=== PATIENT | male | born 1940 | race Two or more races ===

== ENCOUNTER → 2020-03-14 | Outpatient (POV) | payer OTHER, MEDICARE, MEDICAID ==
--- NOTE | 2020-03-16 10:23 | IRCOV ---
[facility] IR Consult Office Visit IR Consult Office Visit DATE: Mar 14, 2020 Patient agreed to this telephone consultation. I spent 30 minutes reviewing patient's records and talking to the patient. REASON FOR CONSULTATION/CHIEF COMPLAINT: Left kidney stone. HISTORY OF PRESENT ILLNESS: 79-year-old male recently admitted to [facility] for septic shock related to Pseudomonas UTI and obstructing left ureteral stone. This was treated with a left nephrostomy catheter. 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 He was due to be discharged from rehabilitation when he was noted to have increasing weakness and worsening renal function. He was then evaluated and transferred from [facility] to [facility] for [facility] shock in January 2020. At that time he was noted to have leukocytosis, positive urinalysis, blood cultures growing Pseudomonas at outside facility, left-sided hydronephrosis and hypotension. He required vasopressors. He was treated with a left nephrostomy catheter. Reports state, he had a CT scan scan which demonstrated significant stone burden in the left renal pelvis and left mid ureter. Patient presents to establish care for his nephrostomy exchanges and would like to seek care close to home for his stone treatment. He is currently in ehabilitation and due to be discharged home to his family. ALLERGIES: Please see below. HOME MEDICATIONS: Please see below. PAST MEDICAL HISTORY: Chronic kidney disease Diabetes Stroke Left-sided hemiplegia Subdural hemorrhage Atrial fibrillation PAST SURGICAL HISTORY: Craniotomy FAMILY HISTORY: Noncontributory. SOCIAL HISTORY: Nonsmoker. Denies alcohol or drugs. REVIEW OF SYSTEMS: Otherwise negative. PHYSICAL EXAMINATION: No video on patient side. LABORATORY DATA: No recent labs in our system. Labs from [facility] at time of septic shock reviewed. Imaging: No imaging in our system. ASSESSMENT/PLAN: 79-year-old male with history septic shock related to Pseudomonas UTI and obstructing left ureteral stone, treated with left nephrostomy catheter, presents to establish care for his nephrostomy exchanges. We will request the imaging from [facility] to be loaded into our PACS system. I have scheduled the patient for his next nephrostomy exchange. I will refer the patient to [facility] urology for stone treatment. Thank you for this referral. CC TELMA Noriega MD Mar 16, 2020 10:23
== END ==
LOC: M TMIRPOV 14:28
PROVIDERS: ATTEND Radiology Diagnostic Radiology
DX: N20.1 Calculus of ureter (principal); N18.9 Chronic kidney disease, unspecified; E11.22 Type 2 diabetes mellitus with diabetic chronic kidney disease; I69.954 Hemiplegia and hemiparesis following unspecified cerebrovascular disease affecting left non-dominant side; I48.91 Unspecified atrial fibrillation

== ENCOUNTER → 2020-04-20 | Outpatient (CLI) | payer OTHER, MEDICARE, MEDICAID ==
[~2020-04-20] MED LIST: ACET1TAB55 PO; ATOR1TAB19 PO; BISA10SU27 PR; CALC1TAB42 PO; D3 +TAB PO; ESSE250T PO; FINA5TAB2 PO; FLEEENE12 PR; FLUO1CRE2 TOP; GABA-282 PO; GENT1SOL16 OP; ISOVUE-300 61% 50ML VIAL As Ordered ONE; LEXA5TAB13 PO; LIDOCAINE 1% MDV 20ML VIAL As Ordered ONE; MELA3TAB49 PO; METF-838 PO; MIDAZOLAM INJ 2MG/2ML VIAL (J2250 PER 1MG) As Ordered ONE; MILKSUS3 PO; MULTTAB57 PO; POTA1TAB14 PO; SENN8.6T58 PO; VITA500C24 PO; WARF-23 PO; ZINC220CA PO; ceFAZolin 1GM VIAL (J0690 PER 500MG) As Ordered ONE; diphenhydrAMINE 50MG/ML VIAL (J1200) As Ordered ONE; fentaNYL 100 MCG/2 ML INJECTION (J3010) As Ordered ONE
[2020-04-20 08:26] LABS: HEMATOCRIT 40.9 % (42.0-52.0); HEMOGLOBIN 13.1 g/dl (13.5-17.5); MEAN CORPUSCULAR HEMOGLOBIN 30.8 pg (27.0-33.0); PLATELET COUNT, AUTOMATED 211 10^3/uL (150-450); RED BLOOD COUNT 4.26 10^6/uL (4.30-6.10); WHITE BLOOD COUNT 11.8 10^3/uL (4.0-10.0)
[2020-04-20 08:39] LABS: INR 3.47; PROTHROMBIN TIME 35.7 SECONDS (12.5-14.3)
[2020-04-20 08:51] LABS: CALCIUM LEVEL 8.3 MG/DL (8.8-10.2); CREATININE FOR GFR 1.41 MG/DL (0.70-1.30); GLOMERULAR FILTRATION RATE 51.6 (>42)
--- NOTE | 2020-04-20 09:04 | IRHP ---
[facility] IR Pre-Procedure H & P General Date of Service: Apr 20, 2020 Procedure: Same Day Surgery Interval History and Physical I have seen the patient and reviewed last H & P performed within 30 days. There is no significant interval change. History of Present Illness Chief Complaint The patient is a 79-year-old male admitted with a reason for visit of Kidney Stone. PRE-PROCEDURE DIAGNOSIS: left nephrostomy exchange HEART: normal rate. LUNGS: normal breathing at rest. ASA Classification ASA Classification: III-Severe systemic dis. Mallampati Score: II NPO: Yes Problems with prior sedation: No Obstructive Sleep Apnea: No Plan moderate sedation Allergies Coded Allergies: No Known Drug Allergies (Verified Allergy, Unknown, 04/20/20) VS, I&O, 24H, Fishbone Vital Signs/I&O Vital Signs Date Time Temp Pulse Resp B/P (MAP) Pulse Ox O2 Delivery O2 Flow Rate FiO2 04/20/20 08:50 56 20 100 Nasal Cannula 2 04/20/20 08:01 97.6 Laboratory Data 24H LABS Laboratory Tests 2 04/20/20 08:07: Nucleated Red Blood Cells % (auto) 0.0, Prothrombin Time 35.7H, Prothromb Time International Ratio 3.47, Anion Gap 8, Glomerular Filtration Rate 51.6, Calcium Level 8.3L CBC/BMP Laboratory Tests 04/20/20 08:07 TELMA ORTIZ MD Apr 20, 2020 09:04
[2020-04-20 11:35] VITALS: BP 102/57
--- NOTE | 2020-04-21 10:24 | POST-OPPD ---
Postoperative Procedure Note Date Of Procedure: Apr 20, 2020 Time Of Procedure: 16:00 IR Nephrostomy catheter exchange. IR Nephrostogram and ureterogram. Clinical information: Left-sided kidney stone. Nephrostomy placed at outside hospital. Presents for routine exchange. Physician: Dr. Qureshi. Procedure: The patient was advised of the benefits, risks and alternatives of the procedure and informed consent was obtained. The time-out was performed with verification of the patient's name, MRN, site of procedure and type of procedure to be performed. The patient was positioned in the prone position on the angiographic table. The site was prepped and draped in the usual sterile fashion. Moderate sedation was performed by the physician including the presence of an independent trained RN who assisted and monitored the patient's level of consciousness and physiologic status. Following the administration of fentanyl and Versed , the physician spent 30 minutes of continuous face to face time with the patient. A sales representative jewelry radiograph reveals a left nephrostomy catheter in expected location. 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 The catheter pigtail is located in the upper pole moiety. Ureterogram demonstrates stenosis in the proximal ureter with poststenotic dilation. There are 2 filling defects, one in the upper third and 1 mid ureter. The catheter was cut, an Amplatz wire was passed into the renal collecting system. The preexisting nephrostomy catheter was removed over the wire. A new 10-Russian nephrostomy catheter was advanced into the renal collecting system. A final nephrostogram and ureterogram was performed confirming position of the pigtail in the upper pole moiety. Ureterogram demonstrates, the ureter is patent to the bladder. The catheter was secured in position with 2-0 Prolene and a sterile dressing was applied to the site. The catheter was placed gravity drainage. The patient tolerated the procedure well and was returned to the PRU in stable condition. EBL: Less than 5 ml. Complications: None. Conclusion: 1. Nephrostogram and ureterogram performed through nephrostomy catheter placed at outside hospital, demonstrates duplicated renal collecting system. The pigtail is located in the upper pole moiety. 2. 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 3. The ureter is patent to the bladder. 4. Successful left nephrostomy catheter exchange. Catheter may be removed at time of kidney stone removal procedure. Otherwise, patient to return in 12 weeks for routine catheter exchange. Thank you this referral. Cc TELMA Noriega MD Apr 21, 2020 10:23
== END ==
LOC: M IRPRO 07:30
PROVIDERS: ATTEND Radiology Diagnostic Radiology
DX: N20.0 Calculus of kidney (principal); Z79.01 Long term (current) use of anticoagulants
CPT/HCPCS: 36415; 50435; 80048; 85027; 85610; 99152; 99153; C1729; C1769; J0690; J2250; J3010; Q9967

== ENCOUNTER → 2020-06-07 | Outpatient (REF) | payer OTHER, MEDICARE, MEDICAID ==
[~2020-06-07] MED LIST changes: +ACET-683 PO; +ALLO10TA PO; +AMOX500C PO; +BACI1CAP PO; +CALC1TAB74 PO; +ENOX100I3 SC; -ISOVUE-300 61% 50ML VIAL As Ordered ONE; -LIDOCAINE 1% MDV 20ML VIAL As Ordered ONE; +LOVE1INJ SC; +MELA3TAB30 PO; +METF500T13 PO; -MIDAZOLAM INJ 2MG/2ML VIAL (J2250 PER 1MG) As Ordered ONE; +POLYOPD OU; +SODI325T9 PO; +WARF-22 PO; +ZYLO300T6 PO; -ceFAZolin 1GM VIAL (J0690 PER 500MG) As Ordered ONE; -diphenhydrAMINE 50MG/ML VIAL (J1200) As Ordered ONE; -fentaNYL 100 MCG/2 ML INJECTION (J3010) As Ordered ONE
[2020-06-07 14:07] LABS: APPEARANCE, URINE CLEAR (CLEAR); BACTERIA, URINE AUTO NEGATIVE (NEGATIVE); BILIRUBIN, URINE AUTO NEGATIVE (NEGATIVE); BLOOD, URINE BLOOD 2+ (NEGATIVE); COLOR, URINE STRAW (YELLOW); GLUCOSE, URINE (UA) AUTO 1+ mg/dL (NEGATIVE); KETONE, URINE AUTO NEGATIVE (NEGATIVE); LEUKOCYTE ESTERASE, URINE AUTO 3+ (NEGATIVE); MUCUS, URINE SMALL (NEGATIVE); NITRITE, URINE AUTO NEGATIVE (NEGATIVE); PROTEIN, URINE AUTO 2+ mg/dL (NEGATIVE); RBC, URINE AUTO 18 /HPF (0-3); SPECIFIC GRAVITY URINE AUTO 1.009 (1.002-1.035); SQUAMOUS EPITHELIAL CELL UR AU 0 /HPF (0-6); UROBILINOGEN, URINE AUTO 0.2 mg/dL (0.0-2.0); WBC, URINE AUTO 26 /HPF (0-3)
== END ==
LOC: M SMT 13:42
PROVIDERS: ATTEND Nurse Practitioner Women's Health
DX: Z01.818 Encounter for other preprocedural examination (principal); N20.0 Calculus of kidney
CPT/HCPCS: 81001; 87088; 87186; G0463

== ENCOUNTER → 2020-06-13 | Outpatient (REF) | payer OTHER, MEDICARE, MEDICAID ==
[~2020-06-13] MED LIST changes: -ACET-683 PO; -ALLO10TA PO; -AMOX500C PO; -BACI1CAP PO; -CALC1TAB74 PO; -ENOX100I3 SC; -LOVE1INJ SC; -MELA3TAB30 PO; -METF500T13 PO; -POLYOPD OU; -SODI325T9 PO; -WARF-22 PO; -ZYLO300T6 PO
[2020-06-13 13:15] LABS: HEMOGLOBIN 11.6 g/dl (13.5-17.5); MEAN CORPUSCULAR HEMOGLOBIN 33.6 pg (27.0-33.0); MEAN CORPUSCULAR HGB CONC 32.2 g/dl (32.0-36.5); MEAN CORPUSCULAR VOLUME 104.3 fl (80.0-96.0); PLATELET COUNT, AUTOMATED 257 10^3/uL (150-450); RED BLOOD COUNT 3.45 10^6/uL (4.30-6.10); WHITE BLOOD COUNT 6.6 10^3/uL (4.0-10.0)
[2020-06-13 13:30] LABS: INR 1.18; PARTIAL THROMBOPLASTIN TIME 30.7 SECONDS (24.2-38.5); PROTHROMBIN TIME 15.2 SECONDS (12.5-14.3)
[2020-06-13 13:55] LABS: CALCIUM LEVEL 9.8 MG/DL (8.8-10.2); CREATININE FOR GFR 1.67 MG/DL (0.70-1.30); GLOMERULAR FILTRATION RATE 42.4 (>35); POTASSIUM SERUM 3.8 MEQ/L (3.5-5.1)
== END ==
LOC: M SHH 12:56 → M SMT 12:56
PROVIDERS: ATTEND Nurse Practitioner Women's Health
DX: Z01.818 Encounter for other preprocedural examination (principal); N20.0 Calculus of kidney; Z79.01 Long term (current) use of anticoagulants

== ENCOUNTER → 2020-06-25 | Outpatient (CLI) | payer OTHER, MEDICARE, MEDICAID ==
[~2020-06-25] MED LIST changes: +ALLO10TA PO; +LOVE1INJ SC
== END ==
LOC: M LABSMTC 08:24
PROVIDERS: ATTEND Anesthesiology
DX: Z01.812 Encounter for preprocedural laboratory examination (principal); Z20.828 Contact with and (suspected) exposure to other viral communicable diseases

== ENCOUNTER → 2020-06-26 | Outpatient (REF) | payer OTHER, MEDICARE, MEDICAID ==
[2020-06-26 14:06] LABS: BASO # 0.1 10^3/uL (0.0-0.2); BASO % 1.1 % (0.0-1.0); EOS # 0.2 10^3/uL (0.0-0.5); EOS % 2.7 % (0.0-3.0); HEMATOCRIT 37.5 % (42.0-52.0); HEMOGLOBIN 12.1 g/dl (13.5-17.5); LYMPH % 44.6 % (24.0-44.0); MEAN CORPUSCULAR HEMOGLOBIN 33.6 pg (27.0-33.0); MEAN CORPUSCULAR HGB CONC 32.3 g/dl (32.0-36.5); MEAN CORPUSCULAR VOLUME 104.2 fl (80.0-96.0); MONO # 0.6 10^3/uL (0.0-0.8); MONO % 9.6 % (2.0-8.0); NEUTROPHILS # 2.8 10^3/uL (1.5-8.5); NEUTROPHILS % 41.7 % (36.0-66.0); PLATELET COUNT, AUTOMATED 210 10^3/uL (150-450); WHITE BLOOD COUNT 6.7 10^3/uL (4.0-10.0)
[2020-06-26 14:07] LABS: APPEARANCE, URINE CLEAR (CLEAR); BACTERIA, URINE AUTO 1+ (NEGATIVE); BILIRUBIN, URINE AUTO NEGATIVE (NEGATIVE); BLOOD, URINE BLOOD 2+ (NEGATIVE); COLOR, URINE YELLOW (YELLOW); GLUCOSE, URINE (UA) AUTO NEGATIVE (NEGATIVE); KETONE, URINE AUTO NEGATIVE (NEGATIVE); LEUKOCYTE ESTERASE, URINE AUTO TRACE (NEGATIVE); MUCUS, URINE SMALL (NEGATIVE); NITRITE, URINE AUTO NEGATIVE (NEGATIVE); PROTEIN, URINE AUTO 1+ mg/dL (NEGATIVE); RBC, URINE AUTO 63 /HPF (0-3); SPECIFIC GRAVITY URINE AUTO 1.008 (1.002-1.035); SQUAMOUS EPITHELIAL CELL UR AU 1 /HPF (0-6); UROBILINOGEN, URINE AUTO 0.2 mg/dL (0.0-2.0); WBC, URINE AUTO 9 /HPF (0-3)
[2020-06-26 14:14] LABS: INR 1.29; PROTHROMBIN TIME 16.4 SECONDS (12.5-14.3)
[2020-06-26 14:15] LABS: PARTIAL THROMBOPLASTIN TIME 42.8 SECONDS (24.2-38.5)
[2020-06-26 14:26] LABS: HEMOGLOBIN A1c 5.7 %
[2020-06-26 17:03] LABS: CREATININE, URINE 29.5 MG/DL; MAU/CREAT RATIO 823.7 MCG/MG (0.0-30.0)
[2020-06-26 17:07] LABS: ALBUMIN 3.4 GM/DL (3.2-5.2); BILIRUBIN,TOTAL 0.3 MG/DL (0.2-1.0); CALCIUM LEVEL 9.6 MG/DL (8.8-10.2); CHOLESTEROL RISK RATIO 3.926 (<5); CREATININE FOR GFR 1.63 MG/DL (0.70-1.30); GLOMERULAR FILTRATION RATE 43.6 (>35); POTASSIUM SERUM 4.3 MEQ/L (3.5-5.1); THYROID STIMULATING HORMONE 0.621 uIU/ML (0.358-3.740); TOTAL PROTEIN 6.5 GM/DL (6.4-8.2); URIC ACID 5.3 MG/DL (3.5-7.2)
[2020-06-27 23:12] LABS: PSA TOTAL <0.1 ng/mL (0.0-4.0)
== END ==
LOC: M SHH 13:34
PROVIDERS: ATTEND Family Medicine
DX: I48.91 Unspecified atrial fibrillation (principal); E11.9 Type 2 diabetes mellitus without complications; N18.30 Chronic kidney disease, stage 3 unspecified; I63.9 Cerebral infarction, unspecified; I10 Essential (primary) hypertension; R22.42 Localized swelling, mass and lump, left lower limb

== ENCOUNTER 2020-06-30 07:28 | Day surgery (SDC) | payer OTHER, MEDICAID ==
[~2020-06-30] VITALS: Ht 175.3 cm; Wt 104.3 kg
[~2020-06-30 07:28] MED LIST changes: +ACETAMINOPHEN 1000MG 100ML IV BTL (OFIRMEV) (J0131 PER 10MG) As Ordered ONE; +LIDOCAINE 1% MDV 20ML VIAL SQ PRN; +LIDOCAINE 2% 100MG/5ML SDV (FOR ANES.) As Ordered ONE; +LR 1,000 ML IV ONE; +ONDANSETRON 4MG/2ML VIAL As Ordered ONE; +PHENYLephrine 500MCG 5ML (100MCG/ML) SYRINGE As Ordered ONE; +ceFAZolin SOD 2 GM in IV 1 EA IV ONE; +dexameTHASONE 4 MG/ML 1ML VIAL (J1100 PER 1MG) As Ordered ONE; +ePHEDrine SULFATE 25 MG/5 ML(5MG/ML) SYRINGE As Ordered ONE; +propofoL 200 MG/20 ML VIAL As Ordered ONE
[2020-06-30 08:47] LABS: INR 0.99; PROTHROMBIN TIME 13.3 SECONDS (12.5-14.3)
[2020-06-30] MEDS ORDERED: CONRAY-60 60% 50ML VIAL (Q9961) As Ordered ONE (09:00)
[2020-06-30 09:10] LABS: PARTIAL THROMBOPLASTIN TIME 31.7 SECONDS (24.2-38.5)
[2020-06-30] MEDS ORDERED: ONDANSETRON 4MG/2ML VIAL IV PRN (11:05)
[2020-06-30] MEDS ORDERED: fentaNYL 100 MCG/2 ML INJECTION (J3010) IV PRN (11:05)
[2020-06-30] MEDS ORDERED: PERCOCET 5MG/325MG TAB PO PRN ×2 (11:05→11:10)
[2020-06-30] MEDS ORDERED: LR 1,000 ML IV SCH (11:05)
[2020-06-30] MEDS ORDERED: METOCLOPRAMIDE INJ 10MG/2ML VIAL (J2765 PER 1) IV PRN (11:05)
--- NOTE | 2020-06-30 11:33 | REP ---
INDICATION: BILATERAL STENT PLACEMENT. COMPARISON: Comparison CT study findings 29 January 2020.. TECHNIQUE: Four views 1 minutes 39 seconds of fluoroscopy time is reported. FINDINGS: A sequence of 4 last image hold fluoroscopically obtained spot radiographs of the abdomen document bilateral ureteral cannulation and contrast injection and double-pigtail stent placement. Initial image demonstrates a left-sided percutaneous nephrostomy catheter which is apparently removed during the procedure. IMPRESSION: Procedural imaging. <Electronically signed by Charlie Odonnell > 06/30/20 [id number]
--- NOTE | 2020-06-30 11:39 | RO ---
OPERATIVE NOTE DATE OF OPERATION: 06/30/2020 PREOPERATIVE DIAGNOSIS: Bilateral kidney and ureteral stones. POSTOPERATIVE DIAGNOSIS: Bilateral kidney and ureteral stones. PROCEDURE: Cystoscopy, bilateral ureteroscopy with laser lithotripsy and basket extraction of stones, bilateral retrograde pyelogram with intraop interpretation of images, bilateral ureteral stent placement. SURGEON: Kunal Underwood MD CEILING CLEANER: None. ANESTHESIA: General. OPERATIVE INDICATIONS: This is an 80-year-old male who was found to have an obstructing 1.5 cm distal left ureteral stone several months ago as well as non-obstructing bilateral kidney stones. He had a left nephrostomy tube placed and has had that in place since then. He is brought to the operating room today to treat his bilateral kidney and ureteral stones. DESCRIPTION OF PROCEDURE: The patient was brought to the operating room and general anesthesia was induced. Prophylactic antibiotics were infused. He was then placed in the dorsal lithotomy position and prepped and draped in usual sterile fashion. Rigid cystoscope was inserted in urethral meatus and advanced to the bladder. Guidewire was then advanced up the right collecting system . Ureteral access sheath was advanced up the right collecting system. I went up the access with a flexible ureteroscope and within the right kidney an approximately 7 mm stone was seen. I then utilized an Excalibur laser fiber to fragment the stone into smaller pieces. All the fragments were then removed using a basket. Only tiny stone fragments remained. A retrograde pyelogram was then performed and notable for mild right hydronephrosis with no extravasation. I then withdrew the ureteroscope along with access and no stones were seen inside the ureter. I then utilized the guidewire to advance 6-Malawian x 22-32 cm JJ ureteral stent into the right collecting system. At this point I advanced a guidewire up the collecting system. I went up the left collecting system with a short semi-rigid ureteroscope and within the distal ureter two stones were seen. Both measured around 1.5 cm. both these stones were fragmented into smaller pieces using the Excalibur laser fiber and all the fragments were removed using basket. Only tiny stone fragments remained inside the ureter. I examined the more proximal ureter and no additional stones were seen. I then advanced ureteral access up the left collecting system. I went up the access sheath with flexible ureteroscope and examined the left kidney thoroughly. No stones were seen inside the left kidney. The nephrostomy tube was seen. At this point the nephrostomy tube was removed completely. A retrograde pyelogram was then performed and was notable for moderate left hydronephrosis with no extravasation. I then withdrew the ureteroscope along with access sheath and once again only tiny stone fragments were seen inside the ureter. I utilized guidewire to advance 6-Malawian x 22-32 cm JJ ureteral stent up the left collecting system. The wire was removed and there were adequate curls of the stent in left renal pelvis and in the bladder. At this point the bladder was emptied of all fluid and this marked the conclusion of the procedure. The patient was taken out of the dorsal lithotomy position, awakened from anesthesia and transported to the recovery room in stable condition. ESTIMATED BLOOD LOSS: 5 mL. COMPLICATIONS: None. SPECIMEN: Kidney stone fragments. PLAN: The patient will follow up in urology clinic in a few weeks to take the stents out. AMANDA
[2020-06-30 11:50] VITALS: BP 137/72
[2020-07-01] MEDS ORDERED: METF500T13 PO (16:36)
[2020-07-01] MEDS ORDERED: LEXA5TAB13 PO (16:36)
[2020-07-01] MEDS ORDERED: CALC1TAB74 PO (17:49)
[2020-07-01] MEDS ORDERED: MELA3TAB30 PO (17:49)
[2020-07-01] MEDS ORDERED: POLYOPD OU (17:49)
[2020-07-01] MEDS ORDERED: WARF-22 PO (17:49)
[2020-07-01] MEDS ORDERED: ENOX100I3 SC (17:49)
[2020-07-01] MEDS ORDERED: ZYLO300T6 PO (17:49)
[2020-07-01] MEDS ORDERED: ACET-683 PO (17:49)
== END 2020-06-30 13:11 | disposition home or self-care (01) ==
LOC: M SDC 07:28
PROVIDERS: ATTEND Urology
DX: N20.2 Calculus of kidney with calculus of ureter (principal); I48.91 Unspecified atrial fibrillation; I10 Essential (primary) hypertension; E78.5 Hyperlipidemia, unspecified; E11.9 Type 2 diabetes mellitus without complications; Z79.01 Long term (current) use of anticoagulants; Z85.6 Personal history of leukemia; Z86.73 Personal history of transient ischemic attack (TIA), and cerebral infarction without residual deficits; G47.33 Obstructive sleep apnea (adult) (pediatric); L40.9 Psoriasis, unspecified; F32.9 Major depressive disorder, single episode, unspecified; F41.9 Anxiety disorder, unspecified; N40.0 Benign prostatic hyperplasia without lower urinary tract symptoms; Z79.899 Other long term (current) drug therapy

== ENCOUNTER 2020-07-01 15:31 | Inpatient (IN) | payer MEDICAID, OTHER ==
[~2020-07-01] VITALS: Ht 175.3 cm; Wt 112.8 kg
[~2020-07-01 15:31] MED LIST changes: -ACETAMINOPHEN 1000MG 100ML IV BTL (OFIRMEV) (J0131 PER 10MG) As Ordered ONE; -LIDOCAINE 1% MDV 20ML VIAL SQ PRN; -LIDOCAINE 2% 100MG/5ML SDV (FOR ANES.) As Ordered ONE; -LR 1,000 ML IV ONE; -ONDANSETRON 4MG/2ML VIAL As Ordered ONE; -PHENYLephrine 500MCG 5ML (100MCG/ML) SYRINGE As Ordered ONE; -ceFAZolin SOD 2 GM in IV 1 EA IV ONE; -dexameTHASONE 4 MG/ML 1ML VIAL (J1100 PER 1MG) As Ordered ONE; -ePHEDrine SULFATE 25 MG/5 ML(5MG/ML) SYRINGE As Ordered ONE; -propofoL 200 MG/20 ML VIAL As Ordered ONE
[2020-07-01] MEDS ORDERED: NS 500 ML IV ONE (15:45)
[2020-07-01] MEDS ORDERED: ACETAMINOPHEN *IV* 650 MG in IV 1 EA IV ONE (15:45)
--- NOTE | 2020-07-01 16:01 | REP ---
INDICATION: AMS COMPARISON: None. TECHNIQUE: Portable AP view of the chest FINDINGS: The mediastinum and cardiac silhouette are within normal limits for portable technique. The lung brunson demonstrate chronic appearing changes without acute consolidation, effusion, or pneumothorax. Skeletal structures are intact. IMPRESSION: No obvious acute cardiopulmonary process appreciated. <Electronically signed by Tomás Cisneros > 07/01/20 [id number]
[2020-07-01 16:05] LABS: BASO % 0.2 % (0.0-1.0); HEMATOCRIT 35.9 % (42.0-52.0); HEMOGLOBIN 11.8 g/dl (13.5-17.5); LYMPH # 1.7 10^3/uL (1.5-5.0); LYMPH % 10.8 % (24.0-44.0); MEAN CORPUSCULAR HEMOGLOBIN 33.1 pg (27.0-33.0); MEAN CORPUSCULAR HGB CONC 32.9 g/dl (32.0-36.5); MEAN CORPUSCULAR VOLUME 100.8 fl (80.0-96.0); MONO # 1.1 10^3/uL (0.0-0.8); MONO % 7.4 % (2.0-8.0); NEUTROPHILS # 12.4 10^3/uL (1.5-8.5); NEUTROPHILS % 80.9 % (36.0-66.0); PLATELET COUNT, AUTOMATED 188 10^3/uL (150-450); RED BLOOD COUNT 3.56 10^6/uL (4.30-6.10); WHITE BLOOD COUNT 15.3 10^3/uL (4.0-10.0)
[2020-07-01 16:30] LABS: APPEARANCE, URINE CLOUDY (CLEAR); BACTERIA, URINE AUTO NEGATIVE (NEGATIVE); BILIRUBIN, URINE AUTO NEGATIVE (NEGATIVE); BLOOD, URINE BLOOD 3+ (NEGATIVE); COLOR, URINE RED (YELLOW); GLUCOSE, URINE (UA) AUTO 1+ mg/dL (NEGATIVE); KETONE, URINE AUTO NEGATIVE (NEGATIVE); LEUKOCYTE ESTERASE, URINE AUTO 3+ (NEGATIVE); NITRITE, URINE AUTO NEGATIVE (NEGATIVE); PROTEIN, URINE AUTO 2+ mg/dL (NEGATIVE); RBC, URINE AUTO TNTC /HPF (0-3); SPECIFIC GRAVITY URINE AUTO 1.011 (1.002-1.035); SQUAMOUS EPITHELIAL CELL UR AU 0 /HPF (0-6); UROBILINOGEN, URINE AUTO 0.2 mg/dL (0.0-2.0); WBC, URINE AUTO TNTC /HPF (0-3)
[2020-07-01] MEDS ORDERED: LEXA5TAB13 PO (16:36)
[2020-07-01] MEDS ORDERED: METF500T13 PO (16:36)
[2020-07-01] MEDS ORDERED: cefTRIAXone SOD 2 GM in D5W MINI-BAG PLUS 50 ML IV ONE (17:15)
[2020-07-01] MEDS: NS 1,000 ML IV SCH ×2 (17:25→21:23)
[2020-07-01 17:30] LABS: RSV AMPLIFICATION NEGATIVE (NEGATIVE)
[2020-07-01] MEDS ORDERED: POLYOPD OU (17:49)
[2020-07-01] MEDS ORDERED: WARF-22 PO (17:49)
[2020-07-01] MEDS ORDERED: ACET-683 PO (17:49)
[2020-07-01] MEDS ORDERED: ENOX100I3 SC (17:49)
[2020-07-01] MEDS ORDERED: MELA3TAB30 PO (17:49)
[2020-07-01] MEDS ORDERED: ZYLO300T6 PO (17:49)
[2020-07-01] MEDS ORDERED: CALC1TAB74 PO (17:49)
--- NOTE | 2020-07-01 18:23 | REPVR ---
PROCEDURE INFORMATION: Exam: CT Abdomen And Pelvis Without Contrast Exam date and time: 07/01/2020 4:55 PM Age: 80 years old Clinical indication: Other: Sepsis, R/O obstructive pyelo TECHNIQUE: Imaging protocol: Computed tomography of the abdomen and pelvis without contrast. Radiation optimization: All CT scans at this facility use at least one of these dose optimization techniques: automated exposure control; mA and/or kV adjustment per patient size (includes targeted exams where dose is matched to clinical indication); or iterative reconstruction. COMPARISON: CT ABD/PELVIS W/O CONTRAST - OUTSIDE PRIOR 01/29/2020 3:14 PM FINDINGS: Limitations: Absence of intravenous contrast limits evaluation of vascular and visceral structures. Pleural spaces: There appears to be pulmonary vascular congestion of the lung bases but no pleural effusions. Liver: There are no focal liver lesions. Gallbladder and bile ducts: The gallbladder is unremarkable. Pancreas: The pancreas is normal. Spleen: The spleen is unremarkable. Adrenal glands: The adrenal glands are unremarkable. Kidneys and ureters: There are bilateral ureteral stents with proximal pigtail catheters in the expected location extra renal pelves however they are decompressed and not well assessed. Some air is seen within the calices bilaterally. The distal ends are within the urinary bladder which is also decompressed. There are 3 right renal calcifications which may be within the renal collecting system measuring 7.1, 8.4 and 7.2 mm. There is a punctate left renal calculus. There is bilateral perinephric stranding greater on right than left. There is increased density in both flanks possibly associated with prior nephrostomy tubes with small subcutaneous hematomas on the left largest measuring 3.5 cm. Stomach and bowel: Unremarkable. No obstruction. No mucosal thickening. Appendix: No evidence of appendicitis. Intraperitoneal space: Unremarkable. No free air. No significant fluid collection. Vasculature: The infrarenal abdominal aorta measures 2.6 cm AP.There is moderate atherosclerotic calcification. Lymph nodes: Unremarkable. No enlarged lymph nodes. Urinary bladder: See "Kidneys and ureters" finding. Reproductive: Unremarkable as visualized. Bones/joints: Degeneration. Grade 1 anterior spondylolisthesis at the L4-L5 level due to degeneration of the subluxed facet joints with likely spinal canal stenosis. There has been prior posterior decompressive surgery. Soft tissues: There is a fat-containing umbilical hernia. IMPRESSION: Bilateral ureteral stents have been placed and there is decompression of both intrarenal collecting systems. The patient likely has bilateral extrarenal pelves. Electronically signed by: Judy Villanueva On 07/01/2020 18:23:06 PM
[2020-07-01] MEDS ORDERED: GLUCOSE 4GM CHEW TABLET PO PRN (18:40)
[2020-07-01] MEDS ORDERED: DEXTROSE 50% 50 ML SYRINGE IV PRN (18:40)
[2020-07-01] MEDS ORDERED: GLUCAGON INJ 1MG VIAL SC PRN (18:40)
--- NOTE | 2020-07-01 18:52 | HPEPDOC ---
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 He just underwent a cystoscopy/bilateral ureteroscopy with lithotripsy and bilateral ureteral stent placement and removal of left prostate. 2. Yesterday (06/30) with Dr. Kunal Underwood. His last known well time was 7 AM on day of presentation. When found by EMS, he was febrile with a temperature of 104.5 in the field and given 150 mL of normal saline in route to the ED. He also had left-sided pain and firmness, but of note, he is currently receiving IM Lovenox injections. Upon presentation to the ED, he was febrile with a temperature of 103 orally, tachycardic (heart rate 116), and tachypneic (RR 22) with leukocytosis (WBC 15.3 with neutrophil predominance and no bands). Chemistries revealed a serum creatinine of 2.1 (recent BL about 1.4). Urinalysis showed 3+ leukocyte esterase, too numerous to count. Urine white blood cells and a negative automated urine bacteria; urine culture is pending. One initial blood culture was obtained and is pending. SARSCoV-2 PCR was positive. Chest x-ray showed no acute cardiopulmonary process and a CT abdomen and pelvis revealed bilateral ureteral stents, three right renal calcifications, a punctate left renal calculus, and bilateral perinephric stranding (right > left). Of note, the patient had a 06/07/20 urinalysis showing UTI with culture growing Klebsiella. The patient was treated beginning on 06/09/20 with 10 days of Levaquin. Patient was then seen on Friday this past week (06/26) through [facility], and a urinalysis at that time had trace positive leuk esterase with 1+ urine bacteria. No urine culture was obtained on this 06/26 UA. Apparently, a pre-surgical outpatient covid test was negative. The patient then went for the aforementioned surgery yesterday, 06/30. In the ED, patient was administered 650 mg IV Tylenol, a 500 mL fluid bolus, started on a liter of fluid running at 100 mL an hour, and administered a 2 g dose IV dose of ceftriaxone. After the IV Tylenol, he remained febrile, but his temperature dropped to 101.9. Patient was subsequently admitted under the care of the hospitalist service to the ICU with telemetry in the setting of sepsis secondary to UTI and possible other etiology associated with yesterday's surgery. A second blood culture was ordered along with continuation of fluids, initiation of Zosyn (in light of his history of pseudomonas UTI 5 months ago), MRSA screen, pro-calcitonin, urine electrolytes (in setting of OLGA). It was confirmed via a phone conversation with the patient's son, Sal, that the patient's CODE STATUS is full code. PAST MEDICAL HISTORY: *Due to patient's altered mental status upon admission exam, all past medical history was obtained via previous medical documents Atrial fibrillation on warfarin; he is currently on both Lovenox and warfarin, as he had been bridged in preparation for yesterday's surgery and is now in the process of bridging back to warfarin alone Hemorrhagic stroke w/ left-sided hemiplegia, wheelchair dependent at baseline, receives 24/7 care at home Pseudomonas UTI and bacteremia with sepsis requiring Levophed, January 2020 Chronic left-sided 1.5 cm distal ureteral stone for 78 months with left nephrostomy tube; left nephrostomy tube was removed during yesterday's surgery and stone was destroyed via laser lithotripsy Subdural hematoma without trauma in July 2011, status post craniotomy (July 2019) Chronic kidney disease stage III Ptx-ehrfpqq-wssviytex diabetes mellitus. Hypertension Obstructive sleep apnea Depression Unspecified arthritis History of C. difficile infection Obesity (patient's weight was not logged at the time of admission H&P, per recent outpatient appointment, his BMI was 33.9. 6) PAST SURGICAL HISTORY: *Due to patient's altered mental status upon admission exam, all past surgical history was obtained via previous medical documents Bilateral total knee arthroplasties, 2016. Craniotomy (July 2019) SOCIAL HISTORY: *Due to patient's altered mental status upon admission exam, all past social history was obtained via previous medical documents and patient's son (Sal Mccauley) Patient is a former smoker, having quit in 1988. There is no documentation on how long he smoked and byq-fuew-iitr history. Recent alcohol screening was "negative" as patient denied having any alcohol in the past year. Patient had documented response of "no" to recreational drug use. Patient was living at [facility] rehabilitation facility in January 2020, but there is no documentation regarding whether or not he is still a resident there/his current residence Patient has a son named Sal FAMILY HISTORY: There was no family history on documentation that we could review. All we know at this time as the patient has a son named Sal. ALLERGIES: Please see below. REVIEW OF SYSTEMS: A 12 point review of systems was on obtainable due to patient's presenting altered mental status. HOME MEDICATIONS: Please see below. PHYSICAL EXAMINATION: VITAL SIGNS: Temperature 103.0, pulse 116, respiratory rate 22, blood pressure 117/62, pulse oximetry, D5 % on room air. GENERAL APPEARANCE: Obese, ill-appearing and altered elderly male kwesi diaz flat in bed. He is awake and oriented to his name only. He is not oriented to time nor place. At rare times he will follow commands, but is not consistently doing so. HEENT: Noninjected, anicteric sclera. No significant conjunctival pallor appreciated. Pupils appear slightly constricted but are equal and round bilaterally and reactive to light and accommodation. There is ptosis of the left eyelid with some subtle bilateral proptosis. ORAL CAVITY: Dry mucous membranes with no appreciated pharyngeal erythema or exudate. NECK: Wide thick neck with some hardening of skin at the base with darkened pigmentation. Appears to be a pocket of fluctuance fluid at the right lateral neck base. CARDIOVASCULAR: Tachycardic rate, irregular rhythm. There are visualized PVCs on monitoring. Possible slight 1/6 systolic murmur. No rubs or clicks appreciated. LUNGS: Due to altered status auscultation occurred anteriorly and laterally. Tachypneic with diminished breath sounds. Symmetric chest expansion. No discernible crackles, wheezes, or rhonchi were appreciated. Breathing room air. No significant accessory muscle use. ABDOMEN: Obese with ecchymosis in the left lower quadrant. There is palpable areas of induration over the left inferior flank and left lower quadrant. There appears to be a ventral midline hernia. Difficult to discern for hepatosplenomegaly due to habitus. Hypoactive bowel sounds. No rigidity appreciated. The patient is tender throughout the left side of the abdomen. MUSCULOSKELETAL: Decreased strength and range of motion of the left upper and lower extremities. EXTREMITIES: There is bilateral lower extremity edema, greater on the left. There is pitting pedal edema of the left foot with associated erythema. Skin of all extremities is warm to the touch. There are areas of chronic ecchymosis over bilateral forearms. Bilateral onychomycosis. Patient winces when calves are sq ueezed. NEUROLOGICAL: Patient is awake and oriented to name only. When asked questions about time, situation, and place, he intermittently will state "I know that," but never follows through with the response. There are rare instances during the exam where he will respond to commands, but this is very inconsistent. When asked to raise his left upper and lower extremities, he instead raises his right upper and lower extremities. He is unable to consistently respond upon cranial nerve testing prompts. He does not track in all when cranial nerves 3-4-6 are all tested. PSYCHIATRIC: Unable to assess for mood and affect in the setting of altered mental status. LABORATORY DATA: Please see below. IMAGING: Chest x-ray (1 view), 07/01/20 FINDINGS: The mediastinum and cardiac silhouette are within normal limits for portable technique. The lung brunson demonstrate chronic appearing changes without acute consolidation, effusion, or pneumothorax. Skeletal structures are intact. IMPRESSION: No obvious acute cardiopulmonary process appreciated. CT abdomen, pelvis, 07/01/20 Kidneys and ureters: There are bilateral ureteral stents with proximal pigtail catheters in the expected location extra renal pelves however they are decompressed and not well assessed. Some air is seen within the calices bilaterally. The distal ends are within the urinary bladder which is also decompressed. There are 3 right renal calcifications which may be within the renal collecting system measuring 7.1, 8.4 and 7.2 mm. There is a punctate left renal calculus. There is bilateral perinephric stranding greater on right than left. There is increased density in both flanks possibly associated with prior nephrostomy tubes with small subcutaneous hematomas on the left largest measuring 3.5 cm. Stomach and bowel: Unremarkable. No obstruction. No mucosal thickening. Appendix: No evidence of appendicitis. Intraperitoneal space: Unremarkable. No free air. No significant fluid collection. Vasculature: The infrarenal abdominal aorta measures 2.6 cm AP.There is moderate atherosclerotic calcification. Lymph nodes: Unremarkable. No enlarged lymph nodes. Urinary bladder: See "Kidneys and ureters" finding. Reproductive: Unremarkable as visualized. Bones/joints: Degeneration. Grade 1 anterior spondylolisthesis at the L4-L5 level due to degeneration of the subluxed facet joints with likely spinal canal stenosis. There has been prior posterior decompressive surgery. Soft tissues: There is a fat-containing umbilical hernia. IMPRESSION: Bilateral ureteral stents have been placed and there is decompression of both intrarenal collecting systems. The patient likely has bilateral extrarenal pelves. Head CT without contrast, 07/01/20 FINDINGS: Brain: There is no acute cortical infarction, intracranial hemorrhage or mass.There is moderate diffuse heterogeneity of the white matter, most consistent with microangiopathy. There is encephalomalacia in the superior right frontal white matter which may be postsurgical. Cerebral ventricles: The ventricles appear enlarged, but not out of proportion to the degree of parenchymal volume loss. Bones/joints: There has been a craniotomy at the brain vertex bifrontal. Paranasal sinuses: Mucoperiosteal thickening is seen in both maxillary antra with a small air-fluid level in left sphenoid air cell. The frontal sinus is aplastic. Mastoid air cells: The middle ear cavities and mastoid air cells are clear. Vasculature: Atherosclerosis. Soft tissues: Unremarkable. IMPRESSION: No acute intracranial findings. MICROBIOLOGY: Please see below. ASSESSMENT & PLAN: This is an 80yo male w/ notable h/o atrial fibrillation on warfarin (currently on both warfarin and Lovenox as he is bridging post surgery), hemorrhagic stroke with left-sided hemiplegia and wheelchair dependent, pseudomonas UTI and bacteremia with sepsis requiring vasopressors (January 2020) menses, chronic kidney disease, stage III, on insulin dependent diabetes mellitus, hypertension, obstructive sleep apnea, subdural hemorrhage without trauma, status post craniotomy (July 2019), prior C. difficile infection, and bilateral ureteroscopically with lithotripsy and bilateral stent placement (yesterday, 06/30/20) menses, who presented to the ED on 07/01/20 via EMS due to altered mental status. He was found to be septic with at least one apparent source being urinary tract. Also found to be covid positive. He was admitted to the ICU with telemetry, with continuation of IV fluids and IV antibiotics. #Urinary tract infection in the setting of bilateral ureteroscopy on 06/30/20 -Presenting temperature of 103 orally, heart rate 116, respiratory rate 22, WBC 15.3 with left shift and no bands -Was administered a 500 mL bolus in the ED, along with IV Tylenol, which dropped his temperature to 101.9. He also received a 2 g IV dose of ceftriaxone and was subsequently started on a liter of normal saline running at 100 mL an hour -Zosyn was started in the setting of pseudomonas UTI and bacteremia with sepsis requiring vasopressors (January 2020). -Pro calcitonin, MRSA screen, and a second blood culture ordered. Patient had an initial blood culture in the ED that is pending. Urine cultures also pending at this time. -Admitted to the ICU with telemetry -Patient is also Covid positive. On speaking with his son, Sal, he has been positive since March, but unfortunately a pre-operative Covid test as an outpatient prior to yesterday's surgery was negative. -A urinalysis just 5 days ago had trace leuk esterase with 1+ urine bacteria but no culture was ordered. Of note, a UA was done on 06/07 with a culture that grew Klebsiella and the patient was treated with 10 days of Levaquin. -On-call urologist (Dr. Bailey) was called and made aware of the case and subsequently consulted. There is potential for infection of newly inserted bilateral renal stents. During yesterday's procedure. Patient made nothing by mouth. -Follow-up CBC ordered -Initial lactic was unremarkable (1.1) #Acute renal failure on chronic kidney disease stage III -Presenting serum creatinine was 2.1. Upon review of records, recent baseline is about 1.4. -She was receiving IV fluid hydration. The setting of sepsis. -Urine electrolytes ordered. -Renal ultrasound was deferred in the setting of the presenting CT abdomen and pelvis. #Acute metabolic encephalopathy - likely 2/2 infection -A CT of the head was ordered without contrast to assess for any possible sup ratentorial pathologies -Of note, patient does have the history of hemorrhagic stroke with left-sided hemiplegia and the subdural hematoma status post craniotomy -Patient was admitted to the ICU with telemetry #Positive SARS-CoV2 PCR test in emergency department today (07/01) -On speaking with the patient's son, Sal, apparently the patient tested positive. Initially in March 2020. Interestingly, per reports, the patient underwent a pre-surgical Covid test prior to yesterday's procedure, which apparently was negative. -Nonetheless, the patient will be placed on both contact and droplet precautions in the interim. #Bno-ranxcfp-evxkehyhw diabetes mellitus -Home metformin held. Sliding scale insulin and fingersticks ordered every 6 in the setting of nothing by mouth diet order. -Home statin continued -Patient is on gabapentin at home. Her abscesses for diabetic neuropathy/neuropathic pain. Nonetheless, gabapentin held in the setting of altered mental status. #Atrial fibrillation on warfarin -Patient is currently on warfarin and Lovenox as he is bridging post yesterday surgery. We have held his warfarin and are continuing the Lovenox. -Telemetry ordered -Patient was tachycardic upon admission with heart rate in the low 110s #Depression -Home escitalopram held in the setting of altered mental status #Suspected history of gout -Home allopurinol was held #Suspected history of BPH -Home finasteride continued #DVT prophylaxis: Patient's current Lovenox dose was continued Code status: Patient's son, Sal, confirmed over the phone this evening that patient is a full code Disposition: Admitted to the ICU in the setting of sepsis with expected stay of 2+ days. Vital Signs Vital Signs Date Time Temp Pulse Resp B/P (MAP) Pulse Ox O2 Delivery O2 Flow Rate FiO2 07/01/20 18:24 103/51 (68) 07/01/20 18:16 103 94 07/01/20 18:15 22 07/01/20 17:28 101.9 07/01/20 15:37 Room Air Laboratory Data Labs 24H Laboratory Tests 2 07/01/20 15:57: Immature Granulocyte % (Auto) 0.7, Neutrophils (%) (Auto) 80.9H, Lymphocytes (%) (Auto) 10.8L, Monocytes (%) (Auto) 7.4, Eosinophils (%) (Auto) 0.0, Basophils (%) (Auto) 0.2, Neutrophils # (Auto) 12.4H, Lymphocytes # (Auto) 1.7, Monocytes # (Auto) 1.1H, Eosinophils # (Auto) 0.0, Basophils # (Auto) 0.0, Nucleated Red Blood Cells % (auto) 0.0, Urine Color REDH, Urine Appearance CLOUDYH, Urine pH 6.0, Urine Specific [place] 1.011, Urine Protein 2+H, Urine Glucose (Auto)(UA) 1 +H, Urine Ketones (Auto) NEGATIVE, Urine Blood 3+H, Urine Nitrite NEGATIVE, Urine Bilirubin NEGATIVE, Urine Urobilinogen 0.2, Urine Leukocyte Esterase (Auto) 3+H, Urine WBC (Auto) TNTCH, Urine RBC (Auto) TNTCH, Urine Hyaline Casts (Auto) 0, Urine Bacteria (Auto) NEGATIVE, Urine Squamous Epithelial Cells 0, Urine Sperm (Auto) , Coronavirus (COVID-19)(PCR) POSITIVEA, Influenza Type A (RT-PCR) NEGATIVE, Influenza Type B (RT-PCR) NEGATIVE, Respiratory Syncytial Virus (PCR) NEGATIVE 07/01/20 15:59: POC Lactate (Misc Panel) 1.11 07/01/20 16:02: POC Glucose (Misc Panel) 178H, POC Sodium (Misc Panel) 141, POC Potassium (Misc Panel) 4.0, POC Chloride (Misc Panel) 105, POC Total CO2 (Misc Panel) 27.0, POC Blood Urea Nitrogen (Misc Panel 35H, POC Ionized Calcium (Misc Panel) 5.0, POC Creatinine (Misc Panel) 2.1H, POC Hematocrit (Misc Panel) 38.0 CBC/BMP Laboratory Tests 07/01/20 15:57 Microbiology Microbiology 07/01/20 Blood Culture, Received Pending 07/01/20 Urine Culture, Received Pending 07/01/20 Blood Culture, Received Pending Home Medications Scheduled Allopurinol (Zyloprim) 300 Mg Tablet, 300 MG PO DAILY Atorvastatin Calcium (Atorvastatin Calcium) 10 Mg Tablet, 10 MG PO QHS Calcium Carbonate/Vitamin D3 (Calcium 600-Vit D3 400 Tablet) 1 Each Tablet, 1 TAB PO DAILY Enoxaparin Sodium (Enoxaparin Sodium) 100 Mg/1 Ml Syringe, 100 MG SC BID HAS 10 MORE SYRINGES LEFT THEN NEEDS RECHECK Escitalopram Oxalate (Lexapro) 5 Mg Tablet, 5 MG PO DAILY PCP DID NOT RENEW THIS RX AT APPT 2 WEEKS AGO, UNSURE IF PATIENT IS SUPPOSED TO STILL BE TAKING OR NOT Finasteride (Finasteride) 5 Mg Tablet, 5 MG PO QHS Gabapentin (Gabapentin) 300 Mg Capsule, 300 MG PO QHS Melatonin (Melatonin) 3 Mg Tablet, 3 MG PO QHS Metformin HCl (Metformin HCl) 500 Mg Tablet, 500 MG PO BID PCP DID NOT RENEW THIS RX AT APPT 2 WEEKS AGO, UNSURE IF PATIENT IS SUPPOSED TO STILL BE TAKING Polyvinyl Alcohol (Artificial Tears) 15 Ml Drops, 1 DROP OU BID Potassium Chloride (Potassium Chloride) 20 Meq Tablet.er, 20 MEQ PO DAILY Warfarin Sodium (Warfarin Sodium) 10 Mg Tablet, 10 MG PO QPM ON HOLD UNTIL Friday07/03/20 Scheduled PRN Acetaminophen (Acetaminophen) 500 Mg Tablet, 1,000 MG PO TID PRN for PAIN / FEVER Allergies Coded Allergies: No Known Drug Allergies (Verified Allergy, Unknown, 06/23/20) A-FIB/CHADSVASC A-FIB History Current/History of A-Fib/PAF?: Yes Current PO Anticoag Therapy: Yes (recei receiving injections of Lovenox.) GME ATTESTATION GME ATTESTATION My faculty preceptor for this patient encounter was physically present during the encounter and was fully available. All aspects of the patient interview, examination, medical decision making process, and medical care plan development were reviewed and approved by the faculty preceptor. The faculty preceptor is aware and concurs with the plan as stated in the body of this note and will attest to such by his/her cosignature. ATTENDING NOTE I, Yamilet Silva, have independently examined this patient and performed my own physical exam, as well as reviewed the documentation and edited where necessary. I have discussed in detail with the resident / student the findings and plan of treatment as documented by the resident / student and edited their note. I agree with their findings and treatment plan and have edited their documentation. I will continue to follow the patient during this hospital stay. KATHY WALSH D.O. Jul 01, 2020 18:52 YAMILET SILVA MD Jul 02, 2020 08:34
--- NOTE | 2020-07-01 19:09 | IPNPDOC ---
Text Note Date of Service The patient was seen on 07/01/20. NOTE H&P to follow: Patient is a 80 year old male with a PMHx of A. fib (on Lovenox / Warfarin), Hx of CVA with L sided weakness, Hx of SDH, Hx of Pseudomonas bacteremia 2/2 UTI (01/2020) who presented to the emergency room after he had a urologic procedure completed yesterday with fevers and altered mental status. Patient will be admitted to ICU for suspected complicated UTI in the setting of urologic procedure - Will check CT head - Will start IV fluids and broad-spectrum antibiotics - Blood cultures, pro-calcitonin, MRSA screen, repeat lactic acid - Discussed case in detail with Son; Sal Mccauley ( ; Home: ) Patient was found to be COVID19 positive in the emergency room - However son had reported COVID positive on 03/2020 then vaccinated on 05/2020 VS,Fishbone, I+O VS, Fishbone, I+O Laboratory Tests 07/01/20 15:57 Vital Signs Date Time Temp Pulse Resp B/P (MAP) Pulse Ox O2 Delivery O2 Flow Rate FiO2 07/01/20 18:24 103/51 (68) 07/01/20 18:16 103 94 07/01/20 18:15 22 07/01/20 17:28 101.9 07/01/20 15:37 Room Air KALEN GUNTER MD Jul 01, 2020 19:01
[2020-07-01 19:11] LABS: CREATININE,RANDOM URINE 62.4 MG/DL
[2020-07-01 19:25] LABS: CREATININE FOR GFR 2.09 MG/DL (0.70-1.30); GLOMERULAR FILTRATION RATE 32.7 (>35)
--- NOTE | 2020-07-01 19:29 | REPVR ---
PROCEDURE INFORMATION: Exam: CT Head Without Contrast Exam date and time: 07/01/2020 7:06 PM Age: 80 years old Clinical indication: Altered mental status/memory loss; Confusion or disorientation; Prior surgery; Surgery date: 6+ months; Surgery type: Craniotomy July 2019 TECHNIQUE: Imaging protocol: Computed tomography of the head without contrast. Radiation optimization: All CT scans at this facility use at least one of these dose optimization techniques: automated exposure control; mA and/or kV adjustment per patient size (includes targeted exams where dose is matched to clinical indication); or iterative reconstruction. COMPARISON: No relevant prior studies available. FINDINGS: Brain: There is no acute cortical infarction, intracranial hemorrhage or mass.There is moderate diffuse heterogeneity of the white matter, most consistent with microangiopathy. There is encephalomalacia in the superior right frontal white matter which may be postsurgical. Cerebral ventricles: The ventricles appear enlarged, but not out of proportion to the degree of parenchymal volume loss. Bones/joints: There has been a craniotomy at the brain vertex bifrontal. Paranasal sinuses: Mucoperiosteal thickening is seen in both maxillary antra with a small air-fluid level in left sphenoid air cell. The frontal sinus is aplastic. Mastoid air cells: The middle ear cavities and mastoid air cells are clear. Vasculature: Atherosclerosis. Soft tissues: Unremarkable. IMPRESSION: No acute intracranial findings. Electronically signed by: Judy Villanueva On 07/01/2020 19:29:40 PM
--- NOTE | 2020-07-01 19:34 | SMCUROLCON ---
Urology Consultation General Date of Consultation 07/01/20 Reason For Consultation This patient is seen for altered mental status/ COVID 19. History of Present Illness The patient is a 80-year-old male with a past medical history for renal calculi. He recently had ureteroscopic laser lithotripsy bilaterally. He had been doing well at home until today when family members noted that he was not as responsive as usual and I received a call. I told them to bring the patient to the emergency room immediately was found to be probably septic and elevated white cell count and urine that appeared to be positive for infection. He will therefore be admitted for IV antibiotics and hydration He also is now CoVid positive Past Medical History Medical History See patient summary Surgical Hstory Ureteroscopic laser lithotripsy Social History * Smoker: non-smoker Alcohol: Denies Drugs: denies Medications Current Medications Current Medications Medications (Trade) Dose Ordered Sig/Little Route PRN Reason Start Time Stop Time Status Last Admin Dose Admin Atorvastatin Calcium (Lipitor) 10 mg QHS PO 07/01/20 21:00 Dextrose (Dextrose 50%) 25 ml ASDIRECTED PRN IV SEE LABEL COMMENTS 07/01/20 18:40 Enoxaparin Sodium (Lovenox) 100 mg BID SC 07/01/20 21:00 Finasteride (Proscar) 5 mg QHS PO 07/01/20 21:00 Glucagon (Glucagon) 1 mg ASDIRECTED PRN SC SEE LABEL COMMENTS 07/01/20 18:40 Glucose (Glucose) 16 GM ASDIRECTED PRN PO SEE LABEL COMMENTS 07/01/20 18:40 Home Med (Med Rec Complete!) ASDIRECTED XX 07/01/20 17:50 07/01/20 17:52 DC Insulin Human Lispro (HumaLOG INSULIN) SEE PROTOCOL TABLE Q6H SC 07/01/20 18:40 Piperacillin Sod/ Tazobactam Sod 2.25 gm/Dextrose 50 ml @ 50 mls/hr Q6H IV 07/01/20 21:00 Sodium Chloride 1,000 ml @ 100 mls/hr Q10H IV 07/01/20 17:20 07/01/20 17:25 Allergies Allergies: Coded Allergies: No Known Drug Allergies (Verified Allergy, Unknown, 06/23/20) Review of Systems General: Reports: Normal Appetite; Denies: Fatigue, Malaise Constitutional: Denies: Fever, Chills, Sweats, Weakness, Malaise Eyes: Denies: Pain, Vision change ENT: Denies: Head Aches, Sore Throat, Epistaxis Skin: Denies: Rash, Lesions, Breakdown, Nail Changes Pulmonary: Denies: Dyspnea, Cough Cardiovascular: Denies Chest Pain, Denies Palpitations Gastrointestinal: Denies: Nausea, Vomiting, Abdominal Pain Genitourinary: Denies: Dysuria, Frequency, Incontinence, Hematuria Hematologic: Denies: Bruising, Bleeding Excessively Endocrine: Denies: Polydipsia, Polyphagia, Polyuria Musculoskeletal: Denies: Neck Pain, Back Pain Neurological: Denies: Weakness, Numbness, Incoordination, Change in Speech Psych: Reports: Mood Normal; Denies: Anxiety, Depression Physical Examination General Exam: Cooperative, Mild Distress, Other (appears disoriented and not a good historian) EYE EXAM: PERRLA, Conjunctiva & lids normal, EOMI; No: Sclera icteric ENT EXAM: Atraumatic, Mucous membr. moist/pink, Pharynx Normal Chest Exam: Clear to auscultation, Normal air movement Abdomen Exam: Normal Bowel Sounds, Soft; No: Tenderness, Hepatospenomegaly Male Exam: Normal Genital Exam Vital Signs/I&O Vital Signs Date Time Temp Pulse Resp B/P (MAP) Pulse Ox O2 Delivery O2 Flow Rate FiO2 07/01/20 18:24 103/51 (68) 07/01/20 18:16 103 94 07/01/20 18:15 22 07/01/20 17:28 101.9 07/01/20 15:37 Room Air Laboratory Data 24H Labs Laboratory Tests 2 07/01/20 15:56: Urine Osmolality 383, Urine Random Creatinine 62.4, Urine Random Sodium 40, Urine Random Urea Nitrogen 494 07/01/20 15:57: Immature Granulocyte % (Auto) 0.7, Neutrophils (%) (Auto) 80.9H, Lymphocytes (%) (Auto) 10.8L, Monocytes (%) (Auto) 7.4, Eosinophils (%) (Auto) 0.0, Basophils (%) (Auto) 0.2, Neutrophils # (Auto) 12.4H, Lymphocytes # (Auto) 1.7, Monocytes # (Auto) 1.1H, Eosinophils # (Auto) 0.0, Basophils # (Auto) 0.0, Nucleated Red Blood Cells % (auto) 0.0, Urine Color REDH, Urine Appearance CLOUDYH, Urine pH 6 .0, Urine Specific Nolan 1.011, Urine Protein 2+H, Urine Glucose (Auto)(UA) 1+H, Urine Ketones (Auto) NEGATIVE, Urine Blood 3+H, Urine Nitrite NEGATIVE, Urine Bilirubin NEGATIVE, Urine Urobilinogen 0.2, Urine Leukocyte Esterase (Auto) 3+H, Urine WBC (Auto) TNTCH, Urine RBC (Auto) TNTCH, Urine Hyaline Casts (Auto) 0, Urine Bacteria (Auto) NEGATIVE, Urine Squamous Epithelial Cells 0, Urine Sperm (Auto) , Glomerular Filtration Rate 32.7L, Osmolality 306H, Procalcitonin 7.89, Coronavirus (COVID-19)(PCR) POSITIVEA, Influenza Type A (RT- PCR) NEGATIVE, Influenza Type B (RT-PCR) NEGATIVE, Respiratory Syncytial Virus (PCR) NEGATIVE 07/01/20 15:59: POC Lactate (Misc Panel) 1.11 07/01/20 16:02: POC Glucose (Misc Panel) 178H, POC Sodium (Misc Panel) 141, POC Potassium (Misc Panel) 4.0, POC Chloride (Misc Panel) 105, POC Total CO2 (Misc Panel) 27.0, POC Blood Urea Nitrogen (Misc Panel 35H, POC Ionized Calcium (Misc Panel) 5.0, POC Creatinine (Misc Panel) 2.1H, POC Hematocrit (Misc Panel) 38.0 CBC/BMP Laboratory Tests 07/01/20 15:57 Microbiology Microbiology 07/01/20 Blood Culture, Received Pending 07/01/20 Urine Culture, Received Pending 07/01/20 Blood Culture, Received Pending Assessment Sepsis after ureteroscopic laser lithotripsy Plan Patient will be admitted for IV hydration and antibiotics. Time Spent on Consult: Time Spent / Consult (Minutes): 55 DIAMOND LEWIS MD Jul 01, 2020 19:28
[2020-07-01] MEDS: FINASTERIDE 5 MG TAB PO SCH (21:00)
[2020-07-01] MEDS: ATORVASTATIN 10 MG TAB PO SCH (21:00)
[2020-07-01 21:05] VITALS: BP 135/59
[2020-07-01] MEDS: ENOXAPARIN 100MG/1ML SYRINGE (J1650 PER 10MG) SC SCH (21:24)
[2020-07-01] MEDS: HumaLOG INSULIN (NovoLOG) PER UNIT SC SCH (21:24)
[2020-07-01] MEDS: PIPERACILLIN/TAZOBACTAM SOD 2.25 GM in D5W MINI-BAG PLUS 50 ML IV SCH (21:24)
[2020-07-01 21:30] VITALS: BP 138/65
[2020-07-01 22:00] VITALS: BP 133/61
[2020-07-01 22:21] LABS: VENOUS BASE EXCESS 0.4 (-2.0-2.0); VENOUS HCO3 24.6 MEQ/L (23.0-27.0); VENOUS O2 SATURATION 99.2 % (60.0-80.0); VENOUS PARTIAL PRESSURE CO2 38.1 mmHg (38.0-50.0); VENOUS PARTIAL PRESSURE O2 147.9 mmHg (30.0-50.0); VENOUS PH 7.428 UNITS (7.330-7.430); VENOUS STANDARD HCO3 24.9 MEQ/L; VENOUS TOTAL CO2 25.8 MEQ/L (24.0-28.0)
[2020-07-01 22:30] VITALS: BP 148/67
[2020-07-01 23:00] VITALS: BP 144/68
[2020-07-01 23:30] VITALS: BP 160/77
[2020-07-02] VITALS (14 sets, daily range): BP systolic 95–148; BP diastolic 49–93
[2020-07-02] MEDS: HumaLOG INSULIN (NovoLOG) PER UNIT SC SCH ×6 (00:40→21:00)
[2020-07-02] MEDS ORDERED: ACETAMINOPHEN 650 MG SUPP PR PRN (01:45)
[2020-07-02] MEDS: PIPERACILLIN/TAZOBACTAM SOD 2.25 GM in D5W MINI-BAG PLUS 50 ML IV SCH ×4 (02:09→21:03)
[2020-07-02] MEDS: NS 1,000 ML IV SCH (04:46)
[2020-07-02 04:47] LABS: BASO % 0.2 % (0.0-1.0); HEMATOCRIT 33.1 % (42.0-52.0); HEMOGLOBIN 10.5 g/dl (13.5-17.5); LYMPH # 1.8 10^3/uL (1.5-5.0); LYMPH % 13.3 % (24.0-44.0); MEAN CORPUSCULAR HEMOGLOBIN 32.4 pg (27.0-33.0); MEAN CORPUSCULAR HGB CONC 31.7 g/dl (32.0-36.5); MEAN CORPUSCULAR VOLUME 102.2 fl (80.0-96.0); MONO # 0.9 10^3/uL (0.0-0.8); MONO % 6.7 % (2.0-8.0); NEUTROPHILS # 10.6 10^3/uL (1.5-8.5); NEUTROPHILS % 78.8 % (36.0-66.0); PLATELET COUNT, AUTOMATED 157 10^3/uL (150-450); RED BLOOD COUNT 3.24 10^6/uL (4.30-6.10); WHITE BLOOD COUNT 13.4 10^3/uL (4.0-10.0)
[2020-07-02 05:28] LABS: ALBUMIN 2.4 GM/DL (3.2-5.2); BILIRUBIN,TOTAL 0.4 MG/DL (0.2-1.0); CALCIUM LEVEL 8.1 MG/DL (8.8-10.2); CK-MB VALUE MASS 3.9 NG/ML (<3.6); CREATININE FOR GFR 2.12 MG/DL (0.70-1.30); GLOMERULAR FILTRATION RATE 32.2 (>35); MB/CK RELATIVE INDEX 0.33 (< OR =4); PHOSPHORUS LEVEL 3.3 MG/DL (2.5-4.9); POTASSIUM SERUM 3.3 MEQ/L (3.5-5.1); TOTAL PROTEIN 6.1 GM/DL (6.4-8.2); TROPONIN I 0.04 NG/ML (< 0.10)
--- NOTE | 2020-07-02 08:47 | IPNPDOC ---
Text Note Date of Service The patient was seen on 07/02/20. NOTE Subjective: Patient is an 80-year-old male with a PMHx of A. 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 diff, Obesity, Hx of Pseudomonoas bacteremia / UTI (01/2020), who recently had a urologic procedure with bilateral ureteral stenting and removal of left nephrostomy tube with laser lithotripsy. He presented to the emergency room with confusion, fever and was found to have a urinary tract infection, likely post urologic procedure. Patient was admitted to hospital service for further evaluation, treatment. Patient was seen and examined at the bedside. Currently patient is awake, alert, oriented to person, place and time. Reports that he feels significantly better. He denies any chest pain, shortness breath, palpitations. Has not experience any nausea, vomiting, abdominal pain or diarrhea. Objective: Vitals (See below) General: Lying in bed, appears comfortable, AAOx3 HEENT: NC, AT CVS: +S1S2 Lungs: Fair air entry b/l, -w/r/r Abdomen: Soft, ND, NT, + obese Extremities: Trace to 1+ pitting edema bilaterally, - Calf tenderness Imaging: CXR 07/01: No obvious acute cardiopulmonary process appreciated. CT abdomen / pelvis 07/01: Bilateral ureteral stents have been placed and there is decompression of both intrarenal collecting systems. The patient likely has bilateral extrarenal pelves. CT Head 07/01: No acute intracranial findings. Assessment and plan: Complicated UTI in the setting of recent urologic procedure and bilateral stent placement 06/30 - Patient has a history of pseudomonas bacteremia 2/2 UTI in 01/2020 - Patient's mentation has improved - Hemodynamically stable and afebrile - Leukocytosis, improving - Pro-calcitonin elevated - Blood cultures 07/01; urine cultures 07/01: Pending - c/w Zosyn (Day #2) - Urology on consultation; appreciate their input OLGA on CKD3 - Cr baseline of 1.4-1.6 - Cr still slightly above baseline - Will avoid nephrotoxic medications - Will c/w IV fluid hydration for now s/p Acute metabolic encephalopathy - likely 2/2 infection - Patient mentation appears to be at baseline - Fully oriented to person, place and time - CT imaging noted above COVID19 - Patient was positive early 03/2020 - Has received a COVID19 vaccine in May; both doses - Patient remains a symptomatic and is not hypoxic - Patient at the negative testing preoperatively for his urologic procedure. However, subsequently on admission this time was positive - Will continue with supportive care - Will discuss with infection control about removing precautions based on Hospital guidelines Atrial fibrillation - Currently appears to be rate controlled - Is not on any rate, rhythm control - Continue with full anticoagulation with therapeutic Lovenox - Warfarin on hold NIDDM2 with Neuropathy - Will c/w ISS - Will resume Gabapentin Depression - Will resume Escitalopram Gout - Allopurinol on hold BPH - c/w Finasteride GI prophylaxis - c/w DVT prophylaxis - c/w full anticoagulation with Lovenox Disposition: - Will transition out of ICU - Awaiting clinical improvement VSRudolph I+O VS, Rudolph I+O Laboratory Tests 07/01/20 15:57 07/02/20 04:22 07/02/20 04:23 Vital Signs Date Time Temp Pulse Resp B/P (MAP) Pulse Ox O2 Delivery O2 Flow Rate FiO2 07/02/20 06:00 97.0 74 18 104/63 (77) 96 Room Air I&O- Last 24 Hours up to 6 AM 07/02/20 05:59 Intake Total 1815 ml Output Total 595 ml Balance 1220 ml KALEN GUNTER MD Jul 02, 2020 08:47
[2020-07-02] MEDS: ENOXAPARIN 100MG/1ML SYRINGE (J1650 PER 10MG) SC SCH ×2 (09:32→21:02)
[2020-07-02] MEDS: ESCITALOPRAM OXALATE 5MG TABLET (LEXAPRO) PO SCH (10:22)
--- NOTE | 2020-07-02 11:56 | IPNPDOC ---
Subjective Review oF Systems Chief Complaint The patient is a 80-year-old male admitted with a reason for visit of altered mental status/ COVID 19. General: Reports: Normal Appetite; Denies: Fatigue, Malaise Constitutional: Denies: Fever, Chills, Sweats, Weakness, Malaise Eyes: Denies: Pain, Vision change ENT: Denies: Head Aches, Sore Throat, Epistaxis Skin: Denies: Rash, Lesions, Breakdown, Nail Changes Pulmonary: Denies: Dyspnea, Cough Genitourinary: Denies: Dysuria, Frequency, Incontinence, Hematuria Objective Physical Examination Eye Exam: PERRLA, Conjunctiva & lids normal, EOMI; No: Sclera icteric ENT EXAM: Atraumatic, Mucous membr. moist/pink, Pharynx Normal Neck Exam: Supple; No: JVD, thyromegaly Chest Exam: Clear to auscultation, Normal air movement Male Exam: Normal Genital Exam Vital Signs/I&O Vital Signs Date Time Temp Pulse Resp B/P (MAP) Pulse Ox O2 Delivery O2 Flow Rate FiO2 07/02/20 06:00 97.0 74 18 104/63 (77) 96 Room Air I&O- Last 24 Hours up to 6 AM 07/02/20 05:59 Intake Total 1815 ml Output Total 595 ml Balance 1220 ml Laboratory Data Labs 24H Laboratory Tests 2 07/01/20 15:56: Urine Osmolality 383, Urine Random Creatinine 62.4, Urine Random Sodium 40, Urine Random Urea Nitrogen 494 07/01/20 15:57: Immature Granulocyte % (Auto) 0.7, Neutrophils (%) (Auto) 80.9H, Lymphocytes (%) (Auto) 10.8L, Monocytes (%) (Auto) 7.4, Eosinophils (%) (Auto) 0.0, Basophils (%) (Auto) 0.2, Neutrophils # (Auto) 12.4H, Lymphocytes # (Auto) 1.7, Monocytes # (Auto) 1.1H, Eosinophils # (Auto) 0.0, Basophils # (Auto) 0.0, Nucleated Red Blood Cells % (auto) 0.0, Urine Color REDH, Urine Appearance CLOUDYH, Urine pH 6.0, Urine Specific Coleman 1.011, Urine Protein 2+H, Urine Glucose (Auto)(UA) 1+H, Urine Ketones (Auto) NEGATIVE, Urine Blood 3+H, Urine Nitrite NEGATIVE, Urine Bilirubin NEGATIVE, Urine Urobilinogen 0.2, Urine Leukocyte Esterase (Auto) 3+H, Urine WBC (Auto) TNTCH, Urine RBC (Auto) TNTCH, Urine Hyaline Casts (Auto) 0, Urine Bacteria (Auto) NEGATIVE, Urine Squamous Epithelial Cells 0, Urine Sperm (Auto) , Glomerular Filtration Rate 32.7L, Osmolality 306H, Procalcitonin 7.89, Coronavirus (COVID-19)(PCR) POSITIVEA, Influenza Type A (RT- PCR) NEGATIVE, Influenza Type B (RT-PCR) NEGATIVE, Respiratory Syncytial Virus (PCR) NEGATIVE 07/01/20 15:59: POC Lactate (Misc Panel) 1.11 07/01/20 16:02: POC Glucose (Misc Panel) 178H, POC Sodium (Misc Panel) 141, POC Potassium (Misc Panel) 4.0, POC Chloride (Misc Panel) 105, POC Total CO2 (Misc Panel) 27.0, POC Blood Urea Nitrogen (Misc Panel 35H, POC Ionized Calcium (Misc Panel) 5.0, POC Creatinine (Misc Panel) 2.1H, POC Hematocrit (Misc Panel) 38.0 07/01/20 21:08: Bedside Glucose (Misc Panel) 155H 07/01/20 21:10: Methicillin-Resist S.aureus DNA PCR NOT DETECTED 07/01/20 22:16: Blood Gas Bicarbonate Standard 24.9, Venous Blood pH 7.428, Venous Blood Partial Pressure CO2 38.1, Venous Blood Partial Pressure O2 147.9H, Venous Blood Total Carbon Dioxide 25.8, Venous Blood HCO3 24.6, Venous Blood Oxygen Saturation 99.2H, Venous Blood Base Excess 0.4 07/02/20 00:14: Bedside Glucose (Misc Panel) 139H 07/02/20 04:22: Immature Granulocyte % (Auto) 1.0, Neutrophils (%) (Auto) 78.8H, Lymphocytes (%) (Auto) 13.3L, Monocytes (%) (Auto) 6.7, Eosinophils (%) (Auto) 0.0, Basophils (%) (Auto) 0.2, Neutrophils # (Auto) 10.6H, Lymphocytes # (Auto) 1.8, Monocytes # (Auto) 0.9H, Eosinophils # (Auto) 0.0, Basophils # (Auto) 0.0, Nucleated Red Blood Cells % (auto) 0.0 07/02/20 04:23: Anion Gap 7L, Glomerular Filtration Rate 32.2L, Calcium Level 8.1L, Phosphorus Level 3.3, Magnesium Level 2.0, Total Bilirubin 0.4, Aspartate Amino Transf (AST/SGOT) 43H, Alanine Aminotransferase (ALT/SGPT) 20, Alkaline Phosphatase 98, Total Creatine Kinase 1187H, Creatine Kinase MB 3.9H, Creatine Kinase MB Relative Index 0.33, Troponin I 0.04, Total Protein 6.1L, Albumin 2.4L, Albumin/Globulin Ratio 0.6 CBC/BMP Laboratory Tests 07/01/20 15:57 07/02/20 04:22 07/02/20 04:23 FSBS Laboratory Tests Test 07/01/20 21:08 07/02/20 00:14 Range/Units Bedside Glucose (Misc Panel) 155 139 83-110 MG/DL Microbiology Microbiology 07/01/20 Blood Culture, Received Pending 07/01/20 Urine Culture, Received Pending 07/01/20 Blood Culture, Received Pending Assessment/Plan Date Seen The patient was seen on 07/02/20. Plan/VTE VTE Prophylaxis Ordered?: Yes Plan White cell count is improving since admission. The patient states she feels much better. Continue with current antibiotic treatment and discharge on oral medications Follow-up in office in one or 2 weeks for further management of ureteral stents DIAMOND LEWIS MD Jul 02, 2020 11:56
[2020-07-02] MEDS ORDERED: POTASSIUM CHLORIDE 10 MEQ SR TABLET PO ONE (14:00)
[2020-07-02] MEDS ORDERED: LEVALBUTEROL HFA 45MCG/ACT 15 GM INHALER INH PRN (15:00)
[2020-07-02] MEDS: RAMELTEON 8 MG TAB (ROZEREM) PO SCH (21:02)
[2020-07-02] MEDS: FINASTERIDE 5 MG TAB PO SCH (21:02)
[2020-07-02] MEDS: ATORVASTATIN 10 MG TAB PO SCH (21:02)
[2020-07-02] MEDS: GABAPENTIN 300 MG CAP PO SCH (21:11)
[2020-07-03] MEDS: PIPERACILLIN/TAZOBACTAM SOD 2.25 GM in D5W MINI-BAG PLUS 50 ML IV SCH ×4 (03:36→20:43)
[2020-07-03 04:30] VITALS: BP 99/50
[2020-07-03 04:45] VITALS: BP 104/50
--- NOTE | 2020-07-03 06:41 | ECGEPIP ---
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
[2020-07-03 07:29] LABS: BASO % 0.2 % (0.0-1.0); EOS % 0.1 % (0.0-3.0); HEMATOCRIT 29.5 % (42.0-52.0); HEMOGLOBIN 9.4 g/dl (13.5-17.5); LYMPH # 1.9 10^3/uL (1.5-5.0); LYMPH % 19.8 % (24.0-44.0); MEAN CORPUSCULAR HEMOGLOBIN 32.3 pg (27.0-33.0); MEAN CORPUSCULAR HGB CONC 31.9 g/dl (32.0-36.5); MEAN CORPUSCULAR VOLUME 101.4 fl (80.0-96.0); MONO # 0.8 10^3/uL (0.0-0.8); MONO % 8.6 % (2.0-8.0); NEUTROPHILS # 6.7 10^3/uL (1.5-8.5); NEUTROPHILS % 70.7 % (36.0-66.0); PLATELET COUNT, AUTOMATED 136 10^3/uL (150-450); RED BLOOD COUNT 2.91 10^6/uL (4.30-6.10); WHITE BLOOD COUNT 9.5 10^3/uL (4.0-10.0)
[2020-07-03 07:45] LABS: CALCIUM LEVEL 7.7 MG/DL (8.8-10.2); CREATININE FOR GFR 2.27 MG/DL (0.70-1.30); GLOMERULAR FILTRATION RATE 29.7 (>35); MAGNESIUM LEVEL 2.1 MG/DL (1.8-2.4); POTASSIUM SERUM 3.8 MEQ/L (3.5-5.1)
[2020-07-03] MEDS: ESCITALOPRAM OXALATE 5MG TABLET (LEXAPRO) PO SCH (08:21)
[2020-07-03] MEDS: ENOXAPARIN 100MG/1ML SYRINGE (J1650 PER 10MG) SC SCH ×2 (08:21→20:45)
[2020-07-03] MEDS: HumaLOG INSULIN (NovoLOG) PER UNIT SC SCH ×4 (08:22→20:43)
--- NOTE | 2020-07-03 08:50 | IPNPDOC ---
Text Note Date of Service The patient was seen on 07/03/20. NOTE Subjective: Patient is an 80-year-old male with a PMHx of A. 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 diff, Obesity, Hx of Pseudomonoas bacteremia / UTI (01/2020), who recently had a urologic procedure with bilateral ureteral stenting and removal of left nephrostomy tube with laser lithotripsy. He presented to the emergency room with confusion, fever and was found to have a urinary tract infection, likely post urologic procedure. Patient was admitted to hospital service for further evaluation, treatment. Patient was seen and examined at the bedside. Patient was that he feels relatively fine. He denies any chest pain, shortness of breath or palpitations. Has not experience any nausea, vomiting or abdominal pain. Klein catheter r emains in place. Objective: Vitals (See below) General: Patient is sitting up in bed, appears to be comfortable, is awake and alert HEENT: NC, AT CVS: +S1S2 Lungs: Air entry is fair bilaterally. There are no auscultated wheezing, crackles or rhonchi Abdomen: Soft, nondistended and nontender, + obese Extremities: Left lower extremity with 1+ pitting edema, right lower show any with trace pitting edema Imaging: CXR 07/01: No obvious acute cardiopulmonary process appreciated. CT abdomen / pelvis 07/01: Bilateral ureteral stents have been placed and there is decompression of both intrarenal collecting systems. The patient likely has bilateral extrarenal pelves. CT Head 07/01: No acute intracranial findings. Assessment and plan: Complicated UTI in the setting of recent urologic procedure and bilateral stent placement 06/30 - Patient has a history of pseudomonas bacteremia 2/2 UTI in 01/2020 - Patient's mentation has improved - Hemodynamically stable and afebrile - s/p Leukocytosis - Pro-calcitonin elevated - Blood cultures 07/01: Gram-negative rods; Blood cultures 07/02: Pending - Urine cultures 07/01: Pseudomonas Aeruginosa - c/w Zosyn (Day #3); will adjust antibiotics after blood cultures result - Urology on consultation; appreciate their input OLGA on CKD3 - Cr baseline of 1.4-1.6 - Cr still remains above baseline - Clinically patient does not have any crackles of his lung brunson, lower extremities do reveal some pitting edema - Will avoid nephrotoxic medications - Will check BNP - Will consider diuretics this afternoon s/p Acute metabolic encephalopathy - likely 2/2 infection - Patient mentation appears to be at baseline - Fully oriented to person, place and time - CT imaging noted above COVID19 - Patient was positive early 03/2020 - Has received a COVID19 vaccine in May; both doses - Patient remains a symptomatic and is not hypoxic - Patient at the negative testing preoperatively for his urologic procedure. However, subsequently on admission this time was positive - c/w supportive care - Patient is greater than 90 days from his last positive test; as per hospital guidelines, this is considered a new infection and patient will be quarantined accordingly Atrial fibrillation - Currently appears to be rate controlled - Is not on any rate / rhythm control - c/w full anticoagulation with therapeutic Lovenox - Warfarin remains on hold NIDDM2 with Neuropathy - c/w ISS - c/w Gabapentin Depression - c/w Escitalopram Gout - Allopurinol on hold BPH - c/w Finasteride DVT prophylaxis - c/w full anticoagulation with Lovenox Disposition: - Awaiting clinical improvement Rudolph MORROW I+O Rudolph MORROW I+O Laboratory Tests 07/03/20 06:41 Vital Signs Date Time Temp Pulse Resp B/P (MAP) Pulse Ox O2 Delivery O2 Flow Rate FiO2 07/03/20 04:45 104/50 (68) 07/03/20 04:30 98.5 77 18 96 Room Air I&O- Last 24 Hours up to 6 AM 07/03/20 06:00 Intake Total 3195 ml Output Total 700 ml Balance 2495 ml KALEN GUNTER MD Jul 03, 2020 08:50
[2020-07-03] MEDS ORDERED: NS 1,000 ML IV SCH (09:35)
[2020-07-03 13:30] VITALS: BP 102/62
[2020-07-03 19:32] VITALS: BP 105/57
[2020-07-03] MEDS: GABAPENTIN 300 MG CAP PO SCH (20:44)
[2020-07-03] MEDS: FINASTERIDE 5 MG TAB PO SCH (20:44)
[2020-07-03] MEDS: ATORVASTATIN 10 MG TAB PO SCH (20:44)
[2020-07-03] MEDS: RAMELTEON 8 MG TAB (ROZEREM) PO SCH (20:44)
[2020-07-03] MEDS: ACETAMINOPHEN TAB 650MG DOSE (2X325MG) PO PRN (21:31)
[2020-07-04] MEDS: PIPERACILLIN/TAZOBACTAM SOD 2.25 GM in D5W MINI-BAG PLUS 50 ML IV SCH ×4 (03:14→19:55)
[2020-07-04 06:16] VITALS: BP 115/56
[2020-07-04 07:42] LABS: BASO % 0.5 % (0.0-1.0); EOS # 0.1 10^3/uL (0.0-0.5); EOS % 1.6 % (0.0-3.0); HEMATOCRIT 28.6 % (42.0-52.0); HEMOGLOBIN 8.9 g/dl (13.5-17.5); LYMPH # 1.6 10^3/uL (1.5-5.0); LYMPH % 27.9 % (24.0-44.0); MEAN CORPUSCULAR HEMOGLOBIN 31.3 pg (27.0-33.0); MEAN CORPUSCULAR HGB CONC 31.1 g/dl (32.0-36.5); MEAN CORPUSCULAR VOLUME 100.7 fl (80.0-96.0); MONO # 0.5 10^3/uL (0.0-0.8); MONO % 8.6 % (2.0-8.0); NEUTROPHILS # 3.4 10^3/uL (1.5-8.5); NEUTROPHILS % 60.9 % (36.0-66.0); PLATELET COUNT, AUTOMATED 138 10^3/uL (150-450); RED BLOOD COUNT 2.84 10^6/uL (4.30-6.10); WHITE BLOOD COUNT 5.6 10^3/uL (4.0-10.0)
[2020-07-04] MEDS: HumaLOG INSULIN (NovoLOG) PER UNIT SC SCH ×4 (07:54→19:59)
[2020-07-04 07:59] LABS: CREATININE FOR GFR 2.2 MG/DL (0.70-1.30); GLOMERULAR FILTRATION RATE 30.8 (>35); MAGNESIUM LEVEL 2.2 MG/DL (1.8-2.4); POTASSIUM SERUM 3.9 MEQ/L (3.5-5.1)
[2020-07-04] MEDS: ENOXAPARIN 100MG/1ML SYRINGE (J1650 PER 10MG) SC SCH ×2 (08:26→19:55)
[2020-07-04] MEDS: ESCITALOPRAM OXALATE 5MG TABLET (LEXAPRO) PO SCH (08:26)
[2020-07-04 14:00] VITALS: BP 126/61
[2020-07-04] MEDS: GABAPENTIN 300 MG CAP PO SCH (19:54)
[2020-07-04] MEDS: ATORVASTATIN 10 MG TAB PO SCH (19:54)
[2020-07-04] MEDS: FINASTERIDE 5 MG TAB PO SCH (19:54)
[2020-07-04] MEDS: RAMELTEON 8 MG TAB (ROZEREM) PO SCH (19:54)
[2020-07-04] MEDS: ACETAMINOPHEN TAB 650MG DOSE (2X325MG) PO PRN (19:55)
[2020-07-04 20:02] VITALS: BP 131/71
[2020-07-05] MEDS: PIPERACILLIN/TAZOBACTAM SOD 2.25 GM in D5W MINI-BAG PLUS 50 ML IV SCH ×4 (02:10→21:00)
[2020-07-05 06:17] VITALS: BP 128/59
[2020-07-05 07:19] LABS: BASO % 0.6 % (0.0-1.0); EOS # 0.3 10^3/uL (0.0-0.5); EOS % 4.7 % (0.0-3.0); HEMATOCRIT 28.7 % (42.0-52.0); LYMPH # 1.9 10^3/uL (1.5-5.0); LYMPH % 35.5 % (24.0-44.0); MEAN CORPUSCULAR HEMOGLOBIN 31.6 pg (27.0-33.0); MEAN CORPUSCULAR HGB CONC 31.4 g/dl (32.0-36.5); MEAN CORPUSCULAR VOLUME 100.7 fl (80.0-96.0); MONO # 0.4 10^3/uL (0.0-0.8); MONO % 7.9 % (2.0-8.0); NEUTROPHILS # 2.7 10^3/uL (1.5-8.5); NEUTROPHILS % 50.5 % (36.0-66.0); PLATELET COUNT, AUTOMATED 146 10^3/uL (150-450); RED BLOOD COUNT 2.85 10^6/uL (4.30-6.10); WHITE BLOOD COUNT 5.3 10^3/uL (4.0-10.0)
[2020-07-05] MEDS: HumaLOG INSULIN (NovoLOG) PER UNIT SC SCH ×4 (07:30→21:00)
[2020-07-05 07:45] LABS: CALCIUM LEVEL 8.5 MG/DL (8.8-10.2); CREATININE FOR GFR 2.16 MG/DL (0.70-1.30); GLOMERULAR FILTRATION RATE 31.5 (>35); POTASSIUM SERUM 5.8 MEQ/L (3.5-5.1)
--- NOTE | 2020-07-05 07:47 | IPNPDOC ---
Text Note Date of Service Patient note for 07/04/20. NOTE Subjective: Patient describes dysuria that lasts several seconds, usually at the end of urination. No acute overnight events reported, no new medical complaints. A/P: Patient is an 80-year-old male with a PMHx of A. 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 diff, Obesity, Hx of Pseudomonoas bacteremia / UTI (01/2020), who recently had a urologic procedure with bilateral ureteral stenting and removal of left nephrostomy tube with laser lithotripsy. He presented to the emergency room with confusion, fever and was found to have a urinary tract infection, likely post urologic procedure. Patient was admitted to hospital service for further evaluation, treatment. #Complicated UTI in the setting of recent urologic procedure and bilateral stent placement 06/30 - Patient has a history of pseudomonas bacteremia 2/2 UTI in 01/2020 - Patient's mentation has improved - Hemodynamically stable and afebrile - s/p Leukocytosis - Pro-calcitonin elevated - Blood cultures 07/01: Gram-negative rods; Blood cultures 07/02: Pending - Urine cultures 07/01: Pseudomonas Aeruginosa - c/w Zosyn (Day #4); will adjust antibiotics after blood cultures result - Urology on consultation; appreciate their input #OLGA on CKD3 - Cr baseline of 1.4-1.6 - Cr still remains above baseline - Will avoid nephrotoxic medications - Will check BNP #s/p Acute metabolic encephalopathy - likely 2/2 infection - Patient mentation appears to be at baseline - Fully oriented to person, place and time - CT imaging noted above #COVID19 - Patient was positive early 03/2020 - Has received a COVID19 vaccine in May; both doses - Patient remains a symptomatic and is not hypoxic - Patient at the negative testing preoperatively for his urologic procedure. However, subsequently on admission this time was positive - c/w supportive care - Patient is greater than 90 days from his last positive test; as per hospital guidelines, this is considered a new infection and patient will be quarantined accordingly #Atrial fibrillation - Is not on any rate / rhythm control - c/w full anticoagulation with therapeutic Lovenox - Warfarin remains on hold #NIDDM2 with Neuropathy - c/w ISS - c/w Gabapentin #Depression - c/w Escitalopram #Gout - Allopurinol on hold #BPH - c/w Finasteride #DVT prophylaxis - c/w full anticoagulation with Lovenox VS,Fishbone, I+O VS, Fishbone, I+O Laboratory Tests 07/04/20 07:16 Vital Signs Date Time Temp Pulse Resp B/P (MAP) Pulse Ox O2 Delivery O2 Flow Rate FiO2 07/04/20 06:16 96.9 65 18 115/56 (75) 99 Room Air I&O- Last 24 Hours up to 6 AM 07/04/20 05:59 Intake Total 3720 ml Output Total 1350 ml Balance 2370 ml AIDA UPTNO MD Jul 04, 2020 13:57
[2020-07-05] MEDS: ENOXAPARIN 100MG/1ML SYRINGE (J1650 PER 10MG) SC SCH ×2 (08:39→21:00)
[2020-07-05] MEDS: ESCITALOPRAM OXALATE 5MG TABLET (LEXAPRO) PO SCH (08:39)
--- NOTE | 2020-07-05 13:11 | IPNPDOC ---
Text Note Date of Service Patient note for 07/05/20. NOTE Subjective: No acute overnight events reported, no new medical complaints. A/P: Patient is an 80-year-old male with a PMHx of A. 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 diff, Obesity, Hx of Pseudomonoas bacteremia / UTI (01/2020), who recently had a urologic procedure with bilateral ureteral stenting and removal of left nephrostomy tube with laser lithotripsy. He presented to the emergency room with confusion, fever and was found to have a urinary tract infection, likely post urologic procedure. Patient was admitted to hospital service for further evaluation, treatment. #Complicated UTI in the setting of recent urologic procedure and bilateral stent placement 06/30 - Patient has a history of pseudomonas bacteremia 2/2 UTI in 01/2020 - BCx - 3 negative to date, one + for pseudomonas - Urine cultures 07/01: Pseudomonas Aeruginosa - c/w Zosyn (Day #5) - consider transition to levaquin and ampicillin - Urology on consultation; appreciate their input #OLGA on CKD3 - Cr baseline of 1.4-1.6 - Cr still remains above baseline - Will avoid nephrotoxic medications - continue to trend renal function #s/p Acute metabolic encephalopathy - likely 2/2 infection - Patient mentation appears to be at baseline - Fully oriented to person, place and time #COVID19 - Patient was positive early 03/2020 - Has received a COVID19 vaccine in May; both doses - discussed with his PCP - he has had several negative tests; he notes his son does travel out of state - Patient remains asymptomatic - Patient at the negative testing preoperatively for his urologic procedure. However, subsequently on admission this time was positive - c/w supportive care - Patient is greater than 90 days from his last positive test; as per hospital guidelines, this is considered a new infection and patient will be quarantined accordingly #Atrial fibrillation - rate controlled - continue therapeutic lovenox for a/c, re-starting warfarin - discussed with PCP - at [place] there were no issues with maintaining therapeutic levels, however at home there has been difficulty keeping him therapeutic #NIDDM2 with Neuropathy - c/w ISS - c/w Gabapentin #Depression - c/w Escitalopram #Gout - Allopurinol on hold #BPH - c/w Finasteride #DVT prophylaxis - c/w full anticoagulation with Lovenox/warfarin Dispo: discussed with son and PCP at length; resuming warfarin, continue with lovenox - he can resume bridging at home; follow up BMP for renal function; anticipating discharge home in 24-48 hours VS,Fishbone, I+O VS, Fishbone, I+O Laboratory Tests 07/05/20 07:05 Vital Signs Date Time Temp Pulse Resp B/P (MAP) Pulse Ox O2 Delivery O2 Flow Rate FiO2 07/05/20 06:17 97.3 67 18 128/59 (82) 97 Room Air I&O- Last 24 Hours up to 6 AM 07/05/20 06:00 Intake Total 2240 ml Output Total 4450 ml Balance -2210 ml AIDA UPTON MD Jul 05, 2020 13:11
[2020-07-05 13:41] LABS: INR 1.13; PROTHROMBIN TIME 14.8 SECONDS (12.5-14.3)
[2020-07-05 14:00] VITALS: BP 102/56
[2020-07-05] MEDS ORDERED: WARFARIN SOD 5MG TAB PO SCH (17:00)
[2020-07-05] MEDS: GABAPENTIN 300 MG CAP PO SCH (21:00)
[2020-07-05] MEDS: RAMELTEON 8 MG TAB (ROZEREM) PO SCH (21:00)
[2020-07-05] MEDS: FINASTERIDE 5 MG TAB PO SCH (21:00)
[2020-07-05] MEDS: ATORVASTATIN 10 MG TAB PO SCH (21:00)
[2020-07-05 22:00] VITALS: BP 99/54
[2020-07-06 02:40] VITALS: BP 110/68
[2020-07-06] MEDS: PIPERACILLIN/TAZOBACTAM SOD 2.25 GM in D5W MINI-BAG PLUS 50 ML IV SCH ×4 (03:15→20:18)
[2020-07-06 03:21] LABS: HEMATOCRIT 28.7 % (42.0-52.0); HEMOGLOBIN 9.2 g/dl (13.5-17.5)
[2020-07-06 06:00] VITALS: BP 122/63
[2020-07-06 07:40] LABS: BASO % 0.7 % (0.0-1.0); EOS # 0.3 10^3/uL (0.0-0.5); EOS % 5.6 % (0.0-3.0); HEMATOCRIT 29.3 % (42.0-52.0); HEMOGLOBIN 9.3 g/dl (13.5-17.5); LYMPH # 2.1 10^3/uL (1.5-5.0); LYMPH % 34.3 % (24.0-44.0); MEAN CORPUSCULAR HEMOGLOBIN 32.1 pg (27.0-33.0); MEAN CORPUSCULAR HGB CONC 31.7 g/dl (32.0-36.5); MONO # 0.5 10^3/uL (0.0-0.8); MONO % 8.1 % (2.0-8.0); PLATELET COUNT, AUTOMATED 175 10^3/uL (150-450); WHITE BLOOD COUNT 6.1 10^3/uL (4.0-10.0)
[2020-07-06 07:51] LABS: INR 1.09; PROTHROMBIN TIME 14.3 SECONDS (12.5-14.3)
[2020-07-06] MEDS: ENOXAPARIN 100MG/1ML SYRINGE (J1650 PER 10MG) SC SCH (08:02)
[2020-07-06] MEDS: HumaLOG INSULIN (NovoLOG) PER UNIT SC SCH ×4 (08:02→20:19)
[2020-07-06] MEDS: ESCITALOPRAM OXALATE 5MG TABLET (LEXAPRO) PO SCH (08:02)
[2020-07-06 08:03] LABS: CALCIUM LEVEL 8.7 MG/DL (8.8-10.2); CREATININE FOR GFR 2.17 MG/DL (0.70-1.30); GLOMERULAR FILTRATION RATE 31.3 (>35)
--- NOTE | 2020-07-06 11:42 | IPNPDOC ---
Text Note Date of Service Patient note for 07/06/20. NOTE Subjective: No acute overnight events reported, patient voices no new medical complaints. A/P: Patient is an 80-year-old male with a PMHx of A. 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 diff, Obesity, Hx of Pseudomonoas bacteremia / UTI (01/2020), who recently had a urologic procedure with bilateral ureteral stenting and removal of left nephrostomy tube with laser lithotripsy. He presented to the emergency room with confusion, fever and was found to have a urinary tract infection, likely post urologic procedure. Patient was admitted to hospital service for further evaluation, treatment. #Complicated UTI in the setting of recent urologic procedure and bilateral stent placement 06/30 - Patient has a history of pseudomonas bacteremia 2/2 UTI in 01/2020 - BCx - 3 negative to date, one + for pseudomonas - Urine cultures 07/01: Pseudomonas Aeruginosa - c/w Zosyn (Day #6) - consider transition to levaquin and ampicillin on d ischarge - Urology on consultation; appreciate their input #OLGA on CKD3 - Cr baseline of 1.4-1.6 - Cr still remains above baseline - Will avoid nephrotoxic medications - continue to trend renal function #s/p Acute metabolic encephalopathy - likely 2/2 infection - Patient mentation appears to be at baseline - Fully oriented to person, place and time #COVID19 - Patient was positive early 03/2020 - Has received a COVID19 vaccine in May; both doses - discussed with his PCP - he has had several negative tests; he notes his son does travel out of state - Patient remains asymptomatic - Patient at the negative testing preoperatively for his urologic procedure. However, subsequently on admission this time was positive - c/w supportive care - Patient is greater than 90 days from his last positive test; as per hospital guidelines, this is considered a new infection and patient will be quarantined accordingly #Atrial fibrillation - rate controlled - will dc ac for now given gross hematuria - previously was on coumadin, bridging at home with son's assistance with lovenox - discussed with PCP - at [place] there were no issues with maintaining therapeutic levels, however at home there has been difficulty keeping him therapeutic #NIDDM2 with Neuropathy - c/w ISS - c/w Gabapentin #Depression - c/w Escitalopram #Gout - Allopurinol on hold #BPH - c/w Finasteride #DVT prophylaxis - c/w full anticoagulation with Lovenox/warfarin Dispo: discussed with son and PCP at length; will dc a/c given gross hematuria; discussed at length with urology and nephrology; will trial IV fluids for impr ovement in renal function VS,Fishbone, I+O VS, Fishbone, I+O Laboratory Tests 07/06/20 03:08 07/06/20 07:04 Vital Signs Date Time Temp Pulse Resp B/P (MAP) Pulse Ox O2 Delivery O2 Flow Rate FiO2 07/06/20 06:00 98.0 69 19 122/63 (82) 97 Room Air I&O- Last 24 Hours up to 6 AM 07/06/20 06:00 Intake Total 770 ml Output Total 4150 ml Balance -3380 ml AIDA UPTON MD Jul 06, 2020 11:42
[2020-07-06] MEDS: NS 0.45% 1,000 ML IV SCH ×2 (11:56→20:20)
[2020-07-06 14:00] VITALS: BP 120/70
[2020-07-06] MEDS: ACETAMINOPHEN TAB 650MG DOSE (2X325MG) PO PRN ×2 (15:30→20:28)
[2020-07-06] MEDS: RAMELTEON 8 MG TAB (ROZEREM) PO SCH (20:16)
[2020-07-06] MEDS: ATORVASTATIN 10 MG TAB PO SCH (20:17)
[2020-07-06] MEDS: FINASTERIDE 5 MG TAB PO SCH (20:17)
[2020-07-06] MEDS: GABAPENTIN 300 MG CAP PO SCH (20:17)
[2020-07-06 22:00] VITALS: BP 130/74
[2020-07-07] MEDS: PIPERACILLIN/TAZOBACTAM SOD 2.25 GM in D5W MINI-BAG PLUS 50 ML IV SCH ×4 (04:47→23:02)
[2020-07-07 06:00] VITALS: BP 120/65
[2020-07-07] MEDS: NS 0.45% 1,000 ML IV SCH ×2 (06:08→17:22)
[2020-07-07] MEDS: ESCITALOPRAM OXALATE 5MG TABLET (LEXAPRO) PO SCH (08:27)
[2020-07-07] MEDS: HumaLOG INSULIN (NovoLOG) PER UNIT SC SCH ×4 (08:27→21:00)
[2020-07-07 09:50] LABS: BASO % 0.4 % (0.0-1.0); EOS # 0.3 10^3/uL (0.0-0.5); EOS % 3.2 % (0.0-3.0); HEMATOCRIT 30.2 % (42.0-52.0); HEMOGLOBIN 9.6 g/dl (13.5-17.5); LYMPH # 1.8 10^3/uL (1.5-5.0); LYMPH % 21.4 % (24.0-44.0); MEAN CORPUSCULAR HEMOGLOBIN 32.3 pg (27.0-33.0); MEAN CORPUSCULAR HGB CONC 31.8 g/dl (32.0-36.5); MEAN CORPUSCULAR VOLUME 101.7 fl (80.0-96.0); MONO # 0.5 10^3/uL (0.0-0.8); MONO % 5.9 % (2.0-8.0); NEUTROPHILS # 5.7 10^3/uL (1.5-8.5); NEUTROPHILS % 67.5 % (36.0-66.0); PLATELET COUNT, AUTOMATED 193 10^3/uL (150-450); RED BLOOD COUNT 2.97 10^6/uL (4.30-6.10); WHITE BLOOD COUNT 8.4 10^3/uL (4.0-10.0)
[2020-07-07 10:05] LABS: INR 1.15; PROTHROMBIN TIME 14.9 SECONDS (12.5-14.3)
[2020-07-07 10:11] LABS: CALCIUM LEVEL 8.3 MG/DL (8.8-10.2); CREATININE FOR GFR 2.13 MG/DL (0.70-1.30); MAGNESIUM LEVEL 1.8 MG/DL (1.8-2.4)
--- NOTE | 2020-07-07 11:51 | IPNPDOC ---
Text Note Date of Service Patient note for 07/07/20. NOTE Subjective: No acute overnight events reported, patient voices no new medical complaints today. A/P: Patient is an 80-year-old male with a PMHx of A. 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 diff, Obesity, Hx of Pseudomonoas bacteremia / UTI (01/2020), who recently had a urologic procedure with bilateral ureteral stenting and removal of left nephrostomy tube with laser lithotripsy. He presented to the emergency room with confusion, fever and was found to have a urinary tract infection, likely post urologic procedure. Patient was admitted to hospital service for further evaluation, treatment. #Complicated UTI in the setting of recent urologic procedure and bilateral stent placement 06/30 - Patient has a history of pseudomonas bacteremia 2/2 UTI in 01/2020 - BCx - 3 negative to date, one + for pseudomonas - Urine cultures 07/01: Pseudomonas Aeruginosa - c/w Zosyn (Day #7) - consider transition to levaquin and ampicillin on discharge - Urology on consultation; appreciate their input #OLGA on CKD3 - Cr baseline of 1.4-1.6 - Cr still remains above baseline but improving - discussed with nephrology - continue half NS IV fluids - possibly post- obstructive diuresis - Will avoid nephrotoxic medications - continue to trend renal function #s/p Acute metabolic encephalopathy - sepsis on admission with metabolic encephalopathy due to sepsis - Patient mentation appears to be at baseline - Fully oriented to person, place and time #COVID19 - Patient was positive early 03/2020 - Has received a COVID19 vaccine in May; both doses - discussed with his PCP - he has had several negative tests; he notes his son does travel out of state - Patient remains asymptomatic - Patient at the negative testing preoperatively for his urologic procedure. However, subsequently on admission this time was positive - c/w supportive care - Patient is greater than 90 days from his last positive test; as per hospital guidelines, this is considered a new infection and patient will be quarantined accordingly #Atrial fibrillation - rate controlled - will dc ac for now given gross hematuria - previously was on coumadin, bridging at home with son's assistance with lovenox - discussed with PCP - at [place] there were no issues with maintaining therapeutic levels, however at home there has been difficulty keeping him therapeutic #NIDDM2 with Neuropathy - c/w ISS - c/w Gabapentin #Depression - c/w Escitalopram #Gout - Allopurinol on hold #BPH - c/w Finasteride #DVT prophylaxis - mechanical - off a/c due to hematuria Dispo: discussed again with son at [phone], and PCP Dr. Tristan Silva at length; discussed again at length with urology and nephrology; continue IV fluids today, consider resuming a/c if urine stays clear VS,Fishbone, I+O VS, Fishbone, I+O Laboratory Tests 07/07/20 09:28 Vital Signs Date Time Temp Pulse Resp B/P (MAP) Pulse Ox O2 Delivery O2 Flow Rate FiO2 07/07/20 06:00 99.0 75 20 120/65 (83) 96 Room Air I&O- Last 24 Hours up to 6 AM 07/07/20 06:00 Intake Total 480 ml Output Total 875 ml Balance -395 ml AIDA UPTON MD Jul 07, 2020 11:51
[2020-07-07 14:20] VITALS: BP 121/57
[2020-07-07 19:37] VITALS: BP 102/72
[2020-07-07] MEDS: ATORVASTATIN 10 MG TAB PO SCH (23:01)
[2020-07-07] MEDS: GABAPENTIN 300 MG CAP PO SCH (23:01)
[2020-07-07] MEDS: FINASTERIDE 5 MG TAB PO SCH (23:01)
[2020-07-07] MEDS: RAMELTEON 8 MG TAB (ROZEREM) PO SCH (23:01)
[2020-07-08] MEDS: NS 0.45% 1,000 ML IV SCH (02:15)
[2020-07-08] MEDS: PIPERACILLIN/TAZOBACTAM SOD 2.25 GM in D5W MINI-BAG PLUS 50 ML IV SCH ×4 (03:00→20:09)
[2020-07-08 04:50] VITALS: BP 109/56
[2020-07-08 07:34] LABS: BASO % 0.5 % (0.0-1.0); EOS # 0.2 10^3/uL (0.0-0.5); EOS % 2.1 % (0.0-3.0); HEMATOCRIT 26.4 % (42.0-52.0); HEMOGLOBIN 8.4 g/dl (13.5-17.5); LYMPH # 2.2 10^3/uL (1.5-5.0); LYMPH % 24.9 % (24.0-44.0); MEAN CORPUSCULAR HEMOGLOBIN 32.2 pg (27.0-33.0); MEAN CORPUSCULAR HGB CONC 31.8 g/dl (32.0-36.5); MEAN CORPUSCULAR VOLUME 101.1 fl (80.0-96.0); MONO # 0.7 10^3/uL (0.0-0.8); MONO % 7.7 % (2.0-8.0); NEUTROPHILS # 5.5 10^3/uL (1.5-8.5); NEUTROPHILS % 62.6 % (36.0-66.0); PLATELET COUNT, AUTOMATED 203 10^3/uL (150-450); RED BLOOD COUNT 2.61 10^6/uL (4.30-6.10); WHITE BLOOD COUNT 8.8 10^3/uL (4.0-10.0)
[2020-07-08 08:03] LABS: CALCIUM LEVEL 8.7 MG/DL (8.8-10.2); CREATININE FOR GFR 2.06 MG/DL (0.70-1.30); GLOMERULAR FILTRATION RATE 33.2 (>35); MAGNESIUM LEVEL 1.8 MG/DL (1.8-2.4)
[2020-07-08] MEDS: ESCITALOPRAM OXALATE 5MG TABLET (LEXAPRO) PO SCH (09:08)
[2020-07-08] MEDS: HumaLOG INSULIN (NovoLOG) PER UNIT SC SCH ×4 (09:08→21:00)
--- NOTE | 2020-07-08 10:03 | IPNPDOC ---
Text Note Date of Service Patient note for 07/08/20. NOTE Subjective: Complains of some abdominal pain today. No acute overnight events reported, no new medical complaints. A/P: Patient is an 80-year-old male with a PMHx of A. 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 diff, Obesity, Hx of Pseudomonoas bacteremia / UTI (01/2020), who recently had a urologic procedure with bilateral ureteral stenting and removal of left nephrostomy tube with laser lithotripsy. He presented to the emergency room with confusion, fever and was found to have a urinary tract infection, likely post urologic procedure. Patient was admitted to hospital service for further evaluation, treatment. #Complicated UTI in the setting of recent urologic procedure and bilateral stent placement 06/30 - Patient has a history of pseudomonas bacteremia 2/2 UTI in 01/2020 - BCx - 3 negative to date, one + for pseudomonas - Urine cultures 07/01: Pseudomonas Aeruginosa - c/w Zosyn (Day #7) - consider transition to levaquin and ampicillin on discharge - Urology on consultation; appreciate their input #OLGA on CKD3 - Cr baseline of 1.4-1.6 - Cr still remains above baseline but improving - s/p IV fluids - Will avoid nephrotoxic medications - continue to trend renal function #s/p Acute metabolic encephalopathy - sepsis on admission with metabolic encephalopathy due to sepsis - Patient mentation appears to be at baseline - Fully oriented to person, place and time #COVID19 - repeat test negative - Patient was positive early 03/2020 - Has received a COVID19 vaccine in May; both doses - discussed with his PCP - he has had several negative tests; he notes his son does travel out of state - Patient remains asymptomatic - Patient at the negative testing preoperatively for his urologic procedure. However, subsequently on admission this time was positive - c/w supportive care - Patient is greater than 90 days from his last positive test; as per hospital guidelines, this is considered a new infection and patient will be quarantined accordingly #Atrial fibrillation - rate controlled - will dc ac for now given gross hematuria - previously was on coumadin, bridging at home with son's assistance with lovenox - discussed with PCP - at [place] there were no issues with maintaining therapeutic levels, however at home there has been difficulty keeping him therapeutic #NIDDM2 with Neuropathy - c/w ISS - c/w Gabapentin #Depression - c/w Escitalopram #Gout - Allopurinol on hold #BPH - c/w Finasteride #DVT prophylaxis - mechanical - off a/c due to hematuria Dispo: discussed with son Sal at [phone]; holding off on a/c given drop in H/H - re-check later today; recall PT - nurse reports worsening d econditioning VS,Fishbone, I+O VS, Fishbone, I+O Laboratory Tests 07/08/20 07:01 Vital Signs Date Time Temp Pulse Resp B/P (MAP) Pulse Ox O2 Delivery O2 Flow Rate FiO2 07/08/20 04:50 97.9 74 17 109/56 (73) 94 Room Air I&O- Last 24 Hours up to 6 AM 07/08/20 06:00 Intake Total 600 ml Balance 600 ml AIDA UPTON MD July 08, 2020 10:03
--- NOTE | 2020-07-08 11:09 | REP ---
INDICATION: abd pain COMPARISON: 07/01/2020 TECHNIQUE: Axial noncontrast images from the lung bases to the pubic symphysis with coronal and sagittal reformations. This CT examination was performed using the following dose reduction techniques: Automated exposure control, adjustment of mA and/or kv according to the patient's size, and use of iterative reconstruction technique. FINDINGS: There is heterogeneous enlargement to the right psoas muscle measuring approximately 6 cm maximal diameter along with similar heterogeneous enlargement of the right iliacus muscle which measures roughly 6.5 x 4.5 cm diameter. There is increased fat stranding primarily noted within the pelvis (left greater than right) and findings are most compatible with bilateral iliopsoas hematomas. Liver, spleen, pancreas, gallbladder, and bilateral adrenal glands are relatively normal/stable for noncontrast evaluation. The kidneys again demonstrate atrophic changes along with stable nonobstructing nephroliths and bilateral ureteral stents extending to the bladder and without hydronephrosis. The enteric system demonstrates moderate ileus with fecalized small bowel, but no definite evidence for obstruction along with known small ventral hernia containing fat and small amount of fluid. Pelvis demonstrates relatively normal bladder with ureteral stents and findings to suggest prior prostate surgery. No ascites. No free air. No significant retroperitoneal adenopathy. Atherosclerotic changes to the aorta and vasculature noted without aneurysm. Musculoskeletal structures demonstrate stable osteopenia and advanced degenerative changes. Lung bases demonstrate small posterior basilar pleural reactions. IMPRESSION: 1. Heterogeneous enlargement to the right psoas and left iliacus muscles suggesting bilateral moderate iliopsoas hematomas. 2. Fecalized appearance to the small bowel without significant dilatation to suggest obstruction. Findings may represent ileus and should be correlated clinically. 3. Chronic nonacute findings as described above. <Electronically signed by Tomás Cisneros > 07/08/20 1199
[2020-07-08] MEDS: ACETAMINOPHEN TAB 650MG DOSE (2X325MG) PO PRN (12:16)
[2020-07-08 13:43] VITALS: BP 104/55
[2020-07-08 19:32] LABS: HEMATOCRIT 26.2 % (42.0-52.0); HEMOGLOBIN 8.3 g/dl (13.5-17.5)
[2020-07-08] MEDS: GABAPENTIN 300 MG CAP PO SCH (20:09)
[2020-07-08] MEDS: FINASTERIDE 5 MG TAB PO SCH (20:09)
[2020-07-08] MEDS: RAMELTEON 8 MG TAB (ROZEREM) PO SCH (20:09)
[2020-07-08] MEDS: ATORVASTATIN 10 MG TAB PO SCH (20:09)
[2020-07-08 20:11] VITALS: BP 107/54
--- NOTE | 2020-07-09 01:37 | REPVR ---
PROCEDURE INFORMATION: Exam: US Duplex Left Lower Extremity Veins, Limited Exam date and time: 07/09/2020 1:10 AM Age: 80 years old Clinical indication: Edema, localized; Lower extremity, left; Additional info: Left leg swelling TECHNIQUE: Imaging protocol: Real-time Duplex ultrasound of the Left Lower Extremity with 2-D lou scale, color Doppler flow and spectral waveform analysis with image documentation. Limited exam focused on the left lower extremity veins. COMPARISON: No relevant prior studies available. FINDINGS: Left deep veins: Unremarkable. The common femoral, femoral and popliteal veins are patent without thrombus. Normal compressibility, augmentation response and Doppler waveforms. Left superficial veins: Unremarkable. Saphenofemoral junction is patent without thrombus. Soft tissues: Unremarkable. IMPRESSION: No sonographic evidence of deep vein thrombosis. Electronically signed by: João Connolly On 07/09/2020 01:36:38 AM
[2020-07-09] MEDS: PIPERACILLIN/TAZOBACTAM SOD 2.25 GM in D5W MINI-BAG PLUS 50 ML IV SCH ×4 (03:09→20:02)
[2020-07-09 06:00] VITALS: BP 98/53
[2020-07-09 07:16] LABS: BASO % 0.6 % (0.0-1.0); EOS # 0.3 10^3/uL (0.0-0.5); EOS % 4.1 % (0.0-3.0); HEMATOCRIT 24.5 % (42.0-52.0); HEMOGLOBIN 7.8 g/dl (13.5-17.5); LYMPH # 2.2 10^3/uL (1.5-5.0); LYMPH % 32.6 % (24.0-44.0); MEAN CORPUSCULAR HEMOGLOBIN 32.6 pg (27.0-33.0); MEAN CORPUSCULAR HGB CONC 31.8 g/dl (32.0-36.5); MEAN CORPUSCULAR VOLUME 102.5 fl (80.0-96.0); MONO # 0.5 10^3/uL (0.0-0.8); MONO % 7.6 % (2.0-8.0); NEUTROPHILS # 3.6 10^3/uL (1.5-8.5); NEUTROPHILS % 52.5 % (36.0-66.0); PLATELET COUNT, AUTOMATED 212 10^3/uL (150-450); RED BLOOD COUNT 2.39 10^6/uL (4.30-6.10); WHITE BLOOD COUNT 6.8 10^3/uL (4.0-10.0)
[2020-07-09 07:26] LABS: CALCIUM LEVEL 8.1 MG/DL (8.8-10.2); CREATININE FOR GFR 2.25 MG/DL (0.70-1.30); MAGNESIUM LEVEL 2.1 MG/DL (1.8-2.4); POTASSIUM SERUM 4.2 MEQ/L (3.5-5.1)
[2020-07-09] MEDS: ESCITALOPRAM OXALATE 5MG TABLET (LEXAPRO) PO SCH (08:21)
[2020-07-09] MEDS: HumaLOG INSULIN (NovoLOG) PER UNIT SC SCH ×4 (08:22→20:36)
[2020-07-09 13:19] LABS: HEMATOCRIT 25.5 % (42.0-52.0); HEMOGLOBIN 8.1 g/dl (13.5-17.5)
[2020-07-09 14:00] VITALS: BP 106/53
[2020-07-09 20:01] VITALS: BP 105/59
[2020-07-09] MEDS: GABAPENTIN 300 MG CAP PO SCH (20:02)
[2020-07-09] MEDS: FINASTERIDE 5 MG TAB PO SCH (20:02)
[2020-07-09] MEDS: RAMELTEON 8 MG TAB (ROZEREM) PO SCH (20:02)
[2020-07-09] MEDS: ATORVASTATIN 10 MG TAB PO SCH (20:02)
[2020-07-09 20:33] LABS: HEMATOCRIT 25.1 % (42.0-52.0)
[2020-07-10] MEDS: PIPERACILLIN/TAZOBACTAM SOD 2.25 GM in D5W MINI-BAG PLUS 50 ML IV SCH ×2 (03:53→07:46)
[2020-07-10 06:00] VITALS: BP 100/53
[2020-07-10 07:46] LABS: HEMATOCRIT 24.5 % (42.0-52.0); HEMOGLOBIN 7.5 g/dl (13.5-17.5); MEAN CORPUSCULAR HEMOGLOBIN 31.3 pg (27.0-33.0); MEAN CORPUSCULAR HGB CONC 30.6 g/dl (32.0-36.5); MEAN CORPUSCULAR VOLUME 102.1 fl (80.0-96.0); PLATELET COUNT, AUTOMATED 260 10^3/uL (150-450); WHITE BLOOD COUNT 6.5 10^3/uL (4.0-10.0)
[2020-07-10] MEDS: ESCITALOPRAM OXALATE 5MG TABLET (LEXAPRO) PO SCH (07:46)
[2020-07-10] MEDS: HumaLOG INSULIN (NovoLOG) PER UNIT SC SCH ×4 (07:47→21:00)
[2020-07-10 08:10] LABS: ALBUMIN 2.2 GM/DL (3.2-5.2); BILIRUBIN,TOTAL 0.4 MG/DL (0.2-1.0); CALCIUM LEVEL 8.9 MG/DL (8.8-10.2); CREATININE FOR GFR 2.19 MG/DL (0.70-1.30); POTASSIUM SERUM 4.1 MEQ/L (3.5-5.1); TOTAL PROTEIN 5.1 GM/DL (6.4-8.2)
[2020-07-10 14:00] VITALS: BP 110/51
[2020-07-10] MEDS ORDERED: LevoFLOXacin 750 MG TABLET PO ONE (14:00)
--- NOTE | 2020-07-10 15:19 | IPNPDOC ---
Text Note Date of Service Patient note for 07/09/20. NOTE Subjective: Complains of some abdominal pain today. No acute overnight events reported, no new medical complaints. A/P: Patient is an 80-year-old male with a PMHx of A. 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 diff, Obesity, Hx of Pseudomonoas bacteremia / UTI (01/2020), who recently had a urologic procedure with bilateral ureteral stenting and removal of left nephrostomy tube with laser lithotripsy. He presented to the emergency room with confusion, fever and was found to have a urinary tract infection, likely post urologic procedure. Patient was admitted to hospital service for further evaluation, treatment. #acute blood loss anemia - possibly from hematuria - however urine has been clear for today - CT shows possible bilateral iliopsoas hematoma - discussed with surgery - no intervention at this point - hemoglobin still drop from yesterday - will check in evening - transfuse as needed - if continues to worsen may need IR drainage of hematoma - may correlate for his pain in the area limiting his participation with PT #Complicated UTI in the setting of recent urologic procedure and bilateral stent placement 06/30 - Patient has a history of pseudomonas bacteremia 2/2 UTI in 01/2020 - BCx - 3 negative to date, one + for pseudomonas - Urine cultures 07/01: Pseudomonas Aeruginosa - completed 9 days zosyn - now on levaquin - Urology on consultation; appreciate their input #OLGA on CKD3 - Cr baseline of 1.4-1.6 - Cr still remains above baseline - s/p IV fluids - Will avoid nephrotoxic medications - continue to trend renal function #s/p Acute metabolic encephalopathy - sepsis on admission with metabolic encephalopathy due to sepsis - Patient mentation appears to be at baseline - Fully oriented to person, place and time #COVID19 - repeat test negative - Patient was positive early 03/2020 - Has received a COVID19 vaccine in May; both doses - discussed with his PCP - he has had several negative tests; he notes his son does travel out of state - Patient remains asymptomatic - Patient at the negative testing preoperatively for his urologic procedure. However, subsequently on admission this time was positive - c/w supportive care - Patient is greater than 90 days from his last positive test; as per hospital guidelines, this is considered a new infection and patient will be quarantined accordingly #Atrial fibrillation - rate controlled - will dc ac for now given gross hematuria - previously was on coumadin, bridging at home with son's assistance with lovenox - discussed with PCP - at [place] there were no issues with maintaining therapeutic levels, however at home there has been difficulty keeping him therapeutic - a/c on hold as above - acute blood loss anemia #NIDDM2 with Neuropathy - c/w ISS - c/w Gabapentin #Depression - c/w Escitalopram #Gout - Allopurinol on hold #BPH - c/w Finasteride #DVT prophylaxis - mechanical - off a/c due to hematuria Dispo: discussed with kristian Huang at [phone]; holding off on a/c given drop in H/H - re-check again later today; will need rehab on discharge from hospital VS,Rudolph, I+O VS, Rudolph, I+O Laboratory Tests 07/09/20 20:18 07/10/20 07:28 Vital Signs Date Time Temp Pulse Resp B/P (MAP) Pulse Ox O2 Delivery O2 Flow Rate FiO2 07/10/20 06:00 97.2 63 20 100/53 (69) 98 Room Air I&O- Last 24 Hours up to 6 AM 07/10/20 06:00 Intake Total 1730 ml Output Total 150 ml Balance 1580 ml AIDA UPTON MD July 10, 2020 15:19
[2020-07-10 18:45] VITALS: BP 96/51
[2020-07-10 19:48] LABS: HEMATOCRIT 26.1 % (42.0-52.0); HEMOGLOBIN 8.3 g/dl (13.5-17.5)
[2020-07-10 21:17] VITALS: BP 93/52
[2020-07-10] MEDS: ATORVASTATIN 10 MG TAB PO SCH (21:31)
[2020-07-10] MEDS: RAMELTEON 8 MG TAB (ROZEREM) PO SCH (21:31)
[2020-07-10] MEDS: FINASTERIDE 5 MG TAB PO SCH (21:31)
[2020-07-10] MEDS: GABAPENTIN 300 MG CAP PO SCH (21:31)
[2020-07-10] MEDS: ACETAMINOPHEN TAB 650MG DOSE (2X325MG) PO PRN (21:39)
[2020-07-11 05:02] VITALS: BP 97/54
[2020-07-11 07:43] LABS: HEMATOCRIT 24.2 % (42.0-52.0); HEMOGLOBIN 7.6 g/dl (13.5-17.5); MEAN CORPUSCULAR HEMOGLOBIN 31.7 pg (27.0-33.0); MEAN CORPUSCULAR HGB CONC 31.4 g/dl (32.0-36.5); MEAN CORPUSCULAR VOLUME 100.8 fl (80.0-96.0); PLATELET COUNT, AUTOMATED 255 10^3/uL (150-450); WHITE BLOOD COUNT 6.2 10^3/uL (4.0-10.0)
[2020-07-11] MEDS: ESCITALOPRAM OXALATE 5MG TABLET (LEXAPRO) PO SCH (07:54)
[2020-07-11] MEDS: HumaLOG INSULIN (NovoLOG) PER UNIT SC SCH ×4 (07:54→19:40)
[2020-07-11 08:05] LABS: CALCIUM LEVEL 9.3 MG/DL (8.8-10.2); CREATININE FOR GFR 1.98 MG/DL (0.70-1.30); GLOMERULAR FILTRATION RATE 34.8 (>35); POTASSIUM SERUM 3.9 MEQ/L (3.5-5.1)
[2020-07-11 11:43] LABS: HEMATOCRIT 24.7 % (42.0-52.0); MEAN CORPUSCULAR HEMOGLOBIN 33.5 pg (27.0-33.0); MEAN CORPUSCULAR HGB CONC 32.4 g/dl (32.0-36.5); MEAN CORPUSCULAR VOLUME 103.3 fl (80.0-96.0); PLATELET COUNT, AUTOMATED 280 10^3/uL (150-450); RED BLOOD COUNT 2.39 10^6/uL (4.30-6.10); WHITE BLOOD COUNT 6.1 10^3/uL (4.0-10.0)
[2020-07-11 14:00] VITALS: BP 96/55
[2020-07-11 20:00] VITALS: BP 100/54
[2020-07-11] MEDS: RAMELTEON 8 MG TAB (ROZEREM) PO SCH (20:40)
[2020-07-11] MEDS: ATORVASTATIN 10 MG TAB PO SCH (20:40)
[2020-07-11] MEDS: GABAPENTIN 300 MG CAP PO SCH (20:40)
[2020-07-11] MEDS: FINASTERIDE 5 MG TAB PO SCH (20:41)
--- NOTE | 2020-07-11 21:38 | IPNPDOC ---
Subjective Date Seen The patient was seen on 07/11/20. Subjective Chief Complaint/HPI Mr. Mccauley is an 80 year old male with a.fib (was on Warfarin/Lovenox bridge) who recently had urologic procedure, but then found to have confusion and fever 2/2 UTI. No fever since 07/02/2020. He was seen in the morning. Denies chest pain or dyspnea. Discussed about rehab and reinforced about going to rehab for a short period before home. He is still resistant to the idea. Objective Physical Examination General Exam: Positive: Cooperative Eye Exam: Negative: Sclera icteric ENT Exam: Positive: Atraumatic Neck Exam: Positive: Supple Chest Exam: Positive: Clear to auscultation Heart Exam: Positive: Rate Normal, Regular Rhythm Abdomen Exam: Positive: Normal bowel sounds, Soft; Negative: Tenderness Extremity Exam: Positive: Edema (trace) Neuro Exam: Positive: Normal Speech Psych Exam: Positive: Mood NL Assessment /Plan Assessment Mr. Mccauley is an 80 year old male with a.fib (was on Warfarin/Lovenox bridge) who recently had urologic procedure, but then found to have confusion and fever 2/2 UTI. Patient was on anticoagulation, but developed bilateral hematomas. Anticoagulation held while this is resolving. H&H has not stabilized at this time and still fluctuating. Otherwise, patient continues on antibiotics for complicated UTI today is day 10 of antibiotics Patient is still weak and would benefit from rehab Plan/VTE VTE Prophylaxis Ordered?: Yes Plan 1. Acute blood loss anemia -Sources include hematuria and bilateral psoas hematoma -May be secondary to anticoagulation. Anticoagulation on hold at this time -Will need to continue monitoring hemoglobin. Will need to try to restart antico agulation as well 2. Complicated UTI in the setting of recent urologic procedure and bilateral stent placement on 06/30/2020 -Continue antibiotics with levofloxacin -Day 10 of antibiotics -Urology consulted, recommendations appreciated 3. OLGA on CKD stage 3 -Baseline creatinine around 1.6 -Creatinine improving -Continue with supportive care and avoiding nephrotoxic agents 4. Acute metabolic encephalopathy (resolved) -Secondary to UTI and sepsis -Mentation now at baseline. Patient is A&Ox3 5. Atrial fibrillation -Rate controlled -Patient has acute blood loss anemia and bilateral psoas hematomas. Anticoagulation held -Patient will need to be restarted on Lovenox and Coumadin when H&H stabilizes 6. NIDDM2 with neuropathy -Continue sliding scale insulin and gabapentin 7. Depression -Continue with escitalopram 8. Gout -Allopurinol on hold due to OLGA 9. BPH -Continue finasteride 10. DVT ppx -TEDs (due to acute blood loss anemia) Disposition: Pending stability of H&H and decision on placement vs home VS, I&O, 24H, Fishbone Vital Signs/I&O Vital Signs Date Time Temp Pulse Resp B/P (MAP) Pulse Ox O2 Delivery O2 Flow Rate FiO2 07/11/20 20:00 98.1 63 18 100/54 (69) 99 Room Air I&O- Last 24 Hours up to 6 AM 07/11/20 06:00 Intake Total 1190 ml Output Total 150 ml Balance 1040 ml Laboratory Data 24H LABS Laboratory Tests 2 07/11/20 07:02: Bedside Glucose (Misc Panel) 103 07/11/20 07:32: Nucleated Red Blood Cells % (auto) 0.0, Anion Gap 7L, Glomerular Filtration Rate 34.8L, Calcium Level 9.3 07/11/20 11:13: Nucleated Red Blood Cells % (auto) 0.0 07/11/20 11:32: Bedside Glucose (Misc Panel) 123H 07/11/20 16:25: Bedside Glucose (Misc Panel) 124H 07/11/20 19:26: Bedside Glucose (Misc Panel) 131H CBC/BMP Laboratory Tests 07/11/20 07:32 07/11/20 11:13 Microbiology Microbiology 07/02/20 Blood Culture - Final, Complete NO GROWTH AFTER 5 DAYS 07/02/20 Blood Culture - Final, Complete NO GROWTH AFTER 5 DAYS 07/01/20 Blood Culture - Final, Complete NO GROWTH AFTER 5 DAYS 07/01/20 Urine Culture - Final, Complete Pseudomonas Aeruginosa Enterococcus Faecalis 07/01/20 Blood Culture - Final, Complete Pseudomonas Aeruginosa JIMENA CHOWDHURY DO July 11, 2020 21:38
[2020-07-12] MEDS: LevoFLOXacin 750 MG TABLET PO SCH (05:59)
[2020-07-12 06:00] VITALS: BP 117/60
[2020-07-12] MEDS: HumaLOG INSULIN (NovoLOG) PER UNIT SC SCH ×4 (07:30→21:00)
[2020-07-12 07:38] LABS: HEMATOCRIT 24.4 % (42.0-52.0); HEMOGLOBIN 7.7 g/dl (13.5-17.5); MEAN CORPUSCULAR HGB CONC 31.6 g/dl (32.0-36.5); MEAN CORPUSCULAR VOLUME 101.2 fl (80.0-96.0); PLATELET COUNT, AUTOMATED 296 10^3/uL (150-450); RED BLOOD COUNT 2.41 10^6/uL (4.30-6.10); WHITE BLOOD COUNT 6.1 10^3/uL (4.0-10.0)
[2020-07-12 08:00] LABS: CALCIUM LEVEL 8.9 MG/DL (8.8-10.2); CREATININE FOR GFR 1.92 MG/DL (0.70-1.30); GLOMERULAR FILTRATION RATE 36.1 (>35)
[2020-07-12] MEDS: ESCITALOPRAM OXALATE 5MG TABLET (LEXAPRO) PO SCH (08:32)
[2020-07-12 14:00] VITALS: BP 124/70
[2020-07-12 17:12] LABS: HEMATOCRIT 25.5 % (42.0-52.0); HEMOGLOBIN 8.2 g/dl (13.5-17.5); MEAN CORPUSCULAR HEMOGLOBIN 33.3 pg (27.0-33.0); MEAN CORPUSCULAR HGB CONC 32.2 g/dl (32.0-36.5); MEAN CORPUSCULAR VOLUME 103.7 fl (80.0-96.0); PLATELET COUNT, AUTOMATED 312 10^3/uL (150-450); RED BLOOD COUNT 2.46 10^6/uL (4.30-6.10); WHITE BLOOD COUNT 7.1 10^3/uL (4.0-10.0)
[2020-07-12 19:33] VITALS: BP 102/61
[2020-07-12] MEDS: ATORVASTATIN 10 MG TAB PO SCH (20:01)
[2020-07-12] MEDS: FINASTERIDE 5 MG TAB PO SCH (20:01)
[2020-07-12] MEDS: RAMELTEON 8 MG TAB (ROZEREM) PO SCH (20:01)
[2020-07-12] MEDS: GABAPENTIN 300 MG CAP PO SCH (20:01)
--- NOTE | 2020-07-12 20:50 | IPNPDOC ---
Subjective Date Seen The patient was seen on 07/12/20. Subjective Chief Complaint/HPI Mr. Mccauley is an 80 year old male with a.fib (was on Warfarin/Lovenox bridge) who recently had urologic procedure, but then found to have confusion and fever 2/2 UTI. No fever since 07/02/2020. He was seen this morning. Denies chest pain or dyspnea. Patient worked with physical therapy today. Still not safe for home at this time. Objective Physical Examination General Exam: Positive: Cooperative Eye Exam: Negative: Sclera icteric ENT Exam: Positive: Atraumatic Neck Exam: Positive: Supple Chest Exam: Positive: Clear to auscultation Heart Exam: Positive: Rate Normal, Regular Rhythm Abdomen Exam: Positive: Normal bowel sounds, Soft; Negative: Tenderness Extremity Exam: Positive: Edema (trace) Neuro Exam: Positive: Normal Speech Psych Exam: Positive: Mood NL Assessment /Plan Assessment Mr. Mccauley is an 80 year old male with a.fib (was on Warfarin/Lovenox bridge) who recently had urologic procedure, but then found to have confusion and fever 2/2 UTI. Patient was on anticoagulation, but developed bilateral hematomas. Anticoagulation held while this is resolving. H&H has not stabilized at this time and still fluctuating. Otherwise, patient continues on antibiotics for complicated UTI today is day 11 of antibiotics Patient is still weak and would benefit from rehab Plan/VTE VTE Prophylaxis Ordered?: Yes Plan 1. Acute blood loss anemia -Sources include hematuria and bilateral psoas hematoma -May be secondary to anticoagulation. Anticoagulation on hold at this time -Will need to continue monitoring hemoglobin. Will need to try to restart anticoagulation as well 2. Complicated UTI in the setting of recent urologic procedure and bilateral stent placement on 06/30/2020 -Continue antibiotics with levofloxacin -Day 11 of antibiotics -Urology consulted, recommendations appreciated 3. OLGA on CKD stage 3 -Baseline creatinine around 1.6 -Creatinine improving -Continue with supportive care and avoiding nephrotoxic agents 4. Acute metabolic encephalopathy (resolved) -Secondary to UTI and sepsis -Mentation now at baseline. Patient is A&Ox3 5. Atrial fibrillation -Rate controlled -Patient has acute blood loss anemia and bilateral psoas hematomas. Anticoagulation held -Patient will need to be restarted on Lovenox and Coumadin when H&H stabilizes 6. NIDDM2 with neuropathy -Continue sliding scale insulin and gabapentin 7. Depression -Continue with escitalopram 8. Gout -Allopurinol on hold due to OLGA 9. BPH -Continue finasteride 10. DVT ppx -TEDs (due to acute blood loss anemia) Disposition: Pending stability of H&H and decision on placement vs home VS, I&O, 24H, Fishbone Vital Signs/I&O Vital Signs Date Time Temp Pulse Resp B/P (MAP) Pulse Ox O2 Delivery O2 Flow Rate FiO2 07/12/20 19:33 97.1 73 17 102/61 (75) 98 Room Air I&O- Last 24 Hours up to 6 AM 07/12/20 06:00 Intake Total 840 ml Output Total 150 ml Balance 690 ml Laboratory Data 24H LABS Laboratory Tests 2 07/12/20 07:23: Nucleated Red Blood Cells % (auto) 0.0, Anion Gap 4L, Glomerular Filtration Rate 36.1, Calcium Level 8.9 07/12/20 11:45: Bedside Glucose (Misc Panel) 111H 07/12/20 16:00: Nucleated Red Blood Cells % (auto) 0.0 07/12/20 16:38: Bedside Glucose (Misc Panel) 98 07/12/20 19:32: Bedside Glucose (Misc Panel) 140H CBC/BMP Laboratory Tests 07/12/20 07:23 07/12/20 16:00 Microbiology Microbiology 07/02/20 Blood Culture - Final, Complete NO GROWTH AFTER 5 DAYS 07/02/20 Blood Culture - Final, Complete NO GROWTH AFTER 5 DAYS JIMENA CHOWDHURY DO July 12, 2020 20:49
[2020-07-13 04:19] VITALS: BP 105/54
[2020-07-13 07:29] LABS: HEMATOCRIT 25.8 % (42.0-52.0); MEAN CORPUSCULAR HEMOGLOBIN 31.5 pg (27.0-33.0); MEAN CORPUSCULAR VOLUME 101.6 fl (80.0-96.0); PLATELET COUNT, AUTOMATED 302 10^3/uL (150-450); RED BLOOD COUNT 2.54 10^6/uL (4.30-6.10); WHITE BLOOD COUNT 6.8 10^3/uL (4.0-10.0)
[2020-07-13] MEDS: HumaLOG INSULIN (NovoLOG) PER UNIT SC SCH ×4 (07:30→20:18)
[2020-07-13 07:42] LABS: CALCIUM LEVEL 9.3 MG/DL (8.8-10.2); CREATININE FOR GFR 1.95 MG/DL (0.70-1.30); GLOMERULAR FILTRATION RATE 35.4 (>35); POTASSIUM SERUM 3.9 MEQ/L (3.5-5.1)
[2020-07-13] MEDS: ESCITALOPRAM OXALATE 5MG TABLET (LEXAPRO) PO SCH (09:24)
[2020-07-13 14:00] VITALS: BP 103/55
--- NOTE | 2020-07-13 16:35 | IPNPDOC ---
Subjective Date Seen The patient was seen on 07/13/20. Subjective Chief Complaint/HPI Mr. Mccauley is an 80 year old male with a.fib (was on Warfarin/Lovenox bridge) who recently had urologic procedure, but then found to have confusion and fever 2/2 UTI. No fever since 07/02/2020. This morning, he denies any chest pain or dyspnea. He is hopeful to go home, but will still need family and physical therapy to discuss his physical status. Unable to do so until patient is out of COVID floor. Objective Physical Examination General Exam: Positive: Cooperative Eye Exam: Negative: Sclera icteric ENT Exam: Positive: Atraumatic Neck Exam: Positive: Supple Chest Exam: Positive: Clear to auscultation Heart Exam: Positive: Rate Normal, Regular Rhythm Abdomen Exam: Positive: Normal bowel sounds, Soft; Negative: Tenderness Extremity Exam: Positive: Edema (trace) Neuro Exam: Positive: Normal Speech Psych Exam: Positive: Mood NL Assessment /Plan Assessment Mr. Mccauley is an 80 year old male with a.fib (was on Warfarin/Lovenox bridge) who recently had urologic procedure, but then found to have confusion and fever 2/2 UTI. Patient was on anticoagulation, but developed bilateral hematomas. Anticoagulation held while this is resolving. H&H has not stabilized at this time and still fluctuating. Otherwise, patient continues on antibiotics for complicated UTI today is day 12 of antibiotics. Anticipate 14 days of antibiotics Patient is still weak and would benefit from rehab Plan/VTE VTE Prophylaxis Ordered?: Yes Plan 1. Acute blood loss anemia -Sources include hematuria and bilateral psoas hematoma -May be secondary to anticoagulation. Anticoagulation on hold at this time -Will need to continue monitoring hemoglobin. Will need to try to restart anticoagulation as well 2. Complicated UTI in the setting of recent urologic procedure and bilateral stent placement on 06/30/2020 -Continue antibiotics with levofloxacin -Day 12 of antibiotics, plan for a total of 14 days of antibiotics -Urology consulted, recommendations appreciated 3. OLGA on CKD stage 3 -Baseline creatinine around 1.6 -Creatinine improving -Continue with supportive care and avoiding nephrotoxic agents 4. Acute metabolic encephalopathy (resolved) -Secondary to UTI and sepsis -Mentation now at baseline. Patient is A&Ox3 5. Atrial fibrillation -Rate controlled -Patient has acute blood loss anemia and bilateral psoas hematomas. Anticoagulation held -Patient will need to be restarted on Lovenox and Coumadin when H&H stabilizes 6. NIDDM2 with neuropathy -Continue sliding scale insulin and gabapentin 7. Depression -Continue with escitalopram 8. Gout -Allopurinol on hold due to OLGA 9. BPH -Continue finasteride 10. DVT ppx -TEDs (due to acute blood loss anemia) Disposition: Pending on moving out of [facility] floor for family and PT conversation. Patient will be made ALC until that time happens. VS, I&O, 24H, Fishbone Vital Signs/I&O Vital Signs Date Time Temp Pulse Resp B/P (MAP) Pulse Ox O2 Delivery O2 Flow Rate FiO2 07/13/20 14:00 97.9 68 18 103/55 (71) 99 Room Air I&O- Last 24 Hours up to 6 AM 07/13/20 06:00 Intake Total 840 ml Balance 840 ml Laboratory Data 24H LABS Laboratory Tests 2 07/12/20 16:00: Nucleated Red Blood Cells % (auto) 0.0 07/12/20 16:38: Bedside Glucose (Misc Panel) 98 07/12/20 19:32: Bedside Glucose (Misc Panel) 140H 07/13/20 06:59: Bedside Glucose (Misc Panel) 102 07/13/20 07:02: Nucleated Red Blood Cells % (auto) 0.0, Anion Gap 5L, Glomerular Filtration Rate 35.4, Calcium Level 9.3 07/13/20 11:43: Bedside Glucose (Misc Panel) 132H CBC/BMP Laboratory Tests 07/12/20 16:00 07/13/20 07:02 JIMENA CHOWDHURY DO July 13, 2020 15:45
[2020-07-13] MEDS: FINASTERIDE 5 MG TAB PO SCH (20:25)
[2020-07-13] MEDS: ATORVASTATIN 10 MG TAB PO SCH (20:25)
[2020-07-13] MEDS: GABAPENTIN 300 MG CAP PO SCH (20:25)
[2020-07-13] MEDS: RAMELTEON 8 MG TAB (ROZEREM) PO SCH (20:25)
[2020-07-14 04:18] VITALS: BP 108/60
[2020-07-14] MEDS: LevoFLOXacin 750 MG TABLET PO SCH (05:37)
[2020-07-14] MEDS: ESCITALOPRAM OXALATE 5MG TABLET (LEXAPRO) PO SCH (08:27)
[2020-07-14] MEDS: HumaLOG INSULIN (NovoLOG) PER UNIT SC SCH ×4 (08:27→21:00)
[2020-07-14 09:18] LABS: HEMATOCRIT 28.4 % (42.0-52.0); MEAN CORPUSCULAR HEMOGLOBIN 32.6 pg (27.0-33.0); MEAN CORPUSCULAR HGB CONC 31.7 g/dl (32.0-36.5); MEAN CORPUSCULAR VOLUME 102.9 fl (80.0-96.0); PLATELET COUNT, AUTOMATED 304 10^3/uL (150-450); RED BLOOD COUNT 2.76 10^6/uL (4.30-6.10); WHITE BLOOD COUNT 7.2 10^3/uL (4.0-10.0)
[2020-07-14 09:42] LABS: CALCIUM LEVEL 9.2 MG/DL (8.8-10.2); GLOMERULAR FILTRATION RATE 34.4 (>35); POTASSIUM SERUM 4.2 MEQ/L (3.5-5.1)
[2020-07-14] MEDS: ATORVASTATIN 10 MG TAB PO SCH (21:09)
[2020-07-14] MEDS: RAMELTEON 8 MG TAB (ROZEREM) PO SCH (21:09)
[2020-07-14] MEDS: FINASTERIDE 5 MG TAB PO SCH (21:09)
[2020-07-14] MEDS: GABAPENTIN 300 MG CAP PO SCH (21:10)
[2020-07-14 22:00] VITALS: BP 110/56
[2020-07-15 06:00] VITALS: BP 103/57
[2020-07-15 06:57] LABS: HEMATOCRIT 26.5 % (42.0-52.0); HEMOGLOBIN 8.6 g/dl (13.5-17.5); MEAN CORPUSCULAR HEMOGLOBIN 33.2 pg (27.0-33.0); MEAN CORPUSCULAR HGB CONC 32.5 g/dl (32.0-36.5); MEAN CORPUSCULAR VOLUME 102.3 fl (80.0-96.0); PLATELET COUNT, AUTOMATED 325 10^3/uL (150-450); RED BLOOD COUNT 2.59 10^6/uL (4.30-6.10); WHITE BLOOD COUNT 7.7 10^3/uL (4.0-10.0)
[2020-07-15 07:19] LABS: CREATININE FOR GFR 1.97 MG/DL (0.70-1.30); POTASSIUM SERUM 4.3 MEQ/L (3.5-5.1)
[2020-07-15] MEDS: HumaLOG INSULIN (NovoLOG) PER UNIT SC SCH ×4 (07:30→20:22)
[2020-07-15] MEDS: ESCITALOPRAM OXALATE 5MG TABLET (LEXAPRO) PO SCH (09:17)
[2020-07-15] MEDS: POLYVINYL ALCOHOL OPHTH SOLN 15 ML(LIQUITEARS) OU PRN ×2 (18:16→20:28)
[2020-07-15 20:00] VITALS: BP 117/44
[2020-07-15] MEDS: GABAPENTIN 300 MG CAP PO SCH (20:27)
[2020-07-15] MEDS: FINASTERIDE 5 MG TAB PO SCH (20:28)
[2020-07-15] MEDS: RAMELTEON 8 MG TAB (ROZEREM) PO SCH (20:28)
[2020-07-15] MEDS: ATORVASTATIN 10 MG TAB PO SCH (20:28)
[2020-07-16] MEDS: LevoFLOXacin 750 MG TABLET PO SCH (05:55)
[2020-07-16] MEDS: POLYVINYL ALCOHOL OPHTH SOLN 15 ML(LIQUITEARS) OU PRN ×2 (05:56→21:08)
[2020-07-16 06:00] VITALS: BP 98/54
[2020-07-16 06:32] LABS: HEMATOCRIT 28.6 % (42.0-52.0); MEAN CORPUSCULAR HEMOGLOBIN 31.8 pg (27.0-33.0); MEAN CORPUSCULAR HGB CONC 31.5 g/dl (32.0-36.5); MEAN CORPUSCULAR VOLUME 101.1 fl (80.0-96.0); PLATELET COUNT, AUTOMATED 306 10^3/uL (150-450); RED BLOOD COUNT 2.83 10^6/uL (4.30-6.10); WHITE BLOOD COUNT 7.1 10^3/uL (4.0-10.0)
[2020-07-16 06:54] LABS: CALCIUM LEVEL 9.6 MG/DL (8.8-10.2); CREATININE FOR GFR 2.05 MG/DL (0.70-1.30); GLOMERULAR FILTRATION RATE 33.4 (>35)
[2020-07-16] MEDS: HumaLOG INSULIN (NovoLOG) PER UNIT SC SCH ×4 (07:30→20:09)
[2020-07-16 08:00] VITALS: BP 98/55
[2020-07-16] MEDS: ESCITALOPRAM OXALATE 5MG TABLET (LEXAPRO) PO SCH (08:29)
--- NOTE | 2020-07-16 14:46 | REP ---
INDICATION: is the bilateral psoas hematoma decreasing in size?. COMPARISON: 07/08/2020 TECHNIQUE: Noncontrast enhanced standard helical technique FINDINGS: There is no change in the lung bases There is no change in the solid intra-organs and gallbladder. There is no change in the spleen, pancreas, adrenal glands. There is no change in the kidneys. Bilateral pigtail catheters are again seen in the ureters and urinary bladder status quo. Once again, there are multiple right-sided nephroliths. There is no change in the abdominal aorta or para-aortic regions. There is no change in the bowel loops or the mesenteries. No free fluid or free air has developed. Once again, there is mixed density seen in each psoas muscle extending into the iliopsoas on the left this may have improved slightly compared to the prior exam. Certainly, it is not worse There is no change in the osseous structures. IMPRESSION: Findings as described above. <Electronically signed by Rafa Guidry > 07/16/20 [id number]
[2020-07-16 19:28] VITALS: BP 137/58
[2020-07-16] MEDS: RAMELTEON 8 MG TAB (ROZEREM) PO SCH (21:04)
[2020-07-16] MEDS: FINASTERIDE 5 MG TAB PO SCH (21:04)
[2020-07-16] MEDS: ACETAMINOPHEN TAB 650MG DOSE (2X325MG) PO PRN (21:05)
[2020-07-16] MEDS: ATORVASTATIN 10 MG TAB PO SCH (21:05)
[2020-07-16] MEDS: GABAPENTIN 300 MG CAP PO SCH (21:05)
[2020-07-17 04:00] VITALS: BP 135/65
[2020-07-17] MEDS: ACETAMINOPHEN TAB 650MG DOSE (2X325MG) PO PRN ×2 (05:55→20:52)
[2020-07-17] MEDS: ESCITALOPRAM OXALATE 5MG TABLET (LEXAPRO) PO SCH (08:31)
[2020-07-17] MEDS: HumaLOG INSULIN (NovoLOG) PER UNIT SC SCH ×4 (08:31→20:36)
[2020-07-17] MEDS ORDERED: ENOX100I3 SC ×2 (10:05→18:41)
[2020-07-17 11:12] LABS: HEMATOCRIT 29.1 % (42.0-52.0); HEMOGLOBIN 9.2 g/dl (13.5-17.5); MEAN CORPUSCULAR HEMOGLOBIN 32.6 pg (27.0-33.0); MEAN CORPUSCULAR HGB CONC 31.6 g/dl (32.0-36.5); MEAN CORPUSCULAR VOLUME 103.2 fl (80.0-96.0); PLATELET COUNT, AUTOMATED 302 10^3/uL (150-450); RED BLOOD COUNT 2.82 10^6/uL (4.30-6.10); WHITE BLOOD COUNT 6.1 10^3/uL (4.0-10.0)
[2020-07-17 11:38] LABS: CALCIUM LEVEL 9.2 MG/DL (8.8-10.2); CREATININE FOR GFR 1.91 MG/DL (0.70-1.30); GLOMERULAR FILTRATION RATE 36.3 (>35); POTASSIUM SERUM 4.1 MEQ/L (3.5-5.1)
[2020-07-17] MEDS: CALCIUM CARBONATE 500 MG CHEW U/D PO PRN ×2 (16:42→20:52)
[2020-07-17 18:15] VITALS: BP 140/71
[2020-07-17] MEDS: MIRALAX *UNIT DOSE* 17GM PACKET PO SCH (18:40)
[2020-07-17] MEDS: PANTOPRAZOLE 40MG VIAL (C9113 PER 1) IV SCH (18:40)
[2020-07-17] MEDS: SUCRALFATE SUSP 1GM/10ML UD PO SCH (19:55)
[2020-07-17] MEDS: RAMELTEON 8 MG TAB (ROZEREM) PO SCH (20:52)
[2020-07-17] MEDS: DOCUSATE SODIUM 100MG CAPSULE PO SCH (20:52)
[2020-07-17] MEDS: ATORVASTATIN 10 MG TAB PO SCH (20:52)
[2020-07-17] MEDS: FINASTERIDE 5 MG TAB PO SCH (20:52)
[2020-07-17] MEDS: GABAPENTIN 300 MG CAP PO SCH (20:52)
[2020-07-17] MEDS ORDERED: ENOXAPARIN 100MG/1ML SYRINGE (J1650 PER 10MG) SC SCH (21:00)
--- NOTE | 2020-07-17 23:15 | IPNPDOC ---
Subjective Date Seen The patient was seen on 07/17/20. Subjective Chief Complaint/HPI Mr. Mccauley is an 80 year old male with a.fib (was on Warfarin/Lovenox bridge) who recently had urologic procedure, but then found to have confusion and fever 2/2 UTI. No fever since 07/02/2020. This morning, family met with physical therapy and patient. Family was okay taking patient how at his current physical level. Otherwise, patient denies chest pain or dyspnea. He feels ready for home. I discussed anticoagulation with patient. It has been more than 1 week and his hemoglobin has been stable. Repeat CT abd/pelvis looks like it is shrinking. Patent has the option of waiting to see his PCP to start anticoagulation and risk a stroke, or start anticoagulation and risk a bleed. He decided to start anticoagulation and risk a bleed. Spoke with pharmacy. With patient's renal function, patient should be on Lovenox 100mg once a day, not twice a day. The twice a day dosing is most likely reason for patient's bleed. I sent Lovenox 100mg qD to patient's pharmacy. Unfortunately, family unable to pick patient up today. Patient will pick patient up tomorrow. Plan for discharge tomorrow. Objective Physical Examination General Exam: Positive: Cooperative Eye Exam: Negative: Sclera icteric ENT Exam: Positive: Atraumatic Neck Exam: Positive: Supple Chest Exam: Positive: Clear to auscultation Heart Exam: Positive: Rate Normal, Regular Rhythm Abdomen Exam: Positive: Normal bowel sounds, Soft; Negative: Tenderness Extremity Exam: Positive: Edema (trace) Neuro Exam: Positive: Normal Speech Psych Exam: Positive: Mood NL Assessment /Plan Assessment Mr. Mccauley is an 80 year old male with a.fib (was on Warfarin/Lovenox bridge) who recently had urologic procedure, but then found to have confusion and fever 2/2 UTI. Patient was on anticoagulation, but developed bilateral hematomas. Anticoagulation held for more than [address] abd/pelvis demonstrates stable appearing hematoma, not enlarging and possibly shrinking. Discussed risks and benefits. Patient chose to restart anticoagulation. Renally dosed Lovenox. Otherwise, patient completed 14 days of antibiotics for complicated UTI. Physical therapy and family met. Family is okay with patient's current physical level. Plan to take patient home tomorrow. Plan/VTE VTE Prophylaxis Ordered?: Yes Plan 1. Acute blood loss anemia -Sources include hematuria and bilateral psoas hematoma -Most likely secondary to lovenox not renally dosed (BID instead of qD) -Discussed risk and benefits of patients. Patient decided to restart anticoagulation today. 2. Complicated UTI in the setting of recent urologic procedure and bilateral stent placement on 06/30/2020 -Completed 14 days of antibiotics -Urology consulted, recommendations appreciated 3. OLGA on CKD stage 3 -Patient's new baseline may be creatinine of 2 -Patient should follow up with nephrology outpatient 4. Acute metabolic encephalopathy (resolved) -Secondary to UTI and sepsis -Mentation now at baseline. Patient is A&Ox3 5. Atrial fibrillation -Rate controlled -Patient restart on Lovenox. Patient will need to discuss with PCP about warfarin 6. NIDDM2 with neuropathy -Continue sliding scale insulin and gabapentin 7. Depression -Continue with escitalopram 8. Gout -No allopurinol due to CKD 9. BPH -Continue finasteride 10. DVT ppx -Lovenox Disposition: Anticipate discharge tomorrow VS, I&O, 24H, [facility] Vital Signs/I&O Vital Signs Date Time Temp Pulse Resp B/P (MAP) Pulse Ox O2 Delivery O2 Flow Rate FiO2 07/17/20 18:15 97.8 60 18 140/71 (94) 96 Room Air I&O- Last 24 Hours up to 6 AM 07/17/20 06:00 Intake Total 240 ml Balance 240 ml Laboratory Data 24H LABS Laboratory Tests 2 07/17/20 06:36: Bedside Glucose (Misc Panel) 140H 07/17/20 11:00: Nucleated Red Blood Cells % (auto) 0.0, Anion Gap 6L, Glomerular Filtration Rate 36.3, Calcium Level 9.2 07/17/20 11:41: Bedside Glucose (Misc Panel) 129H 07/17/20 16:38: Bedside Glucose (Misc Panel) 113H 07/17/20 19:56: Bedside Glucose (Misc Panel) 150H CBC/BMP Laboratory Tests 07/17/20 11:00 JIMENA CHOWDHURY DO July 17, 2020 23:15
[2020-07-18 04:01] VITALS: BP 146/72
[2020-07-18] MEDS: SUCRALFATE SUSP 1GM/10ML UD PO SCH (06:30)
[2020-07-18] MEDS: HumaLOG INSULIN (NovoLOG) PER UNIT SC SCH (06:59)
[2020-07-18] MEDS: PANTOPRAZOLE 40MG VIAL (C9113 PER 1) IV SCH (07:01)
[2020-07-18] MEDS: MIRALAX *UNIT DOSE* 17GM PACKET PO SCH (07:37)
[2020-07-18] MEDS: ESCITALOPRAM OXALATE 5MG TABLET (LEXAPRO) PO SCH (07:38)
[2020-07-18] MEDS: DOCUSATE SODIUM 100MG CAPSULE PO SCH (07:38)
--- NOTE | 2020-07-18 07:40 | DS.PDOC ---
Discharge Summary General Date of Admission Jul 01, 2020 at 18:37 Discharge Summary PROCEDURES PERFORMED DURING STAY: [None]. ADMITTING DIAGNOSES: 1. . DISCHARGE DIAGNOSES: 1. . COMPLICATIONS/CHIEF COMPLAINT: altered mental status/ COVID 19. HISTORY OF PRESENT ILLNESS: . HOSPITAL COURSE: . DISCHARGE MEDICATIONS: Please see below. ALLERGIES: Please see below. PHYSICAL EXAMINATION ON DISCHARGE: VITAL SIGNS: Please see below. GENERAL: HEENT: NECK: CARDIOVASCULAR EXAMINATION: RESPIRATORY EXAMINATION: ABDOMINAL EXAMINATION: EXTREMITIES: SKIN: NEUROLOGICAL EXAMINATION: PSYCHIATRIC EXAMINATION: LABORATORY DATA: Please see below. IMAGING: PROGNOSIS: ACTIVITY: [As tolerated]. DIET: DISCHARGE PLAN: DISPOSITION: . DISCHARGE INSTRUCTIONS: 1. . ITEMS TO FOLLOWUP ON ON OUTPATIENT: 1. . DISCHARGE CONDITION: [Stable]. TIME SPENT ON DISCHARGE: Greater than minutes. Vital Signs/I&Os Vital Signs Date Time Temp Pulse Resp B/P (MAP) Pulse Ox O2 Delivery O2 Flow Rate FiO2 07/18/20 04:01 97.6 64 17 146/72 (96) 97 Room Air I&O- Last 24 Hours up to 6 AM 07/18/20 06:00 Intake Total 1440 ml Balance 1440 ml Laboratory Data Labs 24H Laboratory Tests 2 07/17/20 11:00: Nucleated Red Blood Cells % (auto) 0.0, Anion Gap 6L, Glomerular Filtration Rate 36.3, Calcium Level 9.2 07/17/20 11:41: Bedside Glucose (Misc Panel) 129H 07/17/20 16:38: Bedside Glucose (Misc Panel) 113H 07/17/20 19:56: Bedside Glucose (Misc Panel) 150H 07/18/20 06:31: Bedside Glucose (Misc Panel) 90 CBC/BMP Laboratory Tests 07/17/20 11:00 FSBS Laboratory Tests Test 07/17/20 11:41 07/17/20 16:38 07/17/20 19:56 07/18/20 06:31 Range/Units Bedside Glucose (Misc Panel) 129 113 150 90 83-110 MG/DL Discharge Medications Scheduled Atorvastatin Calcium (Atorvastatin Calcium) 10 Mg Tablet, 10 MG PO QHS, (Reported) Calcium Carbonate/Vitamin D3 (Calcium 600-Vit D3 400 Tablet) 1 Each Tablet, 1 TAB PO DAILY, (Reported) Enoxaparin Sodium (Enoxaparin Sodium) 100 Mg/1 Ml Syringe, 100 MG SC DAILY Finasteride (Finasteride) 5 Mg Tablet, 5 MG PO QHS, (Reported) Gabapentin (Gabapentin) 300 Mg Capsule, 300 MG PO QHS, (Reported) Melatonin (Melatonin) 3 Mg Tablet, 3 MG PO QHS, (Reported) Metformin HCl (Metformin HCl) 500 Mg Tablet, 500 MG PO BID, (Reported) PCP DID NOT RENEW THIS RX AT APPT 2 WEEKS AGO, UNSURE IF PATIENT IS SUPPOSED TO STILL BE TAKING Polyvinyl Alcohol (Artificial Tears) 15 Ml Drops, 1 DROP OU BID, (Reported) Potassium Chloride (Potassium Chloride) 20 Meq Tablet.er, 20 MEQ PO DAILY, (Reported) Scheduled PRN Acetaminophen (Acetaminophen) 500 Mg Tablet, 1,000 MG PO TID PRN for PAIN / FEVER, (Reported) Allergies Coded Allergies: No Known Drug Allergies (Verified Allergy, Unknown, 06/23/20) CIRO MARIN MD July 18, 2020 07:40
== END 2020-07-18 07:55 | disposition home health service (06) | DRG 871 ==
LOC: EDBD 15:31 → M ED 15:31 → M ED INP 18:37 → ENRESERV 19:03 → M ICU 20:59 → M 4MAIN 07-02 12:16
PROVIDERS: ADMIT Internal Medicine; ATTEND Internal Medicine
DX: A41.9 Sepsis, unspecified organism (principal); G93.41 Metabolic encephalopathy; U07.1 COVID-19; N39.0 Urinary tract infection, site not specified; N17.9 Acute kidney failure, unspecified; D62 Acute posthemorrhagic anemia; I69.354 Hemiplegia and hemiparesis following cerebral infarction affecting left non-dominant side; M79.81 Nontraumatic hematoma of soft tissue; Z79.899 Other long term (current) drug therapy; I48.91 Unspecified atrial fibrillation; Z79.01 Long term (current) use of anticoagulants; N18.30 Chronic kidney disease, stage 3 unspecified; B96.1 Klebsiella pneumoniae [K. pneumoniae] as the cause of diseases classified elsewhere; N20.0 Calculus of kidney; G47.33 Obstructive sleep apnea (adult) (pediatric); E11.40 Type 2 diabetes mellitus with diabetic neuropathy, unspecified; E66.9 Obesity, unspecified; I10 Essential (primary) hypertension; F32.9 Major depressive disorder, single episode, unspecified; M10.9 Gout, unspecified; N40.0 Benign prostatic hyperplasia without lower urinary tract symptoms

== ENCOUNTER 2020-07-20 08:34 | Inpatient (IN) | payer OTHER ==
[~2020-07-20] VITALS: Ht 175.3 cm; Wt 104.5 kg
[~2020-07-20 08:34] MED LIST changes: +ACET-683 PO; +CALC1TAB74 PO; +ENOX100I3 SC; +MELA3TAB30 PO; +METF500T13 PO; +POLYOPD OU; +WARF-22 PO; +ZYLO300T6 PO
[2020-07-20 09:15] LABS: BASO # 0.1 10^3/uL (0.0-0.2); BASO % 0.6 % (0.0-1.0); EOS % 0.2 % (0.0-3.0); HEMATOCRIT 37.7 % (42.0-52.0); LYMPH # 2.5 10^3/uL (1.5-5.0); LYMPH % 23.2 % (24.0-44.0); MEAN CORPUSCULAR HEMOGLOBIN 32.2 pg (27.0-33.0); MEAN CORPUSCULAR HGB CONC 31.8 g/dl (32.0-36.5); MEAN CORPUSCULAR VOLUME 101.1 fl (80.0-96.0); MONO # 0.9 10^3/uL (0.0-0.8); MONO % 7.8 % (2.0-8.0); NEUTROPHILS # 7.3 10^3/uL (1.5-8.5); NEUTROPHILS % 67.7 % (36.0-66.0); PLATELET COUNT, AUTOMATED 302 10^3/uL (150-450); RED BLOOD COUNT 3.73 10^6/uL (4.30-6.10); WHITE BLOOD COUNT 10.8 10^3/uL (4.0-10.0)
[2020-07-20 09:29] LABS: ALBUMIN 3.2 GM/DL (3.2-5.2); ALT/SGPT 12 U/L (12-78); BILIRUBIN,DIRECT 0.2 MG/DL (0.0-0.2); BILIRUBIN,TOTAL 0.5 MG/DL (0.2-1.0); BLOOD UREA NITROGEN 34 MG/DL (7-18); CALCIUM LEVEL 11.1 MG/DL (8.8-10.2); CARBON DIOXIDE LEVEL 37 MEQ/L (21-32); CHLORIDE LEVEL 100 MEQ/L (98-107); CK-MB VALUE MASS < 1.0 NG/ML (<3.6); CPK CREATINE PHOSPHOKINASE 32 U/L (39-308); CREATININE FOR GFR 2.13 MG/DL (0.70-1.30); GLUCOSE, FASTING 131 MG/DL (70-100); LIPASE 91 U/L (73-393); MB/CK RELATIVE INDEX 3.12 (< OR =4); POTASSIUM SERUM 4.1 MEQ/L (3.5-5.1); SODIUM LEVEL 140 MEQ/L (136-145); TOTAL PROTEIN 6.8 GM/DL (6.4-8.2); TROPONIN I < 0.02 NG/ML (< 0.10)
--- NOTE | 2020-07-20 09:36 | REP ---
INDICATION: Abdominal Pain COMPARISON: 07/01/2020. TECHNIQUE: AP and lateral. FINDINGS: Lungs: Clear, no infiltrate. Heart: Normal in size. Mediastinum: Mediastinal silhouette unremarkable. Pleural angles: Unremarkable.. Bones and soft tissues: There are degenerative changes of the spine without significant compression deformity. IMPRESSION: No acute pulmonary disease. <Electronically signed by Max Zuniga > 07/20/20 [id number]
[2020-07-20] MEDS ORDERED: ONDANSETRON 4MG/2ML VIAL IV ONE (10:15)
--- NOTE | 2020-07-20 11:52 | REP ---
INDICATION: abdominal pain, vomiting, umbilical hernia just reduced COMPARISON: 07/16/2020. TECHNIQUE: CT Scan of the abdomen and pelvis was performed without intravenous contrast. Sagittal and coronal reconstruction images performed. FINDINGS: Lung bases: There are mild bibasilar fibrotic changes. There is a calcified granuloma in the right lower lobe. Liver: Grossly unremarkable. Gallbladder: Unremarkable. Spleen: There is a 1 cm hypodensity in the medial spleen which measures water density and probably represents a small cyst. Adrenals: Normal. Pancreas: Grossly unremarkable.. Kidneys: There is bilateral renal cortical thinning. There is no hydronephrosis bilaterally. 2 subcentimeter calcifications are seen in the region of the right pelvocaliceal system. Probable subcentimeter cyst is noted of the anterior mid left kidney. There are bilateral ureteral stents, there proximal ends are coiled in the respective renal pelvis and the distal ends are coiled in the urinary bladder. Small and large bowel: There is an umbilical hernia containing an obstructed small bowel loop. The small bowel proximal to this is moderately dilated, as is the stomach. The more distal small bowel is collapsed.. Free fluid: There is a tiny amount of free fluid in the right lower quadrant. Abdominal aorta: No aneurysm. Adenopathy: None. Appendix: Not inflamed. Osseous structures: There are degenerative changes of the spine without compression deformity.. Pelvis: No mass. No bladder calculus seen. IMPRESSION: There is a small umbilical hernia containing an obstructed small bowel loop, with moderate proximal small bowel and gastric dilatation. <Electronically signed by Max Zuniga > 07/20/20 1149
[2020-07-20] MEDS ORDERED: METOCLOPRAMIDE INJ 10MG/2ML VIAL (J2765 PER 1) IV ONE (12:20)
[2020-07-20] MEDS ORDERED: GLUCAGON INJ 1MG VIAL SC PRN (14:00)
[2020-07-20] MEDS ORDERED: DEXTROSE 50% 50 ML SYRINGE IV PRN (14:00)
[2020-07-20] MEDS ORDERED: GLUCOSE 4GM CHEW TABLET PO PRN (14:00)
[2020-07-20] MEDS ORDERED: HEPARIN SOD (PORCINE) 5000UNITS/ML 1ML VIAL/SYRINGE IV PRN (14:40)
[2020-07-20] MEDS ORDERED: ENOX100I3 SC (14:46)
--- NOTE | 2020-07-20 14:54 | HPEPDOC ---
[facility] Medical History & Physical Date of Admission July 20, 2020 Date of Service: July 20, 2020 History and Physical CHIEF COMPLAINT: Abdominal pain, distention since yesterday HISTORY OF PRESENT ILLNESS: 80-year-old male with past medical history significant for atrial fibrillation, CVA, on chronic Lovenox 100 mg daily at bedtime last dose was 9 PM on 07/19/2020, recently discharged from [facility] for complicated UTI presents today with increasing abdominal distention, increasing pain complain of a sour stomach yesterday, generalized weakness, unable to eat with "the bulging getting worse." Patient denied taking any medications at home, presented today due to increasing distention and pain rated a 10 out of 10, sharp on the left lower quadrant without radiation. He denies any dysuria, urgency, frequency, flank pain, chest pain, pressure, tightness, lightheadedness, dizziness, fever, chills at home. He denied any nausea, vomiting at home, but had 2 episodes of emesis in the emergency room. CT abdomen and pelvis shows small umbilical hernia with partial small bowel obstruction gastric dilatation. Clinically, patient had a reducible hernia With normal lactic acid level. Hospitalist was asked to admit t he patient for partial small bowel obstruction secondary to umbilical hernia. PAST MEDICAL HISTORY: A. 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 difficile, depression, obstructive sleep apnea, hypertension, diabetes, chronic kidney disease stage III , laser lithotripsy for kidney stone cystoscopy, bilateral ureteroscopy with lithotripsy, bilateral ureteral stent placement, removal of left prostate. Pseudomonas UTI, bacteremia with sepsis requiring Levophed 2019. Chronic left- sided 1.5 cm distal ureteral stone, left nephrostomy tube. Subdural hematoma without, July 2011, status post craniotomy July 2019, complicated UTI 06/30/2020, acute blood loss anemia, psoas muscle hematoma, acute metabolic encephalopathy, depression, gout, BPH, COVID-19 POSITIVE 03/2020 PAST SURGICAL HISTORY: Bilateral total knee arthroplasties 2016 craniotomy July 2019 cystoscopy, bilateral ureteroscopy with lithotripsy, bilateral ureteral stent placement, removal of left prostate. Pse SOCIAL HISTORY: Former smoker, quit 1988. Denies alcohol. No recreational drug use. Retired FAMILY HISTORY: Noncontributory due to advanced age ALLERGIES: Please see below. REVIEW OF SYSTEMS: 10 point review of systems negative aside from positive findings in HPI HOME MEDICATIONS: Please see below. PHYSICAL EXAMINATION: VITAL SIGNS: See below GENERAL APPEARANCE: Nasogastric tube in place. No respiratory distress icterus or jaundice, no pallor HEENT: Dry mucous membranes. Chapped lips. Nasogastric tube in place. Extra muscles intact. No JVD, thyromegaly, carotid bruits, stridor CARDIOVASCULAR:S1, S2, irregularly irregular LUNGS: Diminished clear to auscultation bilaterally ABDOMEN: Obese, distended reducible umbilical hernia, tender, no rebound, guarding. Hypoactive bowel sounds EXTREMITIES: No cyanosis or clubbing. Skin warm, dry, well perfused, pink in color LABORATORY DATA: See below. IMAGING: INDICATION: abdominal pain, vomiting, umbilical hernia just reduced COMPARISON: 07/16/2020. TECHNIQUE: CT Scan of the abdomen and pelvis was performed without intravenous contrast. Sagittal and coronal reconstruction images performed. FINDINGS: Lung bases: There are mild bibasilar fibrotic changes. There is a calcified granuloma in the right lower lobe. Liver: Grossly unremarkable. Gallbladder: Unremarkable. Spleen: There is a 1 cm hypodensity in the medial spleen which measures water density and probably represents a small cyst. Adrenals: Normal. Pancreas: Grossly unremarkable.. Kidneys: There is bilateral renal cortical thinning. There is no hydronephrosis bilaterally. 2 subcentimeter calcifications are seen in the region of the right pelvocaliceal system. Probable subcentimeter cyst is noted of the anterior mid left kidney. There are bilateral ureteral stents, there proximal ends are coiled in the respective renal pelvis and the distal ends are coiled in the urinary bladder. Small and large bowel: There is an umbilical hernia containing an obstructed small bowel loop. The small bowel proximal to this is moderately dilated, as is the stomach. The more distal small bowel is collapsed.. Free fluid: There is a tiny amount of free fluid in the right lower quadrant. Abdominal aorta: No aneurysm. Adenopathy: None. Appendix: Not inflamed. Osseous structures: There are degenerative changes of the spine without compression deformity.. Pelvis: No mass. No bladder calculus seen. IMPRESSION: There is a small umbilical hernia containing an obstructed small bowel loop, with moderate proximal small bowel and gastric dilatation. <Electronically signed by Max Zuniga > 07/20/20 1148 CHEST X-RAY 07/20/2020 FINDINGS: Lungs: Clear, no infiltrate. Heart: Normal in size. Mediastinum: Mediastinal silhouette unremarkable. Pleural angles: Unremarkable.. Bones and soft tissues: There are degenerative changes of the spine without significant compression deformity. IMPRESSION: No acute pulmonary disease. MICROBIOLOGY: Please see below. ASSESSMENT: 80-year-old male with past medical history significant for atrial fibrillation, CVA, on chronic Lovenox 100 mg daily at bedtime last dose was 9 PM on 07/19/2020, recently discharged from [facility] for complicated UTI presents today with increasing abdominal distention, increasing pain complain of a sour stomach yesterday, generalized weakness, unable to eat with "the bulging getting worse." Patient denied taking any medications at home, presented today due to increasing distention and pain rated a 10 out of 10, sharp on the left lower quadrant without radiation. He denies any dysuria, urgency, frequency, flank pain, chest pain, pressure, tightness, lightheadedness, dizziness, fever, chills at home. He denied any nausea, vomiting at home, but had 2 episodes of emesis in the emergency room. CT abdomen and pelvis shows small umbilical hernia with partial small bowel obstruction gastric dilatation. Clinically, patient had a reducible hernia With normal lactic acid level. Hospitalist was asked to admit the patient for partial small bowel obstruction secondary to umbilical hernia. Medical clearance -Patient's bowel obstruction be treated conservatively, but if the patient does not respond to conservative management. He may need to go to the OR. Therefore, we will discontinue patient's Lovenox for now and put him on IV heparin to be held 6 hours prior to the O Ella bolus given. This can be started at 9 PM today after surgery. Has had a chance to evaluate the patient. He currently denies any acute ischemic symptoms since currently stable to proceed to the OR if needed. He has been medically optimized Partial small bowel obstruction -No signs of incarceration and CT abdomen and pelvis with normal lactic acid. He is being treated with conservative management with nothing by mouth status IV fluids. Hypoglycemic protocol. Nasogastric tube to suctioning with monitoring of electrolytes and supplementation of potassium, magnesium, calcium, if needed, Gen. surgery, Dr. Molina, has been consulted to evaluate the need for exploratory laparotomy in case patient does not improve on conservative management. Patient will be given antiemetics scheduled and PRN pain meds. A. fib with CVA and chronic Lovenox at home -Lovenox has been discontinued since we are not certain if the patient will need to go to the operating room for exploratory laparotomy if it does not respond to conservative management versus small bowel obstruction. Patient's last dose was 9 PM last night. On 07/19/2020. He will be started on intravenous heparin drip that can be discontinued 6 hours prior to surgery. It will be started at 9 PM this evening after general surgery has seen the patient. He appears to be rate controlled for now has been admitted to PCU in case we need to give IV beta blockers or digoxin for rate control while he is nothing by mouth. depression, -Hold by mouth meds obstructive sleep apnea, -Supplemental oxygen if needed to keep saturations above 90% hypertension -Hold by mouth meds. IV metoprolol if needed Diabetes, -Hypoglycemic protocol. D5 half-normal saline. Monitor for fluid overload or h ypoglycemia chronic kidney disease stage III , -At baseline creatinine History kidney stones -Status post laser lithotripsy for kidney stone cystoscopy, bilateral ureteroscopy with lithotripsy, bilateral ureteral stent placement, removal of left prostate. History of recurrent urinary tract infection and complicated Pseudomonas UTI, bacteremia with sepsis requiring Levophed 2019. -Check UA, urine C&S History of Subdural hematoma without trauma July 2011, status post craniotomy July 2019, -Asymptomatic gout, -Hold by mouth meds History of COVID-19 in March 2020 -Check respiratory panel CODE STATUS full code Healthcare proxy Sal Mccauley phone # [phone] DVD prophylaxis on heparin drip Vital Signs Vital Signs Date Time Temp Pulse Resp B/P (MAP) Pulse Ox O2 Delivery O2 Flow Rate FiO2 07/20/20 13:04 92 16 97 07/20/20 13:00 135/69 (91) 07/20/20 08:59 Room Air 07/20/20 08:46 97.5 Laboratory Data Labs 24H Laboratory Tests 2 07/20/20 08:48: Immature Granulocyte % (Auto) 0.5, Neutrophils (%) (Auto) 67.7H, Lymphocytes (%) (Auto) 23.2L, Monocytes (%) (Auto) 7.8, Eosinophils (%) (Auto) 0.2, Basophils (%) (Auto) 0.6, Neutrophils # (Auto) 7.3, Lymphocytes # (Auto) 2.5, Monocytes # (Auto) 0.9H, Eosinophils # (Auto) 0.0, Basophils # (Auto) 0.1, Nucleated Red Blood Cells % (auto) 0.0, Anion Gap 3L, Glomerular Filtration Rate 32.0L, Lactic Acid Level 1.4, Calcium Level 11.1#H, Total Bilirubin 0.5, Direct Bilirubin 0.2, Aspartate Amino Transf (AST/SGOT) 14, Alanine Aminotransferase (ALT/SGPT) 12, Alkaline Phosphatase 126H, Total Creatine Kinase 32L, Creatine Kinase MB < 1.0, Creatine Kinase MB Relative Index 3.12, Troponin I < 0.02, Total Protein 6.8, Albumin 3.2, Albumin/Globulin Ratio 0.9, Lipase 91 CBC/BMP Laboratory Tests 07/20/20 08:48 Home Medications Scheduled Atorvastatin Calcium (Atorvastatin Calcium) 10 Mg Tablet, 10 MG PO QHS Calcium Carbonate/Vitamin D3 (Calcium 600-Vit D3 400 Tablet) 1 Each Tablet, 1 TAB PO DAILY Enoxaparin Sodium (Enoxaparin Sodium) 100 Mg/1 Ml Syringe, 100 MG SC DAILY Finasteride (Finasteride) 5 Mg Tablet, 5 MG PO QHS Gabapentin (Gabapentin) 300 Mg Capsule, 300 MG PO QHS Melatonin (Melatonin) 3 Mg Tablet, 3 MG PO QHS Metformin HCl (Metformin HCl) 500 Mg Tablet, 500 MG PO BID PCP DID NOT RENEW THIS RX AT APPT 2 WEEKS AGO, UNSURE IF PATIENT IS SUPPOSED TO STILL BE TAKING Polyvinyl Alcohol (Artificial Tears) 15 Ml Drops, 1 DROP OU BID Potassium Chloride (Potassium Chloride) 20 Meq Tablet.er, 20 MEQ PO DAILY Scheduled PRN Acetaminophen (Acetaminophen) 500 Mg Tablet, 1,000 MG PO TID PRN for PAIN / FEVER Allergies Coded Allergies: No Known Drug Allergies (Verified Allergy, Unknown, 06/23/20) A-FIB/CHADSVASC A-FIB History Current/History of A-Fib/PAF?: Yes Current PO Anticoag Therapy: No Age/Risk Factor Scoring CHADSVASC: CHADSVASC Response (Comments) Value Age Risk Factor Age >/= 75 years old 2 Gender Risk Factor Male 0 Hx of CHF No 0 Hx of HTN Yes 1 Hx of Stroke/TIA/or VTE Yes 2 Hx of Diabetes Yes 1 Hx of Vascular Disease No 0 Total 6 Treatment Treatment ordered: NONE Reason Anticoagulant not given: Recent/upcomin procedure PRISCILA WATSON MD July 20, 2020 14:06
[2020-07-20] MEDS ORDERED: MORPHINE 4 MG/ML 1ML VIAL/SYRINGE (J2270) IV PRN (14:55)
[2020-07-20] MEDS ORDERED: METOPROLOL 5 MG/5 ML VIAL IV PRN (14:55)
[2020-07-20 15:32] LABS: INR 1.08; PROTHROMBIN TIME 14.2 SECONDS (12.5-14.3)
[2020-07-20 15:33] LABS: PARTIAL THROMBOPLASTIN TIME 32.4 SECONDS (24.2-38.5)
[2020-07-20 16:07] VITALS: BP 119/73
[2020-07-20] MEDS: ONDANSETRON 4MG/2ML VIAL IV SCH ×2 (17:22→22:00)
[2020-07-20] MEDS: PANTOPRAZOLE 40MG VIAL (C9113 PER 1) IV SCH (17:22)
[2020-07-20] MEDS: D5W/0.45% SODIUM CHLORIDE 1,000 ML IV SCH ×2 (17:23→23:55)
--- NOTE | 2020-07-20 17:53 | CR.PDOC ---
General Surgery Consultation Date of Consultation 07/20/20 History and Physical CONSULT REPORT FOR: hospitalist service REASON FOR CONSULTATION: Abdominal pain, nausea HISTORY OF PRESENT ILLNESS: Patient is an 80-year-old male who has just been discharged 2 days ago from our hospital for what looks like urinary tract infection. He is also on atrial fibrillation and has been discharged home on Lovenox while awaiting Coumadin. He was last given Lovenox last evening. He presents to the emergency room today complaining off pain around the umbilicus as well as feeling nauseated, feeling increased reflux. He denies fevers or chills. He is not aware that he had an umbilical hernia. He has no prior abdominal surgeries. He was worked up as an emergency room and is found to have small bowel obstruction related to an incarcerated loop of bowel in his umbilical hernia. He subsequently admitted, had a nasogastric tube placed. He continues to have discomfort around the umbilicus which remains tender to touch the skin remains without any erythema. PAST MEDICAL HISTORY: A. 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 difficile, depression, obstructive sleep apnea, hypertension, diabetes, chronic kidney disease stage III , laser lithotripsy for kidney stone cystoscopy, bilateral ureteroscopy with lithotripsy, bilateral ureteral stent placement, removal of left prostate. Pseudomonas UTI, bacteremia with sepsis requiring Levophed 2019. Chronic left- sided 1.5 cm distal ureteral stone, left nephrostomy tube. Subdural hematoma without, July 2011, status post craniotomy July 2019, complicated UTI 06/30/2020, acute blood loss anemia, psoas muscle hematoma, acute metabolic encephalopathy, depression, gout, BPH, COVID-19 POSITIVE 03/2020 PAST SURGICAL HISTORY: Bilateral total knee arthroplasties 2016 craniotomy July 2019 cystoscopy, bilateral ureteroscopy with lithotripsy, bilateral ureteral stent placement, removal of left prostate. Pse SOCIAL HISTORY: Former smoker, quit 1988. Denies alcohol. No recreational drug use. Retired ALLERGIES: Please see below. HOME MEDICATIONS: Please see below. REVIEW OF SYSTEMS: Patient with multiple admission to the hospital, recently admitted and discharged, on antibiotics for complicated UTI. Denies fevers or chills. He still has a left nephrostomy tube. He is mainly sedentary due to chronic medical problems. PHYSICAL EXAMINATION: VITALS SIGNS: Please see below. GENERAL APPEARANCE:looks mildly uncomfortable, SKIN: warm and dry. HEENT: He has an NGT in place draining bilious material. . NECK: Supple, no thyromegaly. No obvious jugular venous distention. LUNGS: Clear to auscultation bilaterally. No wheezing appreciated. HEART: No chest wall abnormalities. Regular rate and rhythm with no murmurs ap preciated. ABDOMEN: Abdomen is obese, softly distended, (+) midline diastases of upper abdominal muscles. No surgical scars noted. No obvious umbilical herniation, inverted umbilical skin clrft. Normal overlying skin. On palpation area is very tender to touch, with fullness on top of umbilicus consistent with an incarcerated hernia EXTREMITIES: Mild LE edema ANCILLARIES: . LABORATORY DATA: Please see below. IMAGING STUDIES: CT abdomen and pelvis There is a small umbilical hernia containing an obstructed small bowel loop, with moderate proximal small bowel and gastric dilatation. IMPRESSION AND PLAN: Patient with incarcerated loop of bowel on the small umbilical hernia causing bowel obstruction. He he remains tender to touch with the loop of bowel still incarcerated. I have spoken to him about need for surgery. We will bring him to the operating room start with diagnostic laparoscopy possibly reduce the bowel. I did discuss with them possibility of needing a bowel resection which will preclude us from placing mesh to prevent umbilical hernia recurrence. Has a history of atrial fibrillation and is on Lovenox 100 mg daily for which she did get that last night, none today. It looks like they are awaiting delivery off the Coumadin from his pharmacy and has not restarted his Coumadin fortunately. Vital Signs Vital Signs Date Time Temp Pulse Resp B/P (MAP) Pulse Ox O2 Delivery O2 Flow Rate FiO2 07/20/20 16:07 98.7 93 20 119/73 (88) 90 07/20/20 16:00 90 07/20/20 08:59 Room Air Laboratory Data Labs 24H Laboratory Tests 2 07/20/20 08:48: Immature Granulocyte % (Auto) 0.5, Neutrophils (%) (Auto) 67.7H, Lymphocytes (%) (Auto) 23.2L, Monocytes (%) (Auto) 7.8, Eosinophils (%) (Auto) 0.2, Basophils (%) (Auto) 0.6, Neutrophils # (Auto) 7.3, Lymphocytes # (Auto) 2.5, Monocytes # (Auto) 0.9H, Eosinophils # (Auto) 0.0, Basophils # (Auto) 0.1, Nucleated Red Blood Cells % (auto) 0.0, Anion Gap 3L, Glomerular Filtration Rate 32.0L, Lactic Acid Level 1.4, Calcium Level 11.1#H, Total Bilirubin 0.5, Direct Bilirubin 0.2, Aspartate Amino Transf (AST/SGOT) 14, Alanine Aminotransferase (ALT/SGPT) 12, Alkaline Phosphatase 126H, Total Creatine Kinase 32L, Creatine Kinase MB < 1.0, Creatine Kinase MB Relative Index 3.12, Troponin I < 0.02, Total Protein 6.8, Albumin 3.2, Albumin/Globulin Ratio 0.9, Lipase 91 07/20/20 15:02: Prothrombin Time 14.2H, Prothromb Time International Ratio 1.08, Activated Partial Thromboplast Time 32.4 CBC/BMP Laboratory Tests 07/20/20 08:48 Microbiology Microbiology 07/20/20 Respiratory Virus Panel (PCR) ([facility]) - Final, Complete Home Medications Scheduled Atorvastatin Calcium (Atorvastatin Calcium) 10 Mg Tablet, 10 MG PO QHS, (Reported) Calcium Carbonate/Vitamin D3 (Calcium 600-Vit D3 400 Tablet) 1 Each Tablet, 1 TAB PO DAILY, (Reported) Enoxaparin Sodium (Enoxaparin Sodium) 100 Mg/1 Ml Syringe, 100 MG SC QHS, (Reported) Finasteride (Finasteride) 5 Mg Tablet, 5 MG PO QHS, (Reported) Gabapentin (Gabapentin) 300 Mg Capsule, 300 MG PO QHS, (Reported) Melatonin (Melatonin) 3 Mg Tablet, 3 MG PO QHS, (Reported) Potassium Chloride (Potassium Chloride) 20 Meq Tablet.er, 20 MEQ PO DAILY, (Reported) Warfarin Sodium (Warfarin Sodium) 10 Mg Tablet, 10 MG PO QPM, (Reported) Scheduled PRN Acetaminophen (Acetaminophen) 500 Mg Tablet, 1,000 MG PO TID PRN for PAIN / FEVER, (Reported) Polyvinyl Alcohol (Artificial Tears) 15 Ml Drops, 1 DROP OU BID PRN for DRY EYES, (Reported) Allergies Coded Allergies: No Known Drug Allergies (Verified Allergy, Unknown, 06/23/20) PASCALE CORONEL MD July 20, 2020 17:53
[2020-07-20] MEDS: HumaLOG INSULIN (NovoLOG) PER UNIT SC SCH ×2 (18:00→23:51)
[2020-07-20 19:04] VITALS: BP 134/81
[2020-07-20] MEDS: METOCLOPRAMIDE INJ 10MG/2ML VIAL (J2765 PER 1) IV SCH (19:20)
[2020-07-20 19:29] VITALS: BP 144/84
[2020-07-20] MEDS ORDERED: ROCURONIUM BROMIDE 50 MG/5 ML VIAL As Ordered ONE ×2 (20:01→21:41)
[2020-07-20] MEDS ORDERED: propofoL 200 MG/20 ML VIAL As Ordered ONE (20:01)
[2020-07-20] MEDS ORDERED: dexameTHASONE 4 MG/ML 1ML VIAL (J1100 PER 1MG) As Ordered ONE (20:01)
[2020-07-20] MEDS ORDERED: MIDAZOLAM INJ 2MG/2ML VIAL (J2250 PER 1MG) As Ordered ONE (20:01)
[2020-07-20] MEDS ORDERED: ONDANSETRON 4MG/2ML VIAL As Ordered ONE (20:01)
[2020-07-20] MEDS ORDERED: fentaNYL 100 MCG/2 ML INJECTION (J3010) As Ordered ONE (20:01)
[2020-07-20] MEDS ORDERED: LIDOCAINE 2% 100MG/5ML SDV (FOR ANES.) As Ordered ONE (20:01)
[2020-07-20] MEDS ORDERED: LIDOCAINE 1% SDV 30ML VIAL As Ordered ONE (20:04)
[2020-07-20] MEDS ORDERED: BUPIVACAINE HCL 0.25% 30ML VIAL As Ordered ONE (20:04)
[2020-07-20] MEDS ORDERED: UNASYN 3 GM VIAL As Ordered ONE (20:25)
[2020-07-20] MEDS ORDERED: SUCCINYLCHOLINE 100 MG/5 ML SYRINGE (J0330) As Ordered ONE (20:42)
[2020-07-20] MEDS ORDERED: VASOPRESSIN INJ 20 UNITS/ML VIAL As Ordered ONE (20:45)
[2020-07-20] MEDS ORDERED: PHENYLephrine 500MCG 5ML (100MCG/ML) SYRINGE As Ordered ONE (20:51)
[2020-07-20] MEDS ORDERED: SUGAMMADEX SODIUM 500 MG/5 ML VIAL (BRIDION) As Ordered ONE (20:56)
[2020-07-20] MEDS ORDERED: ACETAMINOPHEN 1000MG 100ML IV BTL (OFIRMEV) (J0131 PER 10MG) As Ordered ONE (20:59)
[2020-07-20] MEDS: POLYVINYL ALCOHOL OPHTH SOLN 15 ML(LIQUITEARS) OU SCH (21:00)
[2020-07-20] MEDS ORDERED: HEPARIN DRIP 25,000 UNITS in IV 1 EA IV SCH (21:00)
[2020-07-20] MEDS ORDERED: PERCOCET 5MG/325MG TAB PO PRN (22:15)
[2020-07-20] MEDS ORDERED: ONDANSETRON 4MG/2ML VIAL IV PRN (22:15)
[2020-07-20] MEDS ORDERED: fentaNYL 100 MCG/2 ML INJECTION (J3010) IV PRN (22:15)
[2020-07-20] MEDS ORDERED: METOCLOPRAMIDE INJ 10MG/2ML VIAL (J2765 PER 1) IV PRN (22:15)
[2020-07-20] MEDS ORDERED: LR 1,000 ML IV SCH (22:15)
[2020-07-20 23:31] VITALS: BP 112/61
[2020-07-20] MEDS: ATORVASTATIN 10 MG TAB PO SCH (23:49)
[2020-07-20] MEDS: FINASTERIDE 5 MG TAB PO SCH (23:50)
[2020-07-21] VITALS (10 sets, daily range): BP systolic 100–129; BP diastolic 51–75
[2020-07-21] MEDS: METOCLOPRAMIDE INJ 10MG/2ML VIAL (J2765 PER 1) IV SCH ×4 (01:33→18:59)
[2020-07-21] MEDS: ONDANSETRON 4MG/2ML VIAL IV SCH ×4 (04:27→21:56)
--- NOTE | 2020-07-21 04:48 | ECGEPIP ---
[facility] - ED Test Date: 2020-07-20 Pat Name: JOSE ARMANDO FINNEY Department: Room: - Gender: Male Flight Manager: dania : 1940 Requested By: THIERNO Oshea Order Number: [id number] Reading MD: Oneil Navarro Measurements Intervals [place] Rate: 90 P: [place]: QRS: 26 QRSD: 118 T: -9 QT: 386 QTc: 472 Interpretive Statements Sinus rhythm with first degree AV block wih frequent premature supraventricular complexes Right bundle branch block BASELINE ARTIFACT AFFECTS INTERPRETATION SIMILAR TO 07/01/20 Electronically Signed on 07-21-2020 4:48:16 EDT by Oneil Navarro
[2020-07-21] MEDS: HumaLOG INSULIN (NovoLOG) PER UNIT SC SCH ×3 (06:26→18:00)
[2020-07-21 07:20] LABS: BASO % 0.1 % (0.0-1.0); HEMATOCRIT 31.4 % (42.0-52.0); LYMPH # 1.5 10^3/uL (1.5-5.0); LYMPH % 18.6 % (24.0-44.0); MEAN CORPUSCULAR HEMOGLOBIN 31.4 pg (27.0-33.0); MEAN CORPUSCULAR HGB CONC 31.2 g/dl (32.0-36.5); MEAN CORPUSCULAR VOLUME 100.6 fl (80.0-96.0); MONO # 0.4 10^3/uL (0.0-0.8); MONO % 5.5 % (2.0-8.0); NEUTROPHILS % 75.1 % (36.0-66.0); PLATELET COUNT, AUTOMATED 243 10^3/uL (150-450); RED BLOOD COUNT 3.12 10^6/uL (4.30-6.10)
[2020-07-21 07:27] LABS: HEMOGLOBIN 9.8 g/dl (13.5-17.5)
[2020-07-21 07:45] LABS: CALCIUM LEVEL 11.1 MG/DL (8.8-10.2); CREATININE FOR GFR 2.28 MG/DL (0.70-1.30); GLOMERULAR FILTRATION RATE 29.6 (>35); POTASSIUM SERUM 4.7 MEQ/L (3.5-5.1)
[2020-07-21] MEDS: PANTOPRAZOLE 40MG VIAL (C9113 PER 1) IV SCH (09:17)
[2020-07-21] MEDS: POLYVINYL ALCOHOL OPHTH SOLN 15 ML(LIQUITEARS) OU SCH ×2 (09:17→21:00)
[2020-07-21] MEDS: D5W/0.45% SODIUM CHLORIDE 1,000 ML IV SCH ×2 (09:18→19:00)
--- NOTE | 2020-07-21 10:11 | IPN ---
PROGRESS NOTE DATE: 07/21/2020 SUBJECTIVE: The patient denies any nausea, vomiting, or abdominal pain this morning. He had no other issues overnight. The patient underwent exploratory laparoscopy yesterday due to incarcerated hernia with bowel obstruction with no other issues overnight. AFib was rate controlled. No fever or chills. No abdominal pain. No diarrhea this morning. Nasogastric tube still in place. Gastric drainage was 450 yesterday and 150 since midnight today. Weight is 104.5 kg. OBJECTIVE: VITAL SIGNS: Temperature 96.8, pulse 77, respiratory rate 18, blood pressure 100/56, 97% on 2 liters nasal cannula. GENERAL: The patient is awake, alert, and oriented to person, place, and time. HEENT: Nasogastric tube noted in the left naris with bilious brownish material. No JVD, thyromegaly, or cervical lymphadenopathy. Dry mucous membranes with chapped lips. LUNGS: Diminished, but clear to auscultation. No wheezing or rales. HEART: S1, S2. Irregularly irregular and not tachycardic. ABDOMEN: Has multiple incision sites form recent laparoscopic surgery. Hypoactive bowel sounds. No rebound or guarding and less distention. EXTREMITIES: No cyanosis or clubbing. SKIN: Warm, dry, well-perfused, and pink in color. LABORATORY DATA: CBC and basic metabolic panel have been reviewed notable for increase in creatinine to 2.28 from 2.13 yesterday. Still on D5 normal saline at 100 mL/hour and IV Protonix. ASSESSMENT: This is an 80-year-old male with history of cerebrovascular accident (CVA) and atrial fibrillation on chronic Lovenox admitted due to small bowel obstruction with an incarcerated hernia. IMPRESSION: 1. Small bowel obstruction secondary to incarcerated hernia. 2. Incarcerated hernia status post exploratory laparotomy. 3. Chronic atrial fibrillation with history of CVA on chronic Lovenox at home. 4. Depression. 5. Obstructive sleep apnea (MILAN). 6. Hypertension. 7. Type 2 diabetes. 8. Chronic kidney disease stage III. 9. History of kidney stones. 10. History of recurrent urinary tract infections (UTIs) with complicated pseudomonas UTI. 11. History of subdural hematoma without trauma status post craniotomy. 12. Gout. 13. History of Coronavirus 19 infection March 2020. PLAN: The patient remains n.p.o. except for medications. Still with nasogastric tube to suctioning. Monitor electrolytes. Continue hypoglycemic protocol with D5 normal saline 100 mL/hour. Monitor strict intake and output (I&Os), daily weights, urine output, and creatinine. Defer to surgery regarding timing of advancement of his diet. Physical therapy (PT) and occupational therapy (OT). Compression stocking for now. Will ask surgery when his Lovenox can be resumed at 100 mg daily therapeutic dose. MTDD
[2020-07-21] MEDS ORDERED: MOM 30ML SUSPENSION UDC PO ONE (15:10)
[2020-07-21] MEDS: ATORVASTATIN 10 MG TAB PO SCH (21:56)
[2020-07-21] MEDS: RAMELTEON 8 MG TAB (ROZEREM) PO PRN (21:56)
[2020-07-21] MEDS: FINASTERIDE 5 MG TAB PO SCH (21:56)
[2020-07-22] MEDS: HumaLOG INSULIN (NovoLOG) PER UNIT SC SCH ×5 (00:31→21:00)
[2020-07-22] MEDS: METOCLOPRAMIDE INJ 10MG/2ML VIAL (J2765 PER 1) IV SCH ×4 (00:56→17:38)
[2020-07-22] MEDS: ONDANSETRON 4MG/2ML VIAL IV SCH ×4 (04:00→21:30)
[2020-07-22] MEDS: D5W/0.45% SODIUM CHLORIDE 1,000 ML IV SCH ×2 (04:53→15:25)
[2020-07-22 06:00] VITALS: BP 130/75
[2020-07-22 07:06] LABS: BASO % 0.7 % (0.0-1.0); EOS # 0.2 10^3/uL (0.0-0.5); EOS % 3.1 % (0.0-3.0); HEMATOCRIT 29.2 % (42.0-52.0); HEMOGLOBIN 8.9 g/dl (13.5-17.5); LYMPH # 1.4 10^3/uL (1.5-5.0); LYMPH % 26.1 % (24.0-44.0); MEAN CORPUSCULAR HGB CONC 30.5 g/dl (32.0-36.5); MEAN CORPUSCULAR VOLUME 101.7 fl (80.0-96.0); MONO # 0.5 10^3/uL (0.0-0.8); MONO % 8.3 % (2.0-8.0); NEUTROPHILS # 3.3 10^3/uL (1.5-8.5); NEUTROPHILS % 61.2 % (36.0-66.0); PLATELET COUNT, AUTOMATED 215 10^3/uL (150-450); RED BLOOD COUNT 2.87 10^6/uL (4.30-6.10); WHITE BLOOD COUNT 5.4 10^3/uL (4.0-10.0)
[2020-07-22 07:21] LABS: CALCIUM LEVEL 9.8 MG/DL (8.8-10.2); CREATININE FOR GFR 2.05 MG/DL (0.70-1.30); GLOMERULAR FILTRATION RATE 33.4 (>35); POTASSIUM SERUM 3.6 MEQ/L (3.5-5.1)
[2020-07-22] MEDS: PANTOPRAZOLE 40MG VIAL (C9113 PER 1) IV SCH (09:04)
[2020-07-22] MEDS: POLYVINYL ALCOHOL OPHTH SOLN 15 ML(LIQUITEARS) OU SCH ×2 (09:05→21:30)
--- NOTE | 2020-07-22 12:54 | ROOPDOC ---
[facility] Report Of Operation Report of Operation DATE OF PROCEDURE: 07/20/20 PREPROCEDURE DIAGNOSES: incarcerated umbilical hernia, small bowel obstruction. POSTPROCEDURE DIAGNOSES: incarcerated umbilical hernia containing small bowel PROCEDURE: Diagnostic Laparoscopy, open umbilical hernia repair SURGEON: Aki Molina MD ANESTHESIA: General Endotracheal Anesthesia. ESTIMATED BLOOD LOSS: Approximately 20 mL. COMPLICATIONS: none, extubated. REMARKS: Patient presented with acute incarceration of a loop of small bowel in his umbilical hernia. Patient not aware that he has an umbilical hernia. No prior abdominal procedures. . PROCEDURE NOTE: The small bowel spontaneously reduced soon after general anesthesia. Diagnostic laparoscopy this appears bruised but otherwise appears still peristalsing and not ischemic in appearance. I observed the bowel and was satisfied at this most likely will survive. The hernia sac in the umbilical hernia is quite congested with some hemorrhagic fluid in the sac. I felt that placing a mesh may placed this at risk for infection as a primary repair was performed.. DESCRIPTION OF PROCEDURE: Patient was given a dose of Zosyn 3.375 g IV in the emergency room. He was brought to the operating room, placed supine and table. Compression boots placed bilateral lower extremities were DVT prophylaxis. Gen. endotracheal anesthesia started. His abdomen widely prepped and draped in the usual sterile fashion.We paused for a surgical timeout using both pre-incision safety checklist to verify correct patient, procedure site and additional clinical information prior to beginning the procedure On examination the lump at the bottom of the umbilicus is no longer palpable which appears that the content may have had been reduced when he underwent general anesthesia. I entered the abdomen through the left upper quadrant 5 years needle. Insufflation started to pressure 15 mmHg. Using the same incision a 5 mm optical port was placed under direct vision of laparoscope. The insertion site was inspected for injury and none was found. He was placed in the mild Trendelenburg position tilted towards the left side. I placed another 5 mm port over at the left lower quadrant area for my working ports. The previously incarcerated loop of bowel was found marked by some ecchymosis on the wall but this remained intact. The bowels noted to be peristalsing. The tyler are not thinned out lower necrotic or ischemic. This was left in place for a few minutes and reexamined and appears to be still holding up and most likely viable. I evaluated the umbilical hernia and the opening is only roughly about 1-1/2 cm or so. This sac appears congested. There is some hemorrhagic fluid within the sac. I felt that placing an intraperitoneal mesh may be at risk for infection. Thus I deflated the abdomen. I decided to perform a primary repair. I created an incision on the top portion of the umbilicus. This was deepened through to the umbilical sac. The umbilical cleft was disconnected from the sac and the hernia sac was dissected circumferentially from the abdominal wall fascia. I opened up the sac and divided the congested portion. I tried to circumferentially create a preperitoneal flap to try and see if I could place a mesh in the preperitoneal space and avoid placing a mesh that may come in contact with the bowel. Unfortunately the peritoneum is also congested it would not hold any sutures reliably. Thus I decided to perform a primary repair. Using a #1 PDS the fascial defect was closed in a mattress fashion. The subcutaneous space was irrigated and the skin was placed back in its anatomic position and tacked with a 3-0 Wilbur ryl. Through Vicryl was likewise used to close the dermis and a rudy used to close the skin as well as that of the port site. 2 x 2 dressings and Tegaderm was then used to cover the incision. Patient tolerated the procedure well. He was subsequently awakened and extubated and brought to recovery room in stable condition.. AKI MOLINA MD July 22, 2020 12:54
[2020-07-22 14:00] VITALS: BP 127/74
--- NOTE | 2020-07-22 14:30 | IPN ---
PROGRESS NOTE DATE: 07/21/2020 SUBJECTIVE: Patient is status post small bowel obstruction and seems to be making some slow but progressive improvements. From a gastrointestinal (GI) standpoint, he is making flatus without bowel movements. He is feeling some minimal distention with clear liquid diet, but otherwise has no other complaints at this time. He has been afebrile and his vitals have been stable. His incisions have been clean, dry, healing without any erythema, drainage or discharge. He does feel some minimal tenderness at his umbilical incision, but otherwise seems to be making some slow progress and improvements with this, not severe enough that he is wincing with movement or activity at this time. IMPRESSION/PLAN: Patient is status post episode of small bowel obstruction with pair of periumbilical hernia. At this point, my recommendation is that we slowly increase his activity. He states that he is doing adequately well with the clear liquids at this point. Once he has some bowel movements and once his abdominal distention continues to improve, I would recommend advancing his diet as tolerated. However, today we will keep him on a clear liquid diet and plan on probably increasing that tomorrow.
--- NOTE | 2020-07-22 14:48 | IPN ---
PROGRESS NOTE DATE: 07/22/2020 SUBJECTIVE: Patient denies any nausea, vomiting, increase of abdominal distention, tolerating liquid diet. No fever or chills overnight. No other issues per nursing. OBJECTIVE: Temperature 97.4, pulse 72, respiratory rate 20, blood pressure 130/75, 95% on room air. GENERAL: Awake, alert, oriented to person, place and time, answering questions appropriately. HEENT: Moist mucous membranes. No jugular venous distention (JVD), thyromegaly, or cervical lymphadenopathy. No stridor or carotid bruit. LUNGS: Clear to auscultation. No wheezing, rales or rhonchi. HEART: S1, S2. Irregularly irregular. Non-tachycardic. ABDOMEN: Laparoscopic surgical incision sites are clean and dry. No erythema or tenderness. He has positive bowel sounds all four quadrants. EXTREMITIES: No cyanosis or clubbing. SKIN: Warm, dry, well perfused, pink in color. LABORATORY DATA: Laboratory data and imaging studies have been reviewed. ASSESSMENT AND PLAN: This is an 80-year-old, FULL CODE, with history of cerebrovascular accident (CVA), atrial fibrillation, on chronic Lovenox admitted due to small bowel obstruction and incarcerated hernia. IMPRESSION: 1. Small bowel obstruction secondary to incarcerated hernia status post exploratory laparotomy. Laparoscopically doing quite well, now advanced to liquid diet, which he is tolerating. Nasogastric (NG) tube has been discontinued. He is postoperative day #3, managed by general surgery. 2. Chronic atrial fibrillation with history of cerebrovascular accident (CVA). His anticoagulation has been held. May be resumed back on his home dose of Lovenox this evening. 3. Depression, chronic. 4. Obstructive sleep apnea. Stable. 5. Hypertension, controlled. 6. Type 2 diabetes. On sliding scale. Hyperglycemic protocol. Will defer to surgery for advancement of diet. 7. Chronic kidney disease stage III. At baseline creatinine. 8. History of kidney stones, recurrent urinary tract infections and prior history of pseudomonas urinary tract infection (UTI). Asymptomatic. 9. History of subdural hematoma without trauma status post craniotomy. 10. History of Coronavirus infection in March 2020. Currently asymptomatic. DISPOSITION: Awaiting surgical advancement of patient's diet. He is otherwise doing better. He may be discharged home once he tolerates a solid diet. [facility]
[2020-07-22 21:22] VITALS: BP 124/76
[2020-07-22] MEDS: ATORVASTATIN 10 MG TAB PO SCH (21:29)
[2020-07-22] MEDS: RAMELTEON 8 MG TAB (ROZEREM) PO PRN (21:29)
[2020-07-22] MEDS: FINASTERIDE 5 MG TAB PO SCH (21:29)
[2020-07-23] MEDS: METOCLOPRAMIDE INJ 10MG/2ML VIAL (J2765 PER 1) IV SCH ×2 (01:59→06:20)
[2020-07-23] MEDS: D5W/0.45% SODIUM CHLORIDE 1,000 ML IV SCH (02:03)
[2020-07-23] MEDS: ONDANSETRON 4MG/2ML VIAL IV SCH (03:27)
[2020-07-23 06:17] LABS: BASO % 0.8 % (0.0-1.0); EOS # 0.2 10^3/uL (0.0-0.5); EOS % 4.2 % (0.0-3.0); HEMATOCRIT 29.6 % (42.0-52.0); HEMOGLOBIN 9.3 g/dl (13.5-17.5); LYMPH # 1.6 10^3/uL (1.5-5.0); LYMPH % 30.4 % (24.0-44.0); MEAN CORPUSCULAR HEMOGLOBIN 31.7 pg (27.0-33.0); MEAN CORPUSCULAR HGB CONC 31.4 g/dl (32.0-36.5); MONO # 0.5 10^3/uL (0.0-0.8); MONO % 8.8 % (2.0-8.0); NEUTROPHILS # 2.9 10^3/uL (1.5-8.5); PLATELET COUNT, AUTOMATED 219 10^3/uL (150-450); RED BLOOD COUNT 2.93 10^6/uL (4.30-6.10); WHITE BLOOD COUNT 5.2 10^3/uL (4.0-10.0)
[2020-07-23 06:23] VITALS: BP 117/74
[2020-07-23 06:38] LABS: CREATININE FOR GFR 1.83 MG/DL (0.70-1.30); GLOMERULAR FILTRATION RATE 38.1 (>35); POTASSIUM SERUM 3.5 MEQ/L (3.5-5.1)
[2020-07-23] MEDS ORDERED: HumaLOG INSULIN (NovoLOG) PER UNIT SC SCH (07:30)
[2020-07-23] MEDS: HumaLOG INSULIN (NovoLOG) PER UNIT SC SCH ×4 (07:30→21:00)
[2020-07-23] MEDS ORDERED: ONDANSETRON 4MG/2ML VIAL IV PRN (08:25)
[2020-07-23] MEDS ORDERED: METOCLOPRAMIDE INJ 10MG/2ML VIAL (J2765 PER 1) IV PRN (08:25)
[2020-07-23] MEDS: PANTOPRAZOLE 40MG VIAL (C9113 PER 1) IV SCH (08:34)
[2020-07-23] MEDS: POLYVINYL ALCOHOL OPHTH SOLN 15 ML(LIQUITEARS) OU SCH ×2 (08:34→22:01)
[2020-07-23 14:00] VITALS: BP 119/74
--- NOTE | 2020-07-23 14:25 | IPN ---
PROGRESS NOTE DATE: 07/23/2020 SUBJECTIVE: Patient has made some good progress since yesterday. He has been tolerating a clear liquid diet, has had some flatus. No nausea, no vomiting and no abdominal pain. He has been afebrile. His white count looks good. PHYSICAL EXAMINATION: ABDOMEN: Softly distended, nontender. No guarding or rebound. No peritoneal signs are appreciated. IMPRESSION/PLAN: Patient seems to be making some slow but progressive improvements. Overall, seems to be making good progress from a general surgery standpoint and thus, will start him on a regular diet. If he tolerates a regular diet, he should be able to be discharged to home when he is medically stable. Then he can follow up with Dr. Molina in 2-3 weeks for outpatient evaluation.
--- NOTE | 2020-07-23 15:34 | IPN ---
PROGRESS NOTE DATE: 07/23/2020 SUBJECTIVE: Patient denies any nausea, vomiting or abdominal pain. He is tolerating his liquid diet and has been advanced to a solid diet this morning. No fever or chills overnight. Patient has no pain at the incision sites. PHYSICAL EXAMINATION: VITAL SIGNS: Temperature 97.8, pulse 67, respiratory rate 16, blood pressure 117/74, 94% on room air. GENERAL: Patient is awake, alert, oriented to person, place and time, answering questions appropriately. HEENT: No jugular venous distention (JVD) or thyromegaly. Moist mucous membranes. LUNGS: Clear to auscultation. No wheezing, rales or rhonchi. Air entry is equal bilaterally. HEART: S1, S2. Irregularly irregular. Non-tachycardic. ABDOMEN: Soft, nontender, nondistended. Positive bowel sounds. Obese abdomen. Surgical scars from recent laparoscopy appear clean and dry without any purulent drainage or significant erythema. No rebound or guarding. No fluid wave. EXTREMITIES: No cyanosis or clubbing. SKIN: Warm, dry, well-perfused and pink in color. LABORATORY DATA: CBC, metabolic panel, microbiology and imaging studies have all been reviewed. ASSESSMENT: This is an 80-year-old male, FULL CODE, with history of cerebral vascular accident (CVA), atrial fibrillation on chronic Lovenox, admitted due to small bowel obstruction and incarcerated hernia. IMPRESSION: 1. Small bowel obstruction secondary to incarcerated hernia status post exploratory laparotomy, doing quite well, advanced to a regular diet this morning. Nasogastric tube has been discontinued, postoperative day #4, managed by general surgery. Pain is minimal. 2. Chronic atrial fibrillation with history of cerebrovascular accident (CVA). May resume back on home dose of Lovenox, 1 mg/kg, renally dosed. 3. Depression, chronic. 4. Obstructive sleep apnea (MILAN), stable. 5. Hypertension, currently controlled. 6. Type 2 diabetes. Recently back on consistent carbohydrate diet. 7. Chronic kidney disease stage III. At baseline creatinine. May discontinue intravenous (IV) fluid now that the patient is tolerating an oral diet. 8. History of kidney stones, recurrent urinary tract infections (UTIs) with prior history of pseudomonas urinary tract infection complicated by kidney stones. Asymptomatic. 9. History of subdural hematoma without trauma. Status post craniotomy. 10. History of coronavirus infection in March. Asymptomatic. DISPOSITION: Patient will need acute rehabilitation, therefore, he will be monitored overnight and hopefully discharged to acute rehabilitation unit in the morning.
[2020-07-23 20:04] VITALS: BP 123/72
[2020-07-23] MEDS: ATORVASTATIN 10 MG TAB PO SCH (22:00)
[2020-07-23] MEDS: FINASTERIDE 5 MG TAB PO SCH (22:01)
[2020-07-23] MEDS: ENOXAPARIN 100MG/1ML SYRINGE (J1650 PER 10MG) SC SCH (22:01)
[2020-07-24 06:00] VITALS: BP 125/75
[2020-07-24] MEDS: HumaLOG INSULIN (NovoLOG) PER UNIT SC SCH ×4 (07:30→20:01)
[2020-07-24 07:37] LABS: BASO % 0.7 % (0.0-1.0); EOS # 0.2 10^3/uL (0.0-0.5); EOS % 4.2 % (0.0-3.0); HEMATOCRIT 30.2 % (42.0-52.0); HEMOGLOBIN 9.4 g/dl (13.5-17.5); LYMPH # 2.1 10^3/uL (1.5-5.0); LYMPH % 37.6 % (24.0-44.0); MEAN CORPUSCULAR HEMOGLOBIN 31.3 pg (27.0-33.0); MEAN CORPUSCULAR HGB CONC 31.1 g/dl (32.0-36.5); MEAN CORPUSCULAR VOLUME 100.7 fl (80.0-96.0); MONO # 0.5 10^3/uL (0.0-0.8); MONO % 9.2 % (2.0-8.0); NEUTROPHILS # 2.7 10^3/uL (1.5-8.5); NEUTROPHILS % 47.4 % (36.0-66.0); PLATELET COUNT, AUTOMATED 209 10^3/uL (150-450); WHITE BLOOD COUNT 5.7 10^3/uL (4.0-10.0)
[2020-07-24 07:55] LABS: CREATININE FOR GFR 1.73 MG/DL (0.70-1.30); GLOMERULAR FILTRATION RATE 40.7 (>35); POTASSIUM SERUM 3.5 MEQ/L (3.5-5.1)
[2020-07-24] MEDS: PANTOPRAZOLE 40MG TAB (PROTONIX) PO SCH (09:26)
[2020-07-24] MEDS: POLYVINYL ALCOHOL OPHTH SOLN 15 ML(LIQUITEARS) OU SCH ×2 (09:26→20:16)
--- NOTE | 2020-07-24 10:26 | IPNPDOC ---
Text Note Date of Service The patient was seen on 07/24/20. NOTE General Surgery Dr Coronel. The patient is an 80-year-old male status post small bowel obstruction, open umbilical hernia repair as per Dr. Coronel 07/20/20 The patient states he is not having any pain. He is tolerating regular diet. Afebrile, VSS. Abdomen soft, nontender, nondistended. No guarding or rebound. WBC 5.7, hemoglobin 9.4 A/P Status post small bowel obstruction, open umbilical hernia repair as per Dr. Coronel 07/20/20. The patient reports pain is well controlled. He is tolerating regular diet. Continue to encourage out of bed, ambulate as tolerated. From surgical standpoint, the patient can be discharged home when he is medically stable with outpatient follow-up with Dr. Coronel in 2 weeks. VS,Fishbone, I+O VS, Fishbone, I+O Laboratory Tests 07/24/20 07:02 Vital Signs Date Time Temp Pulse Resp B/P (MAP) Pulse Ox O2 Delivery O2 Flow Rate FiO2 07/24/20 06:00 98.1 71 18 125/75 (92) 94 Room Air 07/21/20 18:00 2.0 07/20/20 16:00 90 I&O- Last 24 Hours up to 6 AM 07/24/20 05:59 Intake Total 1260 ml Balance 1260 ml Sadie Crowder July 24, 2020 10:26 PASCALE CORONEL MD August 02, 2020 06:01
[2020-07-24 11:44] LABS: HEMATOCRIT 33.2 % (42.0-52.0); HEMOGLOBIN 10.3 g/dl (13.5-17.5); MEAN CORPUSCULAR HEMOGLOBIN 31.2 pg (27.0-33.0); MEAN CORPUSCULAR VOLUME 100.6 fl (80.0-96.0); PLATELET COUNT, AUTOMATED 249 10^3/uL (150-450); WHITE BLOOD COUNT 6.2 10^3/uL (4.0-10.0)
[2020-07-24 12:09] LABS: CALCIUM LEVEL 9.2 MG/DL (8.8-10.2); CREATININE FOR GFR 1.73 MG/DL (0.70-1.30); GLOMERULAR FILTRATION RATE 40.7 (>35); POTASSIUM SERUM 3.1 MEQ/L (3.5-5.1)
--- NOTE | 2020-07-24 12:26 | IPN ---
PROGRESS NOTE DATE: 07/24/2020 SUBJECTIVE: The patient is tolerating his diet well without nausea or vomiting. He has not had a bowel movement but he has good bowel sounds. Patient is not ambulating well and requires more physical therapy. Unable to be discharged today despite being medically stable for hospital discharge. OBJECTIVE: VITAL SIGNS: Temperature 98.1, pulse 71, respiratory rate 18, blood pressure 125/75, 94 % on room air. GENERAL: Generally awake, alert and oriented times three, answering questions appropriately. No distress. No icterus, jaundice, no pallor. HEENT: No JVD, thyromegaly, or cervical lymphadenopathy. Moist mucous membranes. LUNGS: Lungs are clear to auscultation, no wheezing, rales, or rhonchi. Air entry is equal bilaterally. HEART: S1, S2, irregularly irregular. Not tachycardic. ABDOMEN: Soft, obese, nontender, nondistended. Positive bowel sounds. Recent laparoscopy surgical scars are dry. No purulence or erythema. No tenderness, no rebound or guarding. No fluid wave. EXTREMITIES: No cyanosis or clubbing. LABORATORY DATA: CBC, metabolic panel have all been reviewed. Notable for chronic kidney disease. Creatinine 1.73 which is improved. ASSESSMENT AND PLAN: This is an 80-year-old male with morbid obesity, BMI of 34, history of CVA, atrial fibrillation, full code, on chronic Lovenox admitted due to small bowel obstruction and incarcerated hernia. IMPRESSION: 1. Small bowel obstruction secondary to incarcerated hernia status post exploratory laparotomy, doing well, tolerating his diet without nausea and vomiting or abdominal pain. Bowel sounds are back to baseline. The patient is debilitated and unable to be discharged from the hospital but otherwise his surgery went well. He is now postop day number five. Surgery has followed. Nasogastric tube has been discontinued. Pain is minimal and not requiring pain medications. 2. Chronic atrial fibrillation with history of CVA. Patient is resumed back on his home dose of Lovenox 100 mg once daily at bedtime with no signs of any active bleeding. 3. Depression, chronic. 4. Obstructive sleep apnea, stable. 5. Hypertension, currently controlled. 6. Type-2 diabetes on consistent carbohydrate diet. Hypoglycemic protocol. Insulin sliding scale with coverage and fingersticks before every meal and once daily at bedtime. 7. Chronic kidney disease stage III, currently at baseline creatinine. We have discontinued intravenous fluids now that he is tolerating his oral diet. 8. History of kidney stones. 9. Recurrent urinary tract infections with prior history of pseudomonas, complicated UTI with kidney stones, asymptomatic currently. No complaints. 10. History of subdural hematoma without trauma status post craniotomy. The patient is kept on chronic Lovenox despite this history and has had no signs or symptoms of recurrent hematoma. 11. History of coronavirus infection in March, currently asymptomatic. 12. Disposition: The patient is debilitated, unable to be discharged home today despite being medically stable. He is going to be changed to [facility] status until he is physically well enough to go back home.
[2020-07-24] MEDS: RAMELTEON 8 MG TAB (ROZEREM) PO PRN (20:15)
[2020-07-24] MEDS: FINASTERIDE 5 MG TAB PO SCH (20:15)
[2020-07-24] MEDS: ATORVASTATIN 10 MG TAB PO SCH (20:15)
[2020-07-24] MEDS: ENOXAPARIN 100MG/1ML SYRINGE (J1650 PER 10MG) SC SCH (20:16)
[2020-07-25 05:10] VITALS: BP 128/75
[2020-07-25 06:25] LABS: BASO % 0.6 % (0.0-1.0); EOS # 0.3 10^3/uL (0.0-0.5); EOS % 5.4 % (0.0-3.0); HEMATOCRIT 31.4 % (42.0-52.0); HEMOGLOBIN 9.9 g/dl (13.5-17.5); LYMPH # 2.2 10^3/uL (1.5-5.0); LYMPH % 35.3 % (24.0-44.0); MEAN CORPUSCULAR HEMOGLOBIN 31.4 pg (27.0-33.0); MEAN CORPUSCULAR HGB CONC 31.5 g/dl (32.0-36.5); MEAN CORPUSCULAR VOLUME 99.7 fl (80.0-96.0); MONO # 0.6 10^3/uL (0.0-0.8); MONO % 9.8 % (2.0-8.0); PLATELET COUNT, AUTOMATED 209 10^3/uL (150-450); RED BLOOD COUNT 3.15 10^6/uL (4.30-6.10); WHITE BLOOD COUNT 6.3 10^3/uL (4.0-10.0)
[2020-07-25 06:48] LABS: CREATININE FOR GFR 1.69 MG/DL (0.70-1.30); GLOMERULAR FILTRATION RATE 41.8 (>35); POTASSIUM SERUM 3.3 MEQ/L (3.5-5.1)
[2020-07-25] MEDS: HumaLOG INSULIN (NovoLOG) PER UNIT SC SCH ×4 (07:19→20:45)
[2020-07-25] MEDS: PANTOPRAZOLE 40MG TAB (PROTONIX) PO SCH (08:23)
[2020-07-25] MEDS: POLYVINYL ALCOHOL OPHTH SOLN 15 ML(LIQUITEARS) OU SCH ×2 (08:23→20:45)
[2020-07-25] MEDS ORDERED: POTASSIUM CHLORIDE 10 MEQ SR TABLET PO ONE (09:00)
--- NOTE | 2020-07-25 17:52 | IPNPDOC ---
Date Seen The patient was seen on 07/25/20. Progress Note SUBJECTIVE: No issues with diet, no abdominal pain. Per surgery, patient can f/u with surgery in two weeks, doing well. PT: would benefit from continued rehab with goal being home. Discussed with d/c team today, ARU to see if patient appropriate. Patient has no acute complaints overnight. OBJECTIVE: PHYSICAL EXAM: VITAL SIGNS: Please see below GENERAL: Generally awake, alert and oriented times three, answering questions appropriately. No distress. No icterus, jaundice, no pallor. HEENT: No JVD, thyromegaly, or cervical lymphadenopathy. Moist mucous membranes. LUNGS: Lungs are clear to auscultation, no wheezing, rales, or rhonchi. Air entry is equal bilaterally. HEART: S1, S2, irregularly irregular. Not tachycardic. ABDOMEN: Soft, obese, nontender, nondistended. Positive bowel sounds. Recent laparoscopy surgical scars are dry, well healing . No purulence or erythema. No tenderness, no rebound or guarding. No fluid wave. EXTREMITIES: No cyanosis or clubbing. NEURO: cn 2-12 INTACT, no focal deficits LABORATORY DATA: Please see below ASSESSMENT: This is an 80-year-old male with morbid obesity, BMI of 34, history of CVA, atrial fibrillation, full code, on chronic Lovenox admitted due to small bowel obstruction and incarcerated hernia. PLAN: Physical deconditioning, weakness likely 2/2 to acute issue below -PT: would benefit from rehab -c/w PT/OT while here -ARU to see if good candidate Small bowel obstruction secondary to incarcerated hernia status s/p open umbilical hernia repair 07/20/20 (Dr. Molina) -no abd pain, tolerating diet, WBC wnl, afebrile -Per surgery, c/w diet, OOB orders and ambulating often -To f/u with o/p clinic Dr. Molina in 2 weeks. Hypokalemia, acute -Replaced 40 mEq today -F/u AM labs Chronic atrial fibrillation with history of CVA. -C/w home lovenox -Rate controlled. Depression, chronic -Stab le Obstructive sleep apnea -Stable. Hypertension -currently controlled Type-2 diabetes -BS controlled -C/w CC diet, hypoglycemic protocol, ISS, FS AC/HS Chronic kidney disease stage III -Cr baseline -Labs Hx of recurrent urinary tract infections with prior history of pseudomonas -Complicated UTI with kidney stones, asymptomatic currently -No complaints and not an acute concern History of subdural hematoma without trauma status post craniotomy -Stable -Ok to keep lovenox per prior notes History of coronavirus infection in March -Asymptomatic. DVT -Lovenox DISPOSITION: Rehab suggested by PT, ARU to evaluate and patient is on board with plan for rehab. VS, I&O, 24H, Fishbone Vital Signs/I&O Vital Signs Date Time Temp Pulse Resp B/P (MAP) Pulse Ox O2 Delivery O2 Flow Rate FiO2 07/25/20 05:10 97.7 62 16 128/75 (92) 95 Room Air 07/21/20 18:00 2.0 07/20/20 16:00 90 I&O- Last 24 Hours up to 6 AM 07/25/20 06:00 Intake Total 3120 ml Balance 3120 ml Laboratory Data 24H LABS Laboratory Tests 2 07/24/20 19:41: Bedside Glucose (Misc Panel) 132H 07/25/20 06:10: Immature Granulocyte % (Auto) 0.9, Neutrophils (%) (Auto) 48.0, Lymphocytes (%) (Auto) 35.3, Monocytes (%) (Auto) 9.8H, Eosinophils (%) (Auto) 5.4H, Basophils (%) (Auto) 0.6, Neutrophils # (Auto) 3.0, Lymphocytes # (Auto) 2.2, Monocytes # (Auto) 0.6, Eosinophils # (Auto) 0.3, Basophils # (Auto) 0.0, Nucleated Red Blood Cells % (auto) 0.0, Anion Gap 4L, Glomerular Filtration Rate 41.8, Calcium Level 9.0 07/25/20 11:25: Bedside Glucose (Misc Panel) 131H 07/25/20 16:49: Bedside Glucose (Misc Panel) 130H CBC/BMP Laboratory Tests 07/25/20 06:10 Microbiology Microbiology 07/20/20 Respiratory Virus Panel (PCR) ([facility]) - Final, Complete Laly Sesay MD July 25, 2020 17:52
[2020-07-25] MEDS: FINASTERIDE 5 MG TAB PO SCH (20:43)
[2020-07-25] MEDS: ENOXAPARIN 100MG/1ML SYRINGE (J1650 PER 10MG) SC SCH (20:43)
[2020-07-25] MEDS: ATORVASTATIN 10 MG TAB PO SCH (20:43)
[2020-07-25] MEDS: ACETAMINOPHEN 500 MG TAB PO PRN (20:44)
[2020-07-25] MEDS: RAMELTEON 8 MG TAB (ROZEREM) PO PRN (20:44)
[2020-07-26 06:00] VITALS: BP 121/59
[2020-07-26 06:38] LABS: BASO % 0.7 % (0.0-1.0); EOS # 0.4 10^3/uL (0.0-0.5); EOS % 6.1 % (0.0-3.0); HEMATOCRIT 30.4 % (42.0-52.0); HEMOGLOBIN 9.8 g/dl (13.5-17.5); LYMPH # 2.5 10^3/uL (1.5-5.0); LYMPH % 40.3 % (24.0-44.0); MEAN CORPUSCULAR HEMOGLOBIN 32.3 pg (27.0-33.0); MEAN CORPUSCULAR HGB CONC 32.2 g/dl (32.0-36.5); MEAN CORPUSCULAR VOLUME 100.3 fl (80.0-96.0); MONO # 0.5 10^3/uL (0.0-0.8); MONO % 7.6 % (2.0-8.0); NEUTROPHILS # 2.7 10^3/uL (1.5-8.5); PLATELET COUNT, AUTOMATED 198 10^3/uL (150-450); RED BLOOD COUNT 3.03 10^6/uL (4.30-6.10); WHITE BLOOD COUNT 6.1 10^3/uL (4.0-10.0)
[2020-07-26 06:57] LABS: CALCIUM LEVEL 8.5 MG/DL (8.8-10.2); CREATININE FOR GFR 1.8 MG/DL (0.70-1.30); GLOMERULAR FILTRATION RATE 38.8 (>35); POTASSIUM SERUM 3.6 MEQ/L (3.5-5.1)
[2020-07-26] MEDS: PANTOPRAZOLE 40MG TAB (PROTONIX) PO SCH (08:08)
[2020-07-26] MEDS: POLYVINYL ALCOHOL OPHTH SOLN 15 ML(LIQUITEARS) OU SCH ×2 (08:08→20:15)
[2020-07-26] MEDS: HumaLOG INSULIN (NovoLOG) PER UNIT SC SCH ×4 (08:09→21:00)
[2020-07-26] MEDS: FINASTERIDE 5 MG TAB PO SCH (20:14)
[2020-07-26] MEDS: ATORVASTATIN 10 MG TAB PO SCH (20:14)
[2020-07-26] MEDS: ENOXAPARIN 100MG/1ML SYRINGE (J1650 PER 10MG) SC SCH (20:14)
[2020-07-26] MEDS: ACETAMINOPHEN 500 MG TAB PO PRN (20:15)
[2020-07-26 22:00] VITALS: BP 163/99
[2020-07-27] MEDS: RAMELTEON 8 MG TAB (ROZEREM) PO PRN ×2 (00:58→21:11)
[2020-07-27] MEDS ORDERED: MIRALAX *UNIT DOSE* 17GM PACKET PO PRN (05:35)
[2020-07-27] MEDS ORDERED: SENOKOT S TAB PO PRN (05:35)
[2020-07-27 05:37] LABS: BASO % 0.6 % (0.0-1.0); EOS # 0.5 10^3/uL (0.0-0.5); EOS % 7.9 % (0.0-3.0); HEMATOCRIT 29.3 % (42.0-52.0); HEMOGLOBIN 9.3 g/dl (13.5-17.5); LYMPH # 2.4 10^3/uL (1.5-5.0); LYMPH % 36.1 % (24.0-44.0); MEAN CORPUSCULAR HEMOGLOBIN 31.5 pg (27.0-33.0); MEAN CORPUSCULAR HGB CONC 31.7 g/dl (32.0-36.5); MEAN CORPUSCULAR VOLUME 99.3 fl (80.0-96.0); MONO # 0.7 10^3/uL (0.0-0.8); NEUTROPHILS # 2.9 10^3/uL (1.5-8.5); NEUTROPHILS % 44.2 % (36.0-66.0); PLATELET COUNT, AUTOMATED 204 10^3/uL (150-450); RED BLOOD COUNT 2.95 10^6/uL (4.30-6.10); WHITE BLOOD COUNT 6.6 10^3/uL (4.0-10.0)
[2020-07-27 05:58] LABS: CALCIUM LEVEL 8.3 MG/DL (8.8-10.2); CREATININE FOR GFR 1.63 MG/DL (0.70-1.30); GLOMERULAR FILTRATION RATE 43.6 (>35); POTASSIUM SERUM 3.5 MEQ/L (3.5-5.1)
[2020-07-27 06:00] VITALS: BP 117/60
[2020-07-27] MEDS: HumaLOG INSULIN (NovoLOG) PER UNIT SC SCH ×4 (07:07→20:43)
[2020-07-27] MEDS: DOCUSATE SODIUM 100MG CAPSULE PO SCH (08:39)
[2020-07-27] MEDS: PANTOPRAZOLE 40MG TAB (PROTONIX) PO SCH (08:40)
[2020-07-27] MEDS: POLYVINYL ALCOHOL OPHTH SOLN 15 ML(LIQUITEARS) OU SCH ×2 (08:40→21:10)
[2020-07-27 11:50] LABS: HEMATOCRIT 30.9 % (42.0-52.0); HEMOGLOBIN 9.8 g/dl (13.5-17.5); MEAN CORPUSCULAR HEMOGLOBIN 31.8 pg (27.0-33.0); MEAN CORPUSCULAR HGB CONC 31.7 g/dl (32.0-36.5); MEAN CORPUSCULAR VOLUME 100.3 fl (80.0-96.0); PLATELET COUNT, AUTOMATED 230 10^3/uL (150-450); RED BLOOD COUNT 3.08 10^6/uL (4.30-6.10); WHITE BLOOD COUNT 6.1 10^3/uL (4.0-10.0)
[2020-07-27] MEDS: ACETAMINOPHEN 500 MG TAB PO PRN (21:11)
[2020-07-27] MEDS: ATORVASTATIN 10 MG TAB PO SCH (21:11)
[2020-07-27] MEDS: FINASTERIDE 5 MG TAB PO SCH (21:11)
[2020-07-27] MEDS: ENOXAPARIN 100MG/1ML SYRINGE (J1650 PER 10MG) SC SCH (21:11)
[2020-07-27 22:00] VITALS: BP 126/75
[2020-07-28 06:00] VITALS: BP 107/60
[2020-07-28] MEDS: HumaLOG INSULIN (NovoLOG) PER UNIT SC SCH ×2 (07:30→12:00)
[2020-07-28] MEDS: POLYVINYL ALCOHOL OPHTH SOLN 15 ML(LIQUITEARS) OU SCH (08:42)
[2020-07-28] MEDS: DOCUSATE SODIUM 100MG CAPSULE PO SCH (08:42)
[2020-07-28] MEDS: PANTOPRAZOLE 40MG TAB (PROTONIX) PO SCH (08:42)
--- NOTE | 2020-07-28 17:44 | DS.PDOC ---
Discharge Summary General Date of Admission July 20, 2020 at 13:59 Date of Discharge 07/28/20 Attending Physician: Laly Sesay MD Discharge Summary HISTORY OF PRESENT ILLNESS: 80-year-old male with past medical history significant for atrial fibrillation, CVA, on chronic Lovenox 100 mg daily at bedtime last dose was 9 PM on 07/19/2020, recently discharged from [facility] for complicated UTI presents today with increasing abdominal distention, increasing pain complain of a sour stomach yesterday, generalized weakness, unable to eat with "the bulging getting worse." Patient denied taking any medications at home, presented today due to increasing distention and pain rated a 10 out of 10, sharp on the left lower quadrant without radiation. He denies any dysuria, urgency, frequency, flank pain, chest pain, pressure, tightness, lightheadedness, dizziness, fever, chills at home. He denied any nausea, vomiting at home, but had 2 episodes of emesis in the emergency room. CT abdomen and pelvis shows small umbilical hernia with partial small bowel obstruction gastric dilatation. Clinically, patient had a reducible hernia With normal lactic acid level. Hospitalist was asked to admit the patient for partial small bowel obstruction secondary to umbilical hernia. HOSPITAL COURSE: For small bowel obstruction secondary to incarcerated hernia status patient underwent open umbilical hernia repair 07/20/20 by general surgery, Dr. Molina. there were no intra- or post-op complications. Gradually his abdominal pain improved and he tolerated slowly advanced diet. WBC wnl, afebrile. He was assessed by PT and originally was thought to have benefit from continued [facility]. Over time with working with services here, he improved to the point where he could go home with services. He continued to get OOB and ambulate often. Had good bowel movements, had no increased pain. Other chronic issues remained stable. On 07/28/20 he was discharged home with HH services and has scheduled f/u with o/p clinic Dr. Molina in 2 weeks. At time of discharge, patient had no acute complaints. PAST MEDICAL HISTORY: A. 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 difficile, depression, obstructive sleep apnea, hypertension, diabetes, chronic kidney disease stage III , laser lithotripsy for kidney stone cystoscopy, bilateral ureteroscopy with lithotripsy, bilateral ureteral stent placement, removal of left prostate. Pseudomonas UTI, bacteremia with sepsis requiring Levophed 2019. Chronic left- sided 1.5 cm distal ureteral stone, left nephrostomy tube. Subdural hematoma without, July 2011, status post craniotomy July 2019, complicated UTI 06/30/2020, acute blood loss anemia, psoas muscle hematoma, acute metabolic encephalopathy, depression, gout, BPH, COVID-19 POSITIVE 03/2020 PAST SURGICAL HISTORY: Bilateral total knee arthroplasties 2016 craniotomy July 2019 cystoscopy, bilateral ureteroscopy with lithotripsy, bilateral ureteral stent placement, removal of left prostate. Pse SOCIAL HISTORY: Former smoker, quit 1988. Denies alcohol. No recreational drug use. Retired FAMILY HISTORY: Noncontributory due to advanced age DISCHARGE MEDS: Please see below PHYSICAL EXAM: VITAL SIGNS: Please see below GENERAL: AAOx 3, answering questions appropriately. No distress. No icterus, jaundice, no pallor. HEENT: No JVD, thyromegaly, or cervical lymphadenopathy. Moist mucous membranes. LUNGS: Lungs are clear to auscultation, no wheezing, rales, or rhonchi. Air entry is equal bilaterally. HEART: S1, S2, irregularly irregular. Not tachycardic. ABDOMEN: Soft, obese, nontender, nondistended. Positive bowel sounds. Recent laparoscopy surgical scars are dry, well healing . No purulence or erythema. No tenderness, no rebound or guarding. No fluid wave. EXTREMITIES: No cyanosis or clubbing. NEURO: cn 2-12 INTACT, no focal deficits LABORATORY DATA: Please see below ASSESSMENT: This is an 80-year-old male with morbid obesity, BMI of 34, history of CVA, atrial fibrillation, full code, on chronic Lovenox admitted due to small bowel obstruction and incarcerated hernia. PLAN: Physical deconditioning, weakness likely 2/2 to acute issue below -PT: would benefit from home with services -Referral given at d/c Small bowel obstruction secondary to incarcerated hernia status s/p open umbilical hernia repair 07/20/20 (Dr. Molina) -no abd pain, tolerating diet, WBC wnl, afebrile -Per surgery, c/w diet, OOB orders and ambulating often -To f/u with o/p clinic Dr. Molina in 2 weeks. Chronic atrial fibrillation with history of CVA. -C/w home lovenox -Rate controlled. Depression, chronic -Stable Obstructive sleep apnea -Stable. Hypertension -currently controlled Type-2 diabetes -C/w home meds Chronic kidney disease stage III -Cr baseline Hx of recurrent urinary tract infections with prior history of pseudomonas -UTI with kidney stones, asymptomatic currently -No complaints and not an acute concern History of subdural hematoma without trauma status post craniotomy -Stable -Ok to keep lovenox per prior notes History of coronavirus infection in March -Asymptomatic. DVT -Lovenox DISPOSITION: D/c home with HH services, f/u with general surgery. TIME SPENT ON DISCHARGE: 35 minutes. Vital Signs/I&Os Vital Signs Date Time Temp Pulse Resp B/P (MAP) Pulse Ox O2 Delivery O2 Flow Rate FiO2 07/28/20 06:00 98.2 64 20 107/60 (76) 98 Room Air I&O- Last 24 Hours up to 6 AM 07/28/20 06:00 Intake Total 1770 ml Balance 1770 ml Laboratory Data Labs 24H Laboratory Tests 2 07/27/20 19:29: Bedside Glucose (Misc Panel) 114H 07/28/20 06:20: Bedside Glucose (Misc Panel) 110 FSBS Laboratory Tests Test 07/27/20 19:29 07/28/20 06:20 Range/Units Bedside Glucose (Misc Panel) 114 110 83-110 MG/DL Microbiology Microbiology 07/20/20 Respiratory Virus Panel (PCR) (RENNY) - Final, Complete Discharge Medications Scheduled Atorvastatin Calcium (Atorvastatin Calcium) 10 Mg Tablet, 10 MG PO QHS, (Reported) Calcium Carbonate/Vitamin D3 (Calcium 600-Vit D3 400 Tablet) 1 Each Tablet, 1 TAB PO DAILY, (Reported) Enoxaparin Sodium (Enoxaparin Sodium) 100 Mg/1 Ml Syringe, 100 MG SC QHS, (Reported) Finasteride (Finasteride) 5 Mg Tablet, 5 MG PO QHS, (Reported) Gabapentin (Gabapentin) 300 Mg Capsule, 300 MG PO QHS, (Reported) Melatonin (Melatonin) 3 Mg Tablet, 3 MG PO QHS, (Reported) Metformin HCl (Metformin HCl) 500 Mg Tablet, 500 MG PO BID, (Reported) PCP DID NOT RENEW THIS RX AT APPT 2 WEEKS AGO, UNSURE IF PATIENT IS SUPPOSED TO STILL BE TAKING Polyvinyl Alcohol (Artificial Tears) 15 Ml Drops, 1 DROP OU BID, (Reported) Potassium Chloride (Potassium Chloride) 20 Meq Tablet.er, 20 MEQ PO DAILY, (Reported) Scheduled PRN Acetaminophen (Acetaminophen) 500 Mg Tablet, 1,000 MG PO TID PRN for PAIN / FEVER, (Reported) Allergies Coded Allergies: No Known Drug Allergies (Verified Allergy, Unknown, 06/23/20) Laly Sesay MD July 28, 2020 17:43
== END 2020-07-28 13:31 | disposition home health service (06) | DRG 354 ==
LOC: EDBD 08:34 → M ED 08:34 → M ED INP 13:59 → ENRESERV 14:40 → M PCU 15:50 → M MS5PR 07-21 17:43
PROVIDERS: ADMIT General Practice; ATTEND Internal Medicine
PROC: 0WUF0JZ Supplement Abdominal Wall with Synthetic Substitute, Open Approach (ICD-10-PCS; 2020-07-20)
PROC: 0WQF0ZZ Repair Abdominal Wall, Open Approach (ICD-10-PCS; principal; 2020-07-20 19:00)
DX: K42.0 Umbilical hernia with obstruction, without gangrene (principal); K56.609 Unspecified intestinal obstruction, unspecified as to partial versus complete obstruction; I48.20 Chronic atrial fibrillation, unspecified; I69.354 Hemiplegia and hemiparesis following cerebral infarction affecting left non-dominant side; I12.9 Hypertensive chronic kidney disease with stage 1 through stage 4 chronic kidney disease, or unspecified chronic kidney disease; E11.9 Type 2 diabetes mellitus without complications; F32.9 Major depressive disorder, single episode, unspecified; E66.01 Morbid (severe) obesity due to excess calories; Z68.34 Body mass index [BMI] 34.0-34.9, adult; Z79.899 Other long term (current) drug therapy; Z79.01 Long term (current) use of anticoagulants; G47.33 Obstructive sleep apnea (adult) (pediatric); N18.30 Chronic kidney disease, stage 3 unspecified; Z96.653 Presence of artificial knee joint, bilateral; Z87.891 Personal history of nicotine dependence

== ENCOUNTER 2020-07-31 09:35 | Inpatient (IN) | payer OTHER ==
[~2020-07-31] VITALS: Ht 175.3 cm; Wt 109.5 kg
[2020-07-31] MEDS ORDERED: WARF-22 PO (09:53)
[2020-07-31] MEDS ORDERED: NS 1,000 ML IV SCH (10:05)
[2020-07-31] MEDS ORDERED: ACETAMINOPHEN TAB 650MG DOSE (2X325MG) PO ONE (10:05)
[2020-07-31] MEDS ORDERED: LIDOCAINE 2% 5ML JELLY UROJET TOP ONE (10:05)
[2020-07-31 10:31] LABS: BASO # 0.1 10^3/uL (0.0-0.2); BASO % 0.7 % (0.0-1.0); EOS % 0.3 % (0.0-3.0); HEMOGLOBIN 10.8 g/dl (13.5-17.5); LYMPH # 1.1 10^3/uL (1.5-5.0); LYMPH % 14.8 % (24.0-44.0); MEAN CORPUSCULAR HEMOGLOBIN 32.2 pg (27.0-33.0); MEAN CORPUSCULAR HGB CONC 31.8 g/dl (32.0-36.5); MEAN CORPUSCULAR VOLUME 101.5 fl (80.0-96.0); MONO # 0.3 10^3/uL (0.0-0.8); MONO % 4.2 % (2.0-8.0); NEUTROPHILS # 5.6 10^3/uL (1.5-8.5); NEUTROPHILS % 79.2 % (36.0-66.0); PLATELET COUNT, AUTOMATED 144 10^3/uL (150-450); RED BLOOD COUNT 3.35 10^6/uL (4.30-6.10); WHITE BLOOD COUNT 7.1 10^3/uL (4.0-10.0)
[2020-07-31 10:41] LABS: INR 1.06
[2020-07-31 10:42] LABS: PARTIAL THROMBOPLASTIN TIME 38.1 SECONDS (24.2-38.5)
[2020-07-31 10:46] LABS: APPEARANCE, URINE HAZY (CLEAR); BACTERIA, URINE AUTO 1+ (NEGATIVE); BILIRUBIN, URINE AUTO NEGATIVE (NEGATIVE); BLOOD, URINE BLOOD 1+ (NEGATIVE); COLOR, URINE YELLOW (YELLOW); GLUCOSE, URINE (UA) AUTO NEGATIVE (NEGATIVE); KETONE, URINE AUTO NEGATIVE (NEGATIVE); LEUKOCYTE ESTERASE, URINE AUTO 3+ (NEGATIVE); MUCUS, URINE SMALL (NEGATIVE); NITRITE, URINE AUTO NEGATIVE (NEGATIVE); PROTEIN, URINE AUTO 2+ mg/dL (NEGATIVE); RBC, URINE AUTO 7 /HPF (0-3); SPECIFIC GRAVITY URINE AUTO 1.011 (1.002-1.035); SQUAMOUS EPITHELIAL CELL UR AU 0 /HPF (0-6); UROBILINOGEN, URINE AUTO 0.2 mg/dL (0.0-2.0); WBC, URINE AUTO 68 /HPF (0-3)
[2020-07-31 11:04] LABS: ALBUMIN 2.9 GM/DL (3.2-5.2); BILIRUBIN,DIRECT 0.1 MG/DL (0.0-0.2); BILIRUBIN,TOTAL 0.3 MG/DL (0.2-1.0); CALCIUM LEVEL 9.2 MG/DL (8.8-10.2); CREATININE FOR GFR 1.89 MG/DL (0.70-1.30); GLOMERULAR FILTRATION RATE 36.7 (>35); POTASSIUM SERUM 3.6 MEQ/L (3.5-5.1); TOTAL PROTEIN 6.2 GM/DL (6.4-8.2)
--- NOTE | 2020-07-31 11:06 | REP ---
INDICATION: FUO COMPARISON: 07/20/2020 TECHNIQUE: Portable AP view of the chest FINDINGS: The mediastinum and cardiac silhouette are stable and within normal limits for portable technique. Elevation to the left hemidiaphragm is suggested. The lung brunson are clear without acute consolidation, effusion, or pneumothorax. Skeletal structures are intact. IMPRESSION: No acute cardiopulmonary process appreciated. <Electronically signed by Tomás Cisneros > 07/31/20 1105
--- NOTE | 2020-07-31 11:09 | REP ---
INDICATION: FUO COMPARISON: None. TECHNIQUE: Two supine view of the abdomen and pelvis. FINDINGS: The bowel gas pattern is relatively nonspecific. Bilateral ureteral stents noted. Skeletal structures demonstrate age-related osteopenia and degenerative changes. IMPRESSION: Nonspecific bowel gas pattern. <Electronically signed by Tomás Cisneros > 07/31/20 1102
[2020-07-31 11:27] LABS: RSV AMPLIFICATION NEGATIVE (NEGATIVE)
--- NOTE | 2020-07-31 13:55 | REP ---
INDICATION: post op fever COMPARISON: 07/20/2020 TECHNIQUE: Axial noncontrast images from the lung bases to the pubic symphysis with coronal and sagittal reformations. This CT examination was performed using the following dose reduction techniques: Automated exposure control, adjustment of mA and/or kv according to the patient's size, and use of iterative reconstruction technique. FINDINGS: Lung bases are clear. Visualized heart and pericardium normal. Liver, spleen, pancreas, gallbladder, and bilateral adrenal glands are normal for noncontrast evaluation. Kidneys demonstrate atrophic changes and bilateral ureteral stents in satisfactory position. Bilateral nephroliths (right greater than left) noted. The enteric system is unremarkable and without obstruction or acute inflammatory process. Normal terminal ileum and appendix identified in the right lower quadrant. Pelvis demonstrates normal bladder and findings to suggest prior prostate surgery. No ascites. No free air. No adenopathy. No focal inflammatory stranding. Atherosclerotic changes to the aorta and vasculature noted without aneurysm. Musculoskeletal structures demonstrate age-related osteopenia and degenerative changes without acute osseous abnormality. IMPRESSION: No definite acute abdominopelvic pathology appreciated. <Electronically signed by Tomás Cisneros > 07/31/20 [id number]
[2020-07-31] MEDS ORDERED: CEFEPIME HCL 2 GM in D5W MINI-BAG PLUS 50 ML IV ONE (14:55)
[2020-07-31] MEDS ORDERED: NS 1,000 ML IV ONE (14:55)
[2020-07-31] MEDS ORDERED: ENOX100I3 SC (15:41)
[2020-07-31] MEDS ORDERED: DEXTROSE 50% 50 ML SYRINGE IV PRN (15:50)
[2020-07-31] MEDS: NS 1,000 ML IV SCH (15:50)
[2020-07-31] MEDS ORDERED: MOM 30ML SUSPENSION UDC PO PRN (15:50)
[2020-07-31] MEDS ORDERED: ACETAMINOPHEN TAB 650MG DOSE (2X325MG) PO PRN (15:50)
[2020-07-31] MEDS ORDERED: GLUCAGON INJ 1MG VIAL SC PRN (15:50)
[2020-07-31] MEDS ORDERED: MAALOX 30 ML SUSP *UDC PO PRN (15:50)
[2020-07-31] MEDS ORDERED: GLUCOSE 4GM CHEW TABLET PO PRN (15:50)
[2020-07-31] MEDS ORDERED: CEFEPIME HCL 2 GM in D5W MINI-BAG PLUS 50 ML IV SCH (15:50)
[2020-07-31] MEDS ORDERED: POLYVINYL ALCOHOL OPHTH SOLN 15 ML(LIQUITEARS) OU PRN (15:50)
--- NOTE | 2020-07-31 15:57 | HPEPDOC ---
[facility] Medical History & Physical Date of Admission July 31, 2020 Date of Service: July 31, 2020 History and Physical Chief complaint: Presented to the emergency room with complaints of weakness History of present illness: Patient is an 80-year-old male who presents [facility] because of progressive weakness since hes been discharged. Patient reported that since his discharge he was feeling relatively well. However, over the weekend has been having increased weakness requiring assistance from family members. Patient had reported feeling fatigued and tired. Son was present at the bedside reported a temperature of 102F on Friday. This morning upon waking up, patient was disoriented and was brought to the emergency room for further evaluation. Currently patient is oriented to person, place and time. He denies any headache, nausea, vomiting, chest pain, shortness of breath. Reports a mild cough, nonproductive. Denies any abdominal pain, constipation, diarrhea, or urinary discomfort. Reports 2 bowel movements over the course of the weekend reported chills at home. Patient was recently admitted to [facility] on 07/20 and discharged on 07/28 when he had come in for abdominal pain and was found to have small bowel obstruction secondary to incarcerated hernia. Patient was taken to the OR for open umbilical hernia repair on 07/[address] Molina. Patients pain had improved tolerated, slowly advance diet. White cell count improved and patient was cleared by physical therapy for discharge home. Discussed case in detail with Son; Sal Mccauley ( ; Home: ) Past Medical History: Atrial fibrillation (not on Coumadin / on Lovenox therapeutic) HTN Hemorrhagic CVA w/ Left sided hemiplegia (04/2019) Wheelchair dependent with 24/ care at home MILAN (not compliant with CPAP) NIDDM2 DLP CKD3 Hx of Ureteral stones s/p Cystoscopy and bilateral ureteral stents (06/30/2020); s/p Left nephrostomy tube Hx of Pseudomonas UTI and bacteremia (01/2020) Hx of Psoas muscle hematoma Obesity Gout BPH Hx of C. 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 Review of Systems: 10 point review of systems complete, all negative otherwise stated in HPI Physical exam: - Vitals: BP [93/50], HR [86], RR [16], Sat [97%RA], Temp [101.1F] - General: Lying in bed, Speaking in full sentences, AAOx3 - HEENT: NC, AT, PERRLA - CVS: RRR, +S1S2, - Murmurs / rubs / gallops - Lungs: Fair air entry bilaterally, No appreciable wheezing / rales / rhonchi - Abdomen: Soft, Non-distended, Non-tender - Extremities: No lower extremity edema, No calf tenderness - Neuro: Left leg with 2/5 strength reported to be chronic bilateral 5 strength at all other extremities - Skin: No visible rashes Labs: See below Imaging: See below EKG: See below Assessment and Plan: Complicated UTI in the setting of recent urologic procedure and bilateral stent placement 06/30 - Hx of Ureteral stones s/p Cystoscopy and bilateral ureteral stents (06/30/2020); s/p Left nephrostomy tube - Patient has a history of pseudomonas bacteremia 2/2 UTI in 01/2020 - Recent admission 07/01 with UTI 2/2 Pseudomonas and Enterococcus faecalis - Presented to the emergency room with progressive weakness - Febrile in the emergency room - Blood pressure is on the lower limits of normal - No significant leukocytosis or lactic acidosis - UA abnormal - Will check pro-calcitonin, blood cultures and urine cultures - Will start Cefepime and gentle IV fluid hydration CKD3 - Cr baseline of 1.4-1.6 - Cr still slightly above baseline - Will avoid nephrotoxic medications - Will c/w IV fluid hydration for now Acute metabolic encephalopathy - likely 2/2 infection - Urine appears to be oriented to person, place and time - There is chronic weakness of his left lower extremity Normocytic anemia - Hemoglobin appears to be at baseline - Will continue to trend Thrombocytopenia - Possibly 2/2 infection - No evidence of bleeding - Will continue to trend HTN - BP on lower limits of normal - Currently not on any BP medications Hemorrhagic CVA w/ Left sided hemiplegia (04/2019) - Patient is wheelchair dependent with 24/ care at home - Will order PT and OT for tomorrow MILAN - Not compliant with CPAP DLP History of COVID19 - Patient was positive early 03/2020; has tested negative. Currently - Has received a COVID19 vaccine in May; both doses - Patient remains a symptomatic and is not hypoxic Atrial fibrillation - Currently appears to be rate controlled - Is not on any rate, rhythm control - c/w full anticoagulation with therapeutic Lovenox; Warfarin still remains on hold DLP - c/w Atorvastatin NIDDM2 with Neuropathy - Will c/w ISS - Continue Gabapentin Depression - Continue Escitalopram Gout - Continue Allopurinol BPH - c/w Finasteride Hx of Psoas muscle hematoma Obesity - Complicating medical care Hx of C. diff infection DVT prophylaxis - c/w full anticoagulation with Lovenox Code status: - Full Code Vital Signs Vital Signs Date Time Temp Pulse Resp B/P (MAP) Pulse Ox O2 Delivery O2 Flow Rate FiO2 07/31/20 14:06 77 97 07/31/20 14:00 16 93/50 (64) 07/31/20 12:06 100.3 07/31/20 09:43 Room Air Laboratory Data Labs 24H Laboratory Tests 2 07/31/20 10:15: Immature Granulocyte % (Auto) 0.8, Neutrophils (%) (Auto) 79.2H, Lymphocytes (%) (Auto) 14.8L, Monocytes (%) (Auto) 4.2, Eosinophils (%) (Auto) 0.3, Basophils (%) (Auto) 0.7, Neutrophils # (Auto) 5.6, Lymphocytes # (Auto) 1.1L, Monocytes # (Auto) 0.3, Eosinophils # (Auto) 0.0, Basophils # (Auto) 0.1, Nucleated Red Blood Cells % (auto) 0.0, Prothrombin Time 14.0, Prothromb Time International Ratio 1.06, Activated Partial Thromboplast Time 38.1, Anion Gap 7L, Glomerular Filtration Rate 36.7, Lactic Acid Level 1.3, Calcium Level 9.2, Total Bilirubin 0.3, Direct Bilirubin 0.1, Aspartate Amino Transf (AST/SGOT) 13, Alanine Aminotransferase (ALT/SGPT) 13, Alkaline Phosphatase 106, Total Protein 6.2L, Albumin 2.9L, Albumin/Globulin Ratio 0.9, Coronavirus (COVID-19)(PCR) NEGATIVE, Influenza Type A (RT-PCR) NEGATIVE, Influenza Type B (RT-PCR) NEGATIVE, Respiratory Syncytial Virus (PCR) NEGATIVE 07/31/20 10:31: Urine Color YELLOW, Urine Appearance HAZY, Urine pH 5.0, Urine Specific [place] 1.011, Urine Protein 2+H, Urine Glucose (Auto)(UA) NEGATIVE, Urine Ketones (Auto) NEGATIVE, Urine Blood 1+H, Urine Nitrite NEGATIVE, Urine Bilirubin NEGATIVE, Urine Urobilinogen 0.2, Urine Leukocyte Esterase (Auto) 3+H, Urine WBC (Auto) 68H, Urine RBC (Auto) 7H, Urine Hyaline Casts (Auto) 0, Urine Bacteria (Auto) 1+H, Urine Squamous Epithelial Cells 0, Urine Mucus (Auto) SMALL, Urine Sperm (Auto) CBC/BMP Laboratory Tests 07/31/20 10:15 Microbiology Microbiology 07/31/20 Urine Culture, Received Pending 07/31/20 Blood Culture, Received Pending 07/31/20 Blood Culture, Received Pending Home Medications Scheduled Atorvastatin Calcium (Atorvastatin Calcium) 10 Mg Tablet, 10 MG PO QHS Calcium Carbonate/Vitamin D3 (Calcium 600-Vit D3 400 Tablet) 1 Each Tablet, 1 TAB PO DAILY Enoxaparin Sodium (Enoxaparin Sodium) 100 Mg/1 Ml Syringe, 100 MG SC QHS Finasteride (Finasteride) 5 Mg Tablet, 5 MG PO QHS Gabapentin (Gabapentin) 300 Mg Capsule, 300 MG PO QHS Melatonin (Melatonin) 3 Mg Tablet, 3 MG PO QHS Potassium Chloride (Potassium Chloride) 20 Meq Tablet.er, 20 MEQ PO DAILY Warfarin Sodium (Warfarin Sodium) 10 Mg Tablet, 10 MG PO QPM Scheduled PRN Acetaminophen (Acetaminophen) 500 Mg Tablet, 1,000 MG PO TID PRN for PAIN / FEVER Polyvinyl Alcohol (Artificial Tears) 15 Ml Drops, 1 DROP OU BID PRN for DRY EYES Allergies Coded Allergies: No Known Drug Allergies (Verified Allergy, Unknown, 06/23/20) KALEN GUNTER MD July 31, 2020 15:57
[2020-07-31] MEDS: HumaLOG INSULIN (NovoLOG) PER UNIT SC SCH ×2 (17:30→21:00)
--- NOTE | 2020-07-31 20:10 | ECGEPIP ---
[facility] - ED Test Date: 2020-07-31 Pat Name: JOSE ARMANDO FINNEY Department: Room: - Gender: Male Guest Relation Officer: LR : 1940 Requested By: Oneil Galan Order Number: [id number] Reading MD: Theron Martinez Measurements Intervals [place] Rate: 85 P: 90 IA: 174 QRS: 27 QRSD: 122 T: -10 QT: 374 QTc: 445 Interpretive Statements Sinus rhythm with frequent premature ventricular complexes INTRAVENTRICULAR CONDUCTION DELAY Low QRS complex voltage in the limb leads Ventricular ectopy new from tracing done 07-20-20 Electronically Signed on 07-31-2020 20:10:31 EDT by Theron Martinez
[2020-07-31 21:00] VITALS: BP 113/53
[2020-07-31] MEDS: DOCUSATE SODIUM 100MG CAPSULE PO SCH (21:00)
[2020-07-31] MEDS: ATORVASTATIN 10 MG TAB PO SCH (21:03)
[2020-07-31] MEDS: GABAPENTIN 300 MG CAP PO SCH (21:04)
[2020-07-31] MEDS: FINASTERIDE 5 MG TAB PO SCH (21:04)
[2020-07-31] MEDS: ENOXAPARIN 100MG/1ML SYRINGE (J1650 PER 10MG) SC SCH (21:04)
[2020-08-01] VITALS (7 sets, daily range): BP systolic 90–133; BP diastolic 50–79
[2020-08-01] MEDS: CEFEPIME HCL 1 GM in D5W MINI-BAG PLUS 50 ML IV SCH ×2 (03:08→15:08)
[2020-08-01 05:56] LABS: BASO % 0.4 % (0.0-1.0); EOS % 0.4 % (0.0-3.0); HEMOGLOBIN 9.2 g/dl (13.5-17.5); LYMPH # 1.1 10^3/uL (1.5-5.0); LYMPH % 21.2 % (24.0-44.0); MEAN CORPUSCULAR HEMOGLOBIN 30.8 pg (27.0-33.0); MEAN CORPUSCULAR HGB CONC 30.7 g/dl (32.0-36.5); MEAN CORPUSCULAR VOLUME 100.3 fl (80.0-96.0); MONO # 0.5 10^3/uL (0.0-0.8); MONO % 8.8 % (2.0-8.0); NEUTROPHILS # 3.6 10^3/uL (1.5-8.5); NEUTROPHILS % 68.2 % (36.0-66.0); PLATELET COUNT, AUTOMATED 125 10^3/uL (150-450); RED BLOOD COUNT 2.99 10^6/uL (4.30-6.10); WHITE BLOOD COUNT 5.2 10^3/uL (4.0-10.0)
[2020-08-01 06:24] LABS: CALCIUM LEVEL 8.7 MG/DL (8.8-10.2); CREATININE FOR GFR 1.76 MG/DL (0.70-1.30); GLOMERULAR FILTRATION RATE 39.9 (>35); MAGNESIUM LEVEL 1.5 MG/DL (1.8-2.4); POTASSIUM SERUM 3.6 MEQ/L (3.5-5.1)
[2020-08-01] MEDS: NS 1,000 ML IV SCH ×3 (06:42→21:50)
[2020-08-01] MEDS: HumaLOG INSULIN (NovoLOG) PER UNIT SC SCH ×4 (07:30→20:17)
[2020-08-01] MEDS: LACTOBACILLUS ACIDOPHILUS CAP (BACID) PO SCH ×2 (08:00→17:00)
[2020-08-01] MEDS: DOCUSATE SODIUM 100MG CAPSULE PO SCH ×2 (08:30→21:00)
[2020-08-01] MEDS ORDERED: POTASSIUM CHLORIDE 10 MEQ SR TABLET PO ONE (09:00)
[2020-08-01] MEDS ORDERED: MAG SULF 1GM/100ML (MAG RUN) 1 GM in IV 1 EA IV ONE (09:00)
[2020-08-01] MEDS: MIDODRINE 5 MG TAB PO SCH ×3 (09:13→16:58)
--- NOTE | 2020-08-01 10:03 | IPNPDOC ---
Date Seen The patient was seen on 08/01/20. Progress Note addendum to progress note: chronic afib -rate controlled -on lovenox therapeutic dose UTI due to indwelling ureteral stent -on iv abx -await urine cx sensitivities -repeat blood cx if bacteremic correction: pt was awake alert oriented x 3 on ER arrival, and DID NOT HAVE ACUTE METABOLIC ENCEPHALOPATHY on hospital admission. VS, I&O, 24H, Fishbone Vital Signs/I&O Vital Signs Date Time Temp Pulse Resp B/P (MAP) Pulse Ox O2 Delivery O2 Flow Rate FiO2 08/01/20 08:00 97.3 65 16 133/79 (97) 99 Room Air I&O- Last 24 Hours up to 6 AM 08/01/20 06:00 Intake Total 1650 ml Output Total 75 ml Balance 1575 ml Laboratory Data 24H LABS Laboratory Tests 2 07/31/20 10:15: Immature Granulocyte % (Auto) 0.8, Neutrophils (%) (Auto) 79.2H, Lymphocytes (%) (Auto) 14.8L, Monocytes (%) (Auto) 4.2, Eosinophils (%) (Auto) 0.3, Basophils (%) (Auto) 0.7, Neutrophils # (Auto) 5.6, Lymphocytes # (Auto) 1.1L, Monocytes # (Auto) 0.3, Eosinophils # (Auto) 0.0, Basophils # (Auto) 0.1, Nucleated Red Blood Cells % (auto) 0.0, Prothrombin Time 14.0, Prothromb Time International Ratio 1.06, Activated Partial Thromboplast Time 38.1, Anion Gap 7L, Glomerular Filtration Rate 36.7, Lactic Acid Level 1.3, Calcium Level 9.2, Total Bilirubin 0.3, Direct Bilirubin 0.1, Aspartate Amino Transf (AST/SGOT) 13, Alanine Aminotransferase (ALT/SGPT) 13, Alkaline Phosphatase 106, Total Protein 6.2L, Albumin 2.9L, Albumin/Globulin Ratio 0.9, Procalcitonin 1.16, Coronavirus (COVID-19)(PCR) NEGATIVE, Influenza Type A (RT-PCR) NEGATIVE, Influenza Type B (RT-PCR) NEGATIVE, Respiratory Syncytial Virus (PCR) NEGATIVE 07/31/20 10:31: Urine Color YELLOW, Urine Appearance HAZY, Urine pH 5.0, Urine Specific [place] 1.011, Urine Protein 2+H, Urine Glucose (Auto)(UA) NEGATIVE, Urine Ketones (Auto) NEGATIVE, Urine Blood 1+H, Urine Nitrite NEGATIVE, Urine Bilirubin NEGATIVE, Urine Urobilinogen 0.2, Urine Leukocyte Esterase (Auto) 3+H, Urine WBC (Auto) 68H, Urine RBC (Auto) 7H, Urine Hyaline Casts (Auto) 0, Urine Bacteria (Auto) 1+H, Urine Squamous Epithelial Cells 0, Urine Mucus (Auto) SMALL, Urine Sperm (Auto) 07/31/20 18:09: Bedside Glucose (Misc Panel) 91 07/31/20 21:00: Bedside Glucose (Misc Panel) 88 08/01/20 05:28: Immature Granulocyte % (Auto) 1.0, Neutrophils (%) (Auto) 68.2H, Lymphocytes (%) (Auto) 21.2L, Monocytes (%) (Auto) 8.8H, Eosinophils (%) (Auto) 0.4, Basophils ( %) (Auto) 0.4, Neutrophils # (Auto) 3.6, Lymphocytes # (Auto) 1.1L, Monocytes # (Auto) 0.5, Eosinophils # (Auto) 0.0, Basophils # (Auto) 0.0, Nucleated Red Blood Cells % (auto) 0.0, Anion Gap 8, Glomerular Filtration Rate 39.9, Calcium Level 8.7L, Magnesium Level 1.5L CBC/BMP Laboratory Tests 07/31/20 10:15 08/01/20 05:28 Microbiology Microbiology 07/31/20 Urine Culture, Received Pending 07/31/20 Blood Culture - Preliminary, Resulted 07/31/20 Blood Culture - Preliminary, Resulted PRISCILA WATSON MD August 01, 2020 10:03
--- NOTE | 2020-08-01 10:36 | IPN ---
PROGRESS NOTE DATE: 08/01/2020 SUBJECTIVE: SUBJECTIVE: Patient had a fever, T-max of 103.3 on 07/31/2020. He denies any chills, dysuria, urgency, frequency, flank pain, nausea, vomiting or abdominal pain this morning. Patient denies any shortness of breath, chest pain, pressure, tightness. OBJECTIVE/PHYSICAL EXAMINATION: VITAL SIGNS: T-max 103.3, current temperature 97.3, pulse 65, respiratory rate 16, blood pressure 133/70, 99% on room air. GENERAL: Awake, alert, oriented x3. Answering questions appropriately. Face is symmetric. Tongue is midline. No respiratory distress. HEENT: No JVD, thyromegaly or cervical lymphadenopathy. LUNGS: Clear to auscultation. No wheezing, rales or rhonchi. HEART: S1, S2, sinus rhythm. ABDOMEN: Soft, obese, nontender , non-distended. No CVA tenderness. EXTREMITIES: No lower extremity edema. No cyanosis or clubbing. NEUROLOGIC: Left lower extremity 2/5 strength. Right lower extremity 3/5 strength. Bilateral upper extremities 5/5 strength. SKIN: Warm, dry, well perfused, pink in color. LABORATORY DATA: CBC and metabolic panel have been reviewed, notable for creatinine 1.76, magnesium 1.5. IMAGING STUDIES: CT of the abdomen and pelvis, chest x-ray, abdominal film have been reviewed. ASSESSMENT AND PLAN: This is an 80 year-old male with history of atrial fibrillation on chronic Lovenox, hypertension, hemorrhagic CVA with chronic left-sided hemiplegia, wheelchair dependent, 24/7 care at home, MILAN; noncompliant with CPAP, noninsulin dependent type 2 diabetes, dyslipidemia, chronic kidney disease stage 3, pseudomonas UTI and bacteremia in January of 2020, ureteral stents bilaterally 06/30/2020; status post left nephrostomy tube, history of psoas muscle hematoma, obesity, gout, BPH, history of C. diff infection, asymptomatic Coronavirus-19 in March of 2020, depression, who was admitted on 07/31/2020 with complaints of worsening weakness, found to have a urinary tract infection due to bilateral ureteral stent placement. CURRENT ISSUES: 1. Complicated UTI in the setting of bilateral stent placement and procedure on 06/30/2020 with history of pseudomonas bacteremia and E. faecalis pseudomonas UTI: He complains of generalized weakness on admission, no lactic acidosis but fever of 103. Patient is on Cefepime with I.V. fluids. 2. Chronic kidney disease stage 3 at baseline creatinine: Strict I's and O's, daily weights. 3. Acute metabolic encephalopathy: Secondary to UTI with chronic weakness. PT/OT. 4. Normocytic anemia: No acute indication for RBC transfusion. 5. Thrombocytopenia: On chronic Lovenox. Continue to monitor for any signs of bleeding. 6. Hypertension: Hold blood pressure meds if systolic pressure is less than 100. 7. Hemorrhage CVA with history of left-sided hemiplegia: Wheelchair dependent with 24/7 care at home. PT/OT for upper body strength. 8. MILAN: Noncompliant with CPAP. 9. History of Coronavirus-19: Asymptomatic in March. Had vaccine in May x2 doses. Asymptomatic. Not hypoxic. 10.Chronic atrial fibrillation: Rate controlled currently on anticoagulation with Lovenox. 11.Dyslipidemia: On chronic Atorvastatin. 12.Noninsulin dependent diabetes: On insulin sliding scale. Consistent carbohydrate diet. Gabapentin for neuropathy. 13.Depression: On Escitalopram. 14.Gout: On chronic Allopurinol. 15.BPH: On Finasteride. 16.History of psoas muscle hematoma: Resolved. 17.Obesity: Complicating care. 18.History of C. diff infection:bacid while on Cefepime. 19.DVT prophylaxis: On chronic Lovenox. MTDD
[2020-08-01] MEDS ORDERED: VANCOMYCIN HCL 1,000 MG, VIAL MATE ADAPTER 1 EACH in NS 250 ML IV SCH (12:00)
[2020-08-01] MEDS ORDERED: VANCOMYCIN HCL 500 MG in D5W MINI-BAG PLUS 100 ML IV SCH (13:00)
[2020-08-01] MEDS: ATORVASTATIN 10 MG TAB PO SCH (21:00)
[2020-08-01] MEDS: ENOXAPARIN 100MG/1ML SYRINGE (J1650 PER 10MG) SC SCH (21:00)
[2020-08-01] MEDS: GABAPENTIN 300 MG CAP PO SCH (21:00)
[2020-08-01] MEDS: FINASTERIDE 5 MG TAB PO SCH (21:00)
[2020-08-02] VITALS: BP 109/56
[2020-08-02] MEDS: CEFEPIME HCL 1 GM in D5W MINI-BAG PLUS 50 ML IV SCH (02:46)
[2020-08-02 04:00] VITALS: BP 118/70
[2020-08-02 05:40] LABS: BASO % 0.6 % (0.0-1.0); EOS # 0.1 10^3/uL (0.0-0.5); EOS % 2.3 % (0.0-3.0); HEMATOCRIT 27.1 % (42.0-52.0); HEMOGLOBIN 8.5 g/dl (13.5-17.5); LYMPH # 1.3 10^3/uL (1.5-5.0); LYMPH % 26.8 % (24.0-44.0); MEAN CORPUSCULAR HGB CONC 31.4 g/dl (32.0-36.5); MEAN CORPUSCULAR VOLUME 98.9 fl (80.0-96.0); MONO # 0.4 10^3/uL (0.0-0.8); MONO % 8.6 % (2.0-8.0); NEUTROPHILS # 2.9 10^3/uL (1.5-8.5); NEUTROPHILS % 61.1 % (36.0-66.0); PLATELET COUNT, AUTOMATED 118 10^3/uL (150-450); RED BLOOD COUNT 2.74 10^6/uL (4.30-6.10); WHITE BLOOD COUNT 4.8 10^3/uL (4.0-10.0)
[2020-08-02 06:03] LABS: CALCIUM LEVEL 8.2 MG/DL (8.8-10.2); CREATININE FOR GFR 1.59 MG/DL (0.70-1.30); GLOMERULAR FILTRATION RATE 44.8 (>35); MAGNESIUM LEVEL 1.8 MG/DL (1.8-2.4); POTASSIUM SERUM 3.5 MEQ/L (3.5-5.1)
[2020-08-02 08:00] VITALS: BP 120/58
[2020-08-02 08:25] LABS: VANCOMYCIN RANDOM 10.7 UG/ML
[2020-08-02] MEDS: LACTOBACILLUS ACIDOPHILUS CAP (BACID) PO SCH ×2 (08:41→17:39)
[2020-08-02] MEDS: HumaLOG INSULIN (NovoLOG) PER UNIT SC SCH ×4 (08:41→21:00)
[2020-08-02] MEDS: NS 1,000 ML IV SCH ×2 (08:41→21:33)
[2020-08-02] MEDS: MIDODRINE 5 MG TAB PO SCH ×3 (08:42→17:40)
[2020-08-02] MEDS ORDERED: VANCOMYCIN HCL 750 MG, VIAL MATE ADAPTER 1 EACH in NS 250 ML IV SCH ×2 (09:00→10:00)
[2020-08-02] MEDS: DOCUSATE SODIUM 100MG CAPSULE PO SCH ×2 (09:00→21:00)
--- NOTE | 2020-08-02 09:27 | IPN ---
PROGRESS NOTE DATE: 08/02/2020 SUBJECTIVE: The patient has had no fever overnight. He was admitted with a fever of 103.3, white count is normal at 4.8. Creatinine is down to 1.59 from admission of 1.89. He denies any shortness of breath, dysuria, urgency, frequency or flank pain. OBJECTIVE: VITAL SIGNS: Weight is 109.5 from admission weight of 106. Temperature is 97, pulse is 68, respiratory rate is 16, blood pressure 118/70, 99% on room air. GENERAL: Awake, alert and oriented to person, place and time, answering questions appropriately. NECK: No JVD or thyromegaly. LUNGS: Clear to auscultation. No wheezes, rales or rhonchi. HEART: S1 and S2, irregularly irregular, bradycardic. ABDOMEN: Obese, soft, nontender. No CVA tenderness. EXTREMITIES: Chronic trace edema bilaterally. LABORATORY DATA: Microbiology and imaging studies have been reviewed. ASSESSMENT AND PLAN: This is an 80-year-old male with a history of chronic atrial fibrillation on Lovenox, hypertension, hemorrhagic CVA with chronic left sided hemiplegia, wheelchair dependent with 24/7 care at home, MILAN noncompliant with CPAP. Type 2 diabetes. Dyslipidemia, CKD, Stage III, pseudomonas UTI and bacteremia in January 2020, ureteral stents bilaterally on 06/30/2020, status post nephrostomy tube, history of psoas muscle hematoma, obesity, gout, BPH, C. Diff, coronavirus 19 in March, asymptomatic, depression, admitted on 07/31 due to fever and weakness, found to have a UTI due to recent bilateral ureteral stent. CURRENT ISSUES: 1. Complicated UTI in the setting of bilateral ureteral stent placement. Procedure on 06/30/2020 with a history of pseudomonas bacteremia and faecalis pseudomonas UTI. 2. Chronic kidney disease Stage III at baseline creatinine. 3. Normocytic anemia. 4. Thrombocytopenia. 5. Hypertension, currently with low blood pressure. 6. History of hemorrhagic CVA with left sided hemiplegia with 24/7 care, wheelchair dependent at home. 7. MILAN. 8. Chronic atrial fibrillation. 9. Dyslipidemia. 10.Non-insulin dependent diabetes. 11.Depression. 12.Gout. 13.BPH. 14.History of psoas muscle hematoma. 15.Obesity. 16.History of C. Diff infection. 17.Gram positive bacteremia. PLAN: Due to new findings of gram positive bacteremia, Vancomycin was started yesterday, renally dosed by pharmacy, is continued on Cefepime, we are awaiting urine culture results, repeat blood cultures today. Patient's creatinine is improving, currently at baseline. He has no fluid overload signs. Blood pressure is well-maintained. He is currently on Midodrine and IV fluids. An echocardiogram has been ordered to further evaluate gram positive bacteremia. Repeat blood cultures, sed rate and CRP are ordered. Echocardiogram to rule out endocarditis. Await blood culture, bacterial identification and sensitivity results. ID consult if Staph aureus to rule out endocarditis.
[2020-08-02 12:00] VITALS: BP 140/68
--- NOTE | 2020-08-02 12:25 | IPNPDOC ---
Date Seen The patient was seen on 08/02/20. Progress Note ADDENDUM TO PROGRESS NOTE: Sepsis on admission -Fever 101.1, heart rate 1 23 bpm, creatinine 1.89 pro calcitonin 1.16 with gram-positive bacteremia in the blood cultures VS, I&O, 24H, Fishbone Vital Signs/I&O Vital Signs Date Time Temp Pulse Resp B/P (MAP) Pulse Ox O2 Delivery O2 Flow Rate FiO2 08/02/20 08:00 96.1 63 16 120/58 (78) 100 Room Air I&O- Last 24 Hours up to 6 AM 08/02/20 06:00 Intake Total 4070 ml Output Total 150 ml Balance 3920 ml Laboratory Data 24H LABS Laboratory Tests 2 08/01/20 16:37: Bedside Glucose (Misc Panel) 124H 08/01/20 20:09: Bedside Glucose (Misc Panel) 148H 08/02/20 05:18: Immature Granulocyte % (Auto) 0.6, Neutrophils (%) (Auto) 61.1, Lymphocytes (%) (Auto) 26.8, Monocytes (%) (Auto) 8.6H, Eosinophils (%) (Auto) 2.3, Basophils (%) (Auto) 0.6, Neutrophils # (Auto) 2.9, Lymphocytes # (Auto) 1.3L, Monocytes # (Auto) 0.4, Eosinophils # (Auto) 0.1, Basophils # (Auto) 0.0, Nucleated Red Blood Cells % (auto) 0.0, Anion Gap 8, Glomerular Filtration Rate 44.8, Calcium Level 8.2L, Magnesium Level 1.8, Random Vancomycin Level 10.7 08/02/20 11:37: Bedside Glucose (Misc Panel) 164H CBC/BMP Laboratory Tests 08/02/20 05:18 Microbiology Microbiology 08/02/20 Blood Culture, Received Pending 08/02/20 Blood Culture, Received Pending 07/31/20 Urine Culture - Final, Complete Enterococcus Faecalis 07/31/20 Blood Culture - Preliminary, Resulted 07/31/20 Blood Culture - Preliminary, Resulted PRISCILA WATSON MD August 02, 2020 12:25
[2020-08-02 16:00] VITALS: BP 128/64
[2020-08-02 21:25] VITALS: BP 106/55
[2020-08-02] MEDS: GABAPENTIN 300 MG CAP PO SCH (21:26)
[2020-08-02] MEDS: ENOXAPARIN 100MG/1ML SYRINGE (J1650 PER 10MG) SC SCH (21:26)
[2020-08-02] MEDS: FINASTERIDE 5 MG TAB PO SCH (21:26)
[2020-08-02] MEDS: ATORVASTATIN 10 MG TAB PO SCH (21:26)
[2020-08-03 03:30] VITALS: BP 114/60
[2020-08-03] MEDS: NS 1,000 ML IV SCH ×2 (05:58→09:21)
[2020-08-03 08:22] LABS: BASO % 0.6 % (0.0-1.0); EOS # 0.2 10^3/uL (0.0-0.5); EOS % 3.4 % (0.0-3.0); HEMATOCRIT 27.2 % (42.0-52.0); HEMOGLOBIN 8.5 g/dl (13.5-17.5); LYMPH # 1.5 10^3/uL (1.5-5.0); LYMPH % 32.6 % (24.0-44.0); MEAN CORPUSCULAR HEMOGLOBIN 31.4 pg (27.0-33.0); MEAN CORPUSCULAR HGB CONC 31.3 g/dl (32.0-36.5); MEAN CORPUSCULAR VOLUME 100.4 fl (80.0-96.0); MONO # 0.3 10^3/uL (0.0-0.8); NEUTROPHILS # 2.6 10^3/uL (1.5-8.5); NEUTROPHILS % 55.8 % (36.0-66.0); PLATELET COUNT, AUTOMATED 130 10^3/uL (150-450); RED BLOOD COUNT 2.71 10^6/uL (4.30-6.10); WHITE BLOOD COUNT 4.7 10^3/uL (4.0-10.0)
[2020-08-03 08:45] LABS: CALCIUM LEVEL 8.1 MG/DL (8.8-10.2); CREATININE FOR GFR 1.58 MG/DL (0.70-1.30); GLOMERULAR FILTRATION RATE 45.1 (>35); POTASSIUM SERUM 3.2 MEQ/L (3.5-5.1); VANCOMYCIN LEVEL TROUGH 17.8 UG/ML (10.0-20.0)
[2020-08-03] MEDS: HumaLOG INSULIN (NovoLOG) PER UNIT SC SCH ×4 (09:21→21:00)
[2020-08-03] MEDS: LACTOBACILLUS ACIDOPHILUS CAP (BACID) PO SCH ×2 (09:21→17:31)
[2020-08-03] MEDS: MIDODRINE 5 MG TAB PO SCH (09:21)
[2020-08-03] MEDS: DOCUSATE SODIUM 100MG CAPSULE PO SCH ×2 (09:21→20:19)
[2020-08-03] MEDS ORDERED: POTASSIUM CHLORIDE 10 MEQ SR TABLET PO ONE (09:50)
[2020-08-03 10:00] LABS: C REACTIVE PROTEIN QUANTITATIV 4.2 MG/DL (0.00-0.30)
[2020-08-03 10:25] LABS: ERYTHROCYTE SEDIMENTATION RATE 60 mm/hr (0-20)
[2020-08-03] MEDS: AMPICILLIN SOD 2 GM in D5W MINI-BAG PLUS 100 ML IV SCH ×3 (12:08→23:44)
--- NOTE | 2020-08-03 14:12 | IPN ---
PROGRESS NOTE DATE: 08/03/2020 SUBJECTIVE: Patient is seen and examined at the bedside. Chart has been reviewed. He denies any dysuria, urgency, frequency, flank pain, fever or chills. Despite bradycardia, denies any dizziness or near syncopal episode. No chest pain, pressure or tightness. Patient is wheelchair-bound at baseline. No other complaints per patient. PHYSICAL EXAMINATION: VITAL SIGNS: Temperature 97.2, pulse 54, respiratory rate 16, blood pressure 114/60, 97% on room air. GENERAL: Patient is awake, alert, oriented to person, place and time, answering questions appropriately. HEENT: No jugular venous distention (JVD), thyromegaly or cervical lymphadenopathy. LUNGS: Clear to auscultation. No wheezing, rales or rhonchi. HEART: S1, S2. Irregularly irregular and bradycardic. ABDOMEN: Obese, soft, nontender, nondistended. EXTREMITIES: No cyanosis or clubbing. Chronic edema. LABORATORY DATA: White count 4.7, hemoglobin 8.5, hematocrit 27, platelet count 130. Admission platelet count 144. Sodium 146, potassium 3.2, chloride 116, bicarbonate 25, BUN 27, creatinine 1.5, glucose 101. MICROBIOLOGY: Enterococcus faecalis in the urine. Enterococcus faecalis in two sets of blood cultures. 08/02/2020: No growth after 24 hours. IMAGING STUDIES: Have been reviewed. ASSESSMENT: This is an 80-year-old, FULL CODE, with history of chronic atrial fibrillation on Lovenox, hypertension, hemorrhagic cerebrovascular accident (CVA) with left-sided hemiplegia, wheelchair dependent with 24/7 care at home, obstructive sleep apnea (MILAN) not compliant with continuous positive airway pressure (CPAP), diabetes, dyslipidemia, chronic kidney disease (CKD) stage III, pseudomonas urinary tract infection with bacteremia in January 2020 with uretal stents placed on 06/30/2020, nephrostomy tube in the past with history of psoas muscle hematoma, obesity, gout, benign prostatic hypertrophy (BPH), Clostridium (C) difficile, coronavirus in March, asymptomatic, depression, admitted on 07/31/2020 due to sepsis from a complicated urinary tract infection in the setting of recent bilateral ureteral stent placement. ACTIVE ISSUES ARE FOLLOWS: 1. Sepsis secondary to complicated urinary tract infection with recent bilateral ureteral stent placement on 06/30/2020 with prior history of pseudomonas urinary tract infection and bacteremia. 2. Enterococcus urinary tract infection. 3. Normocytic anemia. 4. Thrombocytopenia. 5. Hypertension, currently with low blood pressure on midodrine. 6. History of hemorrhagic cerebrovascular accident (CVA) with hemiplegia with 24/7 care, wheelchair-dependent at home. 7. Chronic atrial fibrillation on Lovenox. 8. Obstructive sleep apnea (MILAN). 9. Dyslipidemia. 10. Non-insulin dependent type 2 diabetes. 11. Depression. 12. Gout. 13. Benign prostatic hypertrophy (BPH). 14. Obesity. 15. History of Clostridium (C) difficile infection. PLAN: Due to Enterococcus bacteremia, infectious disease specialist has been contacted. He is currently transitioned from vancomycin to intravenous ampicillin. Patient has remained afebrile for the past few days. White count has decreased. Patient had been on intravenous fluids, currently on hemodilutional anemia with no signs of any active bleeding. He is continued on Lovenox for his chronic atrial fibrillation and at baseline functional status, which is wheelchair-bound. He does have 24/7 care at home. Patient is continued on all his home medications. Midodrine has been discontinued since the patient is able to maintain a mean arterial pressure of 70 and higher. Glucose levels are stable, 124-182. DISPOSITION: Await infectious disease (ID) recommendations. [facility]
[2020-08-03 14:24] VITALS: BP 132/78
[2020-08-03] MEDS: ATORVASTATIN 10 MG TAB PO SCH (20:19)
[2020-08-03] MEDS: FINASTERIDE 5 MG TAB PO SCH (20:19)
[2020-08-03] MEDS: ENOXAPARIN 100MG/1ML SYRINGE (J1650 PER 10MG) SC SCH (20:20)
[2020-08-03] MEDS: GABAPENTIN 300 MG CAP PO SCH (20:20)
[2020-08-03 20:39] VITALS: BP 102/53
[2020-08-04] MEDS: AMPICILLIN SOD 2 GM in D5W MINI-BAG PLUS 100 ML IV SCH ×4 (05:15→22:03)
[2020-08-04 05:24] VITALS: BP 137/75
[2020-08-04 06:51] LABS: BASO % 0.6 % (0.0-1.0); EOS # 0.1 10^3/uL (0.0-0.5); EOS % 2.6 % (0.0-3.0); HEMATOCRIT 30.8 % (42.0-52.0); HEMOGLOBIN 9.8 g/dl (13.5-17.5); LYMPH # 1.6 10^3/uL (1.5-5.0); LYMPH % 34.1 % (24.0-44.0); MEAN CORPUSCULAR HGB CONC 31.8 g/dl (32.0-36.5); MEAN CORPUSCULAR VOLUME 103.7 fl (80.0-96.0); MONO # 0.4 10^3/uL (0.0-0.8); MONO % 7.5 % (2.0-8.0); NEUTROPHILS # 2.6 10^3/uL (1.5-8.5); NEUTROPHILS % 54.6 % (36.0-66.0); PLATELET COUNT, AUTOMATED 134 10^3/uL (150-450); RED BLOOD COUNT 2.97 10^6/uL (4.30-6.10); WHITE BLOOD COUNT 4.7 10^3/uL (4.0-10.0)
[2020-08-04 07:19] LABS: CALCIUM LEVEL 8.3 MG/DL (8.8-10.2); CREATININE FOR GFR 1.53 MG/DL (0.70-1.30); GLOMERULAR FILTRATION RATE 46.9 (>35); MAGNESIUM LEVEL 1.9 MG/DL (1.8-2.4); POTASSIUM SERUM 3.9 MEQ/L (3.5-5.1)
--- NOTE | 2020-08-04 09:28 | ECHO ---
ECHOCARDIOGRAM DATE OF PROCEDURE: 08/03/2020 Age: 80 Gender: Male Height: 176 cm Weight: 110 kg REFERRING PHYSICIAN: Judy Alvarez MD INDICATION: Bacteremia. MEASUREMENTS: 2D Measurements: Proximal ascending aorta 3.3 cm Aortic root 3.4 cm Left atrium 3.9 cm Inferior vena cava 2.5 cm Left atrial volume index 21 cm Doppler Measurements: No aortic regurgitation No aortic stenosis LVOT velocity 106 cm/s No mitral regurgitation No mitral stenosis No tricuspid regurgitation Mild pulmonic regurgitation MITRAL ANNULAR TISSUE DOPPLER Not performed DESCRIPTION: Rhythm was predominantly sinus bradycardia with marked sinus arrhythmia. This was a moderately technically difficult echocardiogram. No pericardial effusion. This was a 2D, M-mode, color flow Doppler, and pulsed wave Doppler examination including mitral annular tissue Doppler. CONCLUSIONS: 1. No vegetations observed on this study; however, this was a moderately technically difficult echocardiogram. 2. [id number] aortic valve sclerosis of a 3-cuspid aortic valve. No aortic stenosis or regurgitation. 3. Normal left ventricle internal dimensions and wall thickness. Normal regional LV wall motion and wall thickening. Normal LV systolic function. LVEF 60% by visual estimate. Doppler measurements to assess for LV diastolic function was not performed on this study. 4. Thickening and calcification of chordae attached to anterior mitral leaflet as a consequence of septal contact lesion. No aortic regurgitation or stenosis. 5. Moderately technically difficult echocardiogram.
[2020-08-04] MEDS: HumaLOG INSULIN (NovoLOG) PER UNIT SC SCH ×4 (09:29→21:00)
[2020-08-04] MEDS: LACTOBACILLUS ACIDOPHILUS CAP (BACID) PO SCH ×2 (09:29→17:47)
--- NOTE | 2020-08-04 09:29 | CR ---
CONSULTATION DATE: 07/31/2020 REASON FOR CONSULTATION: I was asked to consult by hospitalist for evaluation of Enterococcus faecalis bacteremia with E. faecalis urinary tract infection. HISTORY OF PRESENT ILLNESS: Mr. Mccauley is an 80-year-old gentleman who came into the [facility] on July 31 with complaint of progressive weakness since he has been discharged from the hospital after umbilical hernia repair. The patient over the weekend had been having increasing weakness requiring assistance from family members. He was very tired and had a fever of 102. The patient woke up on the morning of admission disoriented and therefore was brought into the hospital by his son. He denied any headache, nausea, vomiting, chest pain or shortness of breath. He has a mild cough which was nonproductive. He denies any abdominal pain, flank pain, urinary symptoms or dysuria. He did have a couple bowel movements over the weekend and had some chills with a fever. The patient has been hospitalized at [facility] for an incarcerated umbilical hernia on 07/[address] Molina and discharged on July 28. The umbilical hernia site is healing well and the patient does not have any abdominal issues although he is incontinent of stools and had a very large bowel movement which was soft at the bedside and smeared all over his abdomen and arm. The patient stated that he does not have any feeling when he has a bowel movement and neither does he know when he urinates. He is incontinent of urine and stool. His caregiver is Sal Mccauley, his son at . PAST MEDICAL HISTORY: 1. Atrial fibrillation on Lovenox. 2. Hypertension. 3. Hemorrhagic CVA with left-sided hemiplegia, 04/29/19, wheelchair dependent, 30/09 care at home. 4. Obstructive sleep apnea, not compliant with CPAP. 5. Noninsulin dependent diabetes. 6. Dyslipidemia. 7. Chronic kidney disease stage 3. 8. History of ureteral stone, status post cystoscopy, bilateral stent placement on 06/30/[address] Underwood where both stents were exchanged. He has laser lithotripsy and obstruction of the stones. On 06/18/2020, he had a left stent exchange by Dr. Qureshi. PAST SURGICAL HISTORY: 1. Incarcerated umbilical hernia repaired on 07/20/[address] Molina. 2. Cystoscopy, bilateral ureteral stent exchange, 06/30/2020. 3. Craniotomy, Jul, 2019. 4. Bilateral total knee arthroplasty done in 2015. PHYSICAL EXAMINATION: Heart: Normal S1, S2, irregular, no murmurs appreciated. Lungs: Clear air entry, decreased at the bases. No wheezes, rales or rhonchi. Abdomen: Soft, nontender, bowel sounds are present, soft, stools in diaper, incontinent. Extremities: No clubbing, cyanosis, trace edema bilaterally. Neurologic exam: Left leg 2/5 strength with taken out dorsiflexed. Upper extremity strength within normal. Right lower extremity strength fair. Musculoskeletal exam: Knees, bilateral knee replacement, able to bend both knees. ALLERGIES: No known drug allergies. MEDICATIONS: 1. Ampicillin 2 gm IV q.6 hours. 2. Probiotics one tablet p.o. b.i.d. 3. Gabapentin 300 mg p.o. q.h.s. 4. Finasteride 5 mg p.o. q.h.s. 5. Lovenox 100 mg subcu q.h.s. 6. Lipitor 10 mg p.o. q.h.s. 7. Insulin sliding scale. 8. Colace 100 mg p.o. b.i.d. 9. Artificial Tears one drop, OU b.i.d. 10. Glucagon as needed. 11. Milk of Magnesia as needed. 12. Tylenol 650 mg p.o. q.4 p.r.n. LABORATORY DATA: White count 4.7, hemoglobin 8.5, hematocrit 27.2, MCV 100.4, platelets 130. ESR 60. He did not have a white count during this whole hospitalization. Sodium 146, potassium 3.2, chloride 115, bicarb 25, BUN 27, creatinine 1.58. Glucose 101, calcium 8.1, magnesium 2, CRP 4.2, procalcitonin 1.15. Serology. SARS-CoV-2, influenza A and B, RSV are negative. Blood cultures were positive for Enterococcus faecalis x2 sets 15 minutes apart. Urine culture was positive for E. faecalis sensitive to ampicillin, Linezolid, nitrofurantoin, penicillin G, vancomycin, resistant to Levaquin. Blood cultures were similar susceptibility, resistant to ciprofloxacin, gentamicin, tetracycline. CT of abdomen and pelvis shows bilateral stents placed. The enteric system is unremarkable without obstruction or acute inflammation or acute pathology. Chest x-ray showed no acute cardiopulmonary process. IMPRESSION: This is an 80-year-old gentleman who was admitted with weakness, was found to have E. faecalis bacteremia with a urinary tract infection. He has bilateral stents and probably the sourced of his infection. He had a CT of abdomen and pelvis which did not show any hydronephrosis or abscess. He has improved with IV antibiotics, currently on ampicillin 2 mg every six hours, previously on vancomycin and cefepime. The patient has clinically improved and has negative cultures within 48 hours of antibiotics. He does not qualify for a MARISSA. The ELIGIO score, he would score less than 3. Duration of symptom was less than a week. Origin of the infection is from urine and stents as the foreign body would increase his risk. He has no valvular heart disease. I do not see any indication to do an echocardiogram at this time as the patient had transient bacteremia and has improved remarkably. PLAN: Discontinue Colace. The patient has very soft stools and is incontinent. Continue with IV ampicillin 2 gm every six hours until the patient is ready for discharge. At that point, I would suggest switching him to oral amoxicillin at 1000 mg p.o. t.i.d. for ten days. MTDD
[2020-08-04] MEDS ORDERED: BACI1CAP PO (09:50)
[2020-08-04] MEDS ORDERED: AMOX500C PO ×2 (09:50→16:20)
[2020-08-04] MEDS: SODIUM BICARBONATE 325 MG TAB PO SCH ×2 (11:17→22:02)
[2020-08-04] MEDS ORDERED: SODI325T9 PO (11:47)
--- NOTE | 2020-08-04 12:15 | DSES ---
DISCHARGE SUMMARY DATE OF ADMISSION: 07/31/2020 DATE OF DISCHARGE: 08/04/2020 [employer] SUPERVISOR(S) DURING THIS ADMISSION: Fritz Segovia M.D., infectious disease specialist. PRIMARY DISCHARGE DIAGNOSES: 1. Complicated urinary tract infection in the setting of recent stent placement with Enterococcus urinary tract infection. 2. Enterococcus bacteremia. 3. Normocytic anemia. 4. Thrombocytopenia. 5. Hypertension. 6. Hemorrhagic cerebrovascular accident (CVA) with hemiplegia with 24/7 care wheelchair dependent at home. 7. Chronic atrial fibrillation (AFib) on chronic Lovenox. 8. Obstructive sleep apnea (MILAN). 9. Dyslipidemia. 10. [id number]-[id number] type 2 diabetes. 11. Depression. 12. Gout. 13. BPH. 14. Obesity. 15. History of Clostridium difficile (C. diff) infection. DISCHARGE MEDICATIONS: 1. Amoxicillin 500 mg t.i.d. for 10 days. 2. Bacid one capsule with meals t.i.d. for 10 days. 3. Acetaminophen 1 gram t.i.d. as needed for pain or fever. 4. Atorvastatin 10 mg q. h.s. 5. Calcium and vitamin D one tablet daily. 6. Lovenox 100 mg subcutaneously q. h.s. 7. Finasteride 5 mg q. h.s. 8. Gabapentin 300 q. h.s. 9. Melatonin 3 mg q. h.s. 10. Artificial tears b.i.d. as needed. 11. Potassium 20 mEq daily. 12. Warfarin 10 mg q. p.m. HOSPITAL COURSE: This is an 80-year-old male full code with history of chronic AFib on Lovenox, CVA, hypertension, left-sided hemiplegia, wheelchair dependent with 24/7 care at home, MILAN noncompliant with CPAP, diabetes, dyslipidemia, chronic kidney disease stage III, pseudomonas UTI with bacteremia 01/2020, and ureteral stents placed on 06/30/2020 admitted on 07/31 due to sepsis from complicated UTI in the setting of recent bilateral ureteral stents. The patient had a fever of 103.3 with normal white count. Urine culture grew out Enterococcus faecalis. The patient was initially given IV cefepime and given vancomycin when urine culture grew out Enterococcus and blood culture grew out gram-positive cocci. Echocardiogram to rule out endocarditis was negative for vegetations. Ejection fraction is 60%. The patient had hemodilutional anemia. Renal function improved from 1.89 with fluid hydration to 1.53 on discharge. He had episodes of uncontrolled AFib with rate of 125, but improved with intervention. He was kept on his home dose of Lovenox, Lipitor, kept on hypoglycemic protocol, and insulin sliding scale. He had episodes of metabolic acidosis given bicarbonate tablets. Per Dr. Segovia, the patient may continue on amoxicillin as an outpatient and follow-up with urology. DISCHARGE PHYSICAL EXAMINATION: VITAL SIGNS: Temperature 97.4, pulse 60, respiratory rate 18, blood pressure 137/75, 98% on room air. GENERAL: The patient is awake, alert, and oriented to person, place, and time. Answered questions appropriately. NECK: No JVD. No thyromegaly. No cervical lymphadenopathy. LUNGS: Diminished, but clear to auscultation. HEART: S1, S2. Irregularly irregular. ABDOMEN: Obese, soft, nontender, and nondistended. EXTREMITIES: Chronic venous stasis changes and chronic edema. LABORATORY DATA: White count 4.7, hemoglobin 9.8, hematocrit 30, platelet count 134,000. Sodium 142, potassium 3.9, chloride 117, bicarb 18, BUN 22, creatinine 1.53, glucose of 105. MICROBIOLOGY: Blood and urine culture E. faecalis. Recheck 08/02 blood culture no growth after 48 hours. IMAGING DATA: CT abdomen and pelvis 07/31/2020, no definite acute abdominopelvic pathology. DISCHARGE INSTRUCTIONS: Follow-up with urology, primary care physician within 5-7 days, and Dr. Segovia in one to two week. Time spent on discharge 30 minutes. [facility]WORK[facility]
[2020-08-04 14:00] VITALS: BP 124/64
--- NOTE | 2020-08-04 15:19 | IPN ---
PROGRESS NOTE DATE: 08/04/2020 Mr. Mccauley seems to be doing well. He has had no nausea, vomiting, or diarrhea today. He has no urinary symptoms. He has had no fever or chills. His last fever was on the day of admission on July 31. No issues with urination, but he is incontinent of urine and stools. He is also confused at times. There was concern from the family whether he is being discharged today. He is eating well. LABORATORY DATA: White count is 4.7, hemoglobin 9.8, hematocrit 30.8, platelets 134. ESR 60. Sodium 142, potassium 3.9, chloride 117, bicarbonate 18, which is down from 25, BUN 22, creatinine 1.53, glucose 105, calcium 8.3, magnesium 1.9, CRP 4.2. Blood cultures positive for Enterococcus (E) faecalis, two out of two sets on July 31. Negative on August 02. Urine culture had also E. faecalis. Amoxicillin/ampicillin RENNY is less than 2. Penicillin is 8. SOCIAL HISTORY: Patient lives with his two grandsons, 24 years old, and he has a 5-hour care by personal nurse, who comes to his house as well. MEDICATIONS: Ampicillin 2 grams intravenous (IV) every 8 hours. PHYSICAL EXAMINATION: Temperature is 96.9, pulse 62, respirations 18, blood pressure 124/64, oxygen saturation 95% on room air. HEART: Normal S1, S2, distant. No murmurs, rubs, or gallops. LUNGS: Clear. No wheezes, rales, or rhonchi. ABDOMEN: Morbidly obese, soft, nontender. Umbilical hernia repair with incisions well healed with surgical glue. EXTREMITIES: No edema. Left hemiparesis. IMPRESSION: 1. Complicated urinary tract infection with bacteremia from Enterococcus faecalis. Patient has done well with current antibiotics. He will continue with IV ampicillin until discharge. Discharge home on by mouth amoxicillin 1 gram by mouth three times a day. 2. Bilateral ureteral stents. Patient will need removal. Case has been discussed with Dr. Underwood, who will review his CT scan. He is scheduled for stent removal of 09/08/2020. PLAN: Continue amoxicillin for a total of 10 days at 1 gram by mouth three times a day. He is currently day #2 out of 10.
[2020-08-04 22:00] VITALS: BP 169/83
[2020-08-04] MEDS: FINASTERIDE 5 MG TAB PO SCH (22:02)
[2020-08-04] MEDS: ATORVASTATIN 10 MG TAB PO SCH (22:02)
[2020-08-04] MEDS: GABAPENTIN 300 MG CAP PO SCH (22:03)
[2020-08-04] MEDS: ENOXAPARIN 100MG/1ML SYRINGE (J1650 PER 10MG) SC SCH (22:03)
[2020-08-05 05:35] VITALS: BP 151/77
[2020-08-05] MEDS: AMPICILLIN SOD 2 GM in D5W MINI-BAG PLUS 100 ML IV SCH ×2 (05:35→11:40)
[2020-08-05 06:15] LABS: BASO % 0.7 % (0.0-1.0); EOS # 0.1 10^3/uL (0.0-0.5); EOS % 3.1 % (0.0-3.0); HEMATOCRIT 28.2 % (42.0-52.0); LYMPH # 1.6 10^3/uL (1.5-5.0); LYMPH % 35.5 % (24.0-44.0); MEAN CORPUSCULAR HEMOGLOBIN 32.5 pg (27.0-33.0); MEAN CORPUSCULAR HGB CONC 31.9 g/dl (32.0-36.5); MEAN CORPUSCULAR VOLUME 101.8 fl (80.0-96.0); MONO # 0.3 10^3/uL (0.0-0.8); MONO % 6.9 % (2.0-8.0); NEUTROPHILS # 2.4 10^3/uL (1.5-8.5); NEUTROPHILS % 53.4 % (36.0-66.0); PLATELET COUNT, AUTOMATED 142 10^3/uL (150-450); RED BLOOD COUNT 2.77 10^6/uL (4.30-6.10); WHITE BLOOD COUNT 4.5 10^3/uL (4.0-10.0)
[2020-08-05 06:34] LABS: CALCIUM LEVEL 8.3 MG/DL (8.8-10.2); CREATININE FOR GFR 1.53 MG/DL (0.70-1.30); GLOMERULAR FILTRATION RATE 46.9 (>35); MAGNESIUM LEVEL 1.9 MG/DL (1.8-2.4); POTASSIUM SERUM 3.5 MEQ/L (3.5-5.1)
[2020-08-05] MEDS: HumaLOG INSULIN (NovoLOG) PER UNIT SC SCH ×2 (07:30→12:47)
[2020-08-05] MEDS: LACTOBACILLUS ACIDOPHILUS CAP (BACID) PO SCH (09:13)
== END 2020-08-05 13:53 | disposition home health service (06) | DRG 698 ==
LOC: M ED 09:35 → EDBD 09:35 → M ED INP 15:50 → ENRESERV 16:24 → M PCU 21:00 → M MS5PR 08-03 03:30
PROVIDERS: ADMIT Internal Medicine; ATTEND General Practice
DX: T83.598A Infection and inflammatory reaction due to other prosthetic device, implant and graft in urinary system, initial encounter (principal); A41.9 Sepsis, unspecified organism; I48.20 Chronic atrial fibrillation, unspecified; I69.154 Hemiplegia and hemiparesis following nontraumatic intracerebral hemorrhage affecting left non-dominant side; N39.0 Urinary tract infection, site not specified; N18.30 Chronic kidney disease, stage 3 unspecified; I12.9 Hypertensive chronic kidney disease with stage 1 through stage 4 chronic kidney disease, or unspecified chronic kidney disease; E11.40 Type 2 diabetes mellitus with diabetic neuropathy, unspecified; D69.6 Thrombocytopenia, unspecified; N40.0 Benign prostatic hyperplasia without lower urinary tract symptoms; E66.9 Obesity, unspecified; M10.9 Gout, unspecified; E78.5 Hyperlipidemia, unspecified; G47.33 Obstructive sleep apnea (adult) (pediatric); F32.9 Major depressive disorder, single episode, unspecified; Z79.899 Other long term (current) drug therapy; Z91.19 Patient's noncompliance with other medical treatment and regimen; Z96.653 Presence of artificial knee joint, bilateral; Y84.6 Urinary catheterization as the cause of abnormal reaction of the patient, or of later complication, without mention of misadventure at the time of the procedure

== ENCOUNTER → 2020-08-10 | Outpatient (REF) | payer OTHER ==
[~2020-08-10] MED LIST changes: +AMOX500C PO; +BACI1CAP PO; +SODI325T9 PO
[2020-08-10 13:44] LABS: BASO % 0.6 % (0.0-1.0); EOS # 0.2 10^3/uL (0.0-0.5); EOS % 3.8 % (0.0-3.0); HEMATOCRIT 31.3 % (42.0-52.0); HEMOGLOBIN 9.8 g/dl (13.5-17.5); LYMPH # 1.7 10^3/uL (1.5-5.0); LYMPH % 36.3 % (24.0-44.0); MEAN CORPUSCULAR HEMOGLOBIN 31.8 pg (27.0-33.0); MEAN CORPUSCULAR HGB CONC 31.3 g/dl (32.0-36.5); MEAN CORPUSCULAR VOLUME 101.6 fl (80.0-96.0); MONO # 0.4 10^3/uL (0.0-0.8); MONO % 8.2 % (2.0-8.0); NEUTROPHILS # 2.4 10^3/uL (1.5-8.5); NEUTROPHILS % 50.5 % (36.0-66.0); PLATELET COUNT, AUTOMATED 219 10^3/uL (150-450); RED BLOOD COUNT 3.08 10^6/uL (4.30-6.10); WHITE BLOOD COUNT 4.7 10^3/uL (4.0-10.0)
[2020-08-10 13:53] LABS: INR 1.73; PROTHROMBIN TIME 20.6 SECONDS (12.5-14.3)
[2020-08-10 14:16] LABS: ALBUMIN 2.8 GM/DL (3.2-5.2); BILIRUBIN,TOTAL 0.1 MG/DL (0.2-1.0); CALCIUM LEVEL 9.2 MG/DL (8.8-10.2); CREATININE FOR GFR 1.62 MG/DL (0.70-1.30); FREE T4 0.9 NG/DL (0.76-1.46); GLOMERULAR FILTRATION RATE 43.9 (>35); THYROID STIMULATING HORMONE 0.656 uIU/ML (0.358-3.740)
== END ==
LOC: M SHH 13:09
PROVIDERS: ATTEND Family Medicine
DX: I48.91 Unspecified atrial fibrillation (principal); E11.9 Type 2 diabetes mellitus without complications; N18.30 Chronic kidney disease, stage 3 unspecified; I63.9 Cerebral infarction, unspecified

== ENCOUNTER → 2020-08-15 | Outpatient (REF) | payer OTHER ==
[2020-08-15 15:04] LABS: CALCIUM LEVEL 9.3 MG/DL (8.8-10.2); CREATININE FOR GFR 1.68 MG/DL (0.70-1.30); GLOMERULAR FILTRATION RATE 42.1 (>35); POTASSIUM SERUM 4.1 MEQ/L (3.5-5.1)
== END ==
LOC: M SHH 13:37
PROVIDERS: ATTEND Family Medicine
DX: I48.91 Unspecified atrial fibrillation (principal); I63.9 Cerebral infarction, unspecified; N18.30 Chronic kidney disease, stage 3 unspecified

== ENCOUNTER → 2020-08-16 | Outpatient (REF) | payer OTHER ==
[2020-08-16 13:49] LABS: INR 2.48; PROTHROMBIN TIME 27.4 SECONDS (12.5-14.3)
[2020-08-16 14:38] LABS: CALCIUM LEVEL 9.7 MG/DL (8.8-10.2); CREATININE FOR GFR 1.72 MG/DL (0.70-1.30); GLOMERULAR FILTRATION RATE 40.9 (>35); POTASSIUM SERUM 4.5 MEQ/L (3.5-5.1)
== END ==
LOC: M SHH 13:04
PROVIDERS: ATTEND Family Medicine
DX: I48.91 Unspecified atrial fibrillation (principal); I63.9 Cerebral infarction, unspecified; N18.30 Chronic kidney disease, stage 3 unspecified

== ENCOUNTER → 2020-08-22 | Outpatient (REF) | payer OTHER ==
[2020-08-22 14:42] LABS: INR 3.04; PROTHROMBIN TIME 32.2 SECONDS (12.5-14.3)
== END ==
LOC: M SHH 13:07
PROVIDERS: ATTEND Internal Medicine
DX: Z51.81 Encounter for therapeutic drug level monitoring (principal); I48.91 Unspecified atrial fibrillation; I63.9 Cerebral infarction, unspecified; Z79.01 Long term (current) use of anticoagulants

== ENCOUNTER → 2020-08-29 | Outpatient (REF) | payer OTHER ==
[2020-08-29 12:08] LABS: INR 2.97; PROTHROMBIN TIME 31.6 SECONDS (12.5-14.3)
== END ==
LOC: M SHH 10:39
PROVIDERS: ATTEND Internal Medicine
DX: I48.91 Unspecified atrial fibrillation (principal); I63.9 Cerebral infarction, unspecified; Z79.01 Long term (current) use of anticoagulants

== ENCOUNTER → 2020-09-05 | Outpatient (REF) | payer OTHER ==
[2020-09-05 12:52] LABS: INR 1.98; PROTHROMBIN TIME 22.9 SECONDS (12.5-14.3)
== END ==
LOC: M SHH 12:18
PROVIDERS: ATTEND Internal Medicine
DX: Z51.81 Encounter for therapeutic drug level monitoring (principal); I48.91 Unspecified atrial fibrillation; I63.9 Cerebral infarction, unspecified; Z79.01 Long term (current) use of anticoagulants

== ENCOUNTER → 2020-09-12 | Outpatient (REF) | payer OTHER ==
[2020-09-12 11:42] LABS: INR 2.14; PROTHROMBIN TIME 24.4 SECONDS (12.5-14.3)
== END ==
LOC: M SHH 10:28
PROVIDERS: ATTEND Internal Medicine
DX: I48.91 Unspecified atrial fibrillation (principal); I63.9 Cerebral infarction, unspecified; Z79.01 Long term (current) use of anticoagulants

== ENCOUNTER → 2020-09-18 | Outpatient (REF) | payer OTHER ==
[2020-09-18 16:09] LABS: INR 1.92; PROTHROMBIN TIME 22.4 SECONDS (12.5-14.3)
== END ==
LOC: M SHH 15:02
PROVIDERS: ATTEND Internal Medicine
DX: I48.91 Unspecified atrial fibrillation (principal); I63.9 Cerebral infarction, unspecified; Z79.899 Other long term (current) drug therapy

== ENCOUNTER → 2020-09-26 | Outpatient (REF) | payer OTHER ==
[2020-09-26 17:49] LABS: INR 2.74; PROTHROMBIN TIME 29.6 SECONDS (12.5-14.3)
== END ==
LOC: M SHH 12:57
PROVIDERS: ATTEND Internal Medicine
DX: I48.91 Unspecified atrial fibrillation (principal); I63.9 Cerebral infarction, unspecified; Z79.891 Long term (current) use of opiate analgesic

== ENCOUNTER → 2020-10-03 | Outpatient (REF) | payer OTHER ==
[2020-10-03 13:02] LABS: INR 2.17; PROTHROMBIN TIME 24.7 SECONDS (12.5-14.3)
== END ==
LOC: M SHH 12:22
PROVIDERS: ATTEND Internal Medicine
DX: Z51.81 Encounter for therapeutic drug level monitoring (principal); Z79.01 Long term (current) use of anticoagulants; I48.91 Unspecified atrial fibrillation; I63.9 Cerebral infarction, unspecified

== ENCOUNTER → 2020-10-06 | Outpatient (REF) | payer OTHER ==
[2020-10-06 19:08] LABS: APPEARANCE, URINE HAZY (CLEAR); BACTERIA, URINE AUTO NEGATIVE (NEGATIVE); BILIRUBIN, URINE AUTO NEGATIVE (NEGATIVE); BLOOD, URINE BLOOD NEGATIVE (NEGATIVE); COLOR, URINE STRAW (YELLOW); GLUCOSE, URINE (UA) AUTO 1+ mg/dL (NEGATIVE); KETONE, URINE AUTO NEGATIVE (NEGATIVE); LEUKOCYTE ESTERASE, URINE AUTO 3+ (NEGATIVE); MUCUS, URINE SMALL (NEGATIVE); NITRITE, URINE AUTO NEGATIVE (NEGATIVE); PROTEIN, URINE AUTO 2+ mg/dL (NEGATIVE); RBC, URINE AUTO 5 /HPF (0-3); SPECIFIC GRAVITY URINE AUTO 1.011 (1.002-1.035); SQUAMOUS EPITHELIAL CELL UR AU 1 /HPF (0-6); UROBILINOGEN, URINE AUTO 0.2 mg/dL (0.0-2.0); WBC, URINE AUTO 52 /HPF (0-3)
== END ==
LOC: M SMT 18:06
PROVIDERS: ATTEND Urology
DX: N20.0 Calculus of kidney (principal); N39.0 Urinary tract infection, site not specified

== ENCOUNTER → 2020-12-13 | Outpatient (REF) | payer OTHER ==
[2020-12-13 17:46] LABS: APPEARANCE, URINE HAZY (CLEAR); BACTERIA, URINE AUTO NEGATIVE (NEGATIVE); BILIRUBIN, URINE AUTO NEGATIVE (NEGATIVE); BLOOD, URINE BLOOD NEGATIVE (NEGATIVE); COLOR, URINE YELLOW (YELLOW); GLUCOSE, URINE (UA) AUTO NEGATIVE (NEGATIVE); KETONE, URINE AUTO NEGATIVE (NEGATIVE); LEUKOCYTE ESTERASE, URINE AUTO TRACE (NEGATIVE); NITRITE, URINE AUTO NEGATIVE (NEGATIVE); PROTEIN, URINE AUTO 2+ mg/dL (NEGATIVE); RBC, URINE AUTO 0 /HPF (0-3); SPECIFIC GRAVITY URINE AUTO 1.014 (1.002-1.035); SQUAMOUS EPITHELIAL CELL UR AU 3 /HPF (0-6); UROBILINOGEN, URINE AUTO 0.2 mg/dL (0.0-2.0); WBC, URINE AUTO 16 /HPF (0-3)
== END ==
LOC: M SMT 16:56
PROVIDERS: ATTEND Urology
DX: N32.81 Overactive bladder (principal); Z79.899 Other long term (current) drug therapy
CPT/HCPCS: 51798; 81001; 87088; 87186; G0463

== ENCOUNTER → 2021-03-08 | Outpatient (CLI) | payer OTHER ==
[~2021-03-08] MED LIST changes: +ELIQ2.5T; +FURO20TA2; +HYDR-3363; +MYRB50TA
--- NOTE | 2021-03-08 15:10 | REP ---
INDICATION: uretral stent retained COMPARISON: None. TECHNIQUE: Two supine views of the abdomen and pelvis. FINDINGS: Bowel gas pattern is nonspecific. Evaluation of the urinary tract system is limited although small intrarenal calculi cannot be excluded. No foreign body. Skeletal structures demonstrate age-related degenerative changes. IMPRESSION: Nonspecific abdominal radiographs. <Electronically signed by Tomás Cisneros > 03/08/21 [id number]
== END ==
LOC: M RAD 14:42
PROVIDERS: ATTEND Urology
DX: Z96.0 Presence of urogenital implants (principal)

== ENCOUNTER 2021-04-01 19:31 | Inpatient (IN) | payer OTHER ==
[~2021-04-01] VITALS: Ht 175.3 cm; Wt 120.1 kg
[~2021-04-01 19:31] MED LIST changes: -ELIQ2.5T; +ELIQ2.5T PO; -FURO20TA2; +FURO20TA2 PO; -HYDR-3363; +HYDR-3363 PO; -MYRB50TA; +MYRB50TA PO
[2021-04-01] MEDS ORDERED: PIPERACILLIN/TAZOBACTAM SOD 3.375 GM in D5W MINI-BAG PLUS 50 ML IV ONE (21:25)
[2021-04-01] MEDS ORDERED: VANCOMYCIN HCL 1,000 MG, VIAL MATE ADAPTER 1 EACH in NS 250 ML IV ONE (21:25)
[2021-04-01 22:16] LABS: BASO # 0.1 10^3/uL (0.0-0.2); BASO % 0.8 % (0.0-1.0); EOS # 0.2 10^3/uL (0.0-0.5); EOS % 2.1 % (0.0-3.0); HEMATOCRIT 38.6 % (42.0-52.0); HEMOGLOBIN 12.6 g/dl (13.5-17.5); LYMPH # 2.3 10^3/uL (1.5-5.0); LYMPH % 24.9 % (24.0-44.0); MEAN CORPUSCULAR HGB CONC 32.6 g/dl (32.0-36.5); MONO # 0.8 10^3/uL (0.0-0.8); MONO % 8.7 % (2.0-8.0); NEUTROPHILS # 5.7 10^3/uL (1.5-8.5); PLATELET COUNT, AUTOMATED 236 10^3/uL (150-450); RED BLOOD COUNT 3.94 10^6/uL (4.30-6.10); WHITE BLOOD COUNT 9.1 10^3/uL (4.0-10.0)
[2021-04-01 22:26] LABS: INR 1.1; PROTHROMBIN TIME 14.6 SECONDS (12.7-14.5)
[2021-04-01 22:27] LABS: PARTIAL THROMBOPLASTIN TIME 33.4 SECONDS (25.9-37.0)
[2021-04-01 22:46] LABS: ALBUMIN 3.4 GM/DL (3.2-5.2); BILIRUBIN,TOTAL 0.2 MG/DL (0.2-1.0); C REACTIVE PROTEIN QUANTITATIV 5.01 MG/DL (0.00-0.30); CALCIUM LEVEL 9.4 MG/DL (8.8-10.2); CREATININE FOR GFR 2.49 MG/DL (0.70-1.30); GLOMERULAR FILTRATION RATE 26.7 (>35); POTASSIUM SERUM 4.6 MEQ/L (3.5-5.1); TOTAL PROTEIN 6.8 GM/DL (6.4-8.2)
[2021-04-01 23:13] LABS: ERYTHROCYTE SEDIMENTATION RATE 63 mm/hr (0-20)
[2021-04-01] MEDS ORDERED: OXYB5TAB10 PO (23:40)
[2021-04-02] MEDS ORDERED: GLUCAGON INJ 1MG VIAL SC PRN
[2021-04-02] MEDS ORDERED: NS 1,000 ML IV ONE
[2021-04-02] MEDS ORDERED: GLUCOSE 4GM CHEW TABLET PO PRN
[2021-04-02] MEDS ORDERED: MAALOX 30 ML SUSP *UDC PO PRN
[2021-04-02] MEDS ORDERED: ONDANSETRON 4MG/2ML VIAL IV PRN
[2021-04-02] MEDS ORDERED: PERCOCET 5MG/325MG TAB PO PRN ×2
[2021-04-02] MEDS ORDERED: MOM 30ML SUSPENSION UDC PO PRN
[2021-04-02] MEDS ORDERED: DEXTROSE 50% 50 ML SYRINGE IV PRN
[2021-04-02] MEDS ORDERED: ACETAMINOPHEN TAB 650MG DOSE (2X325MG) PO PRN
[2021-04-02] MEDS ORDERED: LACT10SO3 PO (00:20)
[2021-04-02] MEDS ORDERED: LEXA1TAB PO (00:20)
[2021-04-02] MEDS ORDERED: ESSE250T PO (00:20)
[2021-04-02] MEDS ORDERED: D31000TA2 PO (00:20)
[2021-04-02] MEDS ORDERED: ZINC1TAB2 PO (00:20)
[2021-04-02] MEDS ORDERED: HOME MED LIST COMPLETE! XX SCH (00:25)
[2021-04-02] MEDS ORDERED: hydrOXYzine 25 MG TAB PO PRN (00:35)
[2021-04-02 00:43] LABS: INR 1.09; PROTHROMBIN TIME 14.5 SECONDS (12.7-14.5)
[2021-04-02] MEDS ORDERED: VANCOMYCIN HCL 500 MG in D5W MINI-BAG PLUS 100 ML IV ONE (01:00)
[2021-04-02] MEDS: FINASTERIDE 5 MG TAB PO SCH ×2 (02:41→22:27)
[2021-04-02] MEDS: ESCITALOPRAM OXALATE 10 MG TAB (LEXAPRO) PO SCH ×2 (02:41→22:28)
[2021-04-02] MEDS: APIXABAN 2.5 MG TAB (ELIQUIS) PO SCH ×3 (02:41→22:28)
[2021-04-02] MEDS: ATORVASTATIN 10 MG TAB PO SCH ×2 (02:41→22:28)
[2021-04-02] MEDS: GABAPENTIN 300 MG CAP PO SCH ×2 (02:42→22:28)
[2021-04-02] MEDS: LACTULOSE 20 GM/30 ML SYRUP UD PO SCH ×4 (02:42→22:34)
[2021-04-02] MEDS: oxyBUTYnin 5 MG TAB PO SCH ×3 (02:42→22:27)
[2021-04-02] MEDS: PIPERACILLIN/TAZOBACTAM SOD 3.375 GM in D5W MINI-BAG PLUS 50 ML IV SCH ×4 (02:43→22:27)
[2021-04-02 03:33] VITALS: BP 131/75
[2021-04-02 06:00] VITALS: BP 108/60
[2021-04-02 06:35] LABS: HEMOGLOBIN A1c 5.6 %
[2021-04-02] MEDS: DOCUSATE SODIUM 100MG CAPSULE PO SCH ×2 (08:11→22:28)
[2021-04-02] MEDS: HumaLOG INSULIN (NovoLOG) PER UNIT SC SCH ×4 (08:11→20:44)
[2021-04-02 08:15] LABS: CALCIUM LEVEL 8.9 MG/DL (8.8-10.2); CREATININE FOR GFR 2.28 MG/DL (0.70-1.30); GLOMERULAR FILTRATION RATE 29.6 (>35); POTASSIUM SERUM 3.9 MEQ/L (3.5-5.1)
[2021-04-02] MEDS ORDERED: FUROSEMIDE 20 MG TAB PO SCH (09:00)
[2021-04-02] MEDS: VANCOMYCIN HCL 1,000 MG, VIAL MATE ADAPTER 1 EACH in NS 250 ML IV SCH (09:26)
[2021-04-02 14:00] VITALS: BP 109/70
[2021-04-02 22:00] VITALS: BP 112/72
[2021-04-03] MEDS: PIPERACILLIN/TAZOBACTAM SOD 3.375 GM in D5W MINI-BAG PLUS 50 ML IV SCH ×4 (02:57→20:27)
[2021-04-03 06:00] VITALS: BP 105/65
[2021-04-03 06:19] LABS: HEMATOCRIT 34.2 % (42.0-52.0); HEMOGLOBIN 11.3 g/dl (13.5-17.5); MEAN CORPUSCULAR HEMOGLOBIN 33.3 pg (27.0-33.0); MEAN CORPUSCULAR VOLUME 100.9 fl (80.0-96.0); PLATELET COUNT, AUTOMATED 198 10^3/uL (150-450); RED BLOOD COUNT 3.39 10^6/uL (4.30-6.10); WHITE BLOOD COUNT 6.1 10^3/uL (4.0-10.0)
[2021-04-03 06:32] LABS: CALCIUM LEVEL 8.6 MG/DL (8.8-10.2); CREATININE FOR GFR 2.42 MG/DL (0.70-1.30); GLOMERULAR FILTRATION RATE 27.6 (>35); MAGNESIUM LEVEL 2.6 MG/DL (1.8-2.4); POTASSIUM SERUM 3.9 MEQ/L (3.5-5.1)
[2021-04-03] MEDS: HumaLOG INSULIN (NovoLOG) PER UNIT SC SCH ×4 (08:18→20:29)
[2021-04-03] MEDS: oxyBUTYnin 5 MG TAB PO SCH ×2 (08:19→20:28)
[2021-04-03] MEDS: DOCUSATE SODIUM 100MG CAPSULE PO SCH ×2 (08:19→20:28)
[2021-04-03] MEDS: APIXABAN 2.5 MG TAB (ELIQUIS) PO SCH ×2 (08:19→20:28)
[2021-04-03] MEDS: VANCOMYCIN HCL 1,000 MG, VIAL MATE ADAPTER 1 EACH in NS 250 ML IV SCH (10:18)
[2021-04-03] MEDS: FUROSEMIDE 40 MG TAB PO SCH (10:19)
[2021-04-03 14:00] VITALS: BP 114/68
[2021-04-03] MEDS: FINASTERIDE 5 MG TAB PO SCH (20:27)
[2021-04-03] MEDS: GABAPENTIN 300 MG CAP PO SCH (20:28)
[2021-04-03] MEDS: ESCITALOPRAM OXALATE 10 MG TAB (LEXAPRO) PO SCH (20:28)
[2021-04-03] MEDS: ATORVASTATIN 10 MG TAB PO SCH (20:28)
[2021-04-03] MEDS: LACTULOSE 20 GM/30 ML SYRUP UD PO SCH (20:28)
[2021-04-03 21:40] VITALS: BP 117/69
[2021-04-04] MEDS: PIPERACILLIN/TAZOBACTAM SOD 3.375 GM in D5W MINI-BAG PLUS 50 ML IV SCH (01:50)
[2021-04-04 06:00] LABS: HEMATOCRIT 34.6 % (42.0-52.0); HEMOGLOBIN 11.2 g/dl (13.5-17.5); MEAN CORPUSCULAR HEMOGLOBIN 32.9 pg (27.0-33.0); MEAN CORPUSCULAR HGB CONC 32.4 g/dl (32.0-36.5); MEAN CORPUSCULAR VOLUME 101.8 fl (80.0-96.0); PLATELET COUNT, AUTOMATED 203 10^3/uL (150-450); WHITE BLOOD COUNT 5.9 10^3/uL (4.0-10.0)
[2021-04-04 06:06] VITALS: BP 122/71
[2021-04-04 06:57] LABS: CALCIUM LEVEL 8.5 MG/DL (8.8-10.2); CREATININE FOR GFR 2.45 MG/DL (0.70-1.30); GLOMERULAR FILTRATION RATE 27.2 (>35); MAGNESIUM LEVEL 2.4 MG/DL (1.8-2.4)
[2021-04-04] MEDS: HumaLOG INSULIN (NovoLOG) PER UNIT SC SCH ×4 (08:59→21:00)
[2021-04-04] MEDS: DOCUSATE SODIUM 100MG CAPSULE PO SCH ×2 (08:59→19:50)
[2021-04-04] MEDS: LACTULOSE 20 GM/30 ML SYRUP UD PO SCH ×2 (09:00→19:49)
[2021-04-04] MEDS: DOXYCYCLINE HYCLATE 100MG TABLET PO SCH ×2 (09:00→19:49)
[2021-04-04] MEDS: oxyBUTYnin 5 MG TAB PO SCH ×2 (09:00→19:49)
[2021-04-04] MEDS: FUROSEMIDE 40 MG TAB PO SCH (09:00)
[2021-04-04] MEDS: APIXABAN 2.5 MG TAB (ELIQUIS) PO SCH ×2 (09:00→19:49)
[2021-04-04] MEDS: AUGMENTIN 875 MG TAB PO SCH ×2 (09:00→19:50)
[2021-04-04] MEDS ORDERED: FURO40TA2 PO (12:50)
[2021-04-04] MEDS ORDERED: DOXY100T PO (12:50)
[2021-04-04] MEDS ORDERED: AMOX875T2 PO (12:50)
[2021-04-04 14:00] VITALS: BP 112/72
[2021-04-04] MEDS: GABAPENTIN 300 MG CAP PO SCH (19:49)
[2021-04-04] MEDS: FINASTERIDE 5 MG TAB PO SCH (19:49)
[2021-04-04] MEDS: ATORVASTATIN 10 MG TAB PO SCH (19:49)
[2021-04-04] MEDS: ESCITALOPRAM OXALATE 10 MG TAB (LEXAPRO) PO SCH (19:50)
[2021-04-04 22:00] VITALS: BP 117/72
[2021-04-05 06:00] VITALS: BP 115/72
[2021-04-05 06:01] LABS: HEMATOCRIT 34.4 % (42.0-52.0); HEMOGLOBIN 11.3 g/dl (13.5-17.5); MEAN CORPUSCULAR HEMOGLOBIN 33.2 pg (27.0-33.0); MEAN CORPUSCULAR HGB CONC 32.8 g/dl (32.0-36.5); MEAN CORPUSCULAR VOLUME 101.2 fl (80.0-96.0); PLATELET COUNT, AUTOMATED 210 10^3/uL (150-450); WHITE BLOOD COUNT 6.7 10^3/uL (4.0-10.0)
[2021-04-05 06:19] LABS: CALCIUM LEVEL 8.1 MG/DL (8.8-10.2); CREATININE FOR GFR 2.1 MG/DL (0.70-1.30); GLOMERULAR FILTRATION RATE 32.5 (>35); MAGNESIUM LEVEL 2.1 MG/DL (1.8-2.4); POTASSIUM SERUM 3.9 MEQ/L (3.5-5.1)
[2021-04-05] MEDS: DOCUSATE SODIUM 100MG CAPSULE PO SCH ×2 (08:23→21:00)
[2021-04-05] MEDS: AUGMENTIN 875 MG TAB PO SCH ×2 (08:23→21:00)
[2021-04-05] MEDS: DOXYCYCLINE HYCLATE 100MG TABLET PO SCH ×2 (08:23→21:00)
[2021-04-05] MEDS: oxyBUTYnin 5 MG TAB PO SCH ×2 (08:23→21:00)
[2021-04-05] MEDS: APIXABAN 2.5 MG TAB (ELIQUIS) PO SCH ×2 (08:23→21:00)
[2021-04-05] MEDS: HumaLOG INSULIN (NovoLOG) PER UNIT SC SCH ×4 (08:24→20:24)
[2021-04-05] MEDS: LACTULOSE 20 GM/30 ML SYRUP UD PO SCH ×2 (08:25→21:01)
[2021-04-05] MEDS: FUROSEMIDE 40 MG TAB PO SCH ×2 (08:30→08:32)
[2021-04-05 08:32] VITALS: BP 92/51
[2021-04-05 13:05] VITALS: BP 136/74
[2021-04-05] MEDS: ATORVASTATIN 10 MG TAB PO SCH (21:00)
[2021-04-05] MEDS: ESCITALOPRAM OXALATE 10 MG TAB (LEXAPRO) PO SCH (21:00)
[2021-04-05] MEDS: FINASTERIDE 5 MG TAB PO SCH (21:00)
[2021-04-05] MEDS: GABAPENTIN 300 MG CAP PO SCH (21:00)
[2021-04-06 05:49] VITALS: BP 139/79
[2021-04-06 05:52] VITALS: BP 132/73
[2021-04-06 06:27] LABS: HEMATOCRIT 33.4 % (42.0-52.0); HEMOGLOBIN 11.3 g/dl (13.5-17.5); MEAN CORPUSCULAR HEMOGLOBIN 34.1 pg (27.0-33.0); MEAN CORPUSCULAR HGB CONC 33.8 g/dl (32.0-36.5); MEAN CORPUSCULAR VOLUME 100.9 fl (80.0-96.0); PLATELET COUNT, AUTOMATED 201 10^3/uL (150-450); RED BLOOD COUNT 3.31 10^6/uL (4.30-6.10); WHITE BLOOD COUNT 6.2 10^3/uL (4.0-10.0)
[2021-04-06 06:59] LABS: CALCIUM LEVEL 8.3 MG/DL (8.8-10.2); CREATININE FOR GFR 2.16 MG/DL (0.70-1.30); GLOMERULAR FILTRATION RATE 31.5 (>35); MAGNESIUM LEVEL 2.2 MG/DL (1.8-2.4); POTASSIUM SERUM 3.9 MEQ/L (3.5-5.1)
[2021-04-06] MEDS: AUGMENTIN 875 MG TAB PO SCH (08:00)
[2021-04-06] MEDS: DOXYCYCLINE HYCLATE 100MG TABLET PO SCH (08:00)
[2021-04-06] MEDS: DOCUSATE SODIUM 100MG CAPSULE PO SCH (08:00)
[2021-04-06] MEDS: LACTULOSE 20 GM/30 ML SYRUP UD PO SCH (08:00)
[2021-04-06] MEDS: oxyBUTYnin 5 MG TAB PO SCH (08:00)
[2021-04-06] MEDS: HumaLOG INSULIN (NovoLOG) PER UNIT SC SCH ×2 (08:00→12:51)
[2021-04-06] MEDS: APIXABAN 2.5 MG TAB (ELIQUIS) PO SCH (08:01)
[2021-04-06] MEDS ORDERED: DOXY100T PO (10:07)
[2021-04-06] MEDS ORDERED: AMOX875T2 PO (10:07)
[2021-04-06] MEDS ORDERED: FURO20TA2 PO ×2 (10:08→11:35)
== END 2021-04-06 17:00 | disposition home health service (06) | DRG 638 ==
LOC: M ED 19:31 → M ED INP 23:56 → ENRESERV 04-02 00:32 → M MSPAV 04-02 01:37
PROVIDERS: ADMIT Internal Medicine; ATTEND Internal Medicine
PROC: 0HBMXZZ Excision of Right Foot Skin, External Approach (ICD-10-PCS; principal; 2021-04-02)
DX: E11.621 Type 2 diabetes mellitus with foot ulcer (principal); L97.419 Non-pressure chronic ulcer of right heel and midfoot with unspecified severity; L03.115 Cellulitis of right lower limb; I12.9 Hypertensive chronic kidney disease with stage 1 through stage 4 chronic kidney disease, or unspecified chronic kidney disease; F41.9 Anxiety disorder, unspecified; F32.A Depression, unspecified; N40.0 Benign prostatic hyperplasia without lower urinary tract symptoms; N18.30 Chronic kidney disease, stage 3 unspecified; I48.91 Unspecified atrial fibrillation; G47.33 Obstructive sleep apnea (adult) (pediatric); N32.81 Overactive bladder; Z79.899 Other long term (current) drug therapy; Z79.01 Long term (current) use of anticoagulants; Z96.653 Presence of artificial knee joint, bilateral; E78.5 Hyperlipidemia, unspecified; M19.90 Unspecified osteoarthritis, unspecified site

== ENCOUNTER → 2021-06-06 | Outpatient (REF) | payer OTHER, MEDICARE ==
[~2021-06-06] MED LIST changes: +AMOX875T2 PO; +DOXY100T PO; +FURO40TA2 PO; +LACT10SO3 PO; +LEXA1TAB PO; +OXYB5TAB10 PO; +VITA100093 PO; +ZINC1TAB2 PO
== END ==
LOC: M LAB REF 09:14
PROVIDERS: ATTEND Podiatrist
DX: L97.412 Non-pressure chronic ulcer of right heel and midfoot with fat layer exposed (principal); M79.671 Pain in right foot

== ENCOUNTER → 2021-07-20 | Outpatient (CLI) | payer OTHER, MEDICARE, MEDICAID ==
[~2021-07-20] MED LIST changes: +AMOX500T2 PO; +GLUCTAB6 PO; +SANT250O8 TOP; +SILV50CR TOP; +SULF400T14 PO
[2021-07-20 11:20] LABS: BASO # 0.1 10^3/uL (0.0-0.2); BASO % 0.7 % (0.0-1.0); EOS # 0.2 10^3/uL (0.0-0.5); EOS % 2.8 % (0.0-3.0); HEMATOCRIT 33.8 % (42.0-52.0); HEMOGLOBIN 10.8 g/dl (13.5-17.5); LYMPH # 2.1 10^3/uL (1.5-5.0); LYMPH % 24.2 % (24.0-44.0); MEAN CORPUSCULAR HEMOGLOBIN 30.7 pg (27.0-33.0); MONO # 0.7 10^3/uL (0.0-0.8); MONO % 7.9 % (2.0-8.0); NEUTROPHILS # 5.5 10^3/uL (1.5-8.5); NEUTROPHILS % 64.1 % (36.0-66.0); PLATELET COUNT, AUTOMATED 236 10^3/uL (150-450); RED BLOOD COUNT 3.52 10^6/uL (4.30-6.10); WHITE BLOOD COUNT 8.6 10^3/uL (4.0-10.0)
[2021-07-20 12:00] LABS: ALBUMIN 3.1 GM/DL (3.2-5.2); BILIRUBIN,TOTAL 0.3 MG/DL (0.2-1.0); CHOLESTEROL RISK RATIO 3.375 (<5); CREATININE FOR GFR 2.06 MG/DL (0.70-1.30); GLOMERULAR FILTRATION RATE 33.2 (>35); POTASSIUM SERUM 4.2 MEQ/L (3.5-5.1); TOTAL PROTEIN 6.5 GM/DL (6.4-8.2)
[2021-07-20 12:03] LABS: HEMOGLOBIN A1c 5.9 %
== END ==
LOC: M LAB 10:00
PROVIDERS: ATTEND Family Medicine
DX: C95.91 Leukemia, unspecified, in remission (principal); R60.9 Edema, unspecified; I12.9 Hypertensive chronic kidney disease with stage 1 through stage 4 chronic kidney disease, or unspecified chronic kidney disease; N18.30 Chronic kidney disease, stage 3 unspecified; E78.5 Hyperlipidemia, unspecified; E11.9 Type 2 diabetes mellitus without complications; I48.91 Unspecified atrial fibrillation

== ENCOUNTER → 2021-07-24 | Outpatient (REF) | payer OTHER, MEDICARE | LOC: M LAB REF 09:42 | PROVIDERS: ATTEND Podiatrist | DX: L03.119 Cellulitis of unspecified part of limb (principal); M79.671 Pain in right foot ==

== ENCOUNTER → 2021-07-27 | Outpatient (REF) | payer OTHER, MEDICARE | LOC: M LAB REF 12:42 | PROVIDERS: ATTEND Family Medicine | DX: E78.5 Hyperlipidemia, unspecified (principal); I48.91 Unspecified atrial fibrillation; C95.91 Leukemia, unspecified, in remission; R60.9 Edema, unspecified; I12.9 Hypertensive chronic kidney disease with stage 1 through stage 4 chronic kidney disease, or unspecified chronic kidney disease; E11.9 Type 2 diabetes mellitus without complications ==

== ENCOUNTER 2021-07-31 14:05 | Inpatient (IN) | payer OTHER, MEDICAID ==
[~2021-07-31] VITALS: Ht 175.3 cm; Wt 128.8 kg
[~2021-07-31 14:05] MED LIST changes: -GLUCTAB6 PO; +GLUCTAB7 PO; +PIPERACILLIN/TAZOBACTAM SOD 3.375 GM in D5W MINI-BAG PLUS 50 ML IV ONE
[2021-07-31] MEDS ORDERED: PIPERACILLIN/TAZOBACTAM SOD 3.375 GM in D5W MINI-BAG PLUS 50 ML IV ONE ×2 (14:40→17:25)
[2021-07-31] MEDS ORDERED: LIDOCAINE 2% MDV 20ML VIAL As Ordered ONE (14:47)
[2021-07-31] MEDS ORDERED: BUPIVACAINE HCL 0.5% 30ML VIAL As Ordered ONE (14:47)
[2021-07-31] MEDS ORDERED: INSULIN LISPRO (NovoLOG) PER UNIT SC PRN (14:55)
[2021-07-31] MEDS ORDERED: GENTAMICIN SULF 80MG/2ML VIAL As Ordered ONE ×2 (14:55→15:19)
[2021-07-31] MEDS ORDERED: LR 1,000 ML IV SCH (14:55)
[2021-07-31] MEDS ORDERED: LIDOCAINE 2% 100MG/5ML SDV (FOR ANES.) As Ordered ONE (15:49)
[2021-07-31] MEDS ORDERED: fentaNYL 100 MCG/2 ML INJECTION As Ordered ONE (15:49)
[2021-07-31] MEDS ORDERED: ONDANSETRON 4MG/2ML VIAL As Ordered ONE (15:49)
[2021-07-31] MEDS ORDERED: propofoL 200 MG/20 ML VIAL As Ordered ONE (15:52)
[2021-07-31] MEDS ORDERED: hydrALAZINE 20MG/ML 1ML VIAL (J0360 PER 20MG) As Ordered ONE (17:12)
[2021-07-31] MEDS ORDERED: ZOSYN 3.375GM VIAL As Ordered ONE (17:28)
[2021-07-31] MEDS ORDERED: GLUCOSE 4GM CHEW TABLET PO PRN (17:45)
[2021-07-31] MEDS ORDERED: DEXTROSE 50% 50 ML SYRINGE IV PRN (17:45)
[2021-07-31] MEDS ORDERED: GLUCAGON INJ 1MG VIAL SC PRN (17:45)
[2021-07-31] MEDS ORDERED: PIPERACILLIN/TAZOBACTAM SOD 3.375 GM in D5W MINI-BAG PLUS 50 ML IV SCH (17:50)
[2021-07-31] MEDS ORDERED: VANCOMYCIN HCL 1,000 MG, VIAL MATE ADAPTER 1 EACH in NS 250 ML IV SCH (17:50)
[2021-07-31 18:14] LABS: HEMATOCRIT 34.7 % (42.0-52.0); HEMOGLOBIN 11.2 g/dl (13.5-17.5); MEAN CORPUSCULAR HEMOGLOBIN 31.1 pg (27.0-33.0); MEAN CORPUSCULAR HGB CONC 32.3 g/dl (32.0-36.5); MEAN CORPUSCULAR VOLUME 96.4 fl (80.0-96.0); PLATELET COUNT, AUTOMATED 227 10^3/uL (150-450); WHITE BLOOD COUNT 8.5 10^3/uL (4.0-10.0)
[2021-07-31 18:31] LABS: CALCIUM LEVEL 9.2 MG/DL (8.8-10.2); CREATININE FOR GFR 1.92 MG/DL (0.70-1.30); POTASSIUM SERUM 4.4 MEQ/L (3.5-5.1)
[2021-07-31 19:00] VITALS: BP 125/77
[2021-07-31 19:30] VITALS: BP 119/76
[2021-07-31 20:45] VITALS: BP 118/75
[2021-07-31] MEDS ORDERED: VANCOMYCIN HCL 1,000 MG, VIAL MATE ADAPTER 1 EACH in NS 250 ML IV ONE ×2 (21:00→22:00)
[2021-07-31] MEDS: INSULIN LISPRO (NovoLOG) PER UNIT SC SCH (21:00)
[2021-07-31] MEDS: SILVER SULFADIAZINE 1% CR 50 GM JAR TOP SCH (21:00)
[2021-07-31] MEDS: ATORVASTATIN 10 MG TAB PO SCH (21:14)
[2021-07-31] MEDS: LACTULOSE 20 GM/30 ML SYRUP UD PO SCH (21:14)
[2021-07-31] MEDS: FINASTERIDE 5MG TAB PO SCH (21:14)
[2021-07-31] MEDS: ESCITALOPRAM OXALATE 10 MG TAB (LEXAPRO) PO SCH (21:14)
[2021-07-31] MEDS: GABAPENTIN 300 MG CAP PO SCH (21:14)
[2021-07-31 21:45] VITALS: BP 118/76
[2021-07-31 22:45] VITALS: BP 112/74
[2021-07-31 23:45] VITALS: BP 112/74
[2021-08-01] MEDS: PIPERACILLIN/TAZOBACTAM SOD 2.25 GM in D5W MINI-BAG PLUS 50 ML IV SCH ×4 (00:06→17:07)
[2021-08-01 05:52] LABS: HEMATOCRIT 28.3 % (42.0-52.0); MEAN CORPUSCULAR HEMOGLOBIN 30.8 pg (27.0-33.0); MEAN CORPUSCULAR HGB CONC 32.2 g/dl (32.0-36.5); MEAN CORPUSCULAR VOLUME 95.9 fl (80.0-96.0); PLATELET COUNT, AUTOMATED 186 10^3/uL (150-450); RED BLOOD COUNT 2.95 10^6/uL (4.30-6.10); WHITE BLOOD COUNT 8.8 10^3/uL (4.0-10.0)
[2021-08-01 06:00] VITALS: BP_SYST 106; BP_SYST 163; BP_DIAS 58; BP_DIAS 83
[2021-08-01 06:10] LABS: HEMOGLOBIN 9.1 g/dl (13.5-17.5)
[2021-08-01 06:11] LABS: CALCIUM LEVEL 8.9 MG/DL (8.8-10.2); CREATININE FOR GFR 2.16 MG/DL (0.70-1.30); GLOMERULAR FILTRATION RATE 31.4 (>35); MAGNESIUM LEVEL 2.2 MG/DL (1.8-2.4); POTASSIUM SERUM 5.1 MEQ/L (3.5-5.1)
[2021-08-01 06:42] VITALS: BP 109/56
[2021-08-01] MEDS ORDERED: SANTYL OINT 30GM TOP SCH (09:00)
[2021-08-01] MEDS: SILVER SULFADIAZINE 1% CR 50 GM JAR TOP SCH (09:00)
[2021-08-01] MEDS ORDERED: VANCOMYCIN HCL 1,000 MG, VIAL MATE ADAPTER 1 EACH in NS 250 ML IV SCH ×2 (09:00→13:00)
[2021-08-01] MEDS: VITAMIN D 1,000 INTERNATIONAL UNITS TABLET PO SCH (09:31)
[2021-08-01] MEDS: LACTULOSE 20 GM/30 ML SYRUP UD PO SCH ×2 (09:31→20:37)
[2021-08-01] MEDS: oxyBUTYnin 5 MG TAB PO SCH (09:31)
[2021-08-01] MEDS: FUROSEMIDE 20 MG TAB PO SCH (09:31)
[2021-08-01] MEDS: MAGNESIUM OXIDE 400MG TAB (MAG-OX) PO SCH (09:32)
[2021-08-01] MEDS: INSULIN LISPRO (NovoLOG) PER UNIT SC SCH ×4 (09:32→20:29)
[2021-08-01 10:00] VITALS: BP 110/57
[2021-08-01 14:00] VITALS: BP 110/75
[2021-08-01 18:00] VITALS: BP 113/71
[2021-08-01] MEDS: FINASTERIDE 5MG TAB PO SCH (20:37)
[2021-08-01] MEDS: ESCITALOPRAM OXALATE 10 MG TAB (LEXAPRO) PO SCH (20:37)
[2021-08-01] MEDS: ATORVASTATIN 10 MG TAB PO SCH (20:37)
[2021-08-01] MEDS: GABAPENTIN 300 MG CAP PO SCH (20:37)
[2021-08-02] MEDS: PIPERACILLIN/TAZOBACTAM SOD 2.25 GM in D5W MINI-BAG PLUS 50 ML IV SCH ×4 (00:14→18:49)
[2021-08-02 03:19] VITALS: BP 119/55
[2021-08-02 06:03] LABS: HEMOGLOBIN 8.4 g/dl (13.5-17.5); MEAN CORPUSCULAR HEMOGLOBIN 31.2 pg (27.0-33.0); MEAN CORPUSCULAR HGB CONC 32.3 g/dl (32.0-36.5); MEAN CORPUSCULAR VOLUME 96.7 fl (80.0-96.0); PLATELET COUNT, AUTOMATED 170 10^3/uL (150-450); RED BLOOD COUNT 2.69 10^6/uL (4.30-6.10); WHITE BLOOD COUNT 7.8 10^3/uL (4.0-10.0)
[2021-08-02 06:42] LABS: CALCIUM LEVEL 8.6 MG/DL (8.8-10.2); CREATININE FOR GFR 2.3 MG/DL (0.70-1.30); GLOMERULAR FILTRATION RATE 29.2 (>35)
[2021-08-02] MEDS: ACETAMINOPHEN TAB 650MG DOSE (2X325MG) PO PRN (06:47)
[2021-08-02] MEDS: oxyBUTYnin 5 MG TAB PO SCH (08:40)
[2021-08-02] MEDS: FUROSEMIDE 20 MG TAB PO SCH (08:40)
[2021-08-02] MEDS: VITAMIN D 1,000 INTERNATIONAL UNITS TABLET PO SCH (08:41)
[2021-08-02] MEDS: MAGNESIUM OXIDE 400MG TAB (MAG-OX) PO SCH (08:41)
[2021-08-02] MEDS: INSULIN LISPRO (NovoLOG) PER UNIT SC SCH ×4 (08:41→20:31)
[2021-08-02] MEDS: LACTULOSE 20 GM/30 ML SYRUP UD PO SCH ×3 (08:41→20:30)
[2021-08-02 08:43] VITALS: BP 110/66
[2021-08-02 14:00] VITALS: BP 112/72
[2021-08-02 19:10] VITALS: BP 125/77
[2021-08-02] MEDS: ATORVASTATIN 10 MG TAB PO SCH (20:30)
[2021-08-02] MEDS: GABAPENTIN 300 MG CAP PO SCH (20:30)
[2021-08-02] MEDS: ESCITALOPRAM OXALATE 10 MG TAB (LEXAPRO) PO SCH (20:30)
[2021-08-02] MEDS: FINASTERIDE 5MG TAB PO SCH (20:30)
[2021-08-02] MEDS: VANICREAM MOISTURIZING SKIN CREAM 113GM TUBE TOP SCH (20:30)
[2021-08-02 22:00] VITALS: BP 102/54
[2021-08-03] MEDS: PIPERACILLIN/TAZOBACTAM SOD 2.25 GM in D5W MINI-BAG PLUS 50 ML IV SCH ×4 (00:10→17:23)
[2021-08-03 05:58] VITALS: BP 110/63
[2021-08-03 06:24] LABS: HEMATOCRIT 26.4 % (42.0-52.0); HEMOGLOBIN 8.4 g/dl (13.5-17.5); MEAN CORPUSCULAR HEMOGLOBIN 31.3 pg (27.0-33.0); MEAN CORPUSCULAR HGB CONC 31.8 g/dl (32.0-36.5); MEAN CORPUSCULAR VOLUME 98.5 fl (80.0-96.0); PLATELET COUNT, AUTOMATED 190 10^3/uL (150-450); RED BLOOD COUNT 2.68 10^6/uL (4.30-6.10); WHITE BLOOD COUNT 6.9 10^3/uL (4.0-10.0)
[2021-08-03 06:38] LABS: CREATININE FOR GFR 2.65 MG/DL (0.70-1.30); GLOMERULAR FILTRATION RATE 24.8 (>35); POTASSIUM SERUM 4.3 MEQ/L (3.5-5.1)
[2021-08-03] MEDS: INSULIN LISPRO (NovoLOG) PER UNIT SC SCH ×4 (08:27→20:04)
[2021-08-03] MEDS: FUROSEMIDE 20 MG TAB PO SCH (08:28)
[2021-08-03] MEDS: LACTULOSE 20 GM/30 ML SYRUP UD PO SCH ×2 (08:28→19:37)
[2021-08-03] MEDS: VITAMIN D 1,000 INTERNATIONAL UNITS TABLET PO SCH (08:28)
[2021-08-03] MEDS: oxyBUTYnin 5 MG TAB PO SCH (08:28)
[2021-08-03 08:29] VITALS: BP 109/52
[2021-08-03] MEDS: MAGNESIUM OXIDE 400MG TAB (MAG-OX) PO SCH (08:29)
[2021-08-03] MEDS: VANICREAM MOISTURIZING SKIN CREAM 113GM TUBE TOP SCH ×2 (08:29→20:05)
[2021-08-03 10:52] LABS: C REACTIVE PROTEIN QUANTITATIV 5.94 MG/DL (0.00-0.30)
[2021-08-03 14:00] VITALS: BP 123/63
[2021-08-03 19:09] VITALS: BP 121/63
[2021-08-03] MEDS: ESCITALOPRAM OXALATE 10 MG TAB (LEXAPRO) PO SCH (20:03)
[2021-08-03] MEDS: FINASTERIDE 5MG TAB PO SCH (20:03)
[2021-08-03] MEDS: GABAPENTIN 300 MG CAP PO SCH (20:03)
[2021-08-03] MEDS: ATORVASTATIN 10 MG TAB PO SCH (20:03)
[2021-08-04] MEDS: PIPERACILLIN/TAZOBACTAM SOD 2.25 GM in D5W MINI-BAG PLUS 50 ML IV SCH ×4 (00:04→17:34)
[2021-08-04 06:00] VITALS: BP 125/65
[2021-08-04 06:33] LABS: HEMATOCRIT 25.6 % (42.0-52.0); HEMOGLOBIN 8.4 g/dl (13.5-17.5); MEAN CORPUSCULAR HEMOGLOBIN 32.8 pg (27.0-33.0); MEAN CORPUSCULAR HGB CONC 32.8 g/dl (32.0-36.5); PLATELET COUNT, AUTOMATED 193 10^3/uL (150-450); RED BLOOD COUNT 2.56 10^6/uL (4.30-6.10); WHITE BLOOD COUNT 7.2 10^3/uL (4.0-10.0)
[2021-08-04 06:54] LABS: CALCIUM LEVEL 8.7 MG/DL (8.8-10.2); CREATININE FOR GFR 2.78 MG/DL (0.70-1.30); GLOMERULAR FILTRATION RATE 23.5 (>35); POTASSIUM SERUM 4.1 MEQ/L (3.5-5.1)
[2021-08-04] MEDS: INSULIN LISPRO (NovoLOG) PER UNIT SC SCH ×4 (08:15→20:11)
[2021-08-04] MEDS: LACTULOSE 20 GM/30 ML SYRUP UD PO SCH ×2 (08:16→20:14)
[2021-08-04] MEDS: MAGNESIUM OXIDE 400MG TAB (MAG-OX) PO SCH (08:17)
[2021-08-04] MEDS: oxyBUTYnin 5 MG TAB PO SCH (08:17)
[2021-08-04] MEDS: FUROSEMIDE 20 MG TAB PO SCH (08:17)
[2021-08-04] MEDS: VITAMIN D 1,000 INTERNATIONAL UNITS TABLET PO SCH (08:18)
[2021-08-04] MEDS: VANICREAM MOISTURIZING SKIN CREAM 113GM TUBE TOP SCH ×2 (08:18→20:15)
[2021-08-04 13:47] VITALS: BP 102/52
[2021-08-04] MEDS: FINASTERIDE 5MG TAB PO SCH (20:14)
[2021-08-04] MEDS: ATORVASTATIN 10 MG TAB PO SCH (20:14)
[2021-08-04] MEDS: GABAPENTIN 300 MG CAP PO SCH (20:14)
[2021-08-04] MEDS: ESCITALOPRAM OXALATE 10 MG TAB (LEXAPRO) PO SCH (20:14)
[2021-08-04 22:00] VITALS: BP 106/82
[2021-08-05] MEDS: PIPERACILLIN/TAZOBACTAM SOD 2.25 GM in D5W MINI-BAG PLUS 50 ML IV SCH ×4 (00:59→17:19)
[2021-08-05 06:00] VITALS: BP 119/81
[2021-08-05 06:20] LABS: HEMATOCRIT 27.7 % (42.0-52.0); HEMOGLOBIN 8.8 g/dl (13.5-17.5); MEAN CORPUSCULAR HEMOGLOBIN 32.1 pg (27.0-33.0); MEAN CORPUSCULAR HGB CONC 31.8 g/dl (32.0-36.5); MEAN CORPUSCULAR VOLUME 101.1 fl (80.0-96.0); PLATELET COUNT, AUTOMATED 225 10^3/uL (150-450); RED BLOOD COUNT 2.74 10^6/uL (4.30-6.10); WHITE BLOOD COUNT 6.8 10^3/uL (4.0-10.0)
[2021-08-05 06:37] LABS: CALCIUM LEVEL 9.1 MG/DL (8.8-10.2); CREATININE FOR GFR 2.53 MG/DL (0.70-1.30); GLOMERULAR FILTRATION RATE 26.2 (>35); POTASSIUM SERUM 4.1 MEQ/L (3.5-5.1)
[2021-08-05] MEDS: FUROSEMIDE 20 MG TAB PO SCH (08:09)
[2021-08-05] MEDS: VITAMIN D 1,000 INTERNATIONAL UNITS TABLET PO SCH (08:09)
[2021-08-05] MEDS: oxyBUTYnin 5 MG TAB PO SCH (08:09)
[2021-08-05] MEDS: MAGNESIUM OXIDE 400MG TAB (MAG-OX) PO SCH (08:10)
[2021-08-05] MEDS: ACETAMINOPHEN TAB 650MG DOSE (2X325MG) PO PRN (08:10)
[2021-08-05] MEDS: VANICREAM MOISTURIZING SKIN CREAM 113GM TUBE TOP SCH ×2 (08:11→20:16)
[2021-08-05] MEDS: INSULIN LISPRO (NovoLOG) PER UNIT SC SCH ×4 (08:13→20:00)
[2021-08-05] MEDS: LACTULOSE 20 GM/30 ML SYRUP UD PO SCH ×2 (09:26→20:15)
[2021-08-05 14:00] VITALS: BP 125/68
[2021-08-05 20:01] VITALS: BP 125/56
[2021-08-05] MEDS: FINASTERIDE 5MG TAB PO SCH (20:15)
[2021-08-05] MEDS: ATORVASTATIN 10 MG TAB PO SCH (20:16)
[2021-08-05] MEDS: APIXABAN 2.5 MG TAB (ELIQUIS) PO SCH (20:16)
[2021-08-05] MEDS: GABAPENTIN 300 MG CAP PO SCH (20:16)
[2021-08-05] MEDS: ESCITALOPRAM OXALATE 10 MG TAB (LEXAPRO) PO SCH (20:16)
[2021-08-06] MEDS: PIPERACILLIN/TAZOBACTAM SOD 2.25 GM in D5W MINI-BAG PLUS 50 ML IV SCH ×2 (00:22→05:34)
[2021-08-06 05:35] VITALS: BP 121/60
[2021-08-06 06:21] LABS: HEMATOCRIT 27.2 % (42.0-52.0); HEMOGLOBIN 8.7 g/dl (13.5-17.5); MEAN CORPUSCULAR HEMOGLOBIN 32.1 pg (27.0-33.0); MEAN CORPUSCULAR VOLUME 100.4 fl (80.0-96.0); PLATELET COUNT, AUTOMATED 227 10^3/uL (150-450); RED BLOOD COUNT 2.71 10^6/uL (4.30-6.10); WHITE BLOOD COUNT 6.6 10^3/uL (4.0-10.0)
[2021-08-06 06:41] LABS: CALCIUM LEVEL 8.1 MG/DL (8.8-10.2); CREATININE FOR GFR 2.58 MG/DL (0.70-1.30); GLOMERULAR FILTRATION RATE 25.6 (>35)
[2021-08-06] MEDS: INSULIN LISPRO (NovoLOG) PER UNIT SC SCH ×4 (07:30→21:00)
[2021-08-06] MEDS: VITAMIN D 1,000 INTERNATIONAL UNITS TABLET PO SCH (08:37)
[2021-08-06] MEDS: MAGNESIUM OXIDE 400MG TAB (MAG-OX) PO SCH (08:37)
[2021-08-06] MEDS: oxyBUTYnin 5 MG TAB PO SCH (08:37)
[2021-08-06] MEDS: FUROSEMIDE 20 MG TAB PO SCH (08:38)
[2021-08-06] MEDS: VANICREAM MOISTURIZING SKIN CREAM 113GM TUBE TOP SCH ×2 (08:38→21:07)
[2021-08-06] MEDS: LACTULOSE 20 GM/30 ML SYRUP UD PO SCH ×2 (08:38→21:05)
[2021-08-06] MEDS: LevoFLOXacin 750 MG TABLET PO SCH (13:35)
[2021-08-06] MEDS: AUGMENTIN 500MG TAB PO SCH ×2 (13:35→21:05)
[2021-08-06 14:00] VITALS: BP 104/55
[2021-08-06] MEDS: FINASTERIDE 5MG TAB PO SCH (21:05)
[2021-08-06] MEDS: GABAPENTIN 300 MG CAP PO SCH (21:05)
[2021-08-06] MEDS: ESCITALOPRAM OXALATE 10 MG TAB (LEXAPRO) PO SCH (21:06)
[2021-08-06] MEDS: APIXABAN 2.5 MG TAB (ELIQUIS) PO SCH (21:06)
[2021-08-06] MEDS: ATORVASTATIN 10 MG TAB PO SCH (21:06)
[2021-08-07 06:00] VITALS: BP 105/60
[2021-08-07] MEDS: INSULIN LISPRO (NovoLOG) PER UNIT SC SCH ×4 (07:30→21:00)
[2021-08-07] MEDS: LACTULOSE 20 GM/30 ML SYRUP UD PO SCH ×2 (08:00→20:11)
[2021-08-07] MEDS: VANICREAM MOISTURIZING SKIN CREAM 113GM TUBE TOP SCH ×2 (08:01→20:12)
[2021-08-07] MEDS: MAGNESIUM OXIDE 400MG TAB (MAG-OX) PO SCH (08:01)
[2021-08-07] MEDS: FUROSEMIDE 20 MG TAB PO SCH ×2 (08:01→08:30)
[2021-08-07] MEDS: VITAMIN D 1,000 INTERNATIONAL UNITS TABLET PO SCH (08:01)
[2021-08-07] MEDS: AUGMENTIN 500MG TAB PO SCH ×2 (08:01→20:12)
[2021-08-07] MEDS: oxyBUTYnin 5 MG TAB PO SCH (08:01)
[2021-08-07] MEDS: FINASTERIDE 5MG TAB PO SCH (20:11)
[2021-08-07] MEDS: ATORVASTATIN 10 MG TAB PO SCH (20:12)
[2021-08-07] MEDS: ESCITALOPRAM OXALATE 10 MG TAB (LEXAPRO) PO SCH (20:12)
[2021-08-07] MEDS: APIXABAN 2.5 MG TAB (ELIQUIS) PO SCH (20:12)
[2021-08-07] MEDS: GABAPENTIN 300 MG CAP PO SCH (20:12)
[2021-08-08] MEDS: LevoFLOXacin 750 MG TABLET PO SCH (05:29)
[2021-08-08] MEDS: VITAMIN D 1,000 INTERNATIONAL UNITS TABLET PO SCH (08:39)
[2021-08-08] MEDS: oxyBUTYnin 5 MG TAB PO SCH (08:39)
[2021-08-08] MEDS: AUGMENTIN 500MG TAB PO SCH ×2 (08:40→20:03)
[2021-08-08] MEDS: MAGNESIUM OXIDE 400MG TAB (MAG-OX) PO SCH (08:40)
[2021-08-08] MEDS: LACTULOSE 20 GM/30 ML SYRUP UD PO SCH ×2 (08:41→20:03)
[2021-08-08] MEDS: FUROSEMIDE 20 MG TAB PO SCH (08:41)
[2021-08-08] MEDS: VANICREAM MOISTURIZING SKIN CREAM 113GM TUBE TOP SCH ×2 (08:42→20:04)
[2021-08-08] MEDS: INSULIN LISPRO (NovoLOG) PER UNIT SC SCH ×4 (08:42→21:00)
[2021-08-08] MEDS: ESCITALOPRAM OXALATE 10 MG TAB (LEXAPRO) PO SCH (20:03)
[2021-08-08] MEDS: ATORVASTATIN 10 MG TAB PO SCH (20:03)
[2021-08-08] MEDS: APIXABAN 2.5 MG TAB (ELIQUIS) PO SCH (20:03)
[2021-08-08] MEDS: FINASTERIDE 5MG TAB PO SCH (20:03)
[2021-08-08] MEDS: GABAPENTIN 300 MG CAP PO SCH (20:03)
[2021-08-09] MEDS: VITAMIN D 1,000 INTERNATIONAL UNITS TABLET PO SCH (08:04)
[2021-08-09] MEDS: oxyBUTYnin 5 MG TAB PO SCH (08:04)
[2021-08-09] MEDS: MAGNESIUM OXIDE 400MG TAB (MAG-OX) PO SCH (08:04)
[2021-08-09] MEDS: AUGMENTIN 500MG TAB PO SCH ×2 (08:04→20:50)
[2021-08-09] MEDS: LACTULOSE 20 GM/30 ML SYRUP UD PO SCH ×2 (08:05→20:50)
[2021-08-09] MEDS: VANICREAM MOISTURIZING SKIN CREAM 113GM TUBE TOP SCH ×2 (08:05→20:50)
[2021-08-09] MEDS: FUROSEMIDE 20 MG TAB PO SCH (08:05)
[2021-08-09] MEDS: INSULIN LISPRO (NovoLOG) PER UNIT SC SCH ×4 (08:05→20:16)
[2021-08-09] MEDS: ACETAMINOPHEN TAB 650MG DOSE (2X325MG) PO PRN (16:43)
[2021-08-09] MEDS: FINASTERIDE 5MG TAB PO SCH (20:50)
[2021-08-09] MEDS: APIXABAN 2.5 MG TAB (ELIQUIS) PO SCH (20:50)
[2021-08-09] MEDS: GABAPENTIN 300 MG CAP PO SCH (20:50)
[2021-08-09] MEDS: ESCITALOPRAM OXALATE 10 MG TAB (LEXAPRO) PO SCH (20:50)
[2021-08-09] MEDS: ATORVASTATIN 10 MG TAB PO SCH (20:50)
[2021-08-10] MEDS: LevoFLOXacin 750 MG TABLET PO SCH (05:18)
[2021-08-10 06:00] VITALS: BP 125/64
[2021-08-10] MEDS: LACTULOSE 20 GM/30 ML SYRUP UD PO SCH ×2 (08:22→20:24)
[2021-08-10] MEDS: INSULIN LISPRO (NovoLOG) PER UNIT SC SCH ×4 (08:22→21:00)
[2021-08-10] MEDS: AUGMENTIN 500MG TAB PO SCH ×2 (08:22→20:24)
[2021-08-10] MEDS: VITAMIN D 1,000 INTERNATIONAL UNITS TABLET PO SCH (08:22)
[2021-08-10] MEDS: VANICREAM MOISTURIZING SKIN CREAM 113GM TUBE TOP SCH ×2 (08:23→20:27)
[2021-08-10] MEDS: oxyBUTYnin 5 MG TAB PO SCH (08:23)
[2021-08-10] MEDS: MAGNESIUM OXIDE 400MG TAB (MAG-OX) PO SCH (08:23)
[2021-08-10] MEDS: FUROSEMIDE 20 MG TAB PO SCH (08:23)
[2021-08-10] MEDS: ACETAMINOPHEN TAB 650MG DOSE (2X325MG) PO PRN (08:28)
[2021-08-10] MEDS: FINASTERIDE 5MG TAB PO SCH (20:25)
[2021-08-10] MEDS: ATORVASTATIN 10 MG TAB PO SCH (20:26)
[2021-08-10] MEDS: APIXABAN 2.5 MG TAB (ELIQUIS) PO SCH (20:26)
[2021-08-10] MEDS: ESCITALOPRAM OXALATE 10 MG TAB (LEXAPRO) PO SCH (20:26)
[2021-08-10] MEDS: GABAPENTIN 300 MG CAP PO SCH (20:26)
[2021-08-11 05:40] VITALS: BP 96/58
[2021-08-11] MEDS: INSULIN LISPRO (NovoLOG) PER UNIT SC SCH ×4 (07:24→20:38)
[2021-08-11] MEDS: MAGNESIUM OXIDE 400MG TAB (MAG-OX) PO SCH (08:20)
[2021-08-11] MEDS: oxyBUTYnin 5 MG TAB PO SCH (08:20)
[2021-08-11] MEDS: LACTULOSE 20 GM/30 ML SYRUP UD PO SCH ×2 (08:20→20:33)
[2021-08-11] MEDS: VITAMIN D 1,000 INTERNATIONAL UNITS TABLET PO SCH (08:20)
[2021-08-11] MEDS: AUGMENTIN 500MG TAB PO SCH ×2 (08:20→20:31)
[2021-08-11] MEDS: VANICREAM MOISTURIZING SKIN CREAM 113GM TUBE TOP SCH ×2 (08:21→20:38)
[2021-08-11 08:30] VITALS: BP 99/59
[2021-08-11] MEDS: FUROSEMIDE 20 MG TAB PO SCH (08:52)
[2021-08-11] MEDS: FINASTERIDE 5MG TAB PO SCH (20:32)
[2021-08-11] MEDS: ACETAMINOPHEN TAB 650MG DOSE (2X325MG) PO PRN (20:32)
[2021-08-11] MEDS: ESCITALOPRAM OXALATE 10 MG TAB (LEXAPRO) PO SCH (20:33)
[2021-08-11] MEDS: GABAPENTIN 300 MG CAP PO SCH (20:33)
[2021-08-11] MEDS: APIXABAN 2.5 MG TAB (ELIQUIS) PO SCH (20:33)
[2021-08-11] MEDS: ATORVASTATIN 10 MG TAB PO SCH (20:33)
[2021-08-12 05:40] VITALS: BP 104/58
[2021-08-12] MEDS: LevoFLOXacin 750 MG TABLET PO SCH (05:44)
[2021-08-12] MEDS: INSULIN LISPRO (NovoLOG) PER UNIT SC SCH ×4 (07:24→21:00)
[2021-08-12] MEDS: oxyBUTYnin 5 MG TAB PO SCH (08:29)
[2021-08-12] MEDS: AUGMENTIN 500MG TAB PO SCH ×2 (08:29→19:56)
[2021-08-12] MEDS: VITAMIN D 1,000 INTERNATIONAL UNITS TABLET PO SCH (08:30)
[2021-08-12] MEDS: FUROSEMIDE 20 MG TAB PO SCH (08:30)
[2021-08-12] MEDS: VANICREAM MOISTURIZING SKIN CREAM 113GM TUBE TOP SCH ×2 (08:30→19:57)
[2021-08-12] MEDS: MAGNESIUM OXIDE 400MG TAB (MAG-OX) PO SCH (08:30)
[2021-08-12] MEDS: LACTULOSE 20 GM/30 ML SYRUP UD PO SCH ×2 (08:30→19:57)
[2021-08-12] MEDS: FINASTERIDE 5MG TAB PO SCH (19:56)
[2021-08-12] MEDS: GABAPENTIN 300 MG CAP PO SCH (19:56)
[2021-08-12] MEDS: ESCITALOPRAM OXALATE 10 MG TAB (LEXAPRO) PO SCH (19:57)
[2021-08-12] MEDS: APIXABAN 2.5 MG TAB (ELIQUIS) PO SCH (19:57)
[2021-08-12] MEDS: ATORVASTATIN 10 MG TAB PO SCH (19:57)
[2021-08-12] MEDS: ACETAMINOPHEN TAB 650MG DOSE (2X325MG) PO PRN (22:34)
[2021-08-13 05:58] VITALS: BP_SYST 124; BP_SYST 129; BP_DIAS 103; BP_DIAS 62
[2021-08-13 07:07] LABS: C REACTIVE PROTEIN QUANTITATIV 6.14 MG/DL (0.00-0.30); CALCIUM LEVEL 8.9 MG/DL (8.8-10.2); CREATININE FOR GFR 2.33 MG/DL (0.70-1.30); GLOMERULAR FILTRATION RATE 28.8 (>35); POTASSIUM SERUM 3.9 MEQ/L (3.5-5.1)
[2021-08-13 07:12] LABS: BASO # 0.1 10^3/uL (0.0-0.2); BASO % 0.6 % (0.0-1.0); EOS # 0.3 10^3/uL (0.0-0.5); EOS % 3.8 % (0.0-3.0); HEMATOCRIT 29.4 % (42.0-52.0); HEMOGLOBIN 9.5 g/dl (13.5-17.5); LYMPH # 1.9 10^3/uL (1.5-5.0); LYMPH % 23.7 % (24.0-44.0); MEAN CORPUSCULAR HEMOGLOBIN 31.7 pg (27.0-33.0); MEAN CORPUSCULAR HGB CONC 32.3 g/dl (32.0-36.5); MONO # 0.6 10^3/uL (0.0-0.8); MONO % 7.4 % (2.0-8.0); NEUTROPHILS % 63.9 % (36.0-66.0); PLATELET COUNT, AUTOMATED 205 10^3/uL (150-450); WHITE BLOOD COUNT 7.8 10^3/uL (4.0-10.0)
[2021-08-13] MEDS: INSULIN LISPRO (NovoLOG) PER UNIT SC SCH ×4 (07:30→20:16)
[2021-08-13 07:46] LABS: ERYTHROCYTE SEDIMENTATION RATE 93 mm/hr (0-20)
[2021-08-13] MEDS: oxyBUTYnin 5 MG TAB PO SCH (09:51)
[2021-08-13] MEDS: AUGMENTIN 500MG TAB PO SCH ×2 (09:54→20:25)
[2021-08-13] MEDS: ACETAMINOPHEN TAB 650MG DOSE (2X325MG) PO PRN ×3 (09:54→23:03)
[2021-08-13] MEDS: FUROSEMIDE 20 MG TAB PO SCH (09:54)
[2021-08-13] MEDS: LACTULOSE 20 GM/30 ML SYRUP UD PO SCH ×2 (09:55→20:26)
[2021-08-13] MEDS: MAGNESIUM OXIDE 400MG TAB (MAG-OX) PO SCH (09:55)
[2021-08-13] MEDS: VITAMIN D 1,000 INTERNATIONAL UNITS TABLET PO SCH (09:55)
[2021-08-13] MEDS: VANICREAM MOISTURIZING SKIN CREAM 113GM TUBE TOP SCH ×2 (09:55→20:26)
[2021-08-13 09:56] VITALS: BP 113/63
[2021-08-13 14:53] VITALS: BP 114/64
[2021-08-13] MEDS: LIDOCAINE 5% (LIDODERM) PATCH TD SCH (17:11)
[2021-08-13] MEDS: ESCITALOPRAM OXALATE 10 MG TAB (LEXAPRO) PO SCH (20:25)
[2021-08-13] MEDS: ATORVASTATIN 10 MG TAB PO SCH (20:25)
[2021-08-13] MEDS: GABAPENTIN 300 MG CAP PO SCH (20:25)
[2021-08-13] MEDS: FINASTERIDE 5MG TAB PO SCH (20:25)
[2021-08-13] MEDS: APIXABAN 2.5 MG TAB (ELIQUIS) PO SCH (20:25)
[2021-08-13] MEDS: **NOTE PATIENT COMMENT** MISC XX SCH (20:33)
[2021-08-14] MEDS: LevoFLOXacin 750 MG TABLET PO SCH (05:01)
[2021-08-14 05:10] VITALS: BP 136/90
[2021-08-14] MEDS: LACTULOSE 20 GM/30 ML SYRUP UD PO SCH ×2 (08:16→20:22)
[2021-08-14] MEDS: MAGNESIUM OXIDE 400MG TAB (MAG-OX) PO SCH (08:16)
[2021-08-14] MEDS: AUGMENTIN 500MG TAB PO SCH ×2 (08:16→20:22)
[2021-08-14] MEDS: VITAMIN D 1,000 INTERNATIONAL UNITS TABLET PO SCH (08:16)
[2021-08-14] MEDS: oxyBUTYnin 5 MG TAB PO SCH (08:16)
[2021-08-14] MEDS: INSULIN LISPRO (NovoLOG) PER UNIT SC SCH ×4 (08:17→20:20)
[2021-08-14] MEDS: LIDOCAINE 5% (LIDODERM) PATCH TD SCH (08:20)
[2021-08-14] MEDS: VANICREAM MOISTURIZING SKIN CREAM 113GM TUBE TOP SCH ×2 (08:20→20:21)
[2021-08-14 08:21] VITALS: BP 90/50
[2021-08-14] MEDS: FUROSEMIDE 20 MG TAB PO SCH (08:29)
[2021-08-14] MEDS: **NOTE PATIENT COMMENT** MISC XX SCH (20:21)
[2021-08-14] MEDS: APIXABAN 2.5 MG TAB (ELIQUIS) PO SCH (20:22)
[2021-08-14] MEDS: FINASTERIDE 5MG TAB PO SCH (20:22)
[2021-08-14] MEDS: ATORVASTATIN 10 MG TAB PO SCH (20:22)
[2021-08-14] MEDS: ESCITALOPRAM OXALATE 10 MG TAB (LEXAPRO) PO SCH (20:22)
[2021-08-14] MEDS: GABAPENTIN 300 MG CAP PO SCH (20:22)
[2021-08-15 06:00] VITALS: BP 124/70
[2021-08-15] MEDS: INSULIN LISPRO (NovoLOG) PER UNIT SC SCH ×4 (07:30→21:00)
[2021-08-15] MEDS: FUROSEMIDE 20 MG TAB PO SCH ×2 (09:00→09:08)
[2021-08-15] MEDS: LIDOCAINE 5% (LIDODERM) PATCH TD SCH (09:08)
[2021-08-15] MEDS: oxyBUTYnin 5 MG TAB PO SCH (09:08)
[2021-08-15] MEDS: VITAMIN D 1,000 INTERNATIONAL UNITS TABLET PO SCH (09:08)
[2021-08-15] MEDS: AUGMENTIN 500MG TAB PO SCH ×2 (09:08→22:22)
[2021-08-15] MEDS: MAGNESIUM OXIDE 400MG TAB (MAG-OX) PO SCH (09:08)
[2021-08-15] MEDS: LACTULOSE 20 GM/30 ML SYRUP UD PO SCH ×2 (09:08→22:22)
[2021-08-15] MEDS: VANICREAM MOISTURIZING SKIN CREAM 113GM TUBE TOP SCH ×2 (09:09→22:23)
[2021-08-15 09:12] VITALS: BP 90/54
[2021-08-15] MEDS: GABAPENTIN 300 MG CAP PO SCH (22:22)
[2021-08-15] MEDS: ATORVASTATIN 10 MG TAB PO SCH (22:22)
[2021-08-15] MEDS: FINASTERIDE 5MG TAB PO SCH (22:22)
[2021-08-15] MEDS: APIXABAN 2.5 MG TAB (ELIQUIS) PO SCH (22:23)
[2021-08-15] MEDS: ESCITALOPRAM OXALATE 10 MG TAB (LEXAPRO) PO SCH (22:23)
[2021-08-15] MEDS: **NOTE PATIENT COMMENT** MISC XX SCH (22:23)
[2021-08-16 04:56] VITALS: BP 108/67
[2021-08-16] MEDS: LevoFLOXacin 750 MG TABLET PO SCH (05:13)
[2021-08-16] MEDS: LACTULOSE 20 GM/30 ML SYRUP UD PO SCH ×2 (08:36→22:32)
[2021-08-16] MEDS: INSULIN LISPRO (NovoLOG) PER UNIT SC SCH ×4 (08:36→20:25)
[2021-08-16] MEDS: LIDOCAINE 5% (LIDODERM) PATCH TD SCH (08:36)
[2021-08-16] MEDS: oxyBUTYnin 5 MG TAB PO SCH (08:37)
[2021-08-16] MEDS: FUROSEMIDE 20 MG TAB PO SCH (08:37)
[2021-08-16] MEDS: AUGMENTIN 500MG TAB PO SCH ×2 (08:37→22:30)
[2021-08-16] MEDS: MAGNESIUM OXIDE 400MG TAB (MAG-OX) PO SCH (08:37)
[2021-08-16] MEDS: VANICREAM MOISTURIZING SKIN CREAM 113GM TUBE TOP SCH ×2 (08:37→22:32)
[2021-08-16] MEDS: VITAMIN D 1,000 INTERNATIONAL UNITS TABLET PO SCH (08:37)
[2021-08-16] MEDS: **NOTE PATIENT COMMENT** MISC XX SCH (21:00)
[2021-08-16] MEDS: ACETAMINOPHEN TAB 650MG DOSE (2X325MG) PO PRN (22:30)
[2021-08-16] MEDS: APIXABAN 2.5 MG TAB (ELIQUIS) PO SCH (22:30)
[2021-08-16] MEDS: FINASTERIDE 5MG TAB PO SCH (22:30)
[2021-08-16] MEDS: ESCITALOPRAM OXALATE 10 MG TAB (LEXAPRO) PO SCH (22:30)
[2021-08-16] MEDS: GABAPENTIN 300 MG CAP PO SCH (22:31)
[2021-08-16] MEDS: ATORVASTATIN 10 MG TAB PO SCH (22:31)
[2021-08-17 05:26] VITALS: BP 124/74
[2021-08-17 06:03] LABS: HEMATOCRIT 30.4 % (42.0-52.0); HEMOGLOBIN 9.9 g/dl (13.5-17.5); MEAN CORPUSCULAR HEMOGLOBIN 30.7 pg (27.0-33.0); MEAN CORPUSCULAR HGB CONC 32.6 g/dl (32.0-36.5); MEAN CORPUSCULAR VOLUME 94.4 fl (80.0-96.0); PLATELET COUNT, AUTOMATED 227 10^3/uL (150-450); RED BLOOD COUNT 3.22 10^6/uL (4.30-6.10)
[2021-08-17 06:22] LABS: ERYTHROCYTE SEDIMENTATION RATE 107 mm/hr (0-20)
[2021-08-17 06:40] LABS: CALCIUM LEVEL 8.6 MG/DL (8.8-10.2); CREATININE FOR GFR 2.33 MG/DL (0.70-1.30); GLOMERULAR FILTRATION RATE 28.8 (>35); POTASSIUM SERUM 3.6 MEQ/L (3.5-5.1)
[2021-08-17] MEDS: INSULIN LISPRO (NovoLOG) PER UNIT SC SCH ×4 (08:21→21:00)
[2021-08-17] MEDS: LIDOCAINE 5% (LIDODERM) PATCH TD SCH (08:21)
[2021-08-17] MEDS: oxyBUTYnin 5 MG TAB PO SCH (08:22)
[2021-08-17] MEDS: LACTULOSE 20 GM/30 ML SYRUP UD PO SCH ×2 (08:22→21:21)
[2021-08-17] MEDS: VITAMIN D 1,000 INTERNATIONAL UNITS TABLET PO SCH (08:22)
[2021-08-17] MEDS: FUROSEMIDE 20 MG TAB PO SCH (08:22)
[2021-08-17] MEDS: AUGMENTIN 500MG TAB PO SCH ×2 (08:22→21:22)
[2021-08-17] MEDS: MAGNESIUM OXIDE 400MG TAB (MAG-OX) PO SCH (08:23)
[2021-08-17] MEDS: VANICREAM MOISTURIZING SKIN CREAM 113GM TUBE TOP SCH ×2 (08:23→21:23)
[2021-08-17] MEDS: GABAPENTIN 300 MG CAP PO SCH (21:22)
[2021-08-17] MEDS: ATORVASTATIN 10 MG TAB PO SCH (21:22)
[2021-08-17] MEDS: ESCITALOPRAM OXALATE 10 MG TAB (LEXAPRO) PO SCH (21:22)
[2021-08-17] MEDS: APIXABAN 2.5 MG TAB (ELIQUIS) PO SCH (21:22)
[2021-08-17] MEDS: FINASTERIDE 5MG TAB PO SCH (21:22)
[2021-08-17] MEDS: **NOTE PATIENT COMMENT** MISC XX SCH (21:23)
[2021-08-18] MEDS: LevoFLOXacin 750 MG TABLET PO SCH (05:01)
[2021-08-18 06:00] VITALS: BP 116/69
[2021-08-18] MEDS: INSULIN LISPRO (NovoLOG) PER UNIT SC SCH ×4 (07:30→21:00)
[2021-08-18] MEDS: VITAMIN D 1,000 INTERNATIONAL UNITS TABLET PO SCH (08:42)
[2021-08-18] MEDS: FUROSEMIDE 20 MG TAB PO SCH (08:42)
[2021-08-18] MEDS: LACTULOSE 20 GM/30 ML SYRUP UD PO SCH ×2 (08:42→20:49)
[2021-08-18] MEDS: MAGNESIUM OXIDE 400MG TAB (MAG-OX) PO SCH (08:42)
[2021-08-18] MEDS: AUGMENTIN 500MG TAB PO SCH ×2 (08:42→20:49)
[2021-08-18] MEDS: LIDOCAINE 5% (LIDODERM) PATCH TD SCH (08:42)
[2021-08-18] MEDS: VANICREAM MOISTURIZING SKIN CREAM 113GM TUBE TOP SCH ×2 (08:43→20:51)
[2021-08-18] MEDS: oxyBUTYnin 5 MG TAB PO SCH (08:43)
[2021-08-18] MEDS: ATORVASTATIN 10 MG TAB PO SCH (20:49)
[2021-08-18] MEDS: GABAPENTIN 300 MG CAP PO SCH (20:49)
[2021-08-18] MEDS: ESCITALOPRAM OXALATE 10 MG TAB (LEXAPRO) PO SCH (20:49)
[2021-08-18] MEDS: APIXABAN 2.5 MG TAB (ELIQUIS) PO SCH (20:49)
[2021-08-18] MEDS: FINASTERIDE 5MG TAB PO SCH (20:49)
[2021-08-18] MEDS: **NOTE PATIENT COMMENT** MISC XX SCH (20:50)
[2021-08-19 05:55] VITALS: BP 113/68
[2021-08-19] MEDS: oxyBUTYnin 5 MG TAB PO SCH (08:39)
[2021-08-19] MEDS: AUGMENTIN 500MG TAB PO SCH ×2 (08:39→20:37)
[2021-08-19] MEDS: LACTULOSE 20 GM/30 ML SYRUP UD PO SCH ×2 (08:39→20:37)
[2021-08-19] MEDS: VITAMIN D 1,000 INTERNATIONAL UNITS TABLET PO SCH (08:40)
[2021-08-19] MEDS: MAGNESIUM OXIDE 400MG TAB (MAG-OX) PO SCH (08:40)
[2021-08-19] MEDS: INSULIN LISPRO (NovoLOG) PER UNIT SC SCH ×4 (08:40→20:39)
[2021-08-19] MEDS: VANICREAM MOISTURIZING SKIN CREAM 113GM TUBE TOP SCH ×2 (08:40→20:37)
[2021-08-19] MEDS: LIDOCAINE 5% (LIDODERM) PATCH TD SCH (08:41)
[2021-08-19] MEDS: FUROSEMIDE 20 MG TAB PO SCH (09:00)
[2021-08-19 09:27] VITALS: BP 103/62
[2021-08-19] MEDS: GABAPENTIN 300 MG CAP PO SCH (20:37)
[2021-08-19] MEDS: ATORVASTATIN 10 MG TAB PO SCH (20:37)
[2021-08-19] MEDS: ESCITALOPRAM OXALATE 10 MG TAB (LEXAPRO) PO SCH (20:37)
[2021-08-19] MEDS: APIXABAN 2.5 MG TAB (ELIQUIS) PO SCH (20:37)
[2021-08-19] MEDS: FINASTERIDE 5MG TAB PO SCH (20:37)
[2021-08-19] MEDS: **NOTE PATIENT COMMENT** MISC XX SCH (20:39)
[2021-08-20 04:40] VITALS: BP 150/69
[2021-08-20] MEDS: LevoFLOXacin 750 MG TABLET PO SCH (05:09)
[2021-08-20 06:29] LABS: BASO # 0.1 10^3/uL (0.0-0.2); EOS # 0.4 10^3/uL (0.0-0.5); EOS % 5.9 % (0.0-3.0); HEMATOCRIT 31.4 % (42.0-52.0); LYMPH # 2.2 10^3/uL (1.5-5.0); LYMPH % 30.2 % (24.0-44.0); MEAN CORPUSCULAR HEMOGLOBIN 30.1 pg (27.0-33.0); MEAN CORPUSCULAR HGB CONC 31.8 g/dl (32.0-36.5); MEAN CORPUSCULAR VOLUME 94.6 fl (80.0-96.0); MONO # 0.7 10^3/uL (0.0-0.8); MONO % 9.3 % (2.0-8.0); NEUTROPHILS # 3.8 10^3/uL (1.5-8.5); NEUTROPHILS % 52.8 % (36.0-66.0); PLATELET COUNT, AUTOMATED 226 10^3/uL (150-450); RED BLOOD COUNT 3.32 10^6/uL (4.30-6.10); WHITE BLOOD COUNT 7.1 10^3/uL (4.0-10.0)
[2021-08-20 06:49] LABS: CALCIUM LEVEL 8.3 MG/DL (8.8-10.2); CREATININE FOR GFR 2.15 MG/DL (0.70-1.30); GLOMERULAR FILTRATION RATE 31.6 (>35); POTASSIUM SERUM 3.5 MEQ/L (3.5-5.1)
[2021-08-20] MEDS: LACTULOSE 20 GM/30 ML SYRUP UD PO SCH ×2 (07:44→21:14)
[2021-08-20] MEDS: INSULIN LISPRO (NovoLOG) PER UNIT SC SCH ×4 (07:44→21:00)
[2021-08-20] MEDS: AUGMENTIN 500MG TAB PO SCH ×2 (07:45→21:14)
[2021-08-20] MEDS: LIDOCAINE 5% (LIDODERM) PATCH TD SCH (07:45)
[2021-08-20] MEDS: VITAMIN D 1,000 INTERNATIONAL UNITS TABLET PO SCH (07:45)
[2021-08-20] MEDS: MAGNESIUM OXIDE 400MG TAB (MAG-OX) PO SCH (07:46)
[2021-08-20] MEDS: VANICREAM MOISTURIZING SKIN CREAM 113GM TUBE TOP SCH ×2 (07:46→21:15)
[2021-08-20] MEDS: FUROSEMIDE 20 MG TAB PO SCH (07:46)
[2021-08-20] MEDS: oxyBUTYnin 5 MG TAB PO SCH (07:46)
[2021-08-20] MEDS: ACETAMINOPHEN TAB 650MG DOSE (2X325MG) PO PRN ×2 (12:21→21:18)
[2021-08-20] MEDS: ESCITALOPRAM OXALATE 10 MG TAB (LEXAPRO) PO SCH (21:14)
[2021-08-20] MEDS: GABAPENTIN 300 MG CAP PO SCH (21:14)
[2021-08-20] MEDS: APIXABAN 2.5 MG TAB (ELIQUIS) PO SCH (21:14)
[2021-08-20] MEDS: ATORVASTATIN 10 MG TAB PO SCH (21:14)
[2021-08-20] MEDS: FINASTERIDE 5MG TAB PO SCH (21:14)
[2021-08-20] MEDS: **NOTE PATIENT COMMENT** MISC XX SCH (21:21)
[2021-08-21 06:00] VITALS: BP 110/81
[2021-08-21 06:13] LABS: HEMATOCRIT 35.1 % (42.0-52.0); HEMOGLOBIN 11.1 g/dl (13.5-17.5); MEAN CORPUSCULAR HEMOGLOBIN 29.4 pg (27.0-33.0); MEAN CORPUSCULAR HGB CONC 31.6 g/dl (32.0-36.5); MEAN CORPUSCULAR VOLUME 93.1 fl (80.0-96.0); PLATELET COUNT, AUTOMATED 262 10^3/uL (150-450); RED BLOOD COUNT 3.77 10^6/uL (4.30-6.10); WHITE BLOOD COUNT 9.1 10^3/uL (4.0-10.0)
[2021-08-21 06:42] LABS: C REACTIVE PROTEIN QUANTITATIV 11.3 MG/DL (0.00-0.30); CALCIUM LEVEL 9.7 MG/DL (8.8-10.2); CREATININE FOR GFR 2.14 MG/DL (0.70-1.30); ERYTHROCYTE SEDIMENTATION RATE 108 mm/hr (0-20); GLOMERULAR FILTRATION RATE 31.7 (>35); POTASSIUM SERUM 3.7 MEQ/L (3.5-5.1)
[2021-08-21] MEDS: VANICREAM MOISTURIZING SKIN CREAM 113GM TUBE TOP SCH ×2 (07:48→20:00)
[2021-08-21] MEDS: LIDOCAINE 5% (LIDODERM) PATCH TD SCH (07:49)
[2021-08-21] MEDS: INSULIN LISPRO (NovoLOG) PER UNIT SC SCH ×4 (07:49→21:00)
[2021-08-21] MEDS: AUGMENTIN 500MG TAB PO SCH ×2 (07:50→19:59)
[2021-08-21] MEDS: ACETAMINOPHEN TAB 650MG DOSE (2X325MG) PO PRN ×2 (07:50→19:59)
[2021-08-21] MEDS: LACTULOSE 20 GM/30 ML SYRUP UD PO SCH ×2 (07:50→19:58)
[2021-08-21] MEDS: VITAMIN D 1,000 INTERNATIONAL UNITS TABLET PO SCH (07:50)
[2021-08-21] MEDS: FUROSEMIDE 20 MG TAB PO SCH (07:51)
[2021-08-21] MEDS: MAGNESIUM OXIDE 400MG TAB (MAG-OX) PO SCH (07:51)
[2021-08-21] MEDS: oxyBUTYnin 5 MG TAB PO SCH (07:51)
[2021-08-21] MEDS: ESCITALOPRAM OXALATE 10 MG TAB (LEXAPRO) PO SCH (19:58)
[2021-08-21] MEDS: GABAPENTIN 300 MG CAP PO SCH (19:58)
[2021-08-21] MEDS: FINASTERIDE 5MG TAB PO SCH (19:59)
[2021-08-21] MEDS: APIXABAN 2.5 MG TAB (ELIQUIS) PO SCH (19:59)
[2021-08-21] MEDS: ATORVASTATIN 10 MG TAB PO SCH (19:59)
[2021-08-21] MEDS: **NOTE PATIENT COMMENT** MISC XX SCH (20:00)
[2021-08-22] MEDS: oxyBUTYnin 5 MG TAB PO SCH (08:08)
[2021-08-22] MEDS: MAGNESIUM OXIDE 400MG TAB (MAG-OX) PO SCH (08:08)
[2021-08-22] MEDS: LIDOCAINE 5% (LIDODERM) PATCH TD SCH (08:08)
[2021-08-22] MEDS: VITAMIN D 1,000 INTERNATIONAL UNITS TABLET PO SCH (08:08)
[2021-08-22] MEDS: INSULIN LISPRO (NovoLOG) PER UNIT SC SCH ×4 (08:08→20:26)
[2021-08-22] MEDS: VANICREAM MOISTURIZING SKIN CREAM 113GM TUBE TOP SCH ×2 (08:09→20:26)
[2021-08-22] MEDS: FUROSEMIDE 20 MG TAB PO SCH (08:09)
[2021-08-22] MEDS: LACTULOSE 20 GM/30 ML SYRUP UD PO SCH ×2 (08:09→20:25)
[2021-08-22] MEDS: ATORVASTATIN 10 MG TAB PO SCH (20:25)
[2021-08-22] MEDS: GABAPENTIN 300 MG CAP PO SCH (20:25)
[2021-08-22] MEDS: ESCITALOPRAM OXALATE 10 MG TAB (LEXAPRO) PO SCH (20:25)
[2021-08-22] MEDS: APIXABAN 2.5 MG TAB (ELIQUIS) PO SCH (20:25)
[2021-08-22] MEDS: FINASTERIDE 5MG TAB PO SCH (20:26)
[2021-08-22] MEDS: **NOTE PATIENT COMMENT** MISC XX SCH (20:37)
[2021-08-23 05:35] VITALS: BP 136/72
[2021-08-23] MEDS: INSULIN LISPRO (NovoLOG) PER UNIT SC SCH ×4 (08:14→21:00)
[2021-08-23] MEDS: LACTULOSE 20 GM/30 ML SYRUP UD PO SCH ×2 (08:14→19:59)
[2021-08-23] MEDS: VITAMIN D 1,000 INTERNATIONAL UNITS TABLET PO SCH (08:15)
[2021-08-23] MEDS: LIDOCAINE 5% (LIDODERM) PATCH TD SCH (08:15)
[2021-08-23] MEDS: VANICREAM MOISTURIZING SKIN CREAM 113GM TUBE TOP SCH ×2 (08:15→21:34)
[2021-08-23] MEDS: oxyBUTYnin 5 MG TAB PO SCH (08:15)
[2021-08-23] MEDS: FUROSEMIDE 20 MG TAB PO SCH (08:15)
[2021-08-23] MEDS: MAGNESIUM OXIDE 400MG TAB (MAG-OX) PO SCH (08:15)
[2021-08-23] MEDS: FINASTERIDE 5MG TAB PO SCH (20:00)
[2021-08-23] MEDS: APIXABAN 2.5 MG TAB (ELIQUIS) PO SCH (20:00)
[2021-08-23] MEDS: ESCITALOPRAM OXALATE 10 MG TAB (LEXAPRO) PO SCH (20:00)
[2021-08-23] MEDS: GABAPENTIN 300 MG CAP PO SCH (20:00)
[2021-08-23] MEDS: ATORVASTATIN 10 MG TAB PO SCH (20:02)
[2021-08-23] MEDS: **NOTE PATIENT COMMENT** MISC XX SCH (21:34)
[2021-08-24 05:08] VITALS: BP 126/82
[2021-08-24] MEDS: LIDOCAINE 5% (LIDODERM) PATCH TD SCH (08:23)
[2021-08-24] MEDS: INSULIN LISPRO (NovoLOG) PER UNIT SC SCH ×4 (08:24→22:04)
[2021-08-24] MEDS: MAGNESIUM OXIDE 400MG TAB (MAG-OX) PO SCH (08:25)
[2021-08-24] MEDS: VITAMIN D 1,000 INTERNATIONAL UNITS TABLET PO SCH (08:25)
[2021-08-24] MEDS: LACTULOSE 20 GM/30 ML SYRUP UD PO SCH ×2 (08:25→22:28)
[2021-08-24] MEDS: FUROSEMIDE 20 MG TAB PO SCH (08:26)
[2021-08-24] MEDS: VANICREAM MOISTURIZING SKIN CREAM 113GM TUBE TOP SCH ×2 (08:26→22:29)
[2021-08-24] MEDS: oxyBUTYnin 5 MG TAB PO SCH (08:26)
[2021-08-24 20:46] VITALS: BP 105/58
[2021-08-24] MEDS: GABAPENTIN 300 MG CAP PO SCH (22:28)
[2021-08-24] MEDS: FINASTERIDE 5MG TAB PO SCH (22:28)
[2021-08-24] MEDS: ATORVASTATIN 10 MG TAB PO SCH (22:28)
[2021-08-24] MEDS: APIXABAN 2.5 MG TAB (ELIQUIS) PO SCH (22:28)
[2021-08-24] MEDS: ESCITALOPRAM OXALATE 10 MG TAB (LEXAPRO) PO SCH (22:28)
[2021-08-24] MEDS: **NOTE PATIENT COMMENT** MISC XX SCH (22:29)
[2021-08-24] MEDS: ACETAMINOPHEN TAB 650MG DOSE (2X325MG) PO PRN (22:30)
[2021-08-25 05:15] VITALS: BP 106/58
[2021-08-25] MEDS: INSULIN LISPRO (NovoLOG) PER UNIT SC SCH ×4 (07:30→21:00)
[2021-08-25] MEDS: FUROSEMIDE 20 MG TAB PO SCH (08:40)
[2021-08-25] MEDS: LACTULOSE 20 GM/30 ML SYRUP UD PO SCH ×2 (08:40→21:14)
[2021-08-25] MEDS: VITAMIN D 1,000 INTERNATIONAL UNITS TABLET PO SCH (08:40)
[2021-08-25] MEDS: LIDOCAINE 5% (LIDODERM) PATCH TD SCH (08:40)
[2021-08-25] MEDS: MAGNESIUM OXIDE 400MG TAB (MAG-OX) PO SCH (08:41)
[2021-08-25] MEDS: oxyBUTYnin 5 MG TAB PO SCH (08:41)
[2021-08-25] MEDS: VANICREAM MOISTURIZING SKIN CREAM 113GM TUBE TOP SCH ×2 (08:41→21:14)
[2021-08-25 20:27] VITALS: BP 137/80
[2021-08-25] MEDS: APIXABAN 2.5 MG TAB (ELIQUIS) PO SCH (21:13)
[2021-08-25] MEDS: **NOTE PATIENT COMMENT** MISC XX SCH (21:13)
[2021-08-25] MEDS: ESCITALOPRAM OXALATE 10 MG TAB (LEXAPRO) PO SCH (21:13)
[2021-08-25] MEDS: FINASTERIDE 5MG TAB PO SCH (21:13)
[2021-08-25] MEDS: GABAPENTIN 300 MG CAP PO SCH (21:13)
[2021-08-25] MEDS: ATORVASTATIN 10 MG TAB PO SCH (21:13)
[2021-08-26 05:37] VITALS: BP 136/80
[2021-08-26] MEDS: INSULIN LISPRO (NovoLOG) PER UNIT SC SCH ×4 (08:29→21:00)
[2021-08-26] MEDS: VITAMIN D 1,000 INTERNATIONAL UNITS TABLET PO SCH (08:30)
[2021-08-26] MEDS: LIDOCAINE 5% (LIDODERM) PATCH TD SCH (08:32)
[2021-08-26] MEDS: oxyBUTYnin 5 MG TAB PO SCH (08:32)
[2021-08-26] MEDS: LACTULOSE 20 GM/30 ML SYRUP UD PO SCH ×2 (08:32→21:00)
[2021-08-26] MEDS: MAGNESIUM OXIDE 400MG TAB (MAG-OX) PO SCH (08:32)
[2021-08-26] MEDS: FUROSEMIDE 20 MG TAB PO SCH (08:32)
[2021-08-26] MEDS: VANICREAM MOISTURIZING SKIN CREAM 113GM TUBE TOP SCH ×2 (08:32→21:36)
[2021-08-26] MEDS: **NOTE PATIENT COMMENT** MISC XX SCH (21:35)
[2021-08-26] MEDS: GABAPENTIN 300 MG CAP PO SCH (21:36)
[2021-08-26] MEDS: ESCITALOPRAM OXALATE 10 MG TAB (LEXAPRO) PO SCH (21:36)
[2021-08-26] MEDS: FINASTERIDE 5MG TAB PO SCH (21:36)
[2021-08-26] MEDS: ATORVASTATIN 10 MG TAB PO SCH (21:36)
[2021-08-26] MEDS: APIXABAN 2.5 MG TAB (ELIQUIS) PO SCH (21:36)
[2021-08-27 06:00] VITALS: BP 119/62
[2021-08-27] MEDS: INSULIN LISPRO (NovoLOG) PER UNIT SC SCH ×4 (07:30→21:00)
[2021-08-27] MEDS: MAGNESIUM OXIDE 400MG TAB (MAG-OX) PO SCH (09:07)
[2021-08-27] MEDS: LACTULOSE 20 GM/30 ML SYRUP UD PO SCH ×2 (09:07→21:00)
[2021-08-27] MEDS: oxyBUTYnin 5 MG TAB PO SCH (09:07)
[2021-08-27] MEDS: VITAMIN D 1,000 INTERNATIONAL UNITS TABLET PO SCH (09:07)
[2021-08-27] MEDS: FUROSEMIDE 20 MG TAB PO SCH (09:08)
[2021-08-27] MEDS: LIDOCAINE 5% (LIDODERM) PATCH TD SCH (09:08)
[2021-08-27] MEDS: VANICREAM MOISTURIZING SKIN CREAM 113GM TUBE TOP SCH ×2 (09:08→21:27)
[2021-08-27] MEDS: **NOTE PATIENT COMMENT** MISC XX SCH (21:00)
[2021-08-27] MEDS: ESCITALOPRAM OXALATE 10 MG TAB (LEXAPRO) PO SCH (21:26)
[2021-08-27] MEDS: ATORVASTATIN 10 MG TAB PO SCH (21:26)
[2021-08-27] MEDS: GABAPENTIN 300 MG CAP PO SCH (21:26)
[2021-08-27] MEDS: FINASTERIDE 5MG TAB PO SCH (21:26)
[2021-08-27] MEDS: APIXABAN 2.5 MG TAB (ELIQUIS) PO SCH (21:26)
[2021-08-27] MEDS: ACETAMINOPHEN TAB 650MG DOSE (2X325MG) PO PRN (21:30)
[2021-08-28 06:00] VITALS: BP 123/70
[2021-08-28] MEDS: INSULIN LISPRO (NovoLOG) PER UNIT SC SCH ×4 (07:30→20:36)
[2021-08-28] MEDS: LACTULOSE 20 GM/30 ML SYRUP UD PO SCH (08:29)
[2021-08-28] MEDS: LIDOCAINE 5% (LIDODERM) PATCH TD SCH (08:37)
[2021-08-28] MEDS: VITAMIN D 1,000 INTERNATIONAL UNITS TABLET PO SCH (08:38)
[2021-08-28] MEDS: FUROSEMIDE 20 MG TAB PO SCH (08:38)
[2021-08-28] MEDS: VANICREAM MOISTURIZING SKIN CREAM 113GM TUBE TOP SCH ×2 (08:38→19:35)
[2021-08-28] MEDS: oxyBUTYnin 5 MG TAB PO SCH (08:38)
[2021-08-28] MEDS: MAGNESIUM OXIDE 400MG TAB (MAG-OX) PO SCH (08:38)
[2021-08-28] MEDS: APIXABAN 2.5 MG TAB (ELIQUIS) PO SCH (19:35)
[2021-08-28] MEDS: ESCITALOPRAM OXALATE 10 MG TAB (LEXAPRO) PO SCH (19:35)
[2021-08-28] MEDS: GABAPENTIN 300 MG CAP PO SCH (19:35)
[2021-08-28] MEDS: ATORVASTATIN 10 MG TAB PO SCH (19:35)
[2021-08-28] MEDS: FINASTERIDE 5MG TAB PO SCH (19:35)
[2021-08-28] MEDS: ACETAMINOPHEN TAB 650MG DOSE (2X325MG) PO PRN (19:36)
[2021-08-29 06:00] VITALS: BP 138/57
[2021-08-29] MEDS: INSULIN LISPRO (NovoLOG) PER UNIT SC SCH ×4 (07:30→20:32)
[2021-08-29] MEDS: oxyBUTYnin 5 MG TAB PO SCH (08:27)
[2021-08-29] MEDS: FUROSEMIDE 20 MG TAB PO SCH (08:27)
[2021-08-29] MEDS: VANICREAM MOISTURIZING SKIN CREAM 113GM TUBE TOP SCH ×2 (08:28→19:51)
[2021-08-29] MEDS: VITAMIN D 1,000 INTERNATIONAL UNITS TABLET PO SCH (08:28)
[2021-08-29] MEDS: MAGNESIUM OXIDE 400MG TAB (MAG-OX) PO SCH (08:28)
[2021-08-29] MEDS: ESCITALOPRAM OXALATE 10 MG TAB (LEXAPRO) PO SCH (19:51)
[2021-08-29] MEDS: FINASTERIDE 5MG TAB PO SCH (19:51)
[2021-08-29] MEDS: GABAPENTIN 300 MG CAP PO SCH (19:51)
[2021-08-29] MEDS: ATORVASTATIN 10 MG TAB PO SCH (19:51)
[2021-08-29] MEDS: APIXABAN 2.5 MG TAB (ELIQUIS) PO SCH (19:51)
[2021-08-29] MEDS: ACETAMINOPHEN TAB 650MG DOSE (2X325MG) PO PRN (19:52)
[2021-08-30 06:00] VITALS: BP 113/60
[2021-08-30] MEDS: INSULIN LISPRO (NovoLOG) PER UNIT SC SCH ×4 (07:30→20:29)
[2021-08-30] MEDS: VITAMIN D 1,000 INTERNATIONAL UNITS TABLET PO SCH (08:55)
[2021-08-30] MEDS: oxyBUTYnin 5 MG TAB PO SCH (08:55)
[2021-08-30] MEDS: MAGNESIUM OXIDE 400MG TAB (MAG-OX) PO SCH (08:56)
[2021-08-30] MEDS: VANICREAM MOISTURIZING SKIN CREAM 113GM TUBE TOP SCH ×2 (08:56→20:29)
[2021-08-30] MEDS: FUROSEMIDE 20 MG TAB PO SCH (09:01)
[2021-08-30] MEDS: ESCITALOPRAM OXALATE 10 MG TAB (LEXAPRO) PO SCH (20:29)
[2021-08-30] MEDS: FINASTERIDE 5MG TAB PO SCH (20:29)
[2021-08-30] MEDS: APIXABAN 2.5 MG TAB (ELIQUIS) PO SCH (20:29)
[2021-08-30] MEDS: GABAPENTIN 300 MG CAP PO SCH (20:29)
[2021-08-30] MEDS: ATORVASTATIN 10 MG TAB PO SCH (20:29)
[2021-08-31 06:00] VITALS: BP 112/60
[2021-08-31] MEDS: INSULIN LISPRO (NovoLOG) PER UNIT SC SCH ×4 (07:30→21:00)
[2021-08-31] MEDS: VANICREAM MOISTURIZING SKIN CREAM 113GM TUBE TOP SCH ×2 (09:58→20:11)
[2021-08-31] MEDS: FUROSEMIDE 20 MG TAB PO SCH (09:58)
[2021-08-31] MEDS: VITAMIN D 1,000 INTERNATIONAL UNITS TABLET PO SCH (09:58)
[2021-08-31] MEDS: MAGNESIUM OXIDE 400MG TAB (MAG-OX) PO SCH (09:58)
[2021-08-31] MEDS: oxyBUTYnin 5 MG TAB PO SCH (09:58)
[2021-08-31] MEDS: APIXABAN 2.5 MG TAB (ELIQUIS) PO SCH (20:11)
[2021-08-31] MEDS: ACETAMINOPHEN TAB 650MG DOSE (2X325MG) PO PRN (20:11)
[2021-08-31] MEDS: ATORVASTATIN 10 MG TAB PO SCH (20:11)
[2021-08-31] MEDS: ESCITALOPRAM OXALATE 10 MG TAB (LEXAPRO) PO SCH (20:11)
[2021-08-31] MEDS: FINASTERIDE 5MG TAB PO SCH (20:11)
[2021-08-31] MEDS: GABAPENTIN 300 MG CAP PO SCH (20:11)
[2021-09-01 05:22] VITALS: BP 113/61
[2021-09-01] MEDS: INSULIN LISPRO (NovoLOG) PER UNIT SC SCH ×2 (07:30→11:58)
[2021-09-01] MEDS: FUROSEMIDE 20 MG TAB PO SCH (09:41)
[2021-09-01] MEDS: oxyBUTYnin 5 MG TAB PO SCH (09:41)
[2021-09-01] MEDS: MAGNESIUM OXIDE 400MG TAB (MAG-OX) PO SCH (09:42)
[2021-09-01] MEDS: VANICREAM MOISTURIZING SKIN CREAM 113GM TUBE TOP SCH (09:42)
[2021-09-01] MEDS: VITAMIN D 1,000 INTERNATIONAL UNITS TABLET PO SCH (09:42)
== END 2021-09-01 12:40 | DRG 629 ==
LOC: M SDC 14:05 → M MSPAV 14:06 → OBSVTOIN 08-01 16:15
PROVIDERS: ADMIT Internal Medicine; ATTEND Family Medicine
PROC: 0QSL04Z Reposition Right Tarsal with Internal Fixation Device, Open Approach (ICD-10-PCS; 2021-07-31)
PROC: 0QBL0ZZ Excision of Right Tarsal, Open Approach (ICD-10-PCS; principal; 2021-07-31 09:28)
DX: E11.69 Type 2 diabetes mellitus with other specified complication (principal); M86.171 Other acute osteomyelitis, right ankle and foot; I69.354 Hemiplegia and hemiparesis following cerebral infarction affecting left non-dominant side; I48.20 Chronic atrial fibrillation, unspecified; D62 Acute posthemorrhagic anemia; E11.621 Type 2 diabetes mellitus with foot ulcer; L97.519 Non-pressure chronic ulcer of other part of right foot with unspecified severity; Z79.01 Long term (current) use of anticoagulants; E11.22 Type 2 diabetes mellitus with diabetic chronic kidney disease; N18.30 Chronic kidney disease, stage 3 unspecified; N40.0 Benign prostatic hyperplasia without lower urinary tract symptoms; G47.33 Obstructive sleep apnea (adult) (pediatric); F32.A Depression, unspecified; F41.9 Anxiety disorder, unspecified; Z96.653 Presence of artificial knee joint, bilateral; E11.42 Type 2 diabetes mellitus with diabetic polyneuropathy; Z79.899 Other long term (current) drug therapy; E78.5 Hyperlipidemia, unspecified; B95.5 Unspecified streptococcus as the cause of diseases classified elsewhere; N17.9 Acute kidney failure, unspecified; T36.8X5A Adverse effect of other systemic antibiotics, initial encounter

== ENCOUNTER → 2022-01-02 | Outpatient (REF) | payer OTHER, MEDICAID ==
[~2022-01-02] MED LIST changes: -PIPERACILLIN/TAZOBACTAM SOD 3.375 GM in D5W MINI-BAG PLUS 50 ML IV ONE
== END ==
LOC: M LAB REF 12:29
PROVIDERS: ATTEND Podiatrist
DX: M79.671 Pain in right foot (principal); L03.121 Acute lymphangitis of right axilla

== ENCOUNTER → 2022-02-05 | Outpatient (CLI) | payer OTHER, MEDICAID ==
[2022-02-05 14:45] LABS: BASO # 0.1 10^3/uL (0.0-0.2); EOS # 0.4 10^3/uL (0.0-0.5); EOS % 5.3 % (0.0-3.0); HEMOGLOBIN 12.5 g/dl (13.5-17.5); LYMPH # 2.2 10^3/uL (1.5-5.0); LYMPH % 30.7 % (24.0-44.0); MEAN CORPUSCULAR HEMOGLOBIN 30.4 pg (27.0-33.0); MEAN CORPUSCULAR HGB CONC 31.3 g/dl (32.0-36.5); MEAN CORPUSCULAR VOLUME 97.3 fl (80.0-96.0); MONO # 0.7 10^3/uL (0.0-0.8); MONO % 9.6 % (2.0-8.0); NEUTROPHILS # 3.8 10^3/uL (1.5-8.5); NEUTROPHILS % 52.4 % (36.0-66.0); PLATELET COUNT, AUTOMATED 196 10^3/uL (150-450); RED BLOOD COUNT 4.11 10^6/uL (4.30-6.10); WHITE BLOOD COUNT 7.2 10^3/uL (4.0-10.0)
[2022-02-05 15:15] LABS: POTASSIUM SERUM 4.4 MMOL/L (3.5-5.1)
[2022-02-05 15:17] LABS: ALBUMIN 3.2 G/DL (3.2-5.2)
[2022-02-05 15:20] LABS: URIC ACID 9.5 MG/DL (3.7-9.2)
[2022-02-05 15:22] LABS: BILIRUBIN,TOTAL 0.3 MG/DL (0.3-1.2); CALCIUM LEVEL 9.2 MG/DL (8.3-10.6); HDL CHOLESTEROL 33.8 MG/DL (>40)
[2022-02-05 15:23] LABS: TOTAL PROTEIN 6.2 G/DL (5.7-8.2)
[2022-02-05 15:24] LABS: CHOLESTEROL RISK RATIO 5.26 (<5); CREATININE FOR GFR 1.98 MG/DL (0.70-1.30); GLOMERULAR FILTRATION RATE 34.7 (>35); LDL CHOLESTEROL 100.6 MG/DL (<100)
[2022-02-05 15:25] LABS: THYROID STIMULATING HORMONE 1.042 uIU/ML (0.55-4.78)
[2022-02-05 17:31] LABS: HEMOGLOBIN A1c 5.7 % (4.0-6.0)
== END ==
LOC: M LAB 13:07
PROVIDERS: ATTEND Family Medicine
DX: C95.91 Leukemia, unspecified, in remission (principal); N17.9 Acute kidney failure, unspecified; E78.5 Hyperlipidemia, unspecified; E11.42 Type 2 diabetes mellitus with diabetic polyneuropathy

== ENCOUNTER → 2022-09-04 | Outpatient (CLI) | payer OTHER, MEDICAID ==
[~2022-09-04] MED LIST changes: +ARTIDRO4 OU; -POLYOPD OU; +POTA-298 PO; -POTA1TAB14 PO
[2022-09-04 14:24] LABS: URIC ACID 10.7 MG/DL (3.7-9.2)
[2022-09-04 14:27] LABS: ALBUMIN 3.5 G/DL (3.2-5.2); ALKALINE PHOSPHATASE 124 U/L (46-116); ALT/SGPT < 9 U/L (7.0-40); AST/SGOT < 8 U/L (<34); BILIRUBIN,TOTAL 0.4 MG/DL (0.3-1.2); BLOOD UREA NITROGEN 54 MG/DL (9-23); CALCIUM LEVEL 9.5 MG/DL (8.3-10.6); CARBON DIOXIDE LEVEL 32 MMOL/L (20-31); CHLORIDE LEVEL 106 MMOL/L (98-107); CHOLESTEROL LEVEL 223 MG/DL (<200); CHOLESTEROL RISK RATIO 6.07 (<5); CREATININE FOR GFR 2.18 MG/DL (0.70-1.30); GLUCOSE, FASTING 112 MG/DL (74-106); HDL CHOLESTEROL 36.7 MG/DL (>40); LDL CHOLESTEROL 146.9 MG/DL (<100); NON-HDL-C 186.3 MG/DL; SODIUM LEVEL 143 MMOL/L (136-145); TOTAL PROTEIN 6.1 G/DL (5.7-8.2); TRIGLYCERIDES LEVEL 197 MG/DL (<150)
[2022-09-04 14:30] LABS: THYROID STIMULATING HORMONE 0.593 uIU/ML (0.55-4.78)
[2022-09-04 14:32] LABS: BASO # 0.1 10^3/uL (0.0-0.2); BASO % 1.1 % (0.0-1.0); EOS # 0.4 10^3/uL (0.0-0.5); EOS % 4.9 % (0.0-3.0); HEMATOCRIT 38.9 % (42.0-52.0); HEMOGLOBIN 12.5 g/dl (13.5-17.5); LYMPH # 2.1 10^3/uL (1.5-5.0); LYMPH % 28.4 % (24.0-44.0); MEAN CORPUSCULAR HEMOGLOBIN 32.4 pg (27.0-33.0); MEAN CORPUSCULAR HGB CONC 32.1 g/dl (32.0-36.5); MEAN CORPUSCULAR VOLUME 100.8 fl (80.0-96.0); MONO # 0.5 10^3/uL (0.0-0.8); MONO % 6.9 % (2.0-8.0); NEUTROPHILS # 4.2 10^3/uL (1.5-8.5); NEUTROPHILS % 58.2 % (36.0-66.0); PLATELET COUNT, AUTOMATED 178 10^3/uL (150-450); RED BLOOD COUNT 3.86 10^6/uL (4.30-6.10); WHITE BLOOD COUNT 7.3 10^3/uL (4.0-10.0)
[2022-09-04 14:55] LABS: HEMOGLOBIN A1c 5.2 % (4.0-6.0)
== END ==
LOC: M LAB 13:21
PROVIDERS: ATTEND Family Medicine
DX: C95.91 Leukemia, unspecified, in remission (principal); I10 Essential (primary) hypertension; E78.5 Hyperlipidemia, unspecified; M19.90 Unspecified osteoarthritis, unspecified site; E11.9 Type 2 diabetes mellitus without complications; N18.30 Chronic kidney disease, stage 3 unspecified; R60.9 Edema, unspecified

== ENCOUNTER → 2022-09-18 | Outpatient (REF) | payer OTHER, MEDICAID | LOC: M SMT 17:29 | PROVIDERS: ATTEND Urology | DX: R33.9 Retention of urine, unspecified (principal) ==

== ENCOUNTER → 2022-12-20 | Outpatient (REF) | payer OTHER, MEDICAID ==
[~2022-12-20] MED LIST changes: -OXYB5TAB10 PO; +OXYB5TAB11 PO
[2022-12-20 16:10] LABS: APPEARANCE, URINE MANUAL CLOUDY (CLEAR); COLOR, URINE MANUAL AMBER (YELLOW); GLUCOSE, URINE (UA) MANUAL NEGATIVE (NEGATIVE); KETONE, URINE MANUAL NEGATIVE (NEGATIVE); PROTEIN, URINE MANUAL 2+ mg/dL (NEGATIVE); SPECIFIC GRAVITY,URINE MANUAL 1.015 (1.002-1.035)
[2022-12-20 16:11] LABS: BILIRUBIN, URINE MANUAL OBSCURED (NEGATIVE); BLOOD URINE MANUAL POSITIVE (NEGATIVE); LEUKOCYTE ESTERASE, URINE MAN POSITIVE (NEGATIVE); NITRITE, URINE MANUAL OBSCURED (NEGATIVE); UROBILINOGEN, URINE MANUAL OBSCURED mg/dl (NORMAL)
[2022-12-20 16:25] LABS: BACTERIA, URINE MOD AMOUNT; HYALINE CAST, URINE NONE SEEN /lpf (0-1); RBC, URINE TNTC /hpf (0-3); SQUAMOUS EPITHELIAL CELL URINE NONE SEEN /hpf (SMALL AMT); WBC, URINE TNTC /hpf (0-3)
== END ==
LOC: M LABSMT 12:56
PROVIDERS: ATTEND Urology
DX: N39.0 Urinary tract infection, site not specified (principal)

== ENCOUNTER 2023-04-26 21:33 | Inpatient (IN) | payer MEDICARE, OTHER ==
[~2023-04-26] VITALS: Ht 170.2 cm; Wt 130.1 kg
[2023-04-26] MEDS: APIXABAN 2.5 MG TAB (ELIQUIS) PO SCH (21:00)
[~2023-04-26 21:33] MED LIST changes: -OXYB5TAB11 PO; +OXYB5TAB14 PO
[2023-04-26 22:20] LABS: VENOUS HCO3 27.2 MMOL/L (23.0-27.0); VENOUS O2 SATURATION 77.9 % (60.0-80.0); VENOUS PARTIAL PRESSURE CO2 49.7 mmHg (38.0-50.0); VENOUS PARTIAL PRESSURE O2 41.1 mmHg (30.0-50.0); VENOUS PH 7.356 UNITS (7.330-7.430); VENOUS STANDARD HCO3 24.9 MMOL/L; VENOUS TOTAL CO2 28.7 MMOL/L (24.0-28.0)
[2023-04-26 22:28] LABS: APPEARANCE, URINE CLOUDY (CLEAR); BACTERIA, URINE AUTO 3+ (NEGATIVE); BILIRUBIN, URINE AUTO NEGATIVE (NEGATIVE); BLOOD, URINE BLOOD NEGATIVE (NEGATIVE); COLOR, URINE YELLOW (YELLOW); GLUCOSE, URINE (UA) AUTO NEGATIVE (NEGATIVE); KETONE, URINE AUTO NEGATIVE (NEGATIVE); LEUKOCYTE ESTERASE, URINE AUTO 3+ (NEGATIVE); MUCUS, URINE SMALL (NEGATIVE); NITRITE, URINE AUTO NEGATIVE (NEGATIVE); PROTEIN, URINE AUTO 2+ mg/dL (NEGATIVE); RBC, URINE AUTO 18 /HPF (0-3); SPECIFIC GRAVITY URINE AUTO 1.011 (1.002-1.035); SQUAMOUS EPITHELIAL CELL UR AU 0 /HPF (0-6); UROBILINOGEN, URINE AUTO 0.2 mg/dL (0.0-2.0); WBC, URINE AUTO TNTC /HPF (0-3)
[2023-04-26 22:33] LABS: AMYLASE 36 U/L (30-118)
[2023-04-26 22:34] LABS: ALBUMIN 3.1 G/DL (3.2-5.2); ALKALINE PHOSPHATASE 114 U/L (46-116); ALT/SGPT 12 U/L (7.0-40); AST/SGOT 12 U/L (<34); BILIRUBIN,DIRECT < 0.1 MG/DL (<0.4); BILIRUBIN,TOTAL 0.3 MG/DL (0.3-1.2); BLOOD UREA NITROGEN 58 MG/DL (9-23); CALCIUM LEVEL 8.6 MG/DL (8.3-10.6); CARBON DIOXIDE LEVEL 27 MMOL/L (20-31); CHLORIDE LEVEL 104 MMOL/L (98-107); CK-MB VALUE MASS 2.7 NG/ML (<3.6); CREATININE FOR GFR 3.19 MG/DL (0.70-1.30); GLUCOSE, FASTING 153 MG/DL (74-106); POTASSIUM SERUM 4.7 MMOL/L (3.5-5.1); SODIUM LEVEL 139 MMOL/L (136-145); TOTAL PROTEIN 6.5 G/DL (5.7-8.2)
[2023-04-26] MEDS: NS 1,983 ML in IV 1 EA IV STA (22:41)
[2023-04-26] MEDS: ACETAMINOPHEN TAB 650MG DOSE (2X325MG) PO ONE (22:41)
[2023-04-26 22:42] LABS: BASO # 0.1 10^3/uL (0.0-0.2); BASO % 0.4 % (0.0-1.0); EOS % 0.2 % (0.0-3.0); HEMATOCRIT 37.3 % (42.0-52.0); HEMOGLOBIN 12.3 g/dl (13.5-17.5); LYMPH # 1.3 10^3/uL (1.5-5.0); LYMPH % 11.9 % (24.0-44.0); MONO # 0.8 10^3/uL (0.0-0.8); NEUTROPHILS % 80.1 % (36.0-66.0); PLATELET COUNT, AUTOMATED 193 10^3/uL (150-450); RED BLOOD COUNT 3.73 10^6/uL (4.30-6.10); WHITE BLOOD COUNT 11.2 10^3/uL (4.0-10.0)
[2023-04-26 22:46] LABS: PROCALCITONIN 2.38 ng/ml
[2023-04-26 22:55] LABS: RSV AMPLIFICATION NEGATIVE (NEGATIVE)
[2023-04-26 23:02] LABS: INR 1.12; PROTHROMBIN TIME 14.1 SECONDS (12.5-14.5)
[2023-04-26 23:03] LABS: PARTIAL THROMBOPLASTIN TIME 28.6 SECONDS (24.8-34.2)
[2023-04-26 23:20] LABS: CPK CREATINE PHOSPHOKINASE 178 U/L (46-171); MB/CK RELATIVE INDEX 1.51 (< OR =4)
[2023-04-26] MEDS ORDERED: K2 P1TAB PO (23:59)
[2023-04-26] MEDS ORDERED: ZINC50TA4 PO (23:59)
[2023-04-27] VITALS (9 sets, daily range): BP systolic 106–159; BP diastolic 49–95; TEMP 97.3–102.6; O2SAT 97–100
[2023-04-27] MEDS ORDERED: MAGN400T35 PO (00:03)
[2023-04-27] MEDS ORDERED: HOME MED LIST COMPLETE! XX SCH (00:05)
[2023-04-27] MEDS: CEFEPIME HCL 1 GM in D5W MINI-BAG PLUS 50 ML IV ONE (00:36)
[2023-04-27] MEDS ORDERED: MAALOX 30 ML SUSP *UDC PO PRN (00:50)
[2023-04-27] MEDS ORDERED: MOM 30ML SUSPENSION UDC PO PRN (00:50)
[2023-04-27] MEDS ORDERED: GLUCAGON INJ 1MG VIAL SC PRN (00:50)
[2023-04-27] MEDS ORDERED: DEXTROSE 50% 50ML SYRINGE IV PRN (00:50)
[2023-04-27] MEDS ORDERED: GLUCOSE 4GM CHEW TABLET PO PRN (00:50)
[2023-04-27] MEDS ORDERED: CEFEPIME HCL 2 GM in D5W 50 ML IV SCH (00:50)
[2023-04-27] MEDS: VANCOMYCIN HCL 1,000 MG, VIAL MATE ADAPTER 1 EACH in D5W 250 ML IV ONE (01:42)
[2023-04-27] MEDS: NS 1,000 ML IV SCH (05:02)
[2023-04-27 05:22] LABS: CK-MB VALUE MASS 3.4 NG/ML (<3.6)
[2023-04-27 05:23] LABS: MB/CK RELATIVE INDEX 1.14 (< OR =4)
[2023-04-27] MEDS: NYSTATIN 100,000 UNITS/GM TOPICAL PWD 15GM TOP SCH (05:26)
[2023-04-27] MEDS: INSULIN LISPRO (NovoLOG) PER UNIT SC SCH (06:00)
[2023-04-27] MEDS: MAGNESIUM OXIDE 400MG TAB (MAG-OX) PO SCH (09:00)
[2023-04-27] MEDS: FUROSEMIDE 10MG PER 1/2 TABLET PO SCH (09:00)
[2023-04-27] MEDS: DOCUSATE SODIUM 100MG CAPSULE PO SCH (09:00)
[2023-04-27] MEDS: CEFEPIME HCL 1 GM in D5W MINI-BAG PLUS 50 ML IV SCH (13:46)
[2023-04-27] MEDS: ACETAMINOPHEN 650MG SUPP PR PRN (16:41)
[2023-04-27] MEDS: FUROSEMIDE 40MG/4ML VIAL IV SCH (16:43)
[2023-04-27] MEDS: ACETAMINOPHEN *IV* 500 MG in IV 1 EA IV ONE (19:32)
[2023-04-27 20:02] LABS: VENOUS HCO3 26.9 MMOL/L (23.0-27.0); VENOUS O2 SATURATION 98.5 % (60.0-80.0); VENOUS PARTIAL PRESSURE CO2 38.5 mmHg (38.0-50.0); VENOUS PARTIAL PRESSURE O2 124.9 mmHg (30.0-50.0); VENOUS PH 7.462 UNITS (7.330-7.430); VENOUS STANDARD HCO3 27.2 MMOL/L; VENOUS TOTAL CO2 28.1 MMOL/L (24.0-28.0)
[2023-04-27 20:16] LABS: BASO % 0.4 % (0.0-1.0); EOS % 0.1 % (0.0-3.0); HEMATOCRIT 31.2 % (42.0-52.0); HEMOGLOBIN 10.2 g/dl (13.5-17.5); LYMPH # 1.4 10^3/uL (1.5-5.0); LYMPH % 13.8 % (24.0-44.0); MEAN CORPUSCULAR HEMOGLOBIN 32.5 pg (27.0-33.0); MEAN CORPUSCULAR HGB CONC 32.7 g/dl (32.0-36.5); MEAN CORPUSCULAR VOLUME 99.4 fl (80.0-96.0); MONO % 9.6 % (2.0-8.0); NEUTROPHILS # 7.5 10^3/uL (1.5-8.5); NEUTROPHILS % 75.7 % (36.0-66.0); PLATELET COUNT, AUTOMATED 141 10^3/uL (150-450); RED BLOOD COUNT 3.14 10^6/uL (4.30-6.10)
[2023-04-27 20:21] LABS: ERYTHROCYTE SEDIMENTATION RATE 55 mm/hr (0-20)
[2023-04-27 20:35] LABS: C REACTIVE PROTEIN QUANTITATIV 26.6 MG/DL (<1.0)
[2023-04-27 20:45] LABS: ALBUMIN 2.6 G/DL (3.2-5.2); BILIRUBIN,TOTAL 0.4 MG/DL (0.3-1.2); CALCIUM LEVEL 8.3 MG/DL (8.3-10.6); CREATININE FOR GFR 3.75 MG/DL (0.70-1.30); GLOMERULAR FILTRATION RATE 16.6 (>35); MAGNESIUM LEVEL 2.2 MG/DL (1.8-2.4); POTASSIUM SERUM 4.4 MMOL/L (3.5-5.1); TOTAL PROTEIN 5.5 G/DL (5.7-8.2)
[2023-04-28] VITALS (7 sets, daily range): BP systolic 107–151; BP diastolic 53–72; TEMP 97.2–99.9; O2SAT 95–100
[2023-04-28 05:32] LABS: HEMATOCRIT 30.9 % (42.0-52.0); HEMOGLOBIN 10.2 g/dl (13.5-17.5); MEAN CORPUSCULAR HEMOGLOBIN 32.4 pg (27.0-33.0); MEAN CORPUSCULAR VOLUME 98.1 fl (80.0-96.0); PLATELET COUNT, AUTOMATED 134 10^3/uL (150-450); RED BLOOD COUNT 3.15 10^6/uL (4.30-6.10); WHITE BLOOD COUNT 9.1 10^3/uL (4.0-10.0)
[2023-04-28 05:55] LABS: ALBUMIN 2.5 G/DL (3.2-5.2); BILIRUBIN,TOTAL 0.3 MG/DL (0.3-1.2); CALCIUM LEVEL 8.4 MG/DL (8.3-10.6); CREATININE FOR GFR 3.85 MG/DL (0.70-1.30); GLOMERULAR FILTRATION RATE 16.1 (>35); MAGNESIUM LEVEL 2.3 MG/DL (1.8-2.4); POTASSIUM SERUM 4.1 MMOL/L (3.5-5.1); TOTAL PROTEIN 5.5 G/DL (5.7-8.2)
[2023-04-28 06:02] LABS: PROCALCITONIN 5.88 ng/ml
[2023-04-28] MEDS ORDERED: LR 1,000 ML IV SCH (11:00)
[2023-04-28] MEDS: LR 1,000 ML IV SCH (11:46)
[2023-04-28] MEDS: CEFTAROLINE FOSAMIL 300 MG in D5W 50 ML IV SCH (18:40)
[2023-04-29] VITALS (18 sets, daily range): BP systolic 105–156; BP diastolic 52–91; TEMP 96.9–99.6; O2SAT 90–100
[2023-04-29 05:42] LABS: HEMATOCRIT 32.1 % (42.0-52.0); HEMOGLOBIN 10.4 g/dl (13.5-17.5); MEAN CORPUSCULAR HEMOGLOBIN 31.7 pg (27.0-33.0); MEAN CORPUSCULAR HGB CONC 32.4 g/dl (32.0-36.5); MEAN CORPUSCULAR VOLUME 97.9 fl (80.0-96.0); PLATELET COUNT, AUTOMATED 151 10^3/uL (150-450); RED BLOOD COUNT 3.28 10^6/uL (4.30-6.10); WHITE BLOOD COUNT 7.2 10^3/uL (4.0-10.0)
[2023-04-29 06:12] LABS: ALBUMIN 2.5 G/DL (3.2-5.2); BILIRUBIN,TOTAL 0.3 MG/DL (0.3-1.2); CALCIUM LEVEL 8.5 MG/DL (8.3-10.6); CREATININE FOR GFR 3.48 MG/DL (0.70-1.30); GLOMERULAR FILTRATION RATE 18.1 (>35); MAGNESIUM LEVEL 2.3 MG/DL (1.8-2.4); POTASSIUM SERUM 3.6 MMOL/L (3.5-5.1); TOTAL PROTEIN 5.6 G/DL (5.7-8.2)
[2023-04-29] MEDS ORDERED: propofoL 200 MG/20 ML VIAL As Ordered ONE (15:39)
[2023-04-29] MEDS ORDERED: LIDOCAINE 2% 100MG/5ML SDV (FOR ANES.) As Ordered ONE (15:41)
[2023-04-29] MEDS ORDERED: ONDANSETRON 4MG 2ML VIAL As Ordered ONE (15:42)
[2023-04-29] MEDS ORDERED: ACETAMINOPHEN 1000MG 100ML IV BAG As Ordered ONE (15:42)
[2023-04-29] MEDS ORDERED: fentaNYL 100 MCG/2 ML INJECTION As Ordered ONE (15:43)
[2023-04-29] MEDS: ISOVUE-300 61% 100ML VIAL As Ordered ONE (15:51)
[2023-04-29] MEDS ORDERED: fentaNYL 100 MCG/2 ML INJECTION IV PRN (17:10)
[2023-04-29] MEDS ORDERED: ONDANSETRON 4MG 2ML VIAL IV PRN (17:10)
[2023-04-29] MEDS: LR 1,000 ML IV SCH (17:10)
[2023-04-29] MEDS ORDERED: GLUCOSE 4GM CHEW TABLET PO PRN (17:45)
[2023-04-29] MEDS ORDERED: oxyCODONE 5MG TAB PO PRN (17:45)
[2023-04-29] MEDS ORDERED: INSULIN LISPRO (NovoLOG) PER UNIT SC PRN (17:45)
[2023-04-29] MEDS ORDERED: DEXTROSE 50% 50ML SYRINGE IV PRN (17:45)
[2023-04-29] MEDS ORDERED: GLUCAGON INJ 1MG VIAL SC PRN (17:45)
[2023-04-30] VITALS (7 sets, daily range): BP systolic 97–150; BP diastolic 56–88; TEMP 97.3–98; O2SAT 66–97
[2023-04-30 05:58] LABS: HEMATOCRIT 32.3 % (42.0-52.0); HEMOGLOBIN 10.6 g/dl (13.5-17.5); MEAN CORPUSCULAR HGB CONC 32.8 g/dl (32.0-36.5); MEAN CORPUSCULAR VOLUME 97.6 fl (80.0-96.0); PLATELET COUNT, AUTOMATED 168 10^3/uL (150-450); RED BLOOD COUNT 3.31 10^6/uL (4.30-6.10); WHITE BLOOD COUNT 4.9 10^3/uL (4.0-10.0)
[2023-04-30 06:29] LABS: ALBUMIN 2.5 G/DL (3.2-5.2); BILIRUBIN,TOTAL 0.2 MG/DL (0.3-1.2); CALCIUM LEVEL 8.6 MG/DL (8.3-10.6); CREATININE FOR GFR 3.28 MG/DL (0.70-1.30); GLOMERULAR FILTRATION RATE 19.3 (>35); MAGNESIUM LEVEL 2.2 MG/DL (1.8-2.4); POTASSIUM SERUM 4.3 MMOL/L (3.5-5.1); TOTAL PROTEIN 5.8 G/DL (5.7-8.2)
[2023-04-30] MEDS: INSULIN LISPRO (NovoLOG) PER UNIT SC SCH ×2 (11:50→20:17)
[2023-04-30] MEDS: ACETAMINOPHEN TAB 650MG DOSE (2X325MG) PO PRN (20:56)
[2023-05-01 04:29] VITALS: BP 162/72; TEMP 96.9; O2SAT 96
[2023-05-01 06:05] LABS: HEMATOCRIT 32.1 % (42.0-52.0); HEMOGLOBIN 10.6 g/dl (13.5-17.5); MEAN CORPUSCULAR HEMOGLOBIN 32.1 pg (27.0-33.0); MEAN CORPUSCULAR VOLUME 97.3 fl (80.0-96.0); PLATELET COUNT, AUTOMATED 175 10^3/uL (150-450); WHITE BLOOD COUNT 6.2 10^3/uL (4.0-10.0)
[2023-05-01 06:37] LABS: ALBUMIN 2.6 G/DL (3.2-5.2); BILIRUBIN,TOTAL 0.2 MG/DL (0.3-1.2); CALCIUM LEVEL 8.7 MG/DL (8.3-10.6); CREATININE FOR GFR 3.13 MG/DL (0.70-1.30); GLOMERULAR FILTRATION RATE 20.4 (>35); MAGNESIUM LEVEL 2.2 MG/DL (1.8-2.4); POTASSIUM SERUM 3.6 MMOL/L (3.5-5.1); TOTAL PROTEIN 5.7 G/DL (5.7-8.2)
[2023-05-01 08:06] VITALS: BP 164/90; TEMP 97.4; O2SAT 96
[2023-05-01] MEDS ORDERED: cefTRIAXone SOD 2GM VIAL IM SCH (08:20)
[2023-05-01] MEDS: cefTRIAXone SOD 2 GM in D5W MINI-BAG PLUS 50 ML IV SCH (11:30)
[2023-05-01 12:15] VITALS: BP 138/70; TEMP 97; O2SAT 98
[2023-05-01 15:40] VITALS: BP 125/90; TEMP 97.5
[2023-05-01 20:00] VITALS: BP 126/88; TEMP 97.5; O2SAT 95
[2023-05-02 00:05] VITALS: BP 135/83; TEMP 97.7; O2SAT 95
[2023-05-02 04:06] VITALS: BP 133/83; TEMP 97.5; O2SAT 96
[2023-05-02 08:04] LABS: HEMATOCRIT 31.8 % (42.0-52.0); HEMOGLOBIN 10.5 g/dl (13.5-17.5); MEAN CORPUSCULAR HEMOGLOBIN 32.7 pg (27.0-33.0); MEAN CORPUSCULAR VOLUME 99.1 fl (80.0-96.0); PLATELET COUNT, AUTOMATED 178 10^3/uL (150-450); RED BLOOD COUNT 3.21 10^6/uL (4.30-6.10); WHITE BLOOD COUNT 7.5 10^3/uL (4.0-10.0)
[2023-05-02 08:27] LABS: ALBUMIN 2.5 G/DL (3.2-5.2); BILIRUBIN,TOTAL 0.2 MG/DL (0.3-1.2); CALCIUM LEVEL 8.4 MG/DL (8.3-10.6); CREATININE FOR GFR 2.99 MG/DL (0.70-1.30); GLOMERULAR FILTRATION RATE 21.5 (>35); POTASSIUM SERUM 4.2 MMOL/L (3.5-5.1); TOTAL PROTEIN 5.5 G/DL (5.7-8.2)
[2023-05-02 08:47] VITALS: BP 120/85; TEMP 97.9; O2SAT 96
[2023-05-02 13:57] VITALS: BP 141/82; TEMP 97.9; O2SAT 95
[2023-05-02] MEDS ORDERED: CEFD1CAP9 PO (14:01)
[2023-05-02] MEDS ORDERED: NYST10006 TOP (14:01)
[2023-05-02 20:41] VITALS: BP 147/87; TEMP 97.9; O2SAT 96
[2023-05-03 02:06] VITALS: BP 142/80; TEMP 97.6; O2SAT 95
[2023-05-03 04:00] VITALS: BP 156/84; TEMP 97.4; O2SAT 96
[2023-05-03 06:43] LABS: HEMATOCRIT 33.3 % (42.0-52.0); MEAN CORPUSCULAR HEMOGLOBIN 32.5 pg (27.0-33.0); MEAN CORPUSCULAR VOLUME 98.5 fl (80.0-96.0); PLATELET COUNT, AUTOMATED 185 10^3/uL (150-450); RED BLOOD COUNT 3.38 10^6/uL (4.30-6.10); WHITE BLOOD COUNT 8.7 10^3/uL (4.0-10.0)
[2023-05-03 07:09] LABS: ALBUMIN 2.8 G/DL (3.2-5.2); BILIRUBIN,TOTAL 0.2 MG/DL (0.3-1.2); CALCIUM LEVEL 8.8 MG/DL (8.3-10.6); CREATININE FOR GFR 2.95 MG/DL (0.70-1.30); GLOMERULAR FILTRATION RATE 21.9 (>35); MAGNESIUM LEVEL 2.2 MG/DL (1.8-2.4); TOTAL PROTEIN 5.8 G/DL (5.7-8.2)
[2023-05-06 23:10] LABS: Size 4x4 mm (.)
== END 2023-05-03 12:35 | disposition home health service (06) | DRG 659 ==
LOC: M ED 21:33 → M ED INP 23:45 → M PCU 04-27 03:28 → M MS5PR 05-01 15:25
PROVIDERS: ADMIT Family Medicine; ATTEND Internal Medicine
PROC: 0TBB8ZX Excision of Bladder, Via Natural or Artificial Opening Endoscopic, Diagnostic (ICD-10-PCS; 2023-04-29)
PROC: 0T5B8ZZ Destruction of Bladder, Via Natural or Artificial Opening Endoscopic (ICD-10-PCS; 2023-04-29)
PROC: 0TC78ZZ Extirpation of Matter from Left Ureter, Via Natural or Artificial Opening Endoscopic (ICD-10-PCS; 2023-04-29)
PROC: 0T778DZ Dilation of Left Ureter with Intraluminal Device, Via Natural or Artificial Opening Endoscopic (ICD-10-PCS; principal; 2023-04-29 16:00)
DX: T83.511A Infection and inflammatory reaction due to indwelling urethral catheter, initial encounter (principal); A41.9 Sepsis, unspecified organism; G93.41 Metabolic encephalopathy; I69.354 Hemiplegia and hemiparesis following cerebral infarction affecting left non-dominant side; L03.116 Cellulitis of left lower limb; N39.0 Urinary tract infection, site not specified; I48.91 Unspecified atrial fibrillation; E11.22 Type 2 diabetes mellitus with diabetic chronic kidney disease; N40.0 Benign prostatic hyperplasia without lower urinary tract symptoms; G47.33 Obstructive sleep apnea (adult) (pediatric); F03.90 Unspecified dementia, unspecified severity, without behavioral disturbance, psychotic disturbance, mood disturbance, and anxiety; J32.0 Chronic maxillary sinusitis; N18.30 Chronic kidney disease, stage 3 unspecified; F32.A Depression, unspecified; F41.9 Anxiety disorder, unspecified; L89.319 Pressure ulcer of right buttock, unspecified stage; L89.899 Pressure ulcer of other site, unspecified stage; L89.619 Pressure ulcer of right heel, unspecified stage; L89.629 Pressure ulcer of left heel, unspecified stage; B37.2 Candidiasis of skin and nail; Z96.653 Presence of artificial knee joint, bilateral; Z79.01 Long term (current) use of anticoagulants; Z79.899 Other long term (current) drug therapy; Z11.52 Encounter for screening for COVID-19

== ENCOUNTER → 2023-06-17 | Outpatient (CLI) | payer MEDICARE ==
[~2023-06-17] MED LIST changes: +CEFD1CAP9 PO; +K2 P1TAB PO; +MAGN400T35 PO; +NYST10006 TOP; +ZINC50TA4 PO
[2023-06-17 15:58] LABS: HEMATOCRIT 35.8 % (42.0-52.0); HEMOGLOBIN 11.7 g/dl (13.5-17.5); MEAN CORPUSCULAR HEMOGLOBIN 32.4 pg (27.0-33.0); MEAN CORPUSCULAR HGB CONC 32.7 g/dl (32.0-36.5); MEAN CORPUSCULAR VOLUME 99.2 fl (80.0-96.0); PLATELET COUNT, AUTOMATED 169 10^3/uL (150-450); RED BLOOD COUNT 3.61 10^6/uL (4.30-6.10); WHITE BLOOD COUNT 5.4 10^3/uL (4.0-10.0)
[2023-06-17 16:27] LABS: ALBUMIN 3.3 G/DL (3.2-5.2); BILIRUBIN,TOTAL 0.2 MG/DL (0.3-1.2); CALCIUM LEVEL 8.9 MG/DL (8.3-10.6); CREATININE FOR GFR 2.74 MG/DL (0.70-1.30); GLOMERULAR FILTRATION RATE 23.7 (>35); POTASSIUM SERUM 4.6 MMOL/L (3.5-5.1); TOTAL PROTEIN 6.3 G/DL (5.7-8.2)
== END ==
LOC: M RAD 14:21
PROVIDERS: ATTEND Urology
DX: N32.81 Overactive bladder (principal); N48.89 Other specified disorders of penis; J98.11 Atelectasis

== ENCOUNTER → 2023-06-27 | Outpatient (REF) | payer MEDICARE | LOC: M SMT 12:16 | PROVIDERS: ATTEND Urology | DX: R33.9 Retention of urine, unspecified (principal); Z96.0 Presence of urogenital implants ==

== ENCOUNTER → 2023-08-08 | Outpatient (REF) | payer MEDICARE ==
[~2023-08-08] MED LIST changes: +VITA-243 PO
[2023-08-08 12:20] LABS: HEMATOCRIT 39.8 % (42.0-52.0); HEMOGLOBIN 13.1 g/dl (13.5-17.5); MEAN CORPUSCULAR HEMOGLOBIN 32.7 pg (27.0-33.0); MEAN CORPUSCULAR HGB CONC 32.9 g/dl (32.0-36.5); MEAN CORPUSCULAR VOLUME 99.3 fl (80.0-96.0); PLATELET COUNT, AUTOMATED 184 10^3/uL (150-450); RED BLOOD COUNT 4.01 10^6/uL (4.30-6.10); WHITE BLOOD COUNT 6.1 10^3/uL (4.0-10.0)
[2023-08-08 12:59] LABS: ALBUMIN 3.4 G/DL (3.2-5.2); BILIRUBIN,TOTAL 0.3 MG/DL (0.3-1.2); CALCIUM LEVEL 12.4 MG/DL (8.3-10.6); CREATININE FOR GFR 3.18 MG/DL (0.70-1.30); POTASSIUM SERUM 4.2 MMOL/L (3.5-5.1); TOTAL PROTEIN 6.5 G/DL (5.7-8.2)
== END ==
LOC: M SMT 11:54
PROVIDERS: ATTEND Urology
DX: N47.1 Phimosis (principal); Z79.899 Other long term (current) drug therapy

== ENCOUNTER 2023-08-11 12:26 | Observation (INO) | payer MEDICARE ==
[~2023-08-11] VITALS: Ht 175.3 cm; Wt 123.6 kg
[2023-08-11] MEDS: NS 1,000 ML IV ONE (19:05)
[2023-08-11 19:18] LABS: BASO # 0.1 10^3/uL (0.0-0.2); BASO % 1.3 % (0.0-1.0); EOS # 0.4 10^3/uL (0.0-0.5); EOS % 6.3 % (0.0-3.0); HEMATOCRIT 40.9 % (42.0-52.0); HEMOGLOBIN 13.4 g/dl (13.5-17.5); LYMPH # 1.8 10^3/uL (1.5-5.0); LYMPH % 29.7 % (24.0-44.0); MEAN CORPUSCULAR HEMOGLOBIN 32.1 pg (27.0-33.0); MEAN CORPUSCULAR HGB CONC 32.8 g/dl (32.0-36.5); MEAN CORPUSCULAR VOLUME 98.1 fl (80.0-96.0); MONO # 0.5 10^3/uL (0.0-0.8); MONO % 8.4 % (2.0-8.0); NEUTROPHILS # 3.3 10^3/uL (1.5-8.5); PLATELET COUNT, AUTOMATED 173 10^3/uL (150-450); RED BLOOD COUNT 4.17 10^6/uL (4.30-6.10); WHITE BLOOD COUNT 6.2 10^3/uL (4.0-10.0)
[2023-08-11 19:31] LABS: INR 1.08; PARTIAL THROMBOPLASTIN TIME 32.3 SECONDS (24.8-34.2); PROTHROMBIN TIME 13.7 SECONDS (12.5-14.5)
[2023-08-11 19:45] LABS: CK-MB VALUE MASS 4.7 NG/ML (<3.6)
[2023-08-11 19:46] LABS: ETHYL ALCOHOL (ETHANOL) 0.003 % (0.000-0.010); LIPASE 48 U/L (12-53)
[2023-08-11 19:47] LABS: AMYLASE 46 U/L (30-118); CPK CREATINE PHOSPHOKINASE 92 U/L (46-171); SALICYLATE LEVEL < 3.0 MG/DL (<30)
[2023-08-11 19:48] LABS: ALBUMIN 3.5 G/DL (3.2-5.2); ALKALINE PHOSPHATASE 162 U/L (46-116); ALT/SGPT 18 U/L (7.0-40); AST/SGOT 12 U/L (<34); BILIRUBIN,DIRECT < 0.1 MG/DL (<0.4); BILIRUBIN,TOTAL 0.2 MG/DL (0.3-1.2); BLOOD UREA NITROGEN 55 MG/DL (9-23); CALCIUM LEVEL 12.5 MG/DL (8.3-10.6); CARBON DIOXIDE LEVEL 31 MMOL/L (20-31); CHLORIDE LEVEL 107 MMOL/L (98-107); CREATININE FOR GFR 3.46 MG/DL (0.70-1.30); GLOMERULAR FILTRATION RATE 18.1 (>35); GLUCOSE, FASTING 86 MG/DL (74-106); MAGNESIUM LEVEL 2.7 MG/DL (1.8-2.4); POTASSIUM SERUM 4.3 MMOL/L (3.5-5.1); SODIUM LEVEL 145 MMOL/L (136-145); TOTAL PROTEIN 6.7 G/DL (5.7-8.2)
[2023-08-11 19:49] LABS: THYROID STIMULATING HORMONE 1.721 uIU/ML (0.55-4.78)
[2023-08-11] MEDS ORDERED: ACETAMINOPHEN TAB 650MG DOSE (2X325MG) PO PRN (22:20)
[2023-08-11 22:44] LABS: PROCALCITONIN 0.14 ng/ml
[2023-08-11] MEDS: NS 1,000 ML IV SCH (22:55)
[2023-08-11] MEDS: cefTRIAXone SOD 1 GM in D5W MINI-BAG PLUS 50 ML IV SCH (22:55)
[2023-08-11 23:12] LABS: PTH INTACT 14.9 PG/ML (18.5-88.0)
[2023-08-11 23:16] LABS: TOTAL 25(OH) VITAMIN D 66.8 NG/ML (20.0-100.0)
[2023-08-12] VITALS (8 sets, daily range): BP systolic 114–168; BP diastolic 61–103; TEMP 97.3–98.8; O2SAT 92–97
[2023-08-12] MEDS ORDERED: HOME MED LIST COMPLETE! XX SCH (00:25)
[2023-08-12 07:01] LABS: HEMATOCRIT 39.3 % (42.0-52.0); HEMOGLOBIN 12.7 g/dl (13.5-17.5); MEAN CORPUSCULAR HEMOGLOBIN 31.4 pg (27.0-33.0); MEAN CORPUSCULAR HGB CONC 32.3 g/dl (32.0-36.5); MEAN CORPUSCULAR VOLUME 97.3 fl (80.0-96.0); PLATELET COUNT, AUTOMATED 181 10^3/uL (150-450); RED BLOOD COUNT 4.04 10^6/uL (4.30-6.10); WHITE BLOOD COUNT 6.2 10^3/uL (4.0-10.0)
[2023-08-12 07:17] LABS: CALCIUM LEVEL 11.5 MG/DL (8.3-10.6); CREATININE FOR GFR 3.26 MG/DL (0.70-1.30); GLOMERULAR FILTRATION RATE 19.4 (>35); MAGNESIUM LEVEL 2.4 MG/DL (1.8-2.4); POTASSIUM SERUM 4.2 MMOL/L (3.5-5.1)
[2023-08-12 07:27] LABS: ERYTHROCYTE SEDIMENTATION RATE 53 mm/hr (0-20)
[2023-08-12 07:30] LABS: PROCALCITONIN 0.12 ng/ml
[2023-08-12] MEDS: DOCUSATE SODIUM 100MG CAPSULE PO SCH (09:04)
[2023-08-12] MEDS: NYSTATIN 100,000 UNITS/GM TOPICAL PWD 15GM TOP PRN (17:13)
[2023-08-12] MEDS: NS 1,000 ML IV SCH (17:54)
[2023-08-12] MEDS: amLODIPine 5 MG TAB PO SCH (18:13)
[2023-08-12] MEDS: APIXABAN 2.5 MG TAB (ELIQUIS) PO SCH (20:59)
[2023-08-12] MEDS: oxyBUTYnin 5 MG TAB PO SCH (20:59)
[2023-08-12] MEDS: GABAPENTIN 300 MG CAP PO SCH (20:59)
[2023-08-13 05:38] VITALS: BP 113/67; TEMP 98.4; O2SAT 94
[2023-08-13 06:31] LABS: CALCIUM LEVEL 10.4 MG/DL (8.3-10.6); CREATININE FOR GFR 3.44 MG/DL (0.70-1.30); GLOMERULAR FILTRATION RATE 18.3 (>35); MAGNESIUM LEVEL 2.2 MG/DL (1.8-2.4); POTASSIUM SERUM 3.9 MMOL/L (3.5-5.1)
[2023-08-13 07:41] VITALS: BP 114/67; TEMP 98.8; O2SAT 94
[2023-08-13] MEDS ORDERED: FUROSEMIDE 20 MG TAB PO SCH (09:00)
[2023-08-13 10:33] LABS: ABG BASE EXCESS 0.7 (-2.0-2.0); ABG HCO3 26.3 MMOL/L (22.0-26.0); ABG O2 SATURATION 93.6 % (95.0-99.0); ABG PARTIAL PRESSURE CO2 46.2 mmHg (35.0-45.0); ABG PARTIAL PRESSURE O2 64.9 mmHg (75.0-100.0); ABG TOTAL CO2 27.7 MMOL/L (23.0-31.0); ABG pH (ARTERIAL) 7.373 UNITS (7.350-7.450)
[2023-08-13 11:58] VITALS: BP 133/73; TEMP 98.6; O2SAT 90
[2023-08-13 13:32] LABS: CALCIUM LEVEL 10.1 MG/DL (8.3-10.6); PHOSPHORUS LEVEL 3.5 MG/DL (2.4-5.1)
[2023-08-13 15:40] VITALS: BP 140/74; TEMP 97.3; O2SAT 92
[2023-08-13 19:53] VITALS: BP 148/78; TEMP 98.1; O2SAT 94
[2023-08-14] VITALS: BP 138/78; TEMP 97.5; O2SAT 95
[2023-08-14 04:15] VITALS: BP 147/80; TEMP 97.9; O2SAT 94
[2023-08-14 06:25] LABS: CALCIUM LEVEL 10.6 MG/DL (8.3-10.6); CREATININE FOR GFR 3.51 MG/DL (0.70-1.30); GLOMERULAR FILTRATION RATE 17.8 (>35); MAGNESIUM LEVEL 2.3 MG/DL (1.8-2.4); POTASSIUM SERUM 3.7 MMOL/L (3.5-5.1)
[2023-08-14] MEDS: NS 1,000 ML IV SCH (06:44)
[2023-08-14 08:00] VITALS: BP 135/58; TEMP 97.9; O2SAT 94
[2023-08-14 12:00] VITALS: BP 143/82; TEMP 97.9; O2SAT 92
[2023-08-14 16:00] VITALS: BP 140/82; TEMP 97.5; O2SAT 98
[2023-08-14 19:30] VITALS: BP 152/84; TEMP 97.9; O2SAT 97
[2023-08-15] VITALS (7 sets, daily range): BP systolic 152–170; BP diastolic 83–100; TEMP 97.9–98.8; O2SAT 93–98
[2023-08-15 06:37] LABS: CALCIUM LEVEL 10.4 MG/DL (8.3-10.6); CREATININE FOR GFR 3.3 MG/DL (0.70-1.30); GLOMERULAR FILTRATION RATE 19.2 (>35); POTASSIUM SERUM 3.8 MMOL/L (3.5-5.1)
[2023-08-16] VITALS: BP 144/84; TEMP 97.9; O2SAT 96
[2023-08-16 04:00] VITALS: BP 140/83; TEMP 97.9; O2SAT 93
[2023-08-16 06:38] LABS: CALCIUM LEVEL 10.1 MG/DL (8.3-10.6); CREATININE FOR GFR 2.92 MG/DL (0.70-1.30); GLOMERULAR FILTRATION RATE 22.1 (>35); MAGNESIUM LEVEL 1.8 MG/DL (1.8-2.4); POTASSIUM SERUM 3.7 MMOL/L (3.5-5.1)
[2023-08-16 08:00] VITALS: BP 174/78; TEMP 98.6; O2SAT 95
[2023-08-16] MEDS: CEFDINIR 300 MG CAP (OMNICEF) PO SCH (09:07)
[2023-08-16 12:00] VITALS: BP 144/86; TEMP 98.2; O2SAT 96
[2023-08-16 16:00] VITALS: BP 176/81; TEMP 98.2; O2SAT 98
[2023-08-16 21:25] VITALS: BP 162/94; TEMP 98.6; O2SAT 96
[2023-08-17 00:59] VITALS: BP 166/93; TEMP 98.6; O2SAT 96
[2023-08-17 04:00] VITALS: BP 140/80; TEMP 97.9; O2SAT 98
[2023-08-17 06:25] LABS: BASO # 0.1 10^3/uL (0.0-0.2); BASO % 0.9 % (0.0-1.0); EOS # 0.4 10^3/uL (0.0-0.5); EOS % 6.4 % (0.0-3.0); HEMATOCRIT 35.3 % (42.0-52.0); HEMOGLOBIN 11.9 g/dl (13.5-17.5); LYMPH # 1.7 10^3/uL (1.5-5.0); LYMPH % 27.2 % (24.0-44.0); MEAN CORPUSCULAR HEMOGLOBIN 32.6 pg (27.0-33.0); MEAN CORPUSCULAR HGB CONC 33.7 g/dl (32.0-36.5); MEAN CORPUSCULAR VOLUME 96.7 fl (80.0-96.0); MONO # 0.6 10^3/uL (0.0-0.8); MONO % 9.1 % (2.0-8.0); NEUTROPHILS # 3.6 10^3/uL (1.5-8.5); NEUTROPHILS % 56.1 % (36.0-66.0); PLATELET COUNT, AUTOMATED 152 10^3/uL (150-450); RED BLOOD COUNT 3.65 10^6/uL (4.30-6.10); WHITE BLOOD COUNT 6.4 10^3/uL (4.0-10.0)
[2023-08-17 06:47] LABS: CALCIUM LEVEL 9.6 MG/DL (8.3-10.6); CREATININE FOR GFR 2.72 MG/DL (0.70-1.30); GLOMERULAR FILTRATION RATE 23.9 (>35); MAGNESIUM LEVEL 1.7 MG/DL (1.8-2.4); POTASSIUM SERUM 3.6 MMOL/L (3.5-5.1)
[2023-08-17 08:00] VITALS: BP 118/62; TEMP 98.8; O2SAT 95
[2023-08-17 12:34] VITALS: BP 134/70; TEMP 99; O2SAT 96
[2023-08-17] MEDS: MAG SULF 1GM/100ML (MAG RUN) 1 GM in IV 1 EA IV SCH (18:34)
[2023-08-17] MEDS: ERYTHROMYCIN OPHTH OINT OU SCH (18:34)
[2023-08-17 20:13] VITALS: BP 138/86; TEMP 98.8; O2SAT 97
[2023-08-18 00:22] VITALS: BP 144/78; TEMP 97.7; O2SAT 97
[2023-08-18 04:00] VITALS: BP 147/76; TEMP 98.2; O2SAT 95
[2023-08-18 06:45] LABS: CALCIUM LEVEL 10.3 MG/DL (8.3-10.6); CREATININE FOR GFR 2.75 MG/DL (0.70-1.30); GLOMERULAR FILTRATION RATE 23.6 (>35); MAGNESIUM LEVEL 2.1 MG/DL (1.8-2.4); POTASSIUM SERUM 3.6 MMOL/L (3.5-5.1)
[2023-08-18 08:00] VITALS: BP 141/76; TEMP 98.6; O2SAT 95
[2023-08-18 12:00] VITALS: BP 135/77; TEMP 97.2; O2SAT 96
[2023-08-18 16:00] VITALS: BP 147/99; TEMP 97.9; O2SAT 95
[2023-08-18 20:01] VITALS: BP 145/69; TEMP 97.9; O2SAT 99
[2023-08-19 00:03] VITALS: BP 135/70; TEMP 98.2; O2SAT 96
[2023-08-19 03:51] VITALS: BP 149/92; TEMP 97.9; O2SAT 96
[2023-08-19 06:14] LABS: CALCIUM LEVEL 9.9 MG/DL (8.3-10.6); CREATININE FOR GFR 2.82 MG/DL (0.70-1.30); MAGNESIUM LEVEL 2.1 MG/DL (1.8-2.4); POTASSIUM SERUM 3.6 MMOL/L (3.5-5.1)
[2023-08-19 08:00] VITALS: BP 140/84; TEMP 97.9; O2SAT 94
[2023-08-19] MEDS: CEFDINIR 300 MG CAP (OMNICEF) PO SCH (10:31)
[2023-08-19 11:21] LABS: BASO # 0.1 10^3/uL (0.0-0.2); EOS # 0.4 10^3/uL (0.0-0.5); EOS % 6.1 % (0.0-3.0); HEMATOCRIT 35.3 % (42.0-52.0); LYMPH # 1.7 10^3/uL (1.5-5.0); LYMPH % 24.6 % (24.0-44.0); MONO # 0.7 10^3/uL (0.0-0.8); MONO % 9.8 % (2.0-8.0); NEUTROPHILS % 58.2 % (36.0-66.0); PLATELET COUNT, AUTOMATED 183 10^3/uL (150-450); RED BLOOD COUNT 3.64 10^6/uL (4.30-6.10); WHITE BLOOD COUNT 6.9 10^3/uL (4.0-10.0)
[2023-08-19 12:00] VITALS: BP 128/46; TEMP 97.9; O2SAT 96
[2023-08-19 13:36] LABS: HEMOGLOBIN A1c 5.3 % (4.0-6.0)
[2023-08-19 16:00] VITALS: BP 110/56; TEMP 97.7; O2SAT 97
[2023-08-19 20:00] VITALS: BP 110/57; TEMP 97.7; O2SAT 94
[2023-08-20] VITALS: BP 153/94; TEMP 97.9; O2SAT 93
[2023-08-20 04:00] VITALS: BP 122/76; TEMP 98.1; O2SAT 98
[2023-08-20 06:05] LABS: BASO # 0.1 10^3/uL (0.0-0.2); BASO % 1.3 % (0.0-1.0); EOS # 0.6 10^3/uL (0.0-0.5); EOS % 8.8 % (0.0-3.0); HEMATOCRIT 35.8 % (42.0-52.0); HEMOGLOBIN 12.4 g/dl (13.5-17.5); LYMPH % 28.6 % (24.0-44.0); MEAN CORPUSCULAR HEMOGLOBIN 33.3 pg (27.0-33.0); MEAN CORPUSCULAR HGB CONC 34.6 g/dl (32.0-36.5); MEAN CORPUSCULAR VOLUME 96.2 fl (80.0-96.0); MONO # 0.6 10^3/uL (0.0-0.8); NEUTROPHILS # 3.7 10^3/uL (1.5-8.5); PLATELET COUNT, AUTOMATED 190 10^3/uL (150-450); RED BLOOD COUNT 3.72 10^6/uL (4.30-6.10)
[2023-08-20 06:26] LABS: CALCIUM LEVEL 10.4 MG/DL (8.3-10.6); CREATININE FOR GFR 2.86 MG/DL (0.70-1.30); GLOMERULAR FILTRATION RATE 22.6 (>35); POTASSIUM SERUM 3.9 MMOL/L (3.5-5.1)
[2023-08-20 08:00] VITALS: BP 143/88; TEMP 97.7; O2SAT 95
[2023-08-20 11:08] LABS: C REACTIVE PROTEIN QUANTITATIV 2.8 MG/DL (<1.0)
[2023-08-20 11:10] LABS: BILIRUBIN,DIRECT 0.1 MG/DL (<0.4); BILIRUBIN,TOTAL 0.3 MG/DL (0.3-1.2); TOTAL PROTEIN 6.1 G/DL (5.7-8.2)
[2023-08-20 11:17] LABS: PROCALCITONIN 0.15 ng/ml
[2023-08-20 12:00] VITALS: BP 131/76; TEMP 97.9; O2SAT 97
[2023-08-20 16:30] VITALS: BP 131/74; TEMP 98.1; O2SAT 95
[2023-08-20 19:06] LABS: ALPHA-1-GLOBULINS SO 0.2 g/dL (0.0-0.4); ALPHA-2-GLOBULINS SO 0.8 g/dL (0.4-1.0); BETA-GLOBULIN SO 0.9 g/dL (0.7-1.3); GAMMA GLOBULINS SO 1.1 g/dL (0.4-1.8); T P ELECTROPHORESIS SO 6.1 g/dL (6.0-8.5)
[2023-08-20 20:14] VITALS: BP 134/74; TEMP 98.6; O2SAT 95
[2023-08-21 00:01] VITALS: BP 134/88; TEMP 98.6; O2SAT 96
[2023-08-21 04:10] VITALS: BP 149/87; TEMP 98.4; O2SAT 96
[2023-08-21 06:03] LABS: BASO # 0.1 10^3/uL (0.0-0.2); BASO % 1.4 % (0.0-1.0); EOS # 0.4 10^3/uL (0.0-0.5); EOS % 6.9 % (0.0-3.0); LYMPH # 1.9 10^3/uL (1.5-5.0); LYMPH % 29.1 % (24.0-44.0); MEAN CORPUSCULAR HEMOGLOBIN 33.3 pg (27.0-33.0); MEAN CORPUSCULAR HGB CONC 34.3 g/dl (32.0-36.5); MEAN CORPUSCULAR VOLUME 97.2 fl (80.0-96.0); MONO # 0.5 10^3/uL (0.0-0.8); MONO % 8.2 % (2.0-8.0); NEUTROPHILS # 3.4 10^3/uL (1.5-8.5); NEUTROPHILS % 54.1 % (36.0-66.0); PLATELET COUNT, AUTOMATED 188 10^3/uL (150-450); WHITE BLOOD COUNT 6.4 10^3/uL (4.0-10.0)
[2023-08-21 06:32] LABS: CALCIUM LEVEL 10.1 MG/DL (8.3-10.6); CREATININE FOR GFR 2.92 MG/DL (0.70-1.30); GLOMERULAR FILTRATION RATE 22.1 (>35); MAGNESIUM LEVEL 1.9 MG/DL (1.8-2.4); POTASSIUM SERUM 3.7 MMOL/L (3.5-5.1)
[2023-08-21 08:00] VITALS: BP 137/65; TEMP 97.7; O2SAT 96
[2023-08-21] MEDS: NS 1,000 ML IV SCH (11:29)
[2023-08-21 12:00] VITALS: BP 132/71; TEMP 97.9; O2SAT 95
[2023-08-21 16:00] VITALS: BP 130/78; TEMP 98.1; O2SAT 96
[2023-08-21] MEDS: QUEtiapine FUMARATE 12.5 MG HALF-TAB PO ONE (16:09)
[2023-08-21] MEDS: POLYTRIM OPTH DROPS 10ML OU SCH (22:32)
[2023-08-21 23:18] VITALS: BP 133/78; TEMP 97.7; O2SAT 97
[2023-08-22 04:07] VITALS: BP 140/77; TEMP 97.9; O2SAT 96
[2023-08-22 08:00] VITALS: BP 127/75; TEMP 97.9; O2SAT 94
[2023-08-22] MEDS ORDERED: AMLO1TAB25 PO (08:34)
[2023-08-22] MEDS ORDERED: COLA100C5 PO (08:34)
[2023-08-22] MEDS ORDERED: QUET1TAB17 PO (08:34)
[2023-08-22 08:35] LABS: BASO # 0.1 10^3/uL (0.0-0.2); BASO % 1.3 % (0.0-1.0); EOS # 0.3 10^3/uL (0.0-0.5); EOS % 5.7 % (0.0-3.0); HEMATOCRIT 34.1 % (42.0-52.0); HEMOGLOBIN 11.6 g/dl (13.5-17.5); LYMPH # 1.6 10^3/uL (1.5-5.0); LYMPH % 29.2 % (24.0-44.0); MEAN CORPUSCULAR VOLUME 97.2 fl (80.0-96.0); MONO # 0.5 10^3/uL (0.0-0.8); MONO % 9.6 % (2.0-8.0); NEUTROPHILS # 2.9 10^3/uL (1.5-8.5); PLATELET COUNT, AUTOMATED 191 10^3/uL (150-450); RED BLOOD COUNT 3.51 10^6/uL (4.30-6.10); WHITE BLOOD COUNT 5.4 10^3/uL (4.0-10.0)
[2023-08-22 09:16] LABS: MAGNESIUM LEVEL 1.8 MG/DL (1.8-2.4); POTASSIUM SERUM 3.8 MMOL/L (3.5-5.1)
[2023-08-22 09:57] VITALS: BP 127/70
[2023-08-22] MEDS: QUEtiapine FUMARATE 12.5 MG HALF-TAB PO SCH (09:57)
[2023-08-22] MEDS ORDERED: ERYT5OIN25 OP (10:05)
[2023-08-22 12:46] LABS: CREATININE FOR GFR 2.86 MG/DL (0.70-1.30); GLOMERULAR FILTRATION RATE 22.6 (>35)
[2023-08-22 15:21] LABS: FREE KAPPA LIGHT CHAINS SERUM 80.5 mg/L (3.3-19.4); FREE LAMBDA LIGHT CHAINS SERUM 52.1 mg/L (5.7-26.3); KAPPA/LAMBDA RATIO SERUM 1.55 (0.26-1.65)
== END 2023-08-22 11:08 ==
LOC: EDBD 12:26 → M ED 12:26 → M ED INP 22:19 → M MSPAV 23:52
PROVIDERS: ADMIT Preventive Medicine Undersea and Hyperbaric Medicine; ATTEND Internal Medicine
DX: G93.41 Metabolic encephalopathy (principal); R53.81 Other malaise; E83.52 Hypercalcemia; N17.9 Acute kidney failure, unspecified; N18.4 Chronic kidney disease, stage 4 (severe); B96.4 Proteus (mirabilis) (morganii) as the cause of diseases classified elsewhere; H10.33 Unspecified acute conjunctivitis, bilateral; F03.90 Unspecified dementia, unspecified severity, without behavioral disturbance, psychotic disturbance, mood disturbance, and anxiety; Z86.73 Personal history of transient ischemic attack (TIA), and cerebral infarction without residual deficits; I48.20 Chronic atrial fibrillation, unspecified; I10 Essential (primary) hypertension; G47.33 Obstructive sleep apnea (adult) (pediatric); N31.9 Neuromuscular dysfunction of bladder, unspecified; E66.01 Morbid (severe) obesity due to excess calories; Z79.01 Long term (current) use of anticoagulants; Z79.899 Other long term (current) drug therapy
CPT/HCPCS: 36415; 70450; 70544; 70551; 71045; 74176; 80048; 80076; 80143; 81001; 82077; 82140; 82150; 82306; 82310; 82330; 82550; 82553; 82652; 82803; 83036; 83519; 83521; 83605; 83690; 83735; 83970; 84100; 84145; 84155; 84165; 84166; 84443; 84484; 85025; 85027; 85610; 85652; 85730; 86140; 86334; 87040; 87088; 87186; 87486; 87581; 87633; 87635; 87798; 93005; 93041; 97161; 97165; 97530; 99285; G0378; J0696; J3475

== ENCOUNTER → 2023-11-20 | Outpatient (REF) | payer MEDICARE ==
[~2023-11-20] MED LIST changes: +AMLO1TAB25 PO; +BUSP5TA PO; +CART120C PO; +COLA100C5 PO; +ERYT5OIN25 OP; +LEVO1TAB39 PO; +QUET1TAB17 PO
[2023-11-20 17:55] LABS: APPEARANCE, URINE HAZY (CLEAR); BACTERIA, URINE AUTO NEGATIVE (NEGATIVE); BILIRUBIN, URINE AUTO NEGATIVE (NEGATIVE); BLOOD, URINE BLOOD 3+ (NEGATIVE); COLOR, URINE STRAW (YELLOW); GLUCOSE, URINE (UA) AUTO NEGATIVE (NEGATIVE); KETONE, URINE AUTO NEGATIVE (NEGATIVE); LEUKOCYTE ESTERASE, URINE AUTO 3+ (NEGATIVE); NITRITE, URINE AUTO NEGATIVE (NEGATIVE); PROTEIN, URINE AUTO NEGATIVE (NEGATIVE); RBC, URINE AUTO TNTC /HPF (0-3); SPECIFIC GRAVITY URINE AUTO 1.004 (1.002-1.035); SQUAMOUS EPITHELIAL CELL UR AU 0 /HPF (0-6); UROBILINOGEN, URINE AUTO 0.2 mg/dL (0.0-2.0); WBC, URINE AUTO 71 /HPF (0-3)
== END ==
LOC: M SMT 17:24
PROVIDERS: ATTEND Urology
DX: R33.9 Retention of urine, unspecified (principal)

== ENCOUNTER 2023-12-01 12:11 | Day surgery (SDC) | payer MEDICARE ==
[~2023-12-01] VITALS: Ht 175.3 cm; Wt 118.8 kg
[~2023-12-01 12:11] MED LIST changes: +GABA-1172 PO; -GABA-282 PO
[2023-12-01] MEDS ORDERED: LR 1,000 ML IV SCH ×2 (13:45→16:00)
[2023-12-01] MEDS ORDERED: ENOX40IN3 SC (14:00)
[2023-12-01] MEDS: LIDOCAINE 1% SDV 30ML VIAL As Ordered ONE (14:18)
[2023-12-01] MEDS ORDERED: ONDANSETRON 4MG 2ML VIAL As Ordered ONE (14:21)
[2023-12-01] MEDS ORDERED: ROCURONIUM BROMIDE 50MG/5ML VIAL As Ordered ONE (14:21)
[2023-12-01] MEDS ORDERED: propofoL 200 MG/20 ML VIAL As Ordered ONE (14:21)
[2023-12-01] MEDS ORDERED: fentaNYL 100 MCG/2 ML INJECTION As Ordered ONE (14:21)
[2023-12-01] MEDS ORDERED: ETOMIDATE INJ 20MG/10ML VIAL As Ordered ONE (14:21)
[2023-12-01] MEDS ORDERED: LIDOCAINE 2% 100MG/5ML SDV (FOR ANES.) As Ordered ONE (14:21)
[2023-12-01] MEDS ORDERED: SUGAMMADEX SODIUM 500 MG/5 ML VIAL (BRIDION) As Ordered ONE (14:26)
[2023-12-01] MEDS: ceFAZolin SOD 2 GM in IV 1 EA IV ONE (14:55)
[2023-12-01] MEDS ORDERED: ACETAMINOPHEN 1000MG 100ML IV BAG As Ordered ONE (15:08)
[2023-12-01] MEDS ORDERED: ePHEDrine SULFATE 25 MG/5 ML(5MG/ML) SYRINGE As Ordered ONE (15:11)
[2023-12-01] MEDS ORDERED: ONDANSETRON 4MG 2ML VIAL IV PRN (16:00)
[2023-12-01] MEDS ORDERED: fentaNYL 100 MCG/2 ML INJECTION IV PRN (16:00)
[2023-12-01] MEDS ORDERED: HYDROMORPHONE HCL 0.5 MG/ 0.5 ML SYRINGE IV PRN (16:00)
[2023-12-01] MEDS ORDERED: HYDR-3713 PO (16:14)
[2023-12-01] MEDS: oxyCODONE 5MG TAB PO PRN (16:48)
[2023-12-01 17:05] VITALS: BP 159/74; TEMP 97; O2SAT 94
== END 2023-12-01 17:35 | disposition home or self-care (01) ==
LOC: M SDC 12:11
PROVIDERS: ATTEND Urology
DX: R33.9 Retention of urine, unspecified (principal); I48.91 Unspecified atrial fibrillation; E11.9 Type 2 diabetes mellitus without complications; I10 Essential (primary) hypertension; E78.5 Hyperlipidemia, unspecified; R60.9 Edema, unspecified; K21.9 Gastro-esophageal reflux disease without esophagitis; F41.9 Anxiety disorder, unspecified; F32.A Depression, unspecified; Z79.01 Long term (current) use of anticoagulants; Z79.899 Other long term (current) drug therapy
CPT/HCPCS: 51040; J0131; J0690; J1100; J2405; J3010

== ENCOUNTER → 2024-01-14 | Outpatient (REF) | payer MEDICARE ==
[~2024-01-14] MED LIST changes: +ENOX40IN3 SC; +HYDR-3713 PO; -LACT10SO3 PO; +LACT10SO94 PO
[2024-01-16 10:52] LABS: PROTEIN, TOTAL SO 6.1 g/dL (6.1-8.1)
== END ==
LOC: M LAB REF 11:14
PROVIDERS: ATTEND Internal Medicine Nephrology
DX: E83.52 Hypercalcemia (principal)

== ENCOUNTER → 2024-01-22 | Outpatient (REF) | payer MEDICARE ==
[2024-01-22 13:42] LABS: APPEARANCE, URINE CLOUDY (CLEAR); BACTERIA, URINE AUTO NEGATIVE (NEGATIVE); BILIRUBIN, URINE AUTO NEGATIVE (NEGATIVE); BLOOD, URINE BLOOD 1+ (NEGATIVE); COLOR, URINE YELLOW (YELLOW); GLUCOSE, URINE (UA) AUTO 1+ mg/dL (NEGATIVE); KETONE, URINE AUTO NEGATIVE (NEGATIVE); LEUKOCYTE ESTERASE, URINE AUTO 3+ (NEGATIVE); NITRITE, URINE AUTO NEGATIVE (NEGATIVE); PROTEIN, URINE AUTO 2+ mg/dL (NEGATIVE); RBC, URINE AUTO 24 /HPF (0-3); SPECIFIC GRAVITY URINE AUTO 1.012 (1.002-1.035); SQUAMOUS EPITHELIAL CELL UR AU 1 /HPF (0-6); UROBILINOGEN, URINE AUTO 0.2 mg/dL (0.0-2.0); WBC, URINE AUTO TNTC /HPF (0-3)
== END ==
LOC: M LAB REF 13:06
PROVIDERS: ATTEND Urology
DX: R30.0 Dysuria (principal)

== ENCOUNTER 2024-03-12 21:29 | Emergency (ER) | payer MEDICARE ==
[~2024-03-12] VITALS: Ht 177.8 cm; Wt 76.4 kg
[2024-03-12] MEDS: LIDOCAINE 2% 5ML JELLY UROJET TOP ONE (21:50)
[2024-03-13 01:38] LABS: KETONE, URINE AUTO RFX TRACE mg/dL (NEGATIVE); NITRITE, URINE AUTO RFX NEGATIVE (NEGATIVE); RBC, URINE AUTO RFX 20 /HPF (0-3); SQUAM EPITHELIAL CELL UR AURFX 0 /HPF (0-6)
[2024-03-13 01:39] LABS: LEUKOCYTE ESTERASE UR AUTO RFX 3+ (NEGATIVE)
[2024-03-13] MEDS ORDERED: LEVO1TAB38 PO (02:22)
[2024-03-13] MEDS: LevoFLOXacin 750 MG TABLET PO ONE (02:30)
[2024-03-13 02:34] VITALS: BP 145/75; TEMP 98; O2SAT 97
[2024-03-16] MEDS ORDERED: CEFU50TA PO (08:42)
== END 2024-03-13 02:47 | disposition home or self-care (01) ==
LOC: M ED 21:29 → EDBD 21:29 → M ED 03-13 02:47
DX: T83.091A Other mechanical complication of indwelling urethral catheter, initial encounter (principal); N39.0 Urinary tract infection, site not specified; E11.9 Type 2 diabetes mellitus without complications; I10 Essential (primary) hypertension; F41.9 Anxiety disorder, unspecified; E78.5 Hyperlipidemia, unspecified; F32.9 Major depressive disorder, single episode, unspecified; Z86.79 Personal history of other diseases of the circulatory system; Z79.01 Long term (current) use of anticoagulants; Z79.2 Long term (current) use of antibiotics; Z79.899 Other long term (current) drug therapy

== ENCOUNTER → 2024-04-13 | Outpatient (REF) | payer MEDICARE, OTHER ==
[~2024-04-13] MED LIST changes: +CEFU50TA PO; +LEVO1TAB38 PO
[2024-04-13 18:36] LABS: CREATININE,RANDOM URINE 50.6 MG/DL
[2024-04-13 18:40] LABS: TOTAL PROTEIN,RANDOM URINE 125.4 MG/DL (0.0-14.0)
== END ==
LOC: M LAB REF 16:59
PROVIDERS: ATTEND Internal Medicine Nephrology
DX: D47.2 Monoclonal gammopathy (principal)

== ENCOUNTER → 2024-05-20 | Outpatient (CLI) | payer MEDICARE, OTHER ==
[2024-05-20 15:34] LABS: BASO # 0.1 10^3/uL (0.0-0.2); BASO % 1.2 % (0.0-1.0); EOS # 0.5 10^3/uL (0.0-0.5); HEMATOCRIT 35.9 % (42.0-52.0); HEMOGLOBIN 11.6 g/dl (13.5-17.5); LYMPH # 1.2 10^3/uL (1.5-5.0); LYMPH % 18.2 % (24.0-44.0); MEAN CORPUSCULAR HEMOGLOBIN 32.1 pg (27.0-33.0); MEAN CORPUSCULAR HGB CONC 32.3 g/dl (32.0-36.5); MEAN CORPUSCULAR VOLUME 99.4 fl (80.0-96.0); MONO # 0.5 10^3/uL (0.0-0.8); NEUTROPHILS # 4.3 10^3/uL (1.5-8.5); NEUTROPHILS % 66.3 % (36.0-66.0); PLATELET COUNT, AUTOMATED 274 10^3/uL (150-450); RED BLOOD COUNT 3.61 10^6/uL (4.30-6.10); WHITE BLOOD COUNT 6.6 10^3/uL (4.0-10.0)
[2024-05-20 16:09] LABS: ALBUMIN 2.7 G/DL (3.2-5.2); ALKALINE PHOSPHATASE 126 U/L (40-129); ALT/SGPT 13 U/L (7.0-40); AST/SGOT < 8 U/L (<34); BILIRUBIN,TOTAL 0.2 MG/DL (0.3-1.2); BLOOD UREA NITROGEN 46 MG/DL (9-23); CALCIUM LEVEL 11.3 MG/DL (8.3-10.6); CARBON DIOXIDE LEVEL 30 MMOL/L (20-31); CHLORIDE LEVEL 106 MMOL/L (98-107); CHOLESTEROL LEVEL 158 MG/DL (<200); CHOLESTEROL RISK RATIO 3.77 (<5); CREATININE FOR GFR 3.39 MG/DL (0.70-1.30); GLOMERULAR FILTRATION RATE 18.6 (>35); GLUCOSE, FASTING 163 MG/DL (74-106); HDL CHOLESTEROL 41.9 MG/DL (>40); LDL CHOLESTEROL 101.5 MG/DL (<100); NON-HDL-C 116.1 MG/DL; POTASSIUM SERUM 4.5 MMOL/L (3.5-5.1); SODIUM LEVEL 145 MMOL/L (136-145); TOTAL PROTEIN 6.2 G/DL (5.7-8.2); TRIGLYCERIDES LEVEL 73 MG/DL (<150)
[2024-05-20 16:10] LABS: TOTAL 25(OH) VITAMIN D 101.3 NG/ML (20.0-100.0)
[2024-05-20 16:15] LABS: HEMOGLOBIN A1c 5.4 % (4.0-6.0)
== END ==
LOC: M PLALAB 11:36
PROVIDERS: ATTEND Family Medicine
DX: E11.9 Type 2 diabetes mellitus without complications (principal); I48.0 Paroxysmal atrial fibrillation; E55.9 Vitamin D deficiency, unspecified

== ENCOUNTER → 2024-06-16 | Outpatient (REF) | payer MEDICARE ==
[2024-06-16 12:20] LABS: APPEARANCE, URINE TURBID (CLEAR); BACTERIA, URINE AUTO NEGATIVE (NEGATIVE); BILIRUBIN, URINE AUTO NEGATIVE (NEGATIVE); BLOOD, URINE BLOOD 1+ (NEGATIVE); CALCIUM OXALATE CRYSTALS LARGE; COLOR, URINE YELLOW (YELLOW); GLUCOSE, URINE (UA) AUTO NEGATIVE (NEGATIVE); KETONE, URINE AUTO NEGATIVE (NEGATIVE); LEUKOCYTE ESTERASE, URINE AUTO 3+ (NEGATIVE); NITRITE, URINE AUTO NEGATIVE (NEGATIVE); PROTEIN, URINE AUTO 2+ mg/dL (NEGATIVE); RBC, URINE AUTO 51 /HPF (0-3); SPECIFIC GRAVITY URINE AUTO 1.011 (1.002-1.035); SQUAMOUS EPITHELIAL CELL UR AU 0 /HPF (0-6); UROBILINOGEN, URINE AUTO 0.2 mg/dL (0.0-2.0); WBC, URINE AUTO TNTC /HPF (0-3)
== END ==
LOC: M LAB REF 11:25
PROVIDERS: ATTEND Urology
DX: R39.9 Unspecified symptoms and signs involving the genitourinary system (principal)

== ENCOUNTER → 2024-07-21 | Outpatient (REF) | payer MEDICARE, OTHER ==
[~2024-07-21] MED LIST changes: -ESSE250T PO; +MAGN250T17 PO
== END ==
LOC: M LAB REF 17:56
PROVIDERS: ATTEND Internal Medicine Nephrology
DX: E83.52 Hypercalcemia (principal)

== ENCOUNTER 2024-09-08 09:03 | Emergency (ER) | payer MEDICARE ==
[~2024-09-08] VITALS: Ht 175.3 cm; Wt 109.1 kg
[2024-09-08 09:17] VITALS: TEMP 97.5
[2024-09-08 11:15] VITALS: BP 116/67; O2SAT 97
== END 2024-09-08 11:40 | disposition home or self-care (01) ==
LOC: EDBD 09:03 → M ED 09:03
DX: T83.098A Other mechanical complication of other urinary catheter, initial encounter (principal); I10 Essential (primary) hypertension; E11.9 Type 2 diabetes mellitus without complications; Z86.79 Personal history of other diseases of the circulatory system; Z87.442 Personal history of urinary calculi; Z79.1 Long term (current) use of non-steroidal anti-inflammatories (NSAID); Z79.2 Long term (current) use of antibiotics; Z79.899 Other long term (current) drug therapy

== ENCOUNTER → 2024-09-13 | Outpatient (REF) | payer MEDICARE ==
[2024-09-15 17:20] LABS: PROTEIN, TOTAL SO 6.5 g/dL (6.1-8.1)
[2024-09-17 05:56] LABS: ALBUMIN SO 3.6 g/dL (3.8-4.8); ALPHA 1 GLOBULINS SO 0.4 g/dL (0.2-0.3); ALPHA 2 GLOBULINS SO 0.9 g/dL (0.5-0.9); BETA 2 GLOBULIN SO 0.4 g/dL (0.2-0.5); BETA GLOBULIN SO 0.4 g/dL (0.4-0.6); GAMMA GLOBULINS SO 0.8 g/dL (0.8-1.7)
== END ==
LOC: M LAB REF 17:02
PROVIDERS: ATTEND Internal Medicine Nephrology
DX: E83.52 Hypercalcemia (principal)

== ENCOUNTER → 2024-10-12 | Outpatient (CLI) | payer MEDICARE, OTHER ==
[~2024-10-12] MED LIST changes: +DULC5TAB PO; +LACT20EL PO; +MELA10CA6 PO
== END ==
LOC: M PAL 14:26
PROVIDERS: ATTEND Physician Assistant
DX: Z51.5 Encounter for palliative care (principal); Z66 Do not resuscitate; N18.4 Chronic kidney disease, stage 4 (severe); Z99.2 Dependence on renal dialysis; N39.0 Urinary tract infection, site not specified; Z96.0 Presence of urogenital implants; Z99.3 Dependence on wheelchair; R54 Age-related physical debility; Z79.891 Long term (current) use of opiate analgesic; Z79.899 Other long term (current) drug therapy

== ENCOUNTER → 2024-10-15 | Outpatient (CLI) | payer MEDICARE ==
[2024-10-15 12:30] VITALS: TEMP 97.8
[2024-10-15] MEDS: ceFAZolin SODIUM 2 GM in DEXTROSE 5% (D5W) ADV/MINI-BAG 50 ML IV ONE (13:39)
[2024-10-15] MEDS: MIDAZOLAM INJ 2 MG/2 ML VIAL IV PRN (14:07)
[2024-10-15] MEDS: NS (Normal Saline) 0.9% 1,000 ML IV SCH (14:07)
[2024-10-15] MEDS: HEPARIN 1,000 UNITS/ML 10 ML VIAL (FOR RADIOLOGY & DIALYSIS ONLY) IV PRN (14:08)
[2024-10-15] MEDS: LIDOCAINE 1% MDV 20 ML VIAL SC SCH (14:08)
[2024-10-15 14:55] VITALS: BP 106/56; O2SAT 96
[2024-10-15 15:12] LABS: HEPATITIS B SURFACE ANTIBODY NEGATIVE (POSITIVE); HEPATITIS C VIRUS ABY INDEX < 0.02 INDEX (<0.8)
== END ==
LOC: M IRPRO 09:45
PROVIDERS: ATTEND Internal Medicine Nephrology
DX: N18.6 End stage renal disease (principal)
CPT/HCPCS: 36415; 36558; 86705; 86706; 86803; 87340; 99152; J0690; J2250; J3010

== ENCOUNTER → 2024-10-18 | Outpatient (REF) | payer MEDICARE ==
[2024-10-18 18:34] LABS: APPEARANCE, URINE HAZY (CLEAR); BACTERIA, URINE AUTO 1+ (NEGATIVE); BILIRUBIN, URINE AUTO NEGATIVE (NEGATIVE); BLOOD, URINE BLOOD 2+ (NEGATIVE); GLUCOSE, URINE (UA) AUTO NEGATIVE (NEGATIVE); KETONE, URINE AUTO NEGATIVE (NEGATIVE); LEUKOCYTE ESTERASE, URINE AUTO 3+ (NEGATIVE); NITRITE, URINE AUTO NEGATIVE (NEGATIVE); PROTEIN, URINE AUTO NEGATIVE (NEGATIVE); RBC, URINE AUTO 43 /HPF (0-3); SPECIFIC GRAVITY URINE AUTO 1.004 (1.002-1.035); SQUAMOUS EPITHELIAL CELL UR AU 3 /HPF (0-6); UROBILINOGEN, URINE AUTO 0.2 mg/dL (0.0-2.0); WBC, URINE AUTO 108 /HPF (0-3)
== END ==
LOC: M SMT 17:00
PROVIDERS: ATTEND Urology
DX: R33.9 Retention of urine, unspecified (principal)

== ENCOUNTER → 2024-11-04 | Outpatient (CLI) | payer MEDICARE ==
[~2024-11-04] MED LIST changes: +ZINC50TA37 PO; -ZINC50TA4 PO
== END ==
LOC: M PAL 09:48
PROVIDERS: ATTEND Physician Assistant
DX: Z51.5 Encounter for palliative care (principal); Z66 Do not resuscitate; N18.4 Chronic kidney disease, stage 4 (severe); Z99.2 Dependence on renal dialysis; Z87.440 Personal history of urinary (tract) infections; Z99.3 Dependence on wheelchair; R54 Age-related physical debility; Z79.891 Long term (current) use of opiate analgesic; Z79.899 Other long term (current) drug therapy

== ENCOUNTER → 2025-01-19 | Outpatient (CLI) | payer MEDICARE ==
[~2025-01-19] MED LIST changes: +MIDO5TA PO
[2025-01-19 18:15] LABS: ALT/SGPT 16.0 U/L (7.0-40); AST/SGOT 23.0 U/L (<34); CALCIUM LEVEL 10.0 MG/DL (8.3-10.6); CARBON DIOXIDE LEVEL 29.0 MMOL/L (20-31); CHLORIDE LEVEL 95.0 MMOL/L (98-107); CHOLESTEROL LEVEL 169.0 MG/DL (<200); CHOLESTEROL RISK RATIO 2.74 (<5); CREATININE FOR GFR 2.27 MG/DL (0.70-1.30); GLOMERULAR FILTRATION RATE 27.8 (>35); LDL CHOLESTEROL 93.6 MG/DL (<100); NON-HDL-C 107.4 MG/DL; POTASSIUM SERUM 3.9 MMOL/L (3.5-5.1); SODIUM LEVEL 137.0 MMOL/L (136-145); TRIGLYCERIDES LEVEL 69.0 MG/DL (<150); VITAMIN B12 LEVEL 1348.0 PG/ML (211-911)
[2025-01-19 18:40] LABS: ESTIMATED AVERAGE GLUCOSE 97.0 MG/DL (60-110)
== END ==
LOC: M PLALAB 16:15
PROVIDERS: ATTEND Family Medicine
DX: G31.84 Mild cognitive impairment of uncertain or unknown etiology (principal); E66.01 Morbid (severe) obesity due to excess calories; F32.A Depression, unspecified; Z79.899 Other long term (current) drug therapy; M25.512 Pain in left shoulder

== ENCOUNTER → 2025-01-27 | Outpatient (CLI) | payer MEDICARE ==
[~2025-01-27] MED LIST changes: -SULF400T14 PO; +SULF400T15 PO
== END ==
LOC: M PAL 09:50
PROVIDERS: ATTEND Physician Assistant
DX: Z51.5 Encounter for palliative care (principal); Z66 Do not resuscitate; N18.6 End stage renal disease; Z99.2 Dependence on renal dialysis; N39.0 Urinary tract infection, site not specified; Z99.3 Dependence on wheelchair; R54 Age-related physical debility; Z79.891 Long term (current) use of opiate analgesic; Z79.899 Other long term (current) drug therapy

== ENCOUNTER → 2025-02-15 | Outpatient (CLI) | payer MEDICARE | LOC: M SOG 13:02 | PROVIDERS: ATTEND Physician Assistant | DX: M79.642 Pain in left hand (principal) ==

== ENCOUNTER → 2025-03-07 | Outpatient (REF) | payer MEDICARE ==
[~2025-03-07] MED LIST changes: +CITA10TA7 PO; +CITA20TA7 PO; +MIDO10TA3 PO; +NYST1POW3 TOP
[2025-03-07 17:14] LABS: APPEARANCE, URINE CLOUDY (CLEAR); BACTERIA, URINE AUTO 1+ (NEGATIVE); BILIRUBIN, URINE AUTO NEGATIVE (NEGATIVE); BLOOD, URINE BLOOD 2+ (NEGATIVE); GLUCOSE, URINE (UA) AUTO NEGATIVE (NEGATIVE); KETONE, URINE AUTO NEGATIVE (NEGATIVE); LEUKOCYTE ESTERASE, URINE AUTO 2+ (NEGATIVE); MUCUS, URINE SMALL (NEGATIVE); NITRITE, URINE AUTO NEGATIVE (NEGATIVE); PROTEIN, URINE AUTO 3+ mg/dL (NEGATIVE); RBC, URINE AUTO TNTC /HPF (0-3); SPECIFIC GRAVITY URINE AUTO 1.010 (1.002-1.035); SQUAMOUS EPITHELIAL CELL UR AU 5 /HPF (0-6); TRANSITIONAL EPITHELIAL AUTO 1 /HPF; UROBILINOGEN, URINE AUTO 0.2 mg/dL (0.0-2.0); WBC, URINE AUTO TNTC /HPF (0-3)
== END ==
LOC: M SMT 16:37
PROVIDERS: ATTEND Physician Assistant
DX: N48.1 Balanitis (principal); R33.9 Retention of urine, unspecified